=== PATIENT | male | born 1945 | race African-American/Black ===

== ENCOUNTER 2017-02-13 16:14 | Inpatient (IN) ==
[2017-02-13 17:08] LABS: Basophils % 0.3 %; Eosinophils # 0.1 K/mcL (0.0-0.6); Hematocrit 42.1 % (37.5-50.1); Hemoglobin 13.9 g/dL (12.9-16.9); Immature Granulocytes % 0.4 % (0-4); Lymphocytes # 0.8 K/mcL (0.6-4.6); Lymphocytes % 6.8 %; Mean Corpuscular Hemoglobin 29.4 pg (28.0-33.3); Mean Platelet Volume 9.8 fL (9.4-12.4); Monocytes # 0.6 K/mcL (0.0-1.3); Monocytes % 5.6 %; Neutrophils # 9.4 K/mcL (1.6-8.9); Platelet Count 264 K/mcL (140-400); Red Blood Count 4.73 M/mcL (4.19-5.50); Red Cell Distribution Width 13.7 % (11.5-14.5); Segmented Neutrophils % 85.9 %
[2017-02-13 17:14] LABS: INR 1.2; Prothrombin Time 12.6 Seconds (9.4-12.1)
[2017-02-13 17:16] LABS: Activated Partial Thrombo Time 38.6 Seconds (26.0-36.0)
[2017-02-13 17:20] LABS: BUN/Creatinine Ratio 11 (6-26); Blood Urea Nitrogen 9 mg/dL (8-26); Calcium 9.8 mg/dL (8.6-10.8); Carbon Dioxide 29 mEq/L (19-29); Chloride 104 mEq/L (98-109); Glucose 97 mg/dL (70-99); Osmolality,Calculated 287 (280-300); Potassium 4.7 mEq/L (3.5-4.5); Sodium 139 mEq/L (136-145); eGFR For African Americans > 60 (> 60); eGFR For Non-African Americans > 60 (> 60)
[2017-02-13] MEDS ORDERED: Furosemide 40 MG/4 ML VIAL IVP ONE (17:30)
--- NOTE | 2017-02-13 17:38 | Emergency Department Note ---
START Narrative - START START: I examined this patient and my medical decision-making was reviewed with the HOSTED SERVICES ANALYST/PA/Advanced Practice Nurse/Resident Physician. I agree with the documented findings, disposition and treatment plan as described except to the extent set forth below. Patient to the emergency department complaining of difficulty breathing swelling. Diffuse rails on exam. Plan. Patient transferred from [place]. There are concerns about they saw ST elevations on his EKG. Patient does appear to have occasional ST elevations when the atrial flutter waves are buried within the QRS complexes. Do not believe the patient is having a STEMI. His troponin is negative. His rate is controlled. He does have pulmonary edema on his chest x-ray. Given Lasix and will admit. Troponin 0. Pulmonary edema on chest x-ray. Admitted to medicine. 30 minutes of critical care exclusive of separately billable procedures.
--- NOTE | 2017-02-13 17:41 | Emergency Department Note ---
Disposition Clinical Impression: CHF (congestive heart failure) Qualifiers: Congestive heart failure type: unspecified congestive heart failure type Congestive heart failure chronicity: unspecified congestive heart failure chronicity Qualified Code(s): I50.9 - Heart failure, unspecified Disposition: Admitted As Inpatient Condition: Good General Adult HPI - General Chief complaint: ED Chest Pain Stated complaint: Chest pain Time Seen by Provider: 02/13/17 16:19 Source: patient, EMS Limitations: no limitations Nursing Notes Reviewed: Yes Vital Signs Reviewed: Yes - History of Present Illness HPI Narrative: Patient presents from the [place] urgent care where he had been seen for shortness of breath and a burning sensation in his chest. Patient states that he thinks the burning sensation is related to his tidal hernia and acid reflux. Shortness of breath has been progressively worse over the last week. Increasing swelling in his knee as well as increasing orthopnea. Cough has been persistent but nonproductive. No change in sputum. No fevers. No current dyspnea. States that he feels much improved with oxygen. Pain Scale: 2 - Related Data Home Medications Medication Instructions Recorded Confirmed Albuterol Inhaler 90 mcg IH QID PRN 02/13/17 02/13/17 Albuterol Sulfate [Albuterol 2 puff IH QID PRN 02/13/17 02/13/17 Inhaler] Aspirin Enteric Coated [Aspirin EC] 81 mg PO DAILY 02/13/17 02/13/17 Atorvastatin Calcium [Lipitor] 10 mg PO DAILY 02/13/17 02/13/17 Atorvastatin [Lipitor] 10 mg PO HS 02/13/17 02/13/17 Budesonide/Formoterol 160/4.5 2 puff IH BIDR 02/13/17 02/13/17 [Symbicort 160/4.5] Budesonide/Formoterol 160/4.5 2 puff IH Q12H 02/13/17 02/13/17 [Symbicort 160/4.5] Cetirizine HCl [All Day Allergy] 10 mg PO DAILY 02/13/17 02/13/17 Cetirizine HCl [Zyrtec] 10 mg PO DAILY 02/13/17 02/13/17 Cholecalciferol (D-3) [Vitamin D] 2,000 unit PO DAILY 02/13/17 02/13/17 Diltiazem 360 mg PO DAILY 02/13/17 02/13/17 Diltiazem CD (24hr) [Cardizem CD] 180 mg PO DAILY 02/13/17 02/13/17 Duloxetine HCl [Cymbalta] 60 mg PO DAILY 02/13/17 02/13/17 Duloxetine HCl [Cymbalta] 60 mg PO DAILY 02/13/17 02/13/17 Fluticasone Propionate Nasal 50 mcg NS BID 02/13/17 02/13/17 [Flonase] Fluticasone Propionate [Flovent 50 mcg IH BID 02/13/17 02/13/17 Diskus] HYDROcodone/Acet 5/325 mg 5 mg PO BID 02/13/17 02/13/17 HYDROcodone/Acet 5/325 mg [[place] 1 tab PO BID 02/13/17 02/13/17 5-325 mg] Insulin ASPART [NovoLOG] 5 unit SQ TIDWM 02/13/17 02/13/17 Insulin ASPART [Novolog] 5 unit SQ TID 02/13/17 02/13/17 Insulin Glargine [Lantus] 58 unit SQ 02/13/17 02/13/17 Insulin Glargine [Lantus] 58 units SQ HS 02/13/17 02/13/17 Lisinopril 2.5 mg PO DAILY 02/13/17 02/13/17 Lisinopril [Zestril] 2.5 mg PO DAILY 02/13/17 02/13/17 Melatonin [Melatin] 6 mg PO 02/13/17 02/13/17 Melatonin/Pyridoxine HCl (B6) 3 mg PO HS 02/13/17 02/13/17 [Melatonin 3 mg Tablet] Metformin HCl [Glucophage] 1,000 mg PO BID 02/13/17 02/13/17 Metoprolol [Lopressor] 100 mg PO BID 02/13/17 02/13/17 Montelukast Sodium [Singulair] 10 mg PO HS 02/13/17 02/13/17 Montelukast [Singulair] 10 mg PO HS 02/13/17 02/13/17 Omeprazole [PriLOSEC] 20 mg PO BID 02/13/17 02/13/17 Omeprazole [PriLOSEC] 40 mg PO DAILY 02/13/17 02/13/17 Polyvinyl Alcohol [Artificial 1 drop BOTH EYES AD PRN 02/13/17 02/13/17 Tears] Pregabalin [Lyrica] 200 mg PO BID 02/13/17 02/13/17 Pregabalin [Lyrica] 200 mg PO BID 02/13/17 02/13/17 Rivaroxaban [Xarelto] 20 mg PO DAILY 02/13/17 02/13/17 Rivaroxaban [Xarelto] 20 mg PO DAILY 02/13/17 02/13/17 Saliva Substitute Combo No.3 3 - 5 spray MM BID 02/13/17 02/13/17 [Aquoral] Sildenafil Citrate PRN 02/13/17 Sildenafil Citrate [Viagra] 50 mg PO AD PRN 02/13/17 02/13/17 Sodium Chloride 1 drop BOTH EYES QID 02/13/17 02/13/17 Sodium Chloride [Mina-128] 1 drop BOTH EYES QID 02/13/17 02/13/17 Tamsulosin HCl [Flomax] 0.4 mg PO DAILY 02/13/17 02/13/17 Tamsulosin [Flomax] 0.4 mg PO DAILY 02/13/17 02/13/17 Trazodone HCl 150 mg PO HS PRN 02/13/17 02/13/17 Trazodone HCl 150 mg PO HS PRN 02/13/17 02/13/17 metFORMIN [Glucophage] 1,000 mg PO BIDWM 02/13/17 02/13/17 Allergies Allergy/AdvReac Type Severity Reaction Status Date / Time codeine Allergy Anaphylaxis Verified 02/13/17 16:16 Review of Systems: CONSTITUTIONAL: No weight loss, fever, chills, weakness or fatigue. HEENT: Eyes: No visual changes. Ears, Nose, Throat: No hearing loss, difficulty talking or unable to swallow. SKIN: No rash or itching. CARDIOVASCULAR: No chest pain, chest pressure or chest discomfort. No palpitations or edema. RESPIRATORY: Shortness of breath; orthopnea GASTROINTESTINAL: No anorexia, nausea, vomiting or diarrhea. No abdominal pain or blood. GENITOURINARY: No burning on urination or hematuria. NEUROLOGICAL: No headache, dizziness, syncope, paralysis, ataxia, numbness or tingling in the extremities. No change in bowel or bladder control. MUSCULOSKELETAL: No muscle pain, back pain, joint pain or stiffness. Past Medical History - Past Medical History Medical history: Reports: arthritis, asthma, atrial fibrillation, cancer, diabetes, hypertension, other Surgical history: Reports: prostatectomy Psychiatric history: Reports: no psych history - Social History Smoking Status: Former smoker Smokeless Tobacco Status: No Alcohol use: Reports: none Drug use: Reports: none Physical Exam General appearance: NAD, conversant, obese Eyes: anicteric sclerae, moist conjunctivae; PERRL HENT: Atraumatic; oropharynx clear with moist mucous membranes and no mucosal ulcerations Neck: Normal inspection; Trachea midline; FROM, supple Lungs: Rales most significant at the bases CV: Irregular rhythm Abdomen: Soft, non-tender; no rebound or gaurding Extremities: +2 pitting edema to the calf Skin: Normal temperature; no rash, ulcers or lesions Psych: Appropriate mood and affect Neuro: alert and oriented to person, place and time - General Limitations: no limitations General appearance: alert, in no apparent distress Course - Reevaluation(s) Reevaluation #1: Patient with no previous history of CHF. X-ray with pulmonary vascular congestion in the setting of worsening shortness of breath orthopnea. +2 pitting edema of the lower extremities bilaterally. EKG atrial fibrillation- rate controlled-no acute ST elevations or depressions. . Troponin negative. - Consultations Consultation #1: Discussed with hospitalistSolomon. Patient accepted for admission. Vital Signs Temperature 99 F 02/13/17 16:16 Pulse Rate 107 02/13/17 16:16 Respiratory Rate 18 02/13/17 16:16 Blood Pressure 149/93 02/13/17 16:16 O2 Sat by Pulse Oximetry 95 02/13/17 16:16 Temperature 97.9 F 02/13/17 19:30 Pulse Rate 118 02/13/17 21:05 Respiratory Rate 20 02/13/17 19:30 Blood Pressure 156/97 02/13/17 19:30 O2 Sat by Pulse Oximetry 93 02/13/17 19:30 Oxygen Delivery Oxygen Delivery Nasal Cannula Medical Decision Making - Lab Data Result diagrams: 02/13/17 17:02 02/13/17 17:02 Lab Results 02/13/17 02/13/17 02/13/17 Range/Units 17:02 17:02 17:02 WBC 11.0 (4.3-11.1) K/mcL RBC 4.73 (4.19-5.50) M/mcL Hgb 13.9 (12.9-16.9) g/dL Hct 42.1 (37.5-50.1) % MCV 89.0 (83.0-100.0) fL MCH 29.4 (28.0-33.3) pg MCHC 33.0 (31.6-35.5) g/dL RDW 13.7 (11.5-14.5) % Plt Count 264 (140-400) K/mcL MPV 9.8 (9.4-12.4) fL Immature Gran % 0.4 (0-4) % Seg Neutrophils % 85.9 % Lymphocytes % 6.8 % Monocytes % 5.6 % Eosinophils % 1.0 % Basophils % 0.3 % Neutrophils # 9.4 H (1.6-8.9) K/mcL Lymphocytes # 0.8 (0.6-4.6) K/mcL Monocytes # 0.6 (0.0-1.3) K/mcL Eosinophils # 0.1 (0.0-0.6) K/mcL Basophils # 0.0 (0.0-0.2) K/mcL PT 12.6 H (9.4-12.1) Seconds INR 1.2 APTT 38.6 H (26.0-36.0) Seconds Sodium (136-145) mEq/L Potassium (3.5-4.5) mEq/L Chloride (98-109) mEq/L Carbon Dioxide (19-29) mEq/L BUN (8-26) mg/dL Creatinine (0.72-1.25) mg/dL Est GFR ( Amer) (> 60) Est GFR (Non-Af Amer) (> 60) BUN/Creatinine Ratio (6-26) Glucose (70-99) mg/dL Calculated Osmolality (280-300) Calcium (8.6-10.8) mg/dL Troponin I (0-0.03) ng/mL B-Natriuretic Peptide 104 H (0-100) pg/mL 02/13/17 02/13/17 Range/Units 17:02 17:02 WBC (4.3-11.1) K/mcL RBC (4.19-5.50) M/mcL Hgb (12.9-16.9) g/dL Hct (37.5-50.1) % MCV (83.0-100.0) fL MCH (28.0-33.3) pg MCHC (31.6-35.5) g/dL RDW (11.5-14.5) % Plt Count (140-400) K/mcL MPV (9.4-12.4) fL Immature Gran % (0-4) % Seg Neutrophils % % Lymphocytes % % Monocytes % % Eosinophils % % Basophils % % Neutrophils # (1.6-8.9) K/mcL Lymphocytes # (0.6-4.6) K/mcL Monocytes # (0.0-1.3) K/mcL Eosinophils # (0.0-0.6) K/mcL Basophils # (0.0-0.2) K/mcL PT (9.4-12.1) Seconds INR APTT (26.0-36.0) Seconds Sodium 139 (136-145) mEq/L Potassium 4.7 H (3.5-4.5) mEq/L Chloride 104 (98-109) mEq/L Carbon Dioxide 29 (19-29) mEq/L BUN 9 (8-26) mg/dL Creatinine 0.84 (0.72-1.25) mg/dL Est GFR ( Amer) > 60 (> 60) Est GFR (Non-Af Amer) > 60 (> 60) BUN/Creatinine Ratio 11 (6-26) Glucose 97 (70-99) mg/dL Calculated Osmolality 287 (280-300) Calcium 9.8 (8.6-10.8) mg/dL Troponin I 0.00 (0-0.03) ng/mL B-Natriuretic Peptide (0-100) pg/mL
[2017-02-13] MEDS ORDERED: Naloxone 0.4 MG/ML INJ IVP PRN (20:03)
--- NOTE | 2017-02-13 22:22 | Internal Med History&Physical ---
Date of Encounter: 02/13/17 Time of Encounter: 22:21 Assessment and Plan (1) CHF (congestive heart failure) Current visit: Yes Status: Acute Patient with increasing shortness of breath, and lower extremity swelling. BNP mildly elevated to 104. CXR with pulmonary congestion. Patient not on diuretic at home and denies any history of CHF. Lasix 40mg IVP BID continuous wrapper sheeter daily weights strict I/Os cardiac diet with 1.5L fluid restriction. echocardiogram. Qualifiers: Congestive heart failure type: unspecified congestive heart failure type Congestive heart failure chronicity: acute Qualified Code(s): I50.9 - Heart failure, unspecified (2) Atrial fibrillation with RVR Current visit: Yes Status: Acute Patient with history of afib, on metoprolol and cardizem for rate control and xarelto for anticoagulation. EKG shows Afib with RVR, HR 102. Patient has been running 110s-120s since arrival to the floor. 10mg of cardizem given IVP, without improvement. Digoxin 2.5mg IVP ordered. Continuous wrapper sheeter. consider cardizem drip if digoxin does not improve heart rate. (3) Type 2 diabetes mellitus Current visit: Yes Status: Acute diabetic diet. Check blood sugars ACHS Basal dose of insulin Levemir 40u HS Sliding scale correction dose ACHS hypoglycemic protocol. Qualifiers: Diabetes mellitus complication status: with unspecified complications Diabetes mellitus intermodal truck driver insulin use: with intermodal truck driver use Qualified Code(s) : E11.8 - Type 2 diabetes mellitus with unspecified complications; Z79.4 - snf (current) use of insulin (4) Sleep apnea Current visit: Yes Status: Acute Respiratory therapy consulted for CPAP. Qualifiers: Sleep apnea type: unspecified type Qualified Code(s): G47.30 - Sleep apnea , unspecified (5) DVT prophylaxis Current visit: Yes Status: Acute anti-embolic stockings Patient on xarelto, additional pharmacologic prophylaxis not warranted. Internal Medicine - H&P: HPI Chief complaint: shortness of breath Admitted From: Emergency Dept Plans for Post Hospital Care: Home History of present illness: Mr. Molina is a 71 year old male with asthma, atrial fibrillation, hypertension, diabetes, sleep apnea, who presents to the emergency department today from the [place] urgent care with complaints of increased shortness of breath or lower extremity swelling. Patient reports that this is been worsening over the last several days. He also reports a nonproductive cough. Evaluation in the emergency department included EKG which showed atrial fibrillation heart rate of 102, chest x-ray showed pulmonary vascular congestion. Troponin was negative at 0.00, BNP was mildly elevated at 104. Patient was given 40 mg of IV push Lasix. On exam, patient alert and oriented, in no acute distress, conversational, without dyspnea. Heart with irregular tachycardic rhythm. Lungs with fine crackles in the bases. Bilateral lower extremity +2 pitting edema. Past Med Surg Social Fam HX - Past Medical History Medical history: arthritis, asthma, atrial fibrillation, cancer, diabetes, hypertension, other Psychiatric history: no psych history - Past Surgical History Surgical History: orthopedic, other (multiple back surgeries), prostatectomy - Social History Smoking Status: Former smoker (38 pack year history) Smokeless Tobacco Status: No Alcohol use: none Drug use: none - Family History Mother Living Status: Age at : 88 Hx Family Cardiac Disorders: Yes (CHF) Father Living Status: Age at : 62 Hx Family Cardiac Disorders: Yes Internal Medicine - H&P: Meds Albuterol Inhaler 90 mcg IH QID PRN 02/13/17 [History] Albuterol Sulfate [Albuterol Inhaler] 2 puff IH QID PRN 02/13/17 [History] Aspirin Enteric Coated [Aspirin EC] 81 mg PO DAILY 02/13/17 [History] Atorvastatin Calcium [Lipitor] 10 mg PO DAILY 02/13/17 [History] Atorvastatin [Lipitor] 10 mg PO HS 02/13/17 [History] Budesonide/Formoterol 160/4.5 [Symbicort 160/4.5] 2 puff IH BIDR 02/13/17 [ History] Budesonide/Formoterol 160/4.5 [Symbicort 160/4.5] 2 puff IH Q12H 02/13/17 [ History] Cetirizine HCl [All Day Allergy] 10 mg PO DAILY 02/13/17 [History] Cetirizine HCl [Zyrtec] 10 mg PO DAILY 02/13/17 [History] Cholecalciferol (D-3) [Vitamin D] 2,000 unit PO DAILY 02/13/17 [History] Diltiazem 360 mg PO DAILY 02/13/17 [History] Diltiazem CD (24hr) [Cardizem CD] 180 mg PO DAILY 02/13/17 [History] Duloxetine HCl [Cymbalta] 60 mg PO DAILY 02/13/17 [History] Duloxetine HCl [Cymbalta] 60 mg PO DAILY 02/13/17 [History] Fluticasone Propionate Nasal [Flonase] 50 mcg NS BID 02/13/17 [History] Fluticasone Propionate [Flovent Diskus] 50 mcg IH BID 02/13/17 [History] HYDROcodone/Acet 5/325 mg 5 mg PO BID 02/13/17 [History] HYDROcodone/Acet 5/325 mg [[place] 5-325 mg] 1 tab PO BID 02/13/17 [History] Insulin ASPART [NovoLOG] 5 unit SQ TIDWM 02/13/17 [History] Insulin ASPART [Novolog] 5 unit SQ TID 02/13/17 [History] Insulin Glargine [Lantus] 58 unit SQ HS 02/13/17 [History] Insulin Glargine [Lantus] 58 units SQ HS 02/13/17 [History] Lisinopril 2.5 mg PO DAILY 02/13/17 [History] Lisinopril [Zestril] 2.5 mg PO DAILY 02/13/17 [History] Melatonin [Melatin] 6 mg PO HS 02/13/17 [History] Melatonin/Pyridoxine HCl (B6) [Melatonin 3 mg Tablet] 3 mg PO HS 02/13/17 [ History] Metformin HCl [Glucophage] 1,000 mg PO BID 02/13/17 [History] Metoprolol [Lopressor] 100 mg PO BID 02/13/17 [History] Montelukast Sodium [Singulair] 10 mg PO HS 02/13/17 [History] Montelukast [Singulair] 10 mg PO HS 02/13/17 [History] Omeprazole [PriLOSEC] 20 mg PO BID 02/13/17 [History] Omeprazole [PriLOSEC] 40 mg PO DAILY 02/13/17 [History] Polyvinyl Alcohol [Artificial Tears] 1 drop BOTH EYES AD PRN 02/13/17 [History] Pregabalin [Lyrica] 200 mg PO BID 02/13/17 [History] Pregabalin [Lyrica] 200 mg PO BID 02/13/17 [History] Rivaroxaban [Xarelto] 20 mg PO DAILY 02/13/17 [History] Rivaroxaban [Xarelto] 20 mg PO DAILY 02/13/17 [History] Saliva Substitute Combo No.3 [Aquoral] 3 - 5 spray MM BID 02/13/17 [History] Sildenafil Citrate PRN 02/13/17 [History] Sildenafil Citrate [Viagra] 50 mg PO AD PRN 02/13/17 [History] Sodium Chloride 1 drop BOTH EYES QID 02/13/17 [History] Sodium Chloride [Mina-128] 1 drop BOTH EYES QID 02/13/17 [History] Tamsulosin HCl [Flomax] 0.4 mg PO DAILY 02/13/17 [History] Tamsulosin [Flomax] 0.4 mg PO DAILY 02/13/17 [History] Trazodone HCl 150 mg PO HS PRN 02/13/17 [History] Trazodone HCl 150 mg PO HS PRN 02/13/17 [History] metFORMIN [Glucophage] 1,000 mg PO BIDWM 02/13/17 [History] Allergies codeine Allergy (Verified 02/13/17 16:16) Anaphylaxis All Systems PM: A 10-system review of systems was performed and is negative for pertinent findings except as documented above in the HPI. - Constitutional Constitutional: no chills, no fever(s), no night sweats - EENT Eyes: no change in vision, no discharge, no pain, no photophobia Ears: no ear discharge, no ear pain, no tinnitus Nose, mouth and throat: no dysphagia, no nasal discharge, no neck pain, no sore throat - Cardiovascular Cardiovascular ROS IM: dyspnea, dyspnea on exertion, edema, no chest pain, no diaphoresis, no lightheadedness, no palpitations, no syncope - Respiratory Respiratory: cough, dyspnea, dyspnea on exertion, no wheezing, no excessive phlegm production - Gastrointestinal Gastrointestinal: no abdominal pain, no diarrhea, no hematemesis, no hematochezia, no melena, no nausea, no vomiting - Musculoskeletal Musculoskeletal ROS IM: no numbness, no tingling - Integumentary Integumentary IM: no rash, no unusual bruising - Neurological Neurological ROS: no confusion, no convulsions, no focal weakness, no numbness, no tingling, no tremor(s) - Hematologic/Lymphatic Hematologic/Lymphatic: no easy bruising - Constitutional Vitals: Temp Pulse Resp BP Pulse Ox 97.9 F 118 20 156/97 93 02/13/17 19:30 02/13/17 21:05 02/13/17 19:30 02/13/17 19:30 02/13/17 19:30 General appearance: Present: A&O X 3, pleasant, no acute distress - Head Head exam: Present: atraumatic, normocephalic - Eye Eye exam: Present: PERRL, conjuntiva pink, sclera anicteric Pupils: Present: PERRL - Neck Neck exam general surgery: Present: supple, trachea midline. Absent: lymphadenopathy - Respiratory Respiratory exam: Present: rales (fine crackles in bases). Absent: accessory muscle use, rhonchi, wheezes - Cardiovascular Cardiovascular exam: Present: irregular rhythm, +S1, +S2, tachycardia. Absent: diastolic murmur, gallop, rubs, systolic murmur - GI/Abdominal GI/Abdominal exam: Present: normal bowel sounds, soft, no peritoneal signs. Absent: distended, tenderness - Extremities Exam Extremities exam: Present: pedal edema (BLE +2), warm, radial pulses palpable and symetrical. Absent: calf tenderness, cyanotic - Neurological Exam Neurological exam: Present: CN II-XII intact, oriented X3, no focal deficits. Absent: facial droop, speech deficit - Skin Skin exam: Present: dry, intact Internal Med - H&P Results - Labs CBC & Chem 7: 02/13/17 17:02 02/13/17 17:02 Labs: All Lab Results (24 Hours) 02/13/17 02/13/17 02/13/17 Range/Units 17:02 17:02 17:02 WBC 11.0 (4.3-11.1) K/mcL RBC 4.73 (4.19-5.50) M/mcL Hgb 13.9 (12.9-16.9) g/dL Hct 42.1 (37.5-50.1) % MCV 89.0 (83.0-100.0) fL MCH 29.4 (28.0-33.3) pg MCHC 33.0 (31.6-35.5) g/dL RDW 13.7 (11.5-14.5) % Plt Count 264 (140-400) K/mcL MPV 9.8 (9.4-12.4) fL Immature Gran % 0.4 (0-4) % Seg Neutrophils % 85.9 % Lymphocytes % 6.8 % Monocytes % 5.6 % Eosinophils % 1.0 % Basophils % 0.3 % Neutrophils # 9.4 H (1.6-8.9) K/mcL Lymphocytes # 0.8 (0.6-4.6) K/mcL Monocytes # 0.6 (0.0-1.3) K/mcL Eosinophils # 0.1 (0.0-0.6) K/mcL Basophils # 0.0 (0.0-0.2) K/mcL PT 12.6 H (9.4-12.1) Seconds INR 1.2 APTT 38.6 H (26.0-36.0) Seconds Sodium (136-145) mEq/L Potassium (3.5-4.5) mEq/L Chloride (98-109) mEq/L Carbon Dioxide (19-29) mEq/L BUN (8-26) mg/dL Creatinine (0.72-1.25) mg/dL Est GFR ( Amer) (> 60) Est GFR (Non-Af Amer) (> 60) BUN/Creatinine Ratio (6-26) Glucose (70-99) mg/dL POC Glucose (58-89) Calculated Osmolality (280-300) Calcium (8.6-10.8) mg/dL Troponin I (0-0.03) ng/mL B-Natriuretic Peptide 104 H (0-100) pg/mL 02/13/17 02/13/17 02/13/17 Range/Units 17:02 17:02 19:12 WBC (4.3-11.1) K/mcL RBC (4.19-5.50) M/mcL Hgb (12.9-16.9) g/dL Hct (37.5-50.1) % MCV (83.0-100.0) fL MCH (28.0-33.3) pg MCHC (31.6-35.5) g/dL RDW (11.5-14.5) % Plt Count (140-400) K/mcL MPV (9.4-12.4) fL Immature Gran % (0-4) % Seg Neutrophils % % Lymphocytes % % Monocytes % % Eosinophils % % Basophils % % Neutrophils # (1.6-8.9) K/mcL Lymphocytes # (0.6-4.6) K/mcL Monocytes # (0.0-1.3) K/mcL Eosinophils # (0.0-0.6) K/mcL Basophils # (0.0-0.2) K/mcL PT (9.4-12.1) Seconds INR APTT (26.0-36.0) Seconds Sodium 139 (136-145) mEq/L Potassium 4.7 H (3.5-4.5) mEq/L Chloride 104 (98-109) mEq/L Carbon Dioxide 29 (19-29) mEq/L BUN 9 (8-26) mg/dL Creatinine 0.84 (0.72-1.25) mg/dL Est GFR ( Amer) > 60 (> 60) Est GFR (Non-Af Amer) > 60 (> 60) BUN/Creatinine Ratio 11 (6-26) Glucose 97 (70-99) mg/dL POC Glucose 100 H (58-89) Calculated Osmolality 287 (280-300) Calcium 9.8 (8.6-10.8) mg/dL Troponin I 0.00 (0-0.03) ng/mL B-Natriuretic Peptide (0-100) pg/mL - Diagnostic Studies Chest x-ray Additional comments: Chest X-Ray 02/13/17 16:19 IMPRESSION: Findings suggest bilateral pulmonary edema. D/ / Alvaro Erickson MD / Alvaro Erickson MD Interpreting Provider: Alvaro Erickson MD
[2017-02-13] MEDS ORDERED: D5% in Water 1,000 ML IVC PRN (22:27)
[2017-02-13] MEDS ORDERED: Dextrose Gel 15 GM PO PRN ×2 (22:27)
[2017-02-13] MEDS ORDERED: *HR* Dextrose 50 % in Water (Syg) 50 ML SYRINGE IVP PRN (22:27)
[2017-02-13] MEDS ORDERED: *HR* Digoxin 0.5 MG/2 ML AMPUL IVP STA (22:31)
[2017-02-13] MEDS: Metoprolol 100 MG TABLET PO SCH (22:34)
[2017-02-13] MEDS: Insulin DETEMIR 100 UNIT/ML X5UNITS SQ SCH (23:37)
--- NOTE | 2017-02-14 01:30 | Event Note ---
Date of Encounter: 02/14/17 Time of Encounter: 01:27 Patient seen and examined with nurse practitioner. Acute congestive heart failure exacerbation and atrial fib/flutter with RVR. Patient is not on oxygen at home. We will start Lasix 40 mg IV twice daily. Echocardiogram will be checked. He is on Cardizem 360 mg as well as metoprolol hundred milligrams for rate control. We have given him Cardizem 10 mg IV as well as a dose of digoxin 0.25 mg IV. rate now in the 100s. He also is on xarelto for anticoagulation. Serial cardiac markers. Strict intake and output. This currently requiring 3 L of oxygen. Full code
[2017-02-14] MEDS: Budesonide/Formoterol 160/4.5 MDI IH SCH ×3 (03:01→19:39)
[2017-02-14] MEDS: Acetaminophen 325 MG TABLET PO PRN (04:16)
[2017-02-14 05:17] LABS: Basophils % 0.1 %; Hematocrit 44.3 % (37.5-50.1); Hemoglobin 14.8 g/dL (12.9-16.9); Immature Granulocytes % 0.9 % (0-4); Lymphocytes # 0.7 K/mcL (0.6-4.6); Lymphocytes % 6.2 %; Mean Corpuscular HGB Conc 33.4 g/dL (31.6-35.5); Mean Corpuscular Volume 86.9 fL (83.0-100.0); Mean Platelet Volume 10.2 fL (9.4-12.4); Monocytes # 0.2 K/mcL (0.0-1.3); Monocytes % 1.4 %; Neutrophils # 10.6 K/mcL (1.6-8.9); Platelet Count 271 K/mcL (140-400); Red Cell Distribution Width 13.6 % (11.5-14.5); Segmented Neutrophils % 91.4 %
[2017-02-14 05:41] LABS: BUN/Creatinine Ratio 14 (6-26); Blood Urea Nitrogen 12 mg/dL (8-26); Calcium 10.2 mg/dL (8.6-10.8); Carbon Dioxide 28 mEq/L (19-29); Chloride 100 mEq/L (98-109); Glucose 219 mg/dL (70-99); Osmolality,Calculated 292 (280-300); Potassium 4.2 mEq/L (3.5-4.5); Sodium 138 mEq/L (136-145); eGFR For African Americans > 60 (> 60); eGFR For Non-African Americans > 60 (> 60)
[2017-02-14 05:43] LABS: Chol/HDL Ratio 2.1 (0-4.9)
[2017-02-14] MEDS ORDERED: *HR* Enoxaparin 40 MG/0.4 ML SYRINGE SQ SCH (06:00)
[2017-02-14] MEDS: Diltiazem CD (24hr) 180 MG CAPSULE PO SCH (08:33)
[2017-02-14] MEDS: *HR* Rivaroxaban 10 MG TABLET PO SCH (08:33)
[2017-02-14] MEDS: Metoprolol 100 MG TABLET PO SCH ×2 (08:33→23:01)
[2017-02-14] MEDS: Aspirin Enteric Coated 81 MG Tablet PO SCH (08:33)
[2017-02-14] MEDS: Pregabalin 50 MG CAPSULE PO SCH ×2 (08:34→23:00)
[2017-02-14] MEDS: Insulin LISPRO 300 UNITS/3 ML VIAL SQ SCH ×4 (08:34→23:04)
[2017-02-14] MEDS: Loratadine 10 MG TABLET PO SCH (08:34)
[2017-02-14] MEDS: Furosemide 40 MG/4 ML VIAL IVP SCH ×2 (08:34→21:45)
[2017-02-14] MEDS ORDERED: *HR* Metoprolol 5 MG/5 ML VIAL IVP ONE (08:58)
--- NOTE | 2017-02-14 10:15 | Internal Med Progress Note ---
Date of Encounter: 02/14/17 Time of Encounter: 09:35 - Assessment and plan (1) Acute respiratory failure with hypoxia Current Visit: Yes Status: Acute Assessment and plan: Patient not on home oxygen, requiring at least 4 L of oxygen Oxygen supplements Hypoxia is likely due to CHF exacerbation. Patient is full code and is at risk for mechanical intubation. (2) CHF (congestive heart failure) Current Visit: Yes Status: Acute Assessment and plan: Chest x-ray with pulmonary vascular congestion, elevated BNP, patient was shortness of breath, Follow echocardiogram Continue Lasix Continue daily weights Continue strict intake and output measurements 1.5 L fluid restriction diet Qualifiers: Congestive heart failure type: unspecified congestive heart failure type Congestive heart failure chronicity: acute Qualified Code(s): I50.9 - Heart failure, unspecified (3) Atrial fibrillation with RVR Current Visit: Yes Status: Acute Assessment and plan: Increase metoprolol, give IV pushes for heart rates greater than 110. Continue anticoagulation expiratory. Follow echocardiogram Follow troponin cycles. (4) Type 2 diabetes mellitus Current Visit: Yes Status: Chronic Assessment and plan: FS acceptable Continue monitoring FS ACHS COntinue insulin regimen Qualifiers: Diabetes mellitus complication status: with unspecified complications Diabetes mellitus keno terminal operator insulin use: with keno terminal operator use Qualified Code(s) : E11.8 - Type 2 diabetes mellitus with unspecified complications; Z79.4 - [facility] (current) use of insulin (5) Sleep apnea Current Visit: Yes Status: Chronic Assessment and plan: ensure CPAP at night. Qualifiers: Sleep apnea type: unspecified type Qualified Code(s): G47.30 - Sleep apnea , unspecified (6) DVT prophylaxis Current Visit: Yes Status: Acute Assessment and plan: On Xarelto for anticoagulation SCDs (7) Morbid obesity with BMI of 40.0-44.9, adult Current Visit: Yes Status: Acute - Subjective Interval history: Seen and evaluated at bedside 71 M with PMH of CHF (unknown if reduced or preserved EF), Aflutter on anticoagulation, Obesity, DM, FARAZ Patient is admitted and being managed for Acute hypoxic respiratory failure, CHFE, Aflutter with RVR Patient denies having seen a lock tender since his diagnosis At time of review, his HR ranged from 120-130 while sitting up in bed He denies chest pain or dizziness, but has dyspnea he has received IV cardizem push by ER, and one dose of Digoxin, as well as an additional dose of lopressor IV and PO His BP is acceptable Lab and Imaging reviewed, ECHO is pending Comments for transfer to or [address] [place] [address] Cardiology has been consulted. - Constitutional Vitals: Temp Pulse Resp BP Pulse Ox 97.5 F L 72 17 145/93 95 02/14/17 07:11 02/14/17 07:11 02/14/17 07:11 02/14/17 07:11 02/14/17 09:16 General appearance: Present: A&O X 3, morbidly obese, pleasant, no acute distress - Head Head exam: Present: atraumatic, normocephalic - Eye Eye exam: Present: PERRL, conjuntiva pink, sclera anicteric Pupils: Present: PERRL - ENT ENT exam: Present: mucous membranes moist - Neck Neck exam general surgery: Present: normal inspection - Respiratory Additional comments: Few bibasilar rales, no wheezing - Cardiovascular Cardiovascular exam: Present: irregular rhythm, +S1, +S2, systolic murmur, tachycardia. Absent: diastolic murmur, gallop, rubs - GI/Abdominal GI/Abdominal exam: Present: normal bowel sounds, soft, no peritoneal signs. Absent: distended, tenderness - Extremities Exam Extremities exam: Present: pedal edema (trace ankle edema bilaterally), warm, radial pulses palpable and symetrical. Absent: calf tenderness, cyanotic - Neurological Exam Neurological exam: Present: alert, CN II-XII intact, oriented X3, no focal deficits. Absent: pronater drift, facial droop, speech deficit - Skin Skin exam: Present: dry Internal Medicine: Result - Labs CBC & Chem 7: 02/14/17 05:03 02/14/17 05:03 Labs: Short CBC 02/14/17 Range/Units 05:03 WBC 11.5 H (4.3-11.1) K/mcL Hgb 14.8 (12.9-16.9) g/dL Hct 44.3 (37.5-50.1) % Plt Count 271 (140-400) K/mcL Neutrophils # 10.6 H (1.6-8.9) K/mcL BMP 02/14/17 05:03 Sodium 138 Potassium 4.2 Chloride 100 Carbon Dioxide 28 BUN 12 Creatinine 0.86 Glucose 219 H Calcium 10.2 Cardiac Enzymes 02/14/17 Range/Units 05:03 Troponin I 0.01 (0-0.03) ng/mL - ABG Interpretation ABG results: PT/INR, D-dimer PT 12.6 Seconds (9.4-12.1) H 02/13/17 17:02 Consult Discharge Plan - Plan [facility]: [facility] [Primary Care Provider] -
[2017-02-14] MEDS ORDERED: Perflutren Lipid Microsphere 1.3 ML in 0.9 % Sodium Chloride 8.7 ML IVP ONE (13:23)
[2017-02-14] MEDS ORDERED: Perflutren Lipid Microsphere 2 ML VIAL ONE (13:25)
--- NOTE | 2017-02-14 14:46 | Electrocardiograph Report ---
[address] [address] Test Date: 2017-02-13 Pat Name: Stephan Molina Department: 105 Room: 2NE34 Gender: M Parking Enforcement Specialist: CARMENCITA : 1945 Requested By: Arnoldo Burton Order Number: [id number] Reading MD: Brijesh Rios MD Measurements Intervals [place] Rate: 102 P: [place]: 0 QRS: 7 QRSD: 84 T: 31 QT: 316 QTc: 375 Interpretive Statements ATRIAL FLUTTER/TACHYCARDIA WITH RAPID VENTRICULAR RESPONSE Electronically Signed On 02-14-2017 14:44:36 EDT by Brijesh Rios MD
--- NOTE | 2017-02-14 15:08 | Electrocardiograph Report ---
[place] [address] Test Date: 2017-02-14 Pat Name: Stephan Molina Department: 113 Room: 2NE34 Gender: M Biotechnologist: : 1945 Requested By: Gayle Rodriguez Order Number: [id number] Reading MD: Brijesh Rios MD Measurements Intervals [place] Rate: 112 P: [place]: 0 QRS: 29 QRSD: 97 T: 69 QT: 297 QTc: 363 Interpretive Statements ATRIAL FLUTTER/TACHYCARDIA WITH RAPID VENTRICULAR RESPONSE Electronically Signed On 02-14-2017 15:07:05 EDT by Brijesh Rios MD
[2017-02-14 21:54] LABS: ABG Base Excess 9.4 mEq/L (-2.0 to 3.0); ABG HCO3 35.8 mEQ/L (21-27); ABG Oxygen Saturation 94 % (95-98); ABG PCO2 54 mmHg (35-45); ABG PH 7.43 pH Units (7.32-7.45); ABG PO2 69 mmHg (85-104); ABG TCO2 37.5 mEq/L (20-26); Blood Gas FiO2 32 %
[2017-02-14] MEDS: Melatonin 3 MG TABLET PO SCH (23:07)
[2017-02-15] MEDS: Insulin DETEMIR 100 UNIT/ML X5UNITS SQ SCH ×2 (00:24→22:15)
[2017-02-15 08:14] LABS: Basophils % 0.2 %; Eosinophils % 0.1 %; Hematocrit 42.6 % (37.5-50.1); Hemoglobin 14.5 g/dL (12.9-16.9); Immature Granulocytes % 0.5 % (0-4); Lymphocytes # 1.4 K/mcL (0.6-4.6); Lymphocytes % 9.3 %; Mean Corpuscular Hemoglobin 29.9 pg (28.0-33.3); Mean Corpuscular Volume 87.8 fL (83.0-100.0); Mean Platelet Volume 10.9 fL (9.4-12.4); Monocytes # 1.4 K/mcL (0.0-1.3); Monocytes % 9.6 %; Neutrophils # 11.7 K/mcL (1.6-8.9); Platelet Count 303 K/mcL (140-400); Red Blood Count 4.85 M/mcL (4.19-5.50); Red Cell Distribution Width 14.1 % (11.5-14.5); Segmented Neutrophils % 80.3 %
[2017-02-15 08:15] LABS: BUN/Creatinine Ratio 18 (6-26); Blood Urea Nitrogen 19 mg/dL (8-26); Calcium 9.9 mg/dL (8.6-10.8); Carbon Dioxide 32 mEq/L (19-29); Chloride 99 mEq/L (98-109); Glucose 171 mg/dL (70-99); Osmolality,Calculated 294 (280-300); Sodium 139 mEq/L (136-145); eGFR For African Americans > 60 (> 60); eGFR For Non-African Americans > 60 (> 60)
[2017-02-15] MEDS: Metoprolol 100 MG TABLET PO SCH ×2 (10:43→22:15)
[2017-02-15] MEDS: *HR* Rivaroxaban 10 MG TABLET PO SCH (10:43)
[2017-02-15] MEDS: Diltiazem CD (24hr) 180 MG CAPSULE PO SCH (10:44)
[2017-02-15] MEDS: Loratadine 10 MG TABLET PO SCH (10:45)
[2017-02-15] MEDS: Pregabalin 50 MG CAPSULE PO SCH ×2 (10:54→22:14)
[2017-02-15] MEDS: Aspirin Enteric Coated 81 MG Tablet PO SCH (10:54)
[2017-02-15] MEDS: Furosemide 40 MG/4 ML VIAL IVP SCH (10:55)
[2017-02-15] MEDS: Insulin LISPRO 300 UNITS/3 ML VIAL SQ SCH ×5 (11:19→22:13)
[2017-02-15] MEDS: Budesonide/Formoterol 160/4.5 MDI IH SCH ×2 (11:26→20:09)
--- NOTE | 2017-02-15 12:30 | Internal Med Progress Note ---
Date of Encounter: 02/15/17 Time of Encounter: 12:30 - Assessment and plan (1) Acute respiratory failure with hypoxia Current Visit: Yes Status: Acute Assessment and plan: Patient not on home oxygen, requiring at least 4 L of oxygen Oxygen supplements Hypoxia is likely due to CHF exacerbation. Patient is full code and is at risk for mechanical intubation. (2) CHF (congestive heart failure) Current Visit: Yes Status: Acute Assessment and plan: Chest x-ray with pulmonary vascular congestion, elevated BNP, patient was shortness of breath, Follow echocardiogram Continue Lasix Continue daily weights Continue strict intake and output measurements I/O -5L, weight loss by 6kg 1.5 L fluid restriction diet Qualifiers: Congestive heart failure type: unspecified congestive heart failure type Congestive heart failure chronicity: acute Qualified Code(s): I50.9 - Heart failure, unspecified (3) Atrial fibrillation with RVR Current Visit: Yes Status: Acute Assessment and plan: Uncontrolled HR on maximum doses of metoprolol and cardizem Awaiting cardiology review Continue Xarelto Follow echocardiogram Troponin negative X3 (4) Type 2 diabetes mellitus Current Visit: Yes Status: Chronic Assessment and plan: FS uncontrolled Continue monitoring FS ACHS Add prandial insulin to basal and supplemental scale Qualifiers: Diabetes mellitus complication status: with unspecified complications Diabetes mellitus chcf insulin use: with laborer marine terminal use Qualified Code(s) : E11.8 - Type 2 diabetes mellitus with unspecified complications; Z79.4 - nursing home (current) use of insulin (5) Sleep apnea Current Visit: Yes Status: Chronic Assessment and plan: ensure CPAP at night. Qualifiers: Sleep apnea type: unspecified type Qualified Code(s): G47.30 - Sleep apnea , unspecified (6) DVT prophylaxis Current Visit: Yes Status: Acute Assessment and plan: On Xarelto for anticoagulation SCDs (7) Morbid obesity with BMI of 40.0-44.9, adult Current Visit: Yes Status: Chronic - Subjective Interval history: Seen and evaluated at bedside 71 M with PMH of CHF (unknown if reduced or preserved EF), Aflutter on anticoagulation, Obesity, DM, FARAZ Patient is admitted and being managed for Acute hypoxic respiratory failure, CHFE, Aflutter with RVR Patient denies having seen a bobcat operator since his diagnosis His HR continues to range from 110-120 at rest His ECHO has been done, pending report He had an episode of confusion last night, patient denies any recollection of this, head CT was negative Patient lives alone, son was at bedside at time of review and they deny history of dementia I/_ -5L Weight has decreased by 6kg Kidney function remains stable He has no new complains - Constitutional Vitals: Temp Pulse Resp BP Pulse Ox 97.5 F L 112 16 118/90 95 02/15/17 12:00 02/15/17 12:00 02/15/17 12:00 02/15/17 12:00 02/15/17 12:00 General appearance: Present: A&O X 3, morbidly obese, pleasant, no acute distress - Head Head exam: Present: atraumatic, normocephalic - Eye Eye exam: Present: PERRL, conjuntiva pink, sclera anicteric Pupils: Present: PERRL - Neck Neck exam general surgery: Present: supple, trachea midline. Absent: lymphadenopathy - Respiratory Respiratory exam: Present: CTAB. Absent: accessory muscle use, rales, rhonchi, wheezes - Cardiovascular Cardiovascular exam: Present: irregular rhythm, +S1, +S2, tachycardia. Absent: diastolic murmur, gallop, rubs, systolic murmur - GI/Abdominal GI/Abdominal exam: Present: normal bowel sounds, soft, no peritoneal signs. Absent: distended, tenderness - Extremities Exam Extremities exam: Present: pedal edema, warm, radial pulses palpable and symetrical. Absent: calf tenderness, cyanotic - Neurological Exam Neurological exam: Present: alert, CN II-XII intact, oriented X3, no focal deficits. Absent: pronater drift, facial droop, speech deficit - Skin Skin exam: Present: dry, intact Internal Medicine: Result - Labs CBC & Chem 7: 02/15/17 06:13 02/15/17 06:13 Labs: Short CBC 02/15/17 Range/Units 06:13 WBC 14.5 H (4.3-11.1) K/mcL Hgb 14.5 (12.9-16.9) g/dL Hct 42.6 (37.5-50.1) % Plt Count 303 (140-400) K/mcL Neutrophils # 11.7 H (1.6-8.9) K/mcL BMP 02/15/17 06:13 Sodium 139 Potassium 4.0 Chloride 99 Carbon Dioxide 32 H BUN 19 Creatinine 1.07 Glucose 171 H Calcium 9.9 - ABG Interpretation ABG results: ABG ABG pH 7.43 pH Units (7.32-7.45) 02/14/17 21:43 ABG pCO2 54 mmHg (35-45) H 02/14/17 21:43 ABG pO2 69 mmHg (85-104) L 02/14/17 21:43 ABG O2 Saturation 94 % (95-98) L 02/14/17 21:43 PT/INR, D-dimer PT 12.6 Seconds (9.4-12.1) H 02/13/17 17:02 - Impressions Impressions Head CT 02/14/17 21:44 IMPRESSION: No acute intracranial abnormality. If acute cerebral infarct remains a clinical concern, an MRI is a more sensitive study. D/ / Shahana Zafar Cha, MD / Shahana Zafar Cha, MD Interpreting Provider: Shahana Zafar Cha, MD - VTE Documentation of Mechanical Device: Graduated compression elastic hosiery Consult Discharge Plan - Plan [facility]errals: [facility] [Primary Care Provider] -
[2017-02-15] MEDS: Sennosides/Docusate Sodium TABLET PO SCH ×2 (12:45→22:15)
[2017-02-15] MEDS ORDERED: *HR* Metoprolol 5 MG/5 ML VIAL IVP ONE (13:06)
--- NOTE | 2017-02-15 13:51 | Cardiology Consult Note ---
Date of Encounter: 02/15/17 Time of Encounter: 13:00 Assessment and Plan (1) CHF (congestive heart failure) Current Visit: Yes Status: Acute Presented with fluid overload. CXR showed mild bilateral pulmonary edema. BNP 104. May have some diastolic dysfunction. TTE: EF 65%, indeterminate diastolic function, no significant valvular disease. Symptoms improved with IV lasix and appears to be near baseline on exam. He is now a net negative 5080 ml. May need maintenance oral lasix. Low sodium diet. Strict I&O. Qualifiers: Congestive heart failure type: unspecified congestive heart failure type Congestive heart failure chronicity: acute Qualified Code(s): I50.9 - Heart failure, unspecified (2) Atrial flutter with rapid ventricular response Current Visit: Yes Status: Acute Aflutter with RVR. Currently afib on telemetry with HR 100-120. Avg HR over 24 hours was 112 bpm. Currently on high doses of cardizem and metoprolol. Received IV cardizem bolus, iv digoxin, and IV lopressor. Metoprolol tarttrate increased to 150 mg BID today Rate control verses rhythm control discussed. Discussed with Dr. Tian , continue rate controll. Ok to allow for HR 100-110. Recommend out-patient f/u with Dr. Tian to discuss aflutter abaltion. [facility] will coordinate. TSH pending. Please call with questions. (3) Morbid obesity with BMI of 40.0-44.9, adult Current Visit: Yes Status: Chronic Discussion w patient/family: The assessment and plan as outlined above was discussed with the patient and/or family members who expressed understanding and agreement. All questions were answered. Thank you for involving us in the care of your patient. Please call with any questions. History of Present Illness Consult date: 02/15/17 Requesting physician: Lyle Joyner Consult reason: CHF, aflutter with RVR Chief complaint: SOB, weight gain, peripheral edema History of present illness: Mr. Molina is a 71 year old male who presented from the [facility] with the c/o weight gain, SOB, and peripheral edema increasing over the last week. He states he was ssen at the [facility] urgent care 5 times this year for SOB. He was initially treated for pneumonia and then bronchitis. He thought he was gaining weight due to being started on steroid therapy. He denies chest pain. He was found to be in atrial fibrillation with RVR. Past medical history significant for atrial fibrillation on xarelto, HTN, HLD, DM type II, and FARAZ on c-pap. He was diagnosed with atrial fibrillation two years ago at [facility]. He underwent a stress test and was cardioverted to NSR at that time. Denies history of CHF or CAD. Past Med Surg Social Fam HX - Past Medical History Medical history: arthritis, asthma, atrial fibrillation, cancer, diabetes, hypertension, other Psychiatric history: no psych history - Past Surgical History Surgical History: orthopedic, other, prostatectomy - Social History Smoking Status: Former smoker Smokeless Tobacco Status: No Alcohol use: none Drug use: none - Family History Mother Living Status: Age at : 88 Hx Family Cardiac Disorders: Yes (CHF) Father Living Status: Age at : 62 Hx Family Cardiac Disorders: Yes Medications and Allergies Albuterol Inhaler 90 mcg IH QID PRN 02/13/17 [History] Albuterol Sulfate [Albuterol Inhaler] 2 puff IH QID PRN 02/13/17 [History] Aspirin Enteric Coated [Aspirin EC] 81 mg PO DAILY 02/13/17 [History] Atorvastatin Calcium [Lipitor] 10 mg PO DAILY 02/13/17 [History] Atorvastatin [Lipitor] 10 mg PO HS 02/13/17 [History] Budesonide/Formoterol 160/4.5 [Symbicort 160/4.5] 2 puff IH BIDR 02/13/17 [ History] Budesonide/Formoterol 160/4.5 [Symbicort 160/4.5] 2 puff IH Q12H 02/13/17 [ History] Cetirizine HCl [All Day Allergy] 10 mg PO DAILY 02/13/17 [History] Cetirizine HCl [Zyrtec] 10 mg PO DAILY 02/13/17 [History] Cholecalciferol (D-3) [Vitamin D] 2,000 unit PO DAILY 02/13/17 [History] Diltiazem 360 mg PO DAILY 02/13/17 [History] Diltiazem CD (24hr) [Cardizem CD] 180 mg PO DAILY 02/13/17 [History] Duloxetine HCl [Cymbalta] 60 mg PO DAILY 02/13/17 [History] Duloxetine HCl [Cymbalta] 60 mg PO DAILY 02/13/17 [History] Fluticasone Propionate Nasal [Flonase] 50 mcg NS BID 02/13/17 [History] Fluticasone Propionate [Flovent Diskus] 50 mcg IH BID 02/13/17 [History] HYDROcodone/Acet 5/325 mg 5 mg PO BID 02/13/17 [History] HYDROcodone/Acet 5/325 mg [[place] 5-325 mg] 1 tab PO BID 02/13/17 [History] Insulin ASPART [NovoLOG] 5 unit SQ TIDWM 02/13/17 [History] Insulin ASPART [Novolog] 5 unit SQ TID 02/13/17 [History] Insulin Glargine [Lantus] 58 unit SQ HS 02/13/17 [History] Insulin Glargine [Lantus] 58 units SQ HS 02/13/17 [History] Lisinopril 2.5 mg PO DAILY 02/13/17 [History] Lisinopril [Zestril] 2.5 mg PO DAILY 02/13/17 [History] Melatonin [Melatin] 6 mg PO HS 02/13/17 [History] Melatonin/Pyridoxine HCl (B6) [Melatonin 3 mg Tablet] 3 mg PO HS 02/13/17 [ History] Metformin HCl [Glucophage] 1,000 mg PO BID 02/13/17 [History] Metoprolol [Lopressor] 100 mg PO BID 02/13/17 [History] Montelukast Sodium [Singulair] 10 mg PO HS 02/13/17 [History] Montelukast [Singulair] 10 mg PO HS 02/13/17 [History] Omeprazole [PriLOSEC] 20 mg PO BID 02/13/17 [History] Omeprazole [PriLOSEC] 40 mg PO DAILY 02/13/17 [History] Polyvinyl Alcohol [Artificial Tears] 1 drop BOTH EYES AD PRN 02/13/17 [History] Pregabalin [Lyrica] 200 mg PO BID 02/13/17 [History] Pregabalin [Lyrica] 200 mg PO BID 02/13/17 [History] Rivaroxaban [Xarelto] 20 mg PO DAILY 02/13/17 [History] Rivaroxaban [Xarelto] 20 mg PO DAILY 02/13/17 [History] Saliva Substitute Combo No.3 [Aquoral] 3 - 5 spray MM BID 02/13/17 [History] Sildenafil Citrate PRN 02/13/17 [History] Sildenafil Citrate [Viagra] 50 mg PO AD PRN 02/13/17 [History] Sodium Chloride 1 drop BOTH EYES QID 02/13/17 [History] Sodium Chloride [Mina-128] 1 drop BOTH EYES QID 02/13/17 [History] Tamsulosin HCl [Flomax] 0.4 mg PO DAILY 02/13/17 [History] Tamsulosin [Flomax] 0.4 mg PO DAILY 02/13/17 [History] Trazodone HCl 150 mg PO HS PRN 02/13/17 [History] Trazodone HCl 150 mg PO HS PRN 02/13/17 [History] metFORMIN [Glucophage] 1,000 mg PO BIDWM 02/13/17 [History] Allergies codeine Allergy (Verified 02/13/17 16:16) Anaphylaxis All Systems Review: A 10-system review of systems was performed and is negative for pertinent findings except as documented above in the HPI. Physical Examination Vital Signs, Last 4 Hours Temp Pulse Resp BP Pulse Ox 02/15/17 12:00 97.5 F L 112 16 118/90 95 General: Conversant, No Apparent Distress, Other (morbidly obese male) HEENT: Atraumatic, Normocephaly, Mucus Membranes Moist Neck: No JVD, Normal carotid pulses Cardiac: Other (irregularly irregular) Lungs: Normal Breath Sounds, No Wheeze, Rales, Rhonchi, Other (diminished bases) Neuro: Alert and responsive, No focal deficits noted Abdomen: Soft, Non-Tender Skin: No rashes noted on visualized skin Musculoskeletal: No Chest Wall Tenderness Extremities: No Clubbing, No Cyanosis, No Edema, Normal Pulses Results 02/15/17 06:13 02/15/17 06:13 Lab Results 02/15/17 02/15/17 06:13 06:13 WBC 14.5 H Hgb 14.5 Hct 42.6 Plt Count 303 Sodium 139 Potassium 4.0 Chloride 99 Carbon Dioxide 32 H BUN 19 Creatinine 1.07 Glucose 171 H Calcium 9.9 Chest X-Ray 02/13/17 16:19 IMPRESSION: Findings suggest bilateral pulmonary edema. D/ / Alvaro Erickson MD / Alvaro Erickson MD Interpreting Provider: Alvaro Erickson MD Head CT 02/14/17 21:44 IMPRESSION: No acute intracranial abnormality. If acute cerebral infarct remains a clinical concern, an MRI is a more sensitive study. D/ / Shhaana Zafar Cha, MD / Shahana Zafar Cha, MD Interpreting Provider: Shahana Zafar Cha, MD - Imaging and Cardiology Echo: pending - EKG Interpretation EKG results cardiology: personally reviewed (atrial flutter with RVR, HR 102) Consult Discharge Plan - Plan [facility]errals: [facility] [Primary Care Provider] -
[2017-02-15] MEDS ORDERED: Furosemide 40 MG/4 ML VIAL IVP SCH (17:00)
[2017-02-15] MEDS: Melatonin 3 MG TABLET PO SCH (22:15)
[2017-02-16 05:50] LABS: Basophils # 0.1 K/mcL (0.0-0.2); Basophils % 0.5 %; Eosinophils # 0.2 K/mcL (0.0-0.6); Eosinophils % 1.2 %; Hematocrit 45.1 % (37.5-50.1); Hemoglobin 14.9 g/dL (12.9-16.9); Immature Granulocytes % 0.5 % (0-4); Lymphocytes % 15.4 %; Mean Corpuscular Hemoglobin 29.6 pg (28.0-33.3); Mean Corpuscular Volume 89.5 fL (83.0-100.0); Mean Platelet Volume 10.1 fL (9.4-12.4); Monocytes # 1.5 K/mcL (0.0-1.3); Monocytes % 11.4 %; Neutrophils # 9.2 K/mcL (1.6-8.9); Platelet Count 310 K/mcL (140-400); Red Blood Count 5.04 M/mcL (4.19-5.50); Red Cell Distribution Width 13.8 % (11.5-14.5)
[2017-02-16 06:05] LABS: BUN/Creatinine Ratio 20 (6-26); Blood Urea Nitrogen 27 mg/dL (8-26); Calcium 9.6 mg/dL (8.6-10.8); Carbon Dioxide 29 mEq/L (19-29); Chloride 100 mEq/L (98-109); Glucose 155 mg/dL (70-99); Osmolality,Calculated 298 (280-300); Potassium 3.9 mEq/L (3.5-4.5); Sodium 140 mEq/L (136-145); eGFR For African Americans > 60 (> 60); eGFR For Non-African Americans 53 (> 60)
[2017-02-16] MEDS: Aspirin Enteric Coated 81 MG Tablet PO SCH (08:47)
[2017-02-16] MEDS: *HR* Rivaroxaban 10 MG TABLET PO SCH (08:48)
[2017-02-16] MEDS: Loratadine 10 MG TABLET PO SCH (08:48)
[2017-02-16] MEDS: Metoprolol 100 MG TABLET PO SCH ×2 (08:48→23:24)
[2017-02-16] MEDS: Pregabalin 50 MG CAPSULE PO SCH ×2 (08:48→23:23)
[2017-02-16] MEDS: Diltiazem CD (24hr) 180 MG CAPSULE PO SCH (08:48)
[2017-02-16] MEDS: Budesonide/Formoterol 160/4.5 MDI IH SCH ×2 (08:49→19:36)
[2017-02-16] MEDS: Sennosides/Docusate Sodium TABLET PO SCH ×2 (08:55→23:22)
[2017-02-16] MEDS: Insulin LISPRO 300 UNITS/3 ML VIAL SQ SCH ×7 (08:57→23:30)
[2017-02-16] MEDS ORDERED: Furosemide 40 MG TABLET PO SCH (09:00)
[2017-02-16] MEDS: Acetaminophen 325 MG TABLET PO PRN ×2 (09:03→16:36)
[2017-02-16] MEDS ORDERED: traZODone 50 MG TABLET PO PRN (10:59)
--- NOTE | 2017-02-16 10:59 | Internal Med Progress Note ---
Date of Encounter: 02/16/17 Time of Encounter: 10:58 - Assessment and plan (1) Acute respiratory failure with hypoxia Current Visit: Yes Status: Acute Assessment and plan: Patient not on home oxygen, requiring at least 4 L of oxygen Oxygen supplements Hypoxia is likely due to CHF exacerbation. Patient needs O2 qualification prior to discharge (2) CHF (congestive heart failure) Current Visit: Yes Status: Acute Assessment and plan: Chest x-ray with pulmonary vascular congestion, elevated BNP, patient was shortness of breath, ECHO showed normal LVsystolic function, indetreminate diastolic function due to atrial flutter, mild ppul HTN Continue Lasix, transition to po Continue daily weights Continue strict intake and output measurements I/O -5L, weight loss by 9kg 1.5 L fluid restriction diet cardiology eval noted Qualifiers: Congestive heart failure type: diastolic Congestive heart failure chronicity: acute on chronic Qualified Code(s): I50.33 - Acute on chronic diastolic (congestive) heart failure (3) Atrial fibrillation with RVR Current Visit: Yes Status: Acute Assessment and plan: Continue Cardizem and metoprolol Continue Xarelto Troponin negative X3 Per cardiology, may consider ablation after evaluation as out-patient Goal HR <110 (4) Type 2 diabetes mellitus Current Visit: Yes Status: Chronic Assessment and plan: FS uncontrolled Continue monitoring FS ACHS Continue prandial insulin to basal and supplemental scale Qualifiers: Diabetes mellitus complication status: with unspecified complications Diabetes mellitus manager long term care insulin use: with detention use Qualified Code(s) : E11.8 - Type 2 diabetes mellitus with unspecified complications; Z79.4 - [facility] (current) use of insulin (5) Sleep apnea Current Visit: Yes Status: Chronic Assessment and plan: ensure CPAP at night. Qualifiers: Sleep apnea type: unspecified type Qualified Code(s): G47.30 - Sleep apnea , unspecified (6) DVT prophylaxis Current Visit: Yes Status: Acute Assessment and plan: On Xarelto for anticoagulation SCDs (7) Morbid obesity with BMI of 40.0-44.9, adult Current Visit: Yes Status: Chronic - Subjective Interval history: Seen and evaluated at bedside 71 M with PMH of CHF (unknown if reduced or preserved EF), Aflutter on anticoagulation, Obesity, DM, FARAZ Patient is admitted and being managed for Acute hypoxic respiratory failure, CHFE, Aflutter with RVR Seen at bedside this morning, in good spirits, complained of back pain, will resume his home pain medications HR is improving, he is negative fluid balance Cr today slightly elevated, will transition to po lasix 40mg po only ECHO note, cardiology eval noted he has new leukocytosis, no chest or urinary or abdominal symptoms, possibly from diuresis, afebrile, will obtain UA - Constitutional Vitals: Temp Pulse Resp BP Pulse Ox 98.1 F 100 18 106/80 94 02/16/17 06:44 02/16/17 06:44 02/16/17 08:50 02/16/17 06:44 02/16/17 08:50 General appearance: Present: A&O X 3, morbidly obese, pleasant, no acute distress - Head Head exam: Present: atraumatic, normocephalic - Eye Eye exam: Present: PERRL, conjuntiva pink, sclera anicteric Pupils: Present: PERRL - Neck Neck exam general surgery: Present: supple, trachea midline. Absent: lymphadenopathy - Respiratory Respiratory exam: Present: CTAB. Absent: accessory muscle use, rales, rhonchi, wheezes - Cardiovascular Cardiovascular exam: Present: RRR, +S1, +S2. Absent: diastolic murmur, gallop, rubs, systolic murmur - GI/Abdominal GI/Abdominal exam: Present: normal bowel sounds, soft, no peritoneal signs. Absent: distended, tenderness - Extremities Exam Extremities exam: Present: warm, radial pulses palpable and symetrical. Absent : calf tenderness, cyanotic, pedal edema - Neurological Exam Neurological exam: Present: alert, CN II-XII intact, oriented X3, no focal deficits. Absent: pronater drift, facial droop, speech deficit - Skin Skin exam: Present: dry, intact Internal Medicine: Result - Labs CBC & Chem 7: 02/16/17 05:23 02/16/17 05:23 Labs: Short CBC 02/16/17 Range/Units 05:23 WBC 13.0 H (4.3-11.1) K/mcL Hgb 14.9 (12.9-16.9) g/dL Hct 45.1 (37.5-50.1) % Plt Count 310 (140-400) K/mcL Neutrophils # 9.2 H (1.6-8.9) K/mcL BMP 06/17/17 05:23 Sodium 140 Potassium 3.9 Chloride 100 Carbon Dioxide 29 BUN 27 H Creatinine 1.33 H Glucose 155 H Calcium 9.6 - ABG Interpretation ABG results: ABG ABG pH 7.43 pH Units (7.32-7.45) 02/14/17 21:43 ABG pCO2 54 mmHg (35-45) H 02/14/17 21:43 ABG pO2 69 mmHg (85-104) L 02/14/17 21:43 ABG O2 Saturation 94 % (95-98) L 02/14/17 21:43 PT/INR, D-dimer PT 12.6 Seconds (9.4-12.1) H 02/13/17 17:02 - VTE Documentation of Mechanical Device: Graduated compression elastic hosiery Consult Discharge Plan - Plan Referrals: [facility] [Primary Care Provider] -
[2017-02-16] MEDS: *HR* HYDROcodone/Acet 5/325 mg TABLET PO SCH (12:04)
[2017-02-16] MEDS: Insulin DETEMIR 100 UNIT/ML X5UNITS SQ SCH (23:30)
[2017-02-17] MEDS: Melatonin 3 MG TABLET PO SCH ×2 (00:52→20:27)
[2017-02-17 03:21] LABS: Basophils % 0.3 %; Eosinophils # 0.2 K/mcL (0.0-0.6); Eosinophils % 1.2 %; Immature Granulocytes % 0.9 % (0-4); Immature Platelets 4.1 % (1.1-6.1); Lymphocytes % 14.5 %; Mean Corpuscular HGB Conc 32.6 g/dL (31.6-35.5); Mean Corpuscular Hemoglobin 28.7 pg (28.0-33.3); Mean Corpuscular Volume 88.3 fL (83.0-100.0); Mean Platelet Volume 10.3 fL (9.4-12.4); Monocytes # 1.6 K/mcL (0.0-1.3); Monocytes % 11.5 %; Neutrophils # 9.9 K/mcL (1.6-8.9); Platelet Count 296 K/mcL (140-400); Red Blood Count 4.87 M/mcL (4.19-5.50); Red Cell Distribution Width 13.6 % (11.5-14.5); Segmented Neutrophils % 71.6 %
[2017-02-17 03:30] LABS: Calcium 9.5 mg/dL (8.6-10.8); Potassium 4.1 mEq/L (3.5-4.5)
[2017-02-17] MEDS: *HR* HYDROcodone/Acet 5/325 mg TABLET PO SCH ×3 (04:36→20:26)
[2017-02-17] MEDS: Budesonide/Formoterol 160/4.5 MDI IH SCH ×2 (07:58→20:16)
--- NOTE | 2017-02-17 09:03 | Internal Med Progress Note ---
Date of Encounter: 02/17/17 Time of Encounter: 09:01 - Assessment and plan (1) Acute respiratory failure with hypoxia Current Visit: Yes Status: Acute Assessment and plan: Patient not on home oxygen, requiring at least 4 L of oxygen Oxygen supplements Hypoxia is likely due to CHF exacerbation. Patient needs O2 qualification prior to discharge (2) CHF (congestive heart failure) Current Visit: Yes Status: Acute Assessment and plan: Chest x-ray with pulmonary vascular congestion, elevated BNP, patient was shortness of breath, ECHO showed normal LVsystolic function, indetreminate diastolic function due to atrial flutter, mild ppul HTN lasix held today for EMILIA Lisinopril held today for EMILIA Continue daily weights Continue strict intake and output measurements I/O -5L, weight loss by 9kg 1.5 L fluid restriction diet cardiology eval noted CXR today with resolution of pulmonary edema Qualifiers: Congestive heart failure type: diastolic Congestive heart failure chronicity: acute on chronic Qualified Code(s): I50.33 - Acute on chronic diastolic (congestive) heart failure (3) Atrial fibrillation with RVR Current Visit: Yes Status: Acute Assessment and plan: Hr now controlled Continue Cardizem and metoprolol Continue Xarelto Troponin negative X3 Per cardiology, may consider ablation after evaluation as out-patient Goal HR <110 (4) Type 2 diabetes mellitus Current Visit: Yes Status: Chronic Assessment and plan: FS uncontrolled Continue monitoring FS ACHS Continue prandial insulin to basal and supplemental scale Qualifiers: Diabetes mellitus complication status: with unspecified complications Diabetes mellitus manager social responsibility insulin use: with manager social responsibility use Qualified Code(s) : E11.8 - Type 2 diabetes mellitus with unspecified complications; Z79.4 - photoengraving proofer (current) use of insulin (5) Sleep apnea Current Visit: Yes Status: Chronic Assessment and plan: ensure CPAP at night. Patient may need evaluation of his cpap machine at home he has an appointmet for repeat sleep study at some later day this month Qualifiers: Sleep apnea type: unspecified type Qualified Code(s): G47.30 - Sleep apnea , unspecified (6) DVT prophylaxis Current Visit: Yes Status: Acute Assessment and plan: On Xarelto for anticoagulation SCDs (7) Morbid obesity with BMI of 40.0-44.9, adult Current Visit: Yes Status: Chronic (8) EMILIA (acute kidney injury) Current Visit: Yes Status: Acute Assessment and plan: pre-renal, non-oliguric Possibly from use of lasix, hold lasix for today, hold lisinopril Monitor chem - Subjective Interval history: Seen and evaluated at bedside 71 M with PMH of CHF (unknown if reduced or preserved EF), Aflutter on anticoagulation, Obesity, DM, FARAZ Patient is admitted and being managed for Acute hypoxic respiratory failure, CHFE, Aflutter with RVR Seen at bedside this morning, in good spirits, complained of back pain, will resume his home pain medications HR is improving, he is negative fluid balance Cr today slightly elevated, will hold lasix and Lisinoprl ECHO noted, cardiology eval noted he has new leukocytosis, no chest or urinary or abdominal symptoms, possibly from diuresis, afebrile, will obtain UA and CXR - Constitutional Vitals: Temp Pulse Resp BP Pulse Ox 97.8 F 94 18 115/86 98 02/17/17 06:38 02/17/17 06:38 02/17/17 07:58 02/17/17 06:38 02/17/17 07:58 General appearance: Present: A&O X 3, morbidly obese, pleasant, no acute distress - Head Head exam: Present: atraumatic, normocephalic - Eye Eye exam: Present: PERRL, conjuntiva pink, sclera anicteric Pupils: Present: PERRL - Neck Neck exam general surgery: Present: supple, trachea midline. Absent: lymphadenopathy - Respiratory Respiratory exam: Present: CTAB. Absent: accessory muscle use, rales, rhonchi, wheezes - Cardiovascular Cardiovascular exam: Present: irregular rhythm, +S1, +S2. Absent: diastolic murmur, gallop, rubs, systolic murmur - GI/Abdominal GI/Abdominal exam: Present: normal bowel sounds, soft, no peritoneal signs. Absent: distended, tenderness - Extremities Exam Extremities exam: Present: warm, radial pulses palpable and symetrical. Absent : calf tenderness, cyanotic, pedal edema - Neurological Exam Neurological exam: Present: alert, CN II-XII intact, oriented X3, no focal deficits. Absent: pronater drift, facial droop, speech deficit - Skin Skin exam: Present: dry, intact Internal Medicine: Result - Labs CBC & Chem 7: 02/17/17 02:38 02/17/17 02:38 Labs: Short CBC 02/17/17 Range/Units 02:38 WBC 13.9 H (4.3-11.1) K/mcL Hgb 14.0 (12.9-16.9) g/dL Hct 43.0 (37.5-50.1) % Plt Count 296 (140-400) K/mcL Neutrophils # 9.9 H (1.6-8.9) K/mcL BMP 02/17/17 02:38 Sodium 137 Potassium 4.1 Chloride 99 Carbon Dioxide 27 BUN 36 H Creatinine 1.46 H Glucose 180 H Calcium 9.5 - ABG Interpretation ABG results: ABG ABG pH 7.43 pH Units (7.32-7.45) 02/14/17 21:43 ABG pCO2 54 mmHg (35-45) H 02/14/17 21:43 ABG pO2 69 mmHg (85-104) L 02/14/17 21:43 ABG O2 Saturation 94 % (95-98) L 02/14/17 21:43 PT/INR, D-dimer PT 12.6 Seconds (9.4-12.1) H 02/13/17 17:02 - VTE Documentation of Mechanical Device: Graduated compression elastic hosiery Consult Discharge Plan - Plan [facility]: [facility] Care Provider[facility] -
[2017-02-17] MEDS: Loratadine 10 MG TABLET PO SCH (09:19)
[2017-02-17] MEDS: Aspirin Enteric Coated 81 MG Tablet PO SCH (09:19)
[2017-02-17] MEDS: Sennosides/Docusate Sodium TABLET PO SCH ×2 (09:19→20:25)
[2017-02-17] MEDS: Pregabalin 50 MG CAPSULE PO SCH ×2 (09:19→20:27)
[2017-02-17] MEDS: Diltiazem CD (24hr) 180 MG CAPSULE PO SCH (09:20)
[2017-02-17] MEDS: Metoprolol 100 MG TABLET PO SCH ×2 (09:20→20:25)
[2017-02-17] MEDS: *HR* Rivaroxaban 10 MG TABLET PO SCH (09:20)
[2017-02-17] MEDS: Insulin LISPRO 300 UNITS/3 ML VIAL SQ SCH ×7 (09:21→21:10)
[2017-02-17 10:08] LABS: Bilirubin,Urine Negative (Negative); Blood,Urine Negative (Negative); Clarity,Urine Clear (Clear); Color,Urine Yellow (Yellow); Glucose,Urine (UA) Normal (Normal); Ketones,Urine Negative (Negative); Leukocyte Esterase,Urine Negative (Negative); Nitrite,Urine Negative (Negative); Protein,Urine Negative (Neg-Trace); Specific Gravity,Urine 1.023 (1.010-1.025); Urobilinogen,Urine Normal (Normal)
[2017-02-17 16:14] LABS: CK-BB (CK isoenzymes) 0 % (0-0); CK-MB (CK isoenzymes) 0 % (0-4); CK-MM (CK-isoenzymes) 100 % (96-100)
[2017-02-17 16:14] LABS: CK-BB (CK isoenzymes) 0 % (0-0); CK-MB (CK isoenzymes) 0 % (0-4); CK-MM (CK-isoenzymes) 100 % (96-100)
[2017-02-17] MEDS: Insulin DETEMIR 100 UNIT/ML X5UNITS SQ SCH (20:37)
[2017-02-18 05:39] LABS: Basophils % 0.4 %; Eosinophils # 0.1 K/mcL (0.0-0.6); Eosinophils % 1.2 %; Hemoglobin 13.9 g/dL (12.9-16.9); Immature Granulocytes % 0.4 % (0-4); Lymphocytes # 1.9 K/mcL (0.6-4.6); Lymphocytes % 17.1 %; Mean Corpuscular HGB Conc 33.1 g/dL (31.6-35.5); Mean Corpuscular Hemoglobin 29.5 pg (28.0-33.3); Mean Corpuscular Volume 89.2 fL (83.0-100.0); Mean Platelet Volume 10.4 fL (9.4-12.4); Monocytes # 1.4 K/mcL (0.0-1.3); Monocytes % 12.6 %; Neutrophils # 7.4 K/mcL (1.6-8.9); Platelet Count 293 K/mcL (140-400); Red Blood Count 4.71 M/mcL (4.19-5.50); Red Cell Distribution Width 13.4 % (11.5-14.5); Segmented Neutrophils % 68.3 %
[2017-02-18 05:54] LABS: BUN/Creatinine Ratio 21 (6-26); Calcium 9.6 mg/dL (8.6-10.8); Carbon Dioxide 28 mEq/L (19-29); Chloride 103 mEq/L (98-109); Glucose 181 mg/dL (70-99); Osmolality,Calculated 296 (280-300); Potassium 4.1 mEq/L (3.5-4.5); Sodium 139 mEq/L (136-145); eGFR For African Americans > 60 (> 60); eGFR For Non-African Americans > 60 (> 60)
[2017-02-18 05:59] LABS: Blood Urea Nitrogen 22 mg/dL (8-26)
[2017-02-18] MEDS: Budesonide/Formoterol 160/4.5 MDI IH SCH (07:50)
[2017-02-18] MEDS: *HR* Rivaroxaban 10 MG TABLET PO SCH (09:08)
[2017-02-18] MEDS: Loratadine 10 MG TABLET PO SCH (09:08)
[2017-02-18] MEDS: *HR* HYDROcodone/Acet 5/325 mg TABLET PO SCH (09:09)
[2017-02-18] MEDS: Diltiazem CD (24hr) 180 MG CAPSULE PO SCH (09:09)
[2017-02-18] MEDS: Pregabalin 50 MG CAPSULE PO SCH (09:09)
[2017-02-18] MEDS: Sennosides/Docusate Sodium TABLET PO SCH (09:09)
[2017-02-18] MEDS: Aspirin Enteric Coated 81 MG Tablet PO SCH (09:09)
[2017-02-18] MEDS: Metoprolol 100 MG TABLET PO SCH (09:10)
[2017-02-18] MEDS: Insulin LISPRO 300 UNITS/3 ML VIAL SQ SCH ×4 (09:11→12:17)
[2017-02-18 09:15] LABS: CK Total (Ck Isoenzymes) 178 U/L (20-200)
[2017-02-18 09:18] LABS: CK Total (Ck Isoenzymes) 171 U/L (20-200)
--- NOTE | 2017-02-18 10:44 | Discharge Summary ---
Date of Encounter: 02/18/17 Time of Encounter: 10:43 - Discharge Diagnosis (1) Acute respiratory failure with hypoxia Priority: Primary Status: Resolved (2) CHF (congestive heart failure) Priority: Primary Status: Acute Qualifiers: Congestive heart failure type: diastolic Congestive heart failure chronicity: acute on chronic Qualified Code(s): I50.33 - Acute on chronic diastolic (congestive) heart failure (3) Atrial fibrillation with RVR Priority: Primary Status: Resolved (4) Type 2 diabetes mellitus Priority: Secondary Status: Chronic Qualifiers: Diabetes mellitus complication status: with unspecified complications Diabetes mellitus usp insulin use: with terminal operator use Qualified Code(s) : E11.8 - Type 2 diabetes mellitus with unspecified complications; Z79.4 - terminal manager (current) use of insulin (5) Sleep apnea Priority: Secondary Status: Chronic Qualifiers: Sleep apnea type: unspecified type Qualified Code(s): G47.30 - Sleep apnea , unspecified (6) DVT prophylaxis Priority: Primary Status: Acute (7) Morbid obesity with BMI of 40.0-44.9, adult Priority: Secondary Status: Chronic (8) EMILIA (acute kidney injury) Priority: Primary Status: Resolved - Discharge Medications Prescriptions: Docusate [Colace] 100 mg PO BID PRN #60 capsule PRN Reason: Constipation Furosemide [Lasix] 40 mg PO DAILY #30 tablet Sennosides/Docusate Sodium [Senna Plus] 2 each PO BID PRN #60 tablet PRN Reason: Constipation Home Medications: Albuterol Inhaler 90 mcg IH QID PRN 02/13/17 [History] Albuterol Sulfate [Albuterol Inhaler] 2 puff IH QID PRN 02/13/17 [History] Aspirin Enteric Coated [Aspirin EC] 81 mg PO DAILY 02/13/17 [History] Atorvastatin [Lipitor] 10 mg PO HS 02/13/17 [History] Budesonide/Formoterol 160/4.5 [Symbicort 160/4.5] 2 puff IH BIDR 02/13/17 [ History] Cetirizine HCl [All Day Allergy] 10 mg PO DAILY 02/13/17 [History] Cholecalciferol (D-3) [Vitamin D] 2,000 unit PO DAILY 02/13/17 [History] Diltiazem 360 mg PO DAILY 02/13/17 [History] Diltiazem CD (24hr) [Cardizem CD] 180 mg PO DAILY 02/13/17 [History] Duloxetine HCl [Cymbalta] 60 mg PO DAILY 02/13/17 [History] Fluticasone Propionate Nasal [Flonase] 50 mcg NS BID 02/13/17 [History] Fluticasone Propionate [Flovent Diskus] 50 mcg IH BID 02/13/17 [History] HYDROcodone/Acet 5/325 mg [[place] 5-325 mg] 1 tab PO BID 02/13/17 [History] Insulin ASPART [NovoLOG] 5 unit SQ TIDWM 02/13/17 [History] Insulin Glargine [Lantus] 58 unit SQ HS 02/13/17 [History] Lisinopril 2.5 mg PO DAILY 02/13/17 [History] Melatonin/Pyridoxine HCl (B6) [Melatonin 3 mg Tablet] 3 mg PO HS 02/13/17 [ History] Metformin HCl [Glucophage] 1,000 mg PO BID 02/13/17 [History] Metoprolol [Lopressor] 100 mg PO BID 02/13/17 [History] Montelukast [Singulair] 10 mg PO HS 02/13/17 [History] Omeprazole [PriLOSEC] 20 mg PO BID 02/13/17 [History] Omeprazole [PriLOSEC] 40 mg PO DAILY 02/13/17 [History] Polyvinyl Alcohol [Artificial Tears] 1 drop BOTH EYES AD PRN 02/13/17 [History] Pregabalin [Lyrica] 200 mg PO BID 02/13/17 [History] Rivaroxaban [Xarelto] 20 mg PO DAILY 02/13/17 [History] Saliva Substitute Combo No.3 [Aquoral] 3 - 5 spray MM BID 02/13/17 [History] Sildenafil Citrate [Viagra] 50 mg PO AD PRN 02/13/17 [History] Sodium Chloride 1 drop BOTH EYES QID 02/13/17 [History] Sodium Chloride [Mina-128] 1 drop BOTH EYES QID 02/13/17 [History] Tamsulosin HCl [Flomax] 0.4 mg PO DAILY 02/13/17 [History] Trazodone HCl 150 mg PO HS PRN 02/13/17 [History] Docusate [Colace] 100 mg PO BID PRN #60 capsule 02/18/17 [Rx] Furosemide [Lasix] 40 mg PO DAILY #30 tablet 02/18/17 [Rx] Sennosides/Docusate Sodium [Senna Plus] 2 each PO BID PRN #60 tablet 02/18/17 [ Rx] Allergies/Adverse Reactions: Allergies codeine Allergy (Verified 02/13/17 16:16) Anaphylaxis Date of admission: 02/13/17 18:41 [facility] Consults: 02/14/17 10:15 Consult to Cardiology [CONS] Routine Comment: Consulting Provider: Cardiology Ana Reason for Consult: Atrial flutter with RVR, CHF exacerbation Call Completed: No 02/16/17 08:19 Consult to Occupational Therapy [CONS] Routine Comment: Evaluate, develop and implement POC Reason for Consult: Evaluate for gait aid Consult to Physical Therapy [CONS] Routine Comment: Evaluate, develop and implement POC Reason for Consult: Evaluate for gait aid 02/16/17 16:14 Consult to Bridge Engineer [CONS] Routine Reason for SW Consult: family concerned that patient not taking medications correctly. wants home health nurse to organize pills/set up Discharging clinician: Lyle Joyner Anticipated date of discharge: 02/18/17 - Patient Status Disposition: Home Health Service Condition: Good Functional capacity at discharge: independent ambulation Overall status at discharge: patient is progressing back to baseline - Discharge Instructions Instructions: Furosemide (By mouth), Laxative, Stool Softeners (By mouth), Laxative, Stimulant Combination (By mouth), Heart Failure (DC), Atrial Fibrillation (DC) Follow Up With: [facility],PCP [Primary Care Provider] - 02/22/17 12:15 pm Additional Instructions: Please wear your CPAP every night when you go to bed, you will not get a restless night's sleep if you don't. Please read the CHF education included in your discharge packet and follow the guidelines in order to keep from getting admitted back into the hospital, and retaining so much fluid and preventing short of breath. We are setting you up with [facility]. They will come to your house around Saturday. Call Audrey Jansen tomorrow (our clinical social worker gave you her extension at [facility]) and ask her when they are coming to your house. - Diet and Activity Activity: as per physical therapy, resume usual activities as tolerated Diet: diabetic diet, low fat, low cholesterol, low salt diet Interval History: see below Hospital course: 71 Y/O M with PMH of COPD, FARAZ on CPAP at home, Aflutter on CCB/BB an anticoagulation, DM, Morbid Obesity, Chronic low back pain s/p multiple spine procedures in the past He was admitted for acute hypoxemic respiratory failure and Aflutter with RVR following complains of several days of chest pain and shortness of breath and leg swelling Evaluation in the emergency department included EKG which showed atrial flutter with heart rate of 102, chest x-ray showed pulmonary vascular congestion. Troponin was negative at 0.00, BNP was mildly elevated at 104. Patient eventually went into RVR and required IV pushes of BB, CCB to control his rate His ECHO revealed ECHO showed normal LV systolic function, indeterminate diastolic function due to atrial flutter, mild pulm HTN Patient was admitted and started on Oxygen supplements, BiPAP, IV diuresis, Daily weights, strict fluid restriction He developed mild renal insufficiency that improved with holding and decreasing the dose of Lasix Cardiology was consulted and agreed with management with plans to follow up with Dr. Tian [facility] for possible abalation PT/Ot was consulted and recommend home PT/OT and aide for patient His repeat CXR showed resolution of his pulmonary edema and no acute processes He is seen at bedside this morning, in no obvious distress He did not qualify for home O2 he has lost ~10kg since admission with adequate negative output He is stable for discharge home with home health and follow up with Cardiology. He has several other appointments for sleep study/P[facility]mon[facility] Encourage to keep Educated on dietary restriction, fluid restriction upon discharge - Time Spent with Patient Total time spent providing and/or coordinating discharge services: Greater than 30 minutes (50 minutes spent on chart review, patient encounter, discussion with SW, medication reconciliation and prescription and documentation ) - Constitutional Vitals: Temp Pulse Resp BP Pulse Ox 97.7 F 106 16 125/90 95 02/18/17 06:57 02/18/17 06:57 02/18/17 07:50 02/18/17 06:57 02/18/17 07:50 General appearance: Present: A&O X 3, morbidly obese, pleasant, no acute distress - Head Head exam: Present: atraumatic, normocephalic - Eye Eye exam: Present: PERRL, conjuntiva pink, sclera anicteric Pupils: Present: PERRL - Neck Neck exam general surgery: Present: supple, trachea midline. Absent: lymphadenopathy - Respiratory Respiratory exam: Present: CTAB. Absent: accessory muscle use, rales, rhonchi, wheezes - Cardiovascular Cardiovascular exam: Present: RRR, +S1, +S2. Absent: diastolic murmur, gallop, rubs, systolic murmur - GI/Abdominal GI/Abdominal exam: Present: normal bowel sounds, soft, no peritoneal signs. Absent: distended, tenderness - Extremities Exam Extremities exam: Present: warm, radial pulses palpable and symetrical. Absent : calf tenderness, cyanotic, pedal edema - Neurological Exam Neurological exam: Present: alert, CN II-XII intact, oriented X3, no focal deficits. Absent: pronater drift, facial droop, speech deficit - Skin Skin exam: Present: dry, intact - VTE Documentation of Mechanical Device: Graduated compression elastic hosiery
[2017-02-18 12:06] VITALS: BP 124/77
--- NOTE | 2017-02-18 13:14 | Physician Discharge Referral ---
Home Health/Hosp Referral Info Transfer to: Home Health Attending Provider: Dr. Joyner Provider in Charge Post Discharge: PCP - Diagnosis (1) Acute respiratory failure with hypoxia Priority: Primary Status: Resolved (2) CHF (congestive heart failure) Priority: Primary Status: Acute (3) Atrial fibrillation with RVR Priority: Primary Status: Resolved (4) Type 2 diabetes mellitus Priority: Secondary Status: Chronic (5) Sleep apnea Priority: Secondary Status: Chronic (6) DVT prophylaxis Priority: Secondary Status: Acute (7) Morbid obesity with BMI of 40.0-44.9, adult Priority: Secondary Status: Chronic (8) EMILIA (acute kidney injury) Priority: Primary Status: Resolved - Respiratory Orders Smoking Cessation: Smoking cessation has been advised. For more information, call the [employer] Tobacco Quit Line at 3-295-RQIP-NOW. - Diet/Nutrition Diet/Nutrition Orders: Cardiac, No Concentrated Sweets - Activity Activity Orders: Up ad shelly - Services Needed Following services are medically necessary services: Nursing, Home Health Aide, Physical Therapy - Transfer Medications Prescriptions: Docusate [Colace] 100 mg PO BID PRN #60 capsule PRN Reason: Constipation Furosemide [Lasix] 40 mg PO DAILY #30 tablet Sennosides/Docusate Sodium [Senna Plus] 2 each PO BID PRN #60 tablet PRN Reason: Constipation Home Medications: Albuterol Inhaler 90 mcg IH QID PRN 02/13/17 [History] Albuterol Sulfate [Albuterol Inhaler] 2 puff IH QID PRN 02/13/17 [History] Aspirin Enteric Coated [Aspirin EC] 81 mg PO DAILY 02/13/17 [History] Atorvastatin [Lipitor] 10 mg PO HS 02/13/17 [History] Budesonide/Formoterol 160/4.5 [Symbicort 160/4.5] 2 puff IH BIDR 02/13/17 [ History] Cetirizine HCl [All Day Allergy] 10 mg PO DAILY 02/13/17 [History] Cholecalciferol (D-3) [Vitamin D] 2,000 unit PO DAILY 02/13/17 [History] Diltiazem 360 mg PO DAILY 02/13/17 [History] Diltiazem CD (24hr) [Cardizem CD] 180 mg PO DAILY 02/13/17 [History] Duloxetine HCl [Cymbalta] 60 mg PO DAILY 02/13/17 [History] Fluticasone Propionate Nasal [Flonase] 50 mcg NS BID 02/13/17 [History] Fluticasone Propionate [Flovent Diskus] 50 mcg IH BID 02/13/17 [History] HYDROcodone/Acet 5/325 mg [[place] 5-325 mg] 1 tab PO BID 02/13/17 [History] Insulin ASPART [NovoLOG] 5 unit SQ TIDWM 02/13/17 [History] Insulin Glargine [Lantus] 58 unit SQ HS 02/13/17 [History] Lisinopril 2.5 mg PO DAILY 02/13/17 [History] Melatonin/Pyridoxine HCl (B6) [Melatonin 3 mg Tablet] 3 mg PO HS 02/13/17 [ History] Metformin HCl [Glucophage] 1,000 mg PO BID 02/13/17 [History] Metoprolol [Lopressor] 100 mg PO BID 02/13/17 [History] Montelukast [Singulair] 10 mg PO HS 02/13/17 [History] Omeprazole [PriLOSEC] 20 mg PO BID 02/13/17 [History] Omeprazole [PriLOSEC] 40 mg PO DAILY 02/13/17 [History] Polyvinyl Alcohol [Artificial Tears] 1 drop BOTH EYES AD PRN 02/13/17 [History] Pregabalin [Lyrica] 200 mg PO BID 02/13/17 [History] Rivaroxaban [Xarelto] 20 mg PO DAILY 02/13/17 [History] Saliva Substitute Combo No.3 [Aquoral] 3 - 5 spray MM BID 02/13/17 [History] Sildenafil Citrate [Viagra] 50 mg PO AD PRN 02/13/17 [History] Sodium Chloride 1 drop BOTH EYES QID 02/13/17 [History] Sodium Chloride [Mina-128] 1 drop BOTH EYES QID 02/13/17 [History] Tamsulosin HCl [Flomax] 0.4 mg PO DAILY 02/13/17 [History] Trazodone HCl 150 mg PO HS PRN 02/13/17 [History] Docusate [Colace] 100 mg PO BID PRN #60 capsule 02/18/17 [Rx] Furosemide [Lasix] 40 mg PO DAILY #30 tablet 02/18/17 [Rx] Sennosides/Docusate Sodium [Senna Plus] 2 each PO BID PRN #60 tablet 02/18/17 [ Rx] Allergies/Adverse Reactions: Allergies codeine Allergy (Verified 02/13/17 16:16) Anaphylaxis Certification: Further, I certify that my clinical findings support that this patient is homebound (i.e. absences from home require considerable and taxing effort and are for medical reasons or anglican services or infrequently or short duration when for other reasons) because: Homebound Reason: Patient requires assistance of a person or device to safely leave home Attestation: My signature below is to certify that this patient is under my care and that I, or nurse practitioner, or a physician's golf course assistant working with me, has a face-to -face encounter with this patient.
== END 2017-02-18 16:27 | disposition home health service (06) | DRG 291 ==
LOC: EMEROO 16:14 → 3BNU 16:14 → 2NENU 02-14 14:31
PROVIDERS: ADMIT Nurse Practitioner Acute Care; ATTEND Nurse Practitioner Family

== ENCOUNTER 2017-02-19 15:45 | Inpatient (IN) ==
[2017-02-19] MEDS ORDERED: Aspirin 325 MG TABLET PO ONE (15:59)
[2017-02-19] MEDS ORDERED: 0.9 % Sodium Chloride 500 ML IVC ONE (16:01)
[2017-02-19 16:23] LABS: Basophils % 0.3 %; Eosinophils # 0.1 K/mcL (0.0-0.6); Eosinophils % 0.5 %; Hematocrit 43.1 % (37.5-50.1); Hemoglobin 14.3 g/dL (12.9-16.9); Immature Granulocytes % 0.5 % (0-4); Lymphocytes # 1.5 K/mcL (0.6-4.6); Lymphocytes % 12.4 %; Mean Corpuscular HGB Conc 33.2 g/dL (31.6-35.5); Mean Corpuscular Hemoglobin 29.2 pg (28.0-33.3); Mean Platelet Volume 9.6 fL (9.4-12.4); Monocytes # 1.2 K/mcL (0.0-1.3); Monocytes % 9.9 %; Neutrophils # 9.3 K/mcL (1.6-8.9); Platelet Count 289 K/mcL (140-400); Red Cell Distribution Width 13.5 % (11.5-14.5); Segmented Neutrophils % 76.4 %
[2017-02-19 16:28] LABS: INR 1.4; Prothrombin Time 15.2 Seconds (9.4-12.1)
[2017-02-19 16:30] LABS: Activated Partial Thrombo Time 34.9 Seconds (26.0-36.0)
[2017-02-19 16:36] LABS: BUN/Creatinine Ratio 11 (6-26); Blood Urea Nitrogen 14 mg/dL (8-26); Calcium 9.4 mg/dL (8.6-10.8); Carbon Dioxide 30 mEq/L (19-29); Chloride 103 mEq/L (98-109); Glucose 181 mg/dL (70-99); Osmolality,Calculated 297 (280-300); Sodium 141 mEq/L (136-145); eGFR For African Americans > 60 (> 60); eGFR For Non-African Americans 56 (> 60)
--- NOTE | 2017-02-19 16:38 | Emergency Department Note ---
Disposition Clinical Impression: Hypomagnesemia, Morbid obesity with BMI of 40.0-44.9, adult, Atrial flutter with rapid ventricular response CHF (congestive heart failure) Qualifiers: Congestive heart failure type: unspecified congestive heart failure type Congestive heart failure chronicity: chronic Qualified Code(s): I50.9 - Heart failure, unspecified Type 2 diabetes mellitus Qualifiers: Diabetes mellitus complication status: without complication Disposition: Admitted As Inpatient Condition: Good Time of Disposition: 17:48 General Adult HPI - General Chief complaint: ED Arrhythmia/Palpitations Stated complaint: Irregular HR Time Seen by Provider: 02/19/17 15:52 Source: patient Mode of arrival: ambulatory Limitations: no limitations Nursing Notes Reviewed: Yes Vital Signs Reviewed: Yes - History of Present Illness HPI Narrative: Patient presenting to the emergency department with an elevated heart rate. He was sent here from the [facility]. Then 50 mg of IV metoprolol prior to leaving the [facility] and being sent here. He has no complaints of chest pain or shortness of breath. He does report some generalized weakness. Pain Scale: 4 - Related Data Home Medications Medication Instructions Recorded Confirmed Albuterol Sulfate [Albuterol 2 puff IH QID PRN 02/13/17 02/19/17 Inhaler] Aspirin Enteric Coated [Aspirin EC] 81 mg PO DAILY 02/13/17 02/19/17 Atorvastatin [Lipitor] 10 mg PO HS 02/13/17 02/19/17 Budesonide/Formoterol 160/4.5 2 puff IH BIDR 02/13/17 02/19/17 [Symbicort 160/4.5] Cetirizine HCl [All Day Allergy] 10 mg PO DAILY 02/13/17 02/19/17 Cholecalciferol (D-3) [Vitamin D] 2,000 unit PO DAILY 02/13/17 02/19/17 Diltiazem CD (24hr) [Cardizem CD] 360 mg PO DAILY 02/13/17 02/19/17 Duloxetine HCl [Cymbalta] 60 mg PO DAILY 02/13/17 02/19/17 Fluticasone Propionate Nasal 50 mcg NS BID 02/13/17 02/19/17 [Flonase] HYDROcodone/Acet 5/325 mg [[place] 1 tab PO BID 02/13/17 02/19/17 5-325 mg] Insulin ASPART [NovoLOG] 5 unit SQ TIDWM 02/13/17 02/19/17 Insulin Glargine [Lantus] 58 unit SQ HS 02/13/17 02/19/17 Lisinopril 2.5 mg PO DAILY 02/13/17 02/19/17 Melatonin/Pyridoxine HCl (B6) 6 mg PO HS 02/13/17 02/19/17 [Melatonin 3 mg Tablet] Metformin HCl [Glucophage] 1,000 mg PO BID 02/13/17 02/19/17 Metoprolol [Lopressor] 100 mg PO BID 02/13/17 02/19/17 Montelukast [Singulair] 10 mg PO HS 02/13/17 02/19/17 Omeprazole [PriLOSEC] 40 mg PO DAILY 02/13/17 02/19/17 Polyvinyl Alcohol [Artificial 1 drop BOTH EYES AD PRN 02/13/17 02/19/17 Tears] Pregabalin [Lyrica] 200 mg PO BID 02/13/17 02/19/17 Rivaroxaban [Xarelto] 20 mg PO DAILY 02/13/17 02/19/17 Saliva Substitute Combo No.3 3 - 5 spray MM BID 02/13/17 02/19/17 [Aquoral] Sildenafil Citrate [Viagra] 50 mg PO AD PRN 02/13/17 02/19/17 Sodium Chloride [Mina-128] 1 drop BOTH EYES QID 02/13/17 02/19/17 Tamsulosin HCl [Flomax] 0.4 mg PO DAILY 02/13/17 02/19/17 Trazodone HCl 150 mg PO HS PRN 02/13/17 02/19/17 Albuterol Neb [Proventil Neb] 2.5 mg IH Q4H PRN 02/19/17 02/19/17 GuaiFENesin/Dextromethorphan 10 ml PO Q4H PRN 02/19/17 02/19/17 [Tussin Dm Syrup] Ipratropium/Albuterol Neb [Duoneb] 3 ml IH ONCE PRN 02/19/17 02/19/17 Previous Rx's Medication Instructions Recorded Docusate [Colace] 100 mg PO BID PRN #60 capsule 02/18/17 Furosemide [Lasix] 40 mg PO DAILY #30 tablet 02/18/17 Sennosides/Docusate Sodium [Senna 2 each PO BID PRN #60 tablet 02/18/17 Plus] Allergies Allergy/AdvReac Type Severity Reaction Status Date / Time codeine Allergy Anaphylaxis Verified 02/13/17 16:16 All systems ED: reviewed and negative except as stated. Constitutional: Denies: fever, chills ENT ED: Denies: congestion Cardiovascular: Reports: other (Generalized weakness). Denies: chest pain, palpitations, syncope Respiratory: Denies: cough, dyspnea, wheezes Gastrointestinal: Denies: abdominal pain, nausea, vomiting, diarrhea, hematemesis, melena, hematochezia Genitourinary: Denies: urgency, dysuria, frequency, hematuria Musculoskeletal: Denies: back pain, neck pain Neurological: Reports: weakness. Denies: headache, numbness, vertigo Past Medical History - Past Medical History Medical history: Reports: arthritis, asthma, atrial fibrillation, cancer, diabetes, hypertension, other Surgical history: Reports: orthopedic, other, prostatectomy Psychiatric history: Reports: no psych history - Social History Smoking Status: Former smoker Smokeless Tobacco Status: No Alcohol use: Reports: none Drug use: Reports: none Physical Exam - General Limitations: no limitations General appearance: alert, in no apparent distress - Head Head exam: atraumatic, normocephalic, normal inspection - Eye Eye exam: Present: normal appearance, PERRL, EOMI. Absent: scleral icterus - ENT ENT exam: normal exam, normal oropharynx, mucous membranes moist - Neck Neck exam: Present: normal inspection, full ROM, trachea midline. Absent: tenderness, meningismus, lymphadenopathy - Chest Chest inspection: Present: normal inspection, symmetric chest wall rise. Absent : tenderness, rash - Respiratory Respiratory exam: Present: normal lung sounds bilaterally. Absent: respiratory distress, wheezes - Cardiovascular Cardiovascular exam: Present: tachycardia, irregular rhythm, normal heart sounds - Abdominal Exam Abdominal exam: Present: soft, Non-Tender, normal bowel sounds. Absent: tenderness, distention, guarding, rebound, rigidity, organomegaly - Extremities Exam Extremities exam: Present: normal inspection, full ROM, normal capillary refill. Absent: tenderness, pedal edema - Back Exam Back exam: Present: normal inspection, full ROM. Absent: tenderness - Neurological Exam Neurological exam: Present: alert, oriented X3 - Psychiatric Psychiatric exam: Present: normal affect, normal mood - Skin Skin exam: Present: warm, dry, intact, normal color. Absent: rash, cyanosis, diaphoresis, erythema Course Course Narrative: Patient presents the emergency department after presenting to the [facility] today for [facility]. He was discharged from this facility recently for a flutter. He is denying any chest pain or shortness of breath. He was hard to control his rate according to the reports while he is here. They were aware the patient was staying in the 1 teens and were agreeable to discharge with the rate at that. He states that he was having some issues with his medications and was confused that when he is resuscitated when asked why he was seeking assistance at the [facility]. He states while he was at the [facility] they noticed that his heart rate was elevated so he came here. He is reporting some weakness today but denies feeling like his heart is racing. He is mentating appropriately. He appears to be in a flutter at this time. He has no complaints other than the weakness. We have placed the patient on Cardizem. He was given 50 mg of IV Toprol [facility] Patient's lung sounds are clear heart tones are tachycardic and irregular. We will do a cardiac workup on the patient and attempt to control his rhythm while he is here with Cardizem. He has been having issues of hypotension while he is here so he was given a small fluid bolus. His magnesium is low so we will replace this. We will admit the patient for a flutter. - Consultations Consultation #1: Kelli nurse practitioner accepted patient in stable condition. Time: 17:42 Vital Signs Temperature 97.9 F 02/19/17 15:48 Pulse Rate 143 02/19/17 15:48 Respiratory Rate 20 02/19/17 15:48 Blood Pressure 85/67 02/19/17 15:48 O2 Sat by Pulse Oximetry 97 02/19/17 15:48 Temperature 97.6 F 02/19/17 20:52 Pulse Rate 134 02/19/17 20:52 Respiratory Rate 18 02/19/17 21:36 Blood Pressure 124/99 02/19/17 20:52 O2 Sat by Pulse Oximetry 96 02/19/17 21:36 Oxygen Delivery Oxygen Delivery Nasal Cannula Medical Decision Making - Medical Records Medical records reviewed: Yes I reviewed the patient's medical records. - Lab Data Lab results reviewed: Yes I reviewed the patient's lab results. Result diagrams: 02/19/17 16:15 02/19/17 16:15 Lab Results 02/19/17 02/19/17 02/19/17 Range/Units 16:15 16:15 16:15 WBC 12.2 H (4.3-11.1) K/mcL RBC 4.90 (4.19-5.50) M/mcL Hgb 14.3 (12.9-16.9) g/dL Hct 43.1 (37.5-50.1) % MCV 88.0 (83.0-100.0) fL MCH 29.2 (28.0-33.3) pg MCHC 33.2 (31.6-35.5) g/dL RDW 13.5 (11.5-14.5) % Plt Count 289 (140-400) K/mcL MPV 9.6 (9.4-12.4) fL Immature Gran % 0.5 (0-4) % Seg Neutrophils % 76.4 % Lymphocytes % 12.4 % Monocytes % 9.9 % Eosinophils % 0.5 % Basophils % 0.3 % Neutrophils # 9.3 H (1.6-8.9) K/mcL Lymphocytes # 1.5 (0.6-4.6) K/mcL Monocytes # 1.2 (0.0-1.3) K/mcL Eosinophils # 0.1 (0.0-0.6) K/mcL Basophils # 0.0 (0.0-0.2) K/mcL PT 15.2 H (9.4-12.1) Seconds INR 1.4 APTT 34.9 (26.0-36.0) Seconds Sodium 141 (136-145) mEq/L Potassium 4.0 (3.5-4.5) mEq/L Chloride 103 (98-109) mEq/L Carbon Dioxide 30 H (19-29) mEq/L BUN 14 (8-26) mg/dL Creatinine 1.26 H (0.72-1.25) mg/dL Est GFR ( Amer) > 60 (> 60) Est GFR (Non-Af Amer) 56 L (> 60) BUN/Creatinine Ratio 11 (6-26) Glucose 181 H (70-99) mg/dL Est Mean Plasma Glucose mg/dl Hemoglobin A1c ( - 5.6) % Calculated Osmolality 297 (280-300) Calcium 9.4 (8.6-10.8) mg/dL Magnesium (1.6-2.6) mg/dL Troponin I (0-0.03) ng/mL B-Natriuretic Peptide (0-100) pg/mL TSH 0.646 (0.350-4.840) mcIU/mL 02/19/17 02/19/17 02/19/17 Range/Units 16:15 16:15 16:15 WBC (4.3-11.1) K/mcL RBC (4.19-5.50) M/mcL Hgb (12.9-16.9) g/dL Hct (37.5-50.1) % MCV (83.0-100.0) fL MCH (28.0-33.3) pg MCHC (31.6-35.5) g/dL RDW (11.5-14.5) % Plt Count (140-400) K/mcL MPV (9.4-12.4) fL Immature Gran % (0-4) % Seg Neutrophils % % Lymphocytes % % Monocytes % % Eosinophils % % Basophils % % Neutrophils # (1.6-8.9) K/mcL Lymphocytes # (0.6-4.6) K/mcL Monocytes # (0.0-1.3) K/mcL Eosinophils # (0.0-0.6) K/mcL Basophils # (0.0-0.2) K/mcL PT (9.4-12.1) Seconds INR APTT (26.0-36.0) Seconds Sodium (136-145) mEq/L Potassium (3.5-4.5) mEq/L Chloride (98-109) mEq/L Carbon Dioxide (19-29) mEq/L BUN (8-26) mg/dL Creatinine (0.72-1.25) mg/dL Est GFR ( Amer) (> 60) Est GFR (Non-Af Amer) (> 60) BUN/Creatinine Ratio (6-26) Glucose (70-99) mg/dL Est Mean Plasma Glucose mg/dl Hemoglobin A1c ( - 5.6) % Calculated Osmolality (280-300) Calcium (8.6-10.8) mg/dL Magnesium 1.4 L (1.6-2.6) mg/dL Troponin I 0.00 (0-0.03) ng/mL B-Natriuretic Peptide 29 (0-100) pg/mL TSH (0.350-4.840) mcIU/mL 02/19/17 Range/Units 16:15 WBC (4.3-11.1) K/mcL RBC (4.19-5.50) M/mcL Hgb (12.9-16.9) g/dL Hct (37.5-50.1) % MCV (83.0-100.0) fL MCH (28.0-33.3) pg MCHC (31.6-35.5) g/dL RDW (11.5-14.5) % Plt Count (140-400) K/mcL MPV (9.4-12.4) fL Immature Gran % (0-4) % Seg Neutrophils % % Lymphocytes % % Monocytes % % Eosinophils % % Basophils % % Neutrophils # (1.6-8.9) K/mcL Lymphocytes # (0.6-4.6) K/mcL Monocytes # (0.0-1.3) K/mcL Eosinophils # (0.0-0.6) K/mcL Basophils # (0.0-0.2) K/mcL PT (9.4-12.1) Seconds INR APTT (26.0-36.0) Seconds Sodium (136-145) mEq/L Potassium (3.5-4.5) mEq/L Chloride (98-109) mEq/L Carbon Dioxide (19-29) mEq/L BUN (8-26) mg/dL Creatinine (0.72-1.25) mg/dL Est GFR ( Amer) (> 60) Est GFR (Non-Af Amer) (> 60) BUN/Creatinine Ratio (6-26) Glucose (70-99) mg/dL Est Mean Plasma Glucose 203 mg/dl Hemoglobin A1c 8.7 H ( - 5.6) % Calculated Osmolality (280-300) Calcium (8.6-10.8) mg/dL Magnesium (1.6-2.6) mg/dL Troponin I (0-0.03) ng/mL B-Natriuretic Peptide (0-100) pg/mL TSH (0.350-4.840) mcIU/mL - Radiology Data Radiology results reviewed: Yes I reviewed the patient's radiology results. Chest X-Ray 02/19/17 15:59 IMPRESSION: No acute cardiopulmonary disease. D/ / Mauricio Alaniz MD / Mauricio Alaniz MD Interpreting Provider: Mauricio Alaniz MD - EKG Data EKG #1 EKG attestation: Yes I reviewed and interpreted this EKG. EKG results narrative: A flutter at a rate of 139. QRS duration is 99. QT is 273. QTC is 354. No signs of acute ischemia. No previous EKG to compare to on the chart however he was in a flutter on his previous admission here. Critical Care Time Critical Care Time: Yes Total Critical Care Time: 35 Attestation: The high probability of a clinically significant, sudden or life threatening deterioration of the [cardiovascular] system(s) required my full and direct attention, intervention and personal management. The aggregate critical care time was [35] minutes. This time is in addition to time spent performing reported procedures but includes the following: [X] Data Review and interpretation [X] Patient assessment and monitoring of vital signs [X] Documentation [X] Medication orders and management Attestation Statement - Attestation Attestation: I personally interviewed and examined this patient and my medical decision- making was reviewed with the ED Resident Physician, Dr. Nolasco I agree with the documented findings, disposition and treatment plan as described except to the extent set forth below. Patient is a 71-year-old white male with multiple medical problems including history of atrial fibrillation currently on Eliquis, metoprolol, and Cardizem who presents to the emergency department sent by the [facility] for rapid heart rate. Patient arrives asymptomatic with no complaints of chest pain pressure or heaviness no complaints of palpitations no shortness of breath no syncopal or near syncope patient states he was feeling fine [facility] the [facility] just this morning, he was here at [facility] for an episode of atrial fibrillation/flutter and CHF exac. Patient states he was going to the [facility] to get his prescription spelled and also have them help assist him with his medications as he is complaining that he is feeling very confused and overwhelmed with the amount and number of medications he is currently taking. While he was there they took his vital signs and found him to be very tachycardic and sent him here for rapid heart rate. Patient's vital signs on arrival showed him to be tachycardic and hypotensive, blood pressure was rechecked at bedside on arrival in patient's blood pressure here in the ED on arrival to the bed was 140 systolic. Patient had IV saline well- established placed on a monitor and pulse ox and labs and workup were ordered including Cardizem drip and bolus. Initial EKG shows atrial flutter at a rate of 139 bpm with no acute ST or T-wave changes noted. Patient is in no distress on arrival. Patient's lab evaluation as well as portable chest x-ray is unremarkable with the exception of the low magnesium. Patient was started on IV Cardizem with an initial bolus and then drip which we are currently titrating in this at 10 currently. Patient has remained tachycardic and due to an initial drop in blood pressure following the bolus we did administer 500 mL bolus. Patient's chest x-ray is clear today. Gently administering fluids considering patient's recent exacerbation of CHF. Upon review of documentation by cardiology during his stay apparently they had a very difficult time with rate control. Looks like patient was on IV Cardizem IV Lopressor IV digoxin as well as metoprolol by mouth. The best that they achieved with rate control with a heart rate between 101 -110. Patient's heart rate currently between 115 and 130 bpm with a stable blood pressure. It apparently was discussed with the patient was in need of ablation and there is some discussion about doing this in the near future. We will replace magnesium IV, patient's continued on a Cardizem drip, and will be admitted to a telemetry bed for further cardiac evaluation and management for recurrent A. fib flutter.
[2017-02-19 16:58] LABS: Thyroid Stimulating Hormone 0.646 mcIU/mL (0.350-4.840)
[2017-02-19] MEDS ORDERED: Magnesium Sulfate 1 GM in D5% in Water 100 ML IVPB ONE (17:37)
[2017-02-19] MEDS ORDERED: Naloxone 0.4 MG/ML INJ IVP PRN (19:36)
[2017-02-19] MEDS ORDERED: Acetaminophen 325 MG TABLET PO PRN (19:36)
[2017-02-19] MEDS ORDERED: Ipratropium/Albuterol Neb 3 ML IH PRN (19:39)
[2017-02-19] MEDS ORDERED: Diltiazem CD (24hr) 180 MG CAPSULE PO SCH (19:39)
[2017-02-19] MEDS ORDERED: traZODone 50 MG TABLET PO PRN (19:39)
[2017-02-19] MEDS ORDERED: *HR* Dextrose 50 % in Water (Syg) 50 ML SYRINGE IVP PRN (19:46)
[2017-02-19] MEDS ORDERED: D5% in Water 1,000 ML IVC PRN (19:46)
[2017-02-19] MEDS ORDERED: Dextrose Gel 15 GM PO PRN ×2 (19:46)
--- NOTE | 2017-02-19 19:55 | Internal Med History&Physical ---
<LioLewisEbony J - Last Filed: 02/19/17 19:52> Date of Encounter: 02/19/17 Time of Encounter: 19:53 Assessment and Plan (1) Atrial flutter with rapid ventricular response Current visit: Yes Status: Acute Per history, was just discharged 02/18/2017 with similar presentation. Was evaluated by cardiology at that time who recommended rate control (okay for heart rate to be 100-110), plan was to follow up outpatient cardiology for possible ablation. Presented to [facility] for medication reconciliation and heart rate was noted to be in 130s. EKG with a flutter, RVR. Symptomatic with intermittent lightheadedness. Cardizem bolus and drip given in the ED. Heart rate still and 130s, we will resume home beta doni. Wean Cardizem drip as able. Will hold on cardiology consult as a was just evaluated yesterday. If rate control successful, can follow up outpatient for ablation evaluation as previously planned. Continue Xarelto (2) EMILIA (acute kidney injury) Current visit: No Status: Resolved Cr 1.2; baseline normal. Gentle IV hydration, hold YO. Monitor repeat CMP (3) Hypomagnesemia Current visit: Yes Status: Acute Mag 1.4, replaced in the ED. Monitor repeat mag in a.m. (4) Diastolic CHF Current visit: Yes Status: Acute Per history. TTE 02/19 17 with EF 65% indeterminate diastolic dysfunction due to a flutter RVR. Appears compensated on exam. Monitor fluid status with gentle IV hydration. Holding Yo with AK I. Qualifiers: Congestive heart failure chronicity: chronic Qualified Code(s): I50.32 - Chronic diastolic (congestive) heart failure (5) Diabetes Current visit: Yes Status: Acute Per history, control unknown. Holding home oral hypoglycemics. Continue home long-acting, add sliding scale insulin. Monitor blood sugar and titrate PRN Qualifiers: Diabetes mellitus type: type 2 Diabetes mellitus complication status: with kidney complications Diabetes mellitus complication detail: with chronic kidney disease Diabetes mellitus oil heaterman insulin use: without oil heaterman use Chronic kidney disease stage: stage 3 (moderate) Qualified Code(s): E11.22 - Type 2 diabetes mellitus with diabetic chronic kidney disease; N18.3 - Chronic kidney disease, stage 3 (moderate) (6) Hypertension Current visit: Yes Status: Acute Per history. BP controlled, continue home BP medications. Monitor BP and titrate PRN Qualifiers: Hypertension type: essential hypertension Qualified Code(s): I10 - Essential (primary) hypertension (7) DVT prophylaxis Current visit: No Status: Acute Xarelto Internal Medicine - H&P: HPI Chief complaint: my hearts is out of rhythm Admitted From: Home History of present illness: Mr. Molina is a 71 year old male with past medical history A. fib flutter on several toe, CHF, diabetes, hypertension, FARAZ who was just discharged 02/18/2017 who 3 presented to [facility] on 02/19/2017 after being found in a flutter with RVR at the [facility]. He was started on a Cardizem drip in the ED and admitted for rate control. Information obtained from chart review and patient report. Patient was just discharged yesterday from the hospital and had an appointment today to [facility] for medication reconciliation. Patient says he takes 70 medicines he does not to keep them straight may not have taken the correct dose of beta doni or calcium channel doni. He actually has no complaints and says that they took his vital signs at the [facility] and his heart rate was high so they sent him back over to the hospital. All my exam he does complain of intermittent lightheadedness and dizziness this waxes and wanes, no associated factors nothing makes better or worse. Says sensation resolves on its own. Denies chest pain no shortness of breath Past Med Surg Social Fam HX - Past Medical History Medical history: arthritis, asthma, atrial fibrillation, cancer, diabetes, hypertension, other Psychiatric history: no psych history - Past Surgical History Surgical History: orthopedic, other, prostatectomy - Social History Smoking Status: Former smoker Smokeless Tobacco Status: No Alcohol use: none Drug use: none - Family History Mother Living Status: Hx Family Cardiac Disorders: Yes (CHF) Father Living Status: Hx Family Cardiac Disorders: Yes Internal Medicine - H&P: Meds Cetirizine HCl [All Day Allergy] 10 mg PO DAILY 02/13/17 [History] RX: Albuterol Sulfate [Albuterol Inhaler] 2 puff IH QID PRN 02/13/17 [History] RX: Aspirin Enteric Coated [Aspirin EC] 81 mg PO DAILY 02/13/17 [History] RX: Atorvastatin [Lipitor] 10 mg PO HS 02/13/17 [History] RX: Budesonide/Formoterol 160/4.5 [Symbicort 160/4.5] 2 puff IH BIDR 02/13/17 [ History] RX: Cholecalciferol (D-3) [Vitamin D] 2,000 unit PO DAILY 02/13/17 [History] RX: Diltiazem CD (24hr) [Cardizem CD] 360 mg PO DAILY 02/13/17 [History] RX: Duloxetine HCl [Cymbalta] 60 mg PO DAILY 02/13/17 [History] RX: Fluticasone Propionate Nasal [Flonase] 50 mcg NS BID 02/13/17 [History] RX: HYDROcodone/Acet 5/325 mg [Rosalia 5-325 mg] 1 tab PO BID 02/13/17 [History] RX: Insulin ASPART [NovoLOG] 5 unit SQ TIDWM 02/13/17 [History] RX: Insulin Glargine [Lantus] 58 unit SQ HS 02/13/17 [History] RX: Lisinopril 2.5 mg PO DAILY 02/13/17 [History] RX: Melatonin/Pyridoxine HCl (B6) [Melatonin 3 mg Tablet] 6 mg PO HS 02/13/17 [ History] RX: Metformin HCl [Glucophage] 1,000 mg PO BID 02/13/17 [History] RX: Metoprolol [Lopressor] 100 mg PO BID 02/13/17 [History] RX: Montelukast [Singulair] 10 mg PO HS 02/13/17 [History] RX: Omeprazole [PriLOSEC] 40 mg PO DAILY 02/13/17 [History] RX: Polyvinyl Alcohol [Artificial Tears] 1 drop BOTH EYES AD PRN 02/13/17 [ History] RX: Pregabalin [Lyrica] 200 mg PO BID 02/13/17 [History] RX: Rivaroxaban [Xarelto] 20 mg PO DAILY 02/13/17 [History] RX: Saliva Substitute Combo No.3 [Aquoral] 3 - 5 spray MM BID 02/13/17 [History] RX: Sildenafil Citrate [Viagra] 50 mg PO AD PRN 02/13/17 [History] RX: Sodium Chloride [Mina-128] 1 drop BOTH EYES QID 02/13/17 [History] RX: Tamsulosin HCl [Flomax] 0.4 mg PO DAILY 02/13/17 [History] RX: Trazodone HCl 150 mg PO HS PRN 02/13/17 [History] RX: Docusate [Colace] 100 mg PO BID PRN #60 capsule 02/18/17 [Rx] RX: Furosemide [Lasix] 40 mg PO DAILY #30 tablet 02/18/17 [Rx] RX: Sennosides/Docusate Sodium [Senna Plus] 2 each PO BID PRN #60 tablet [Rx] Albuterol Neb [Proventil Neb] 2.5 mg IH Q4H PRN 02/19/17 [History] GuaiFENesin/Dextromethorphan [Tussin Dm Syrup] 10 ml PO Q4H PRN 02/19/17 [ History] Ipratropium/Albuterol Neb [Duoneb] 3 ml IH ONCE PRN 02/19/17 [History] Allergies codeine Allergy (Verified 02/13/17 16:16) Anaphylaxis All Systems PM: A 10-system review of systems was performed and is negative for pertinent findings except as documented above in the HPI. - Constitutional Constitutional: no chills, no fever(s), no night sweats - EENT Eyes: no change in vision, no discharge, no pain, no photophobia Ears: no ear discharge, no ear pain, no tinnitus Nose, mouth and throat: no dysphagia, no nasal discharge, no neck pain, no sore throat - Cardiovascular Cardiovascular ROS IM: no chest pain, no diaphoresis, no dyspnea, no lightheadedness, no palpitations, no syncope - Respiratory Respiratory: no cough, no dyspnea, no wheezing, no excessive phlegm production - Gastrointestinal Gastrointestinal: no abdominal pain, no diarrhea, no hematemesis, no hematochezia, no melena, no nausea, no vomiting - Musculoskeletal Musculoskeletal ROS IM: no numbness, no tingling - Integumentary Integumentary IM: no rash, no unusual bruising - Neurological Neurological ROS: dizziness, no confusion, no convulsions, no focal weakness, no numbness, no tingling, no tremor(s) - Hematologic/Lymphatic Hematologic/Lymphatic: no easy bruising - Constitutional Vitals: Temp Pulse Resp BP Pulse Ox 97.9 F 139 20 98/69 134 02/19/17 15:55 02/19/17 19:11 02/19/17 19:11 02/19/17 19:11 02/19/17 19:11 General appearance: Present: A&O X 3, morbidly obese, no acute distress - Head Head exam: Present: atraumatic, normocephalic - Eye Eye exam: Present: PERRL, conjuntiva pink, sclera anicteric Pupils: Present: PERRL - Neck Neck exam general surgery: Present: supple, trachea midline. Absent: lymphadenopathy - Respiratory Respiratory exam: Present: CTAB. Absent: accessory muscle use, rales, rhonchi, wheezes - Cardiovascular Cardiovascular exam: Present: irregular rhythm, +S1, +S2. Absent: diastolic murmur, gallop, RRR, rubs, systolic murmur - GI/Abdominal GI/Abdominal exam: Present: normal bowel sounds, soft, no peritoneal signs. Absent: distended, tenderness - Extremities Exam Extremities exam: Present: warm, radial pulses palpable and symetrical. Absent : calf tenderness, cyanotic, pedal edema - Neurological Exam Neurological exam: Present: CN II-XII intact, oriented X3, no focal deficits. Absent: pronater drift, facial droop, speech deficit - Skin Skin exam: Present: dry, intact Internal Med - H&P Results - Labs CBC & Chem 7: 02/19/17 16:15 02/19/17 16:15 <Quentin Wallace - Last Filed: 02/19/17 23:39> Date of Encounter: 02/19/17 Internal Medicine - H&P: HPI History of present illness: Mr. Molina is a 71 year old male All Systems PM: A 10-system review of systems was performed and is negative for pertinent findings except as documented above in the HPI. - Constitutional Vitals: Temp Pulse Resp BP Pulse Ox 97.6 F 134 18 124/99 96 02/19/17 20:52 02/19/17 20:52 02/19/17 21:36 02/19/17 20:52 02/19/17 22:27 Internal Med - H&P Results - Labs CBC & Chem 7: 02/19/17 16:15 02/19/17 16:15 - Attending Attestation I have seen and examined the patient. I had discussed with the nurse practitioner. I have reviewed the orders and the note. Patient is a 71-year- old male with past medical history of arthritis, asthma, atrial fibrillation, cancer, diabetes, hypertension. He presents to the ED with complaints of palpitations. He was found to have atrial flutter with RVR at the [facility]. He does have intermittent lightheadedness. She has been started on a Cardizem drip in the ED and admitted for rate control. We will try to wean off Cardizem. On examination patient is awake and alert. He is able to provide all history. He is not in any distress. He denies chest pain and denies shortness of breath. Patient was recently discharged yesterday after being treated for similar problems. Cardiology had evaluated the patient and advised to continue Xarelto and also metoprolol. His baseline heart rate is around 110-120. Blood pressure is 124/99 and O2 sat is 96% on 2 L. Patient has no other acute complaints at present. Continue his home medications.
[2017-02-19] MEDS ORDERED: 0.9 % Sodium Chloride 1,000 ML IVC SCH (20:15)
[2017-02-19 20:31] LABS: Hemoglobin A1C 8.7 %
[2017-02-19] MEDS ORDERED: (Melatonin/Pyridoxine Hcl (B6) [Melatonin 3 Mg Tablet PO SCH (21:00)
[2017-02-19] MEDS: Budesonide/Formoterol 160/4.5 MDI IH SCH (21:35)
[2017-02-19] MEDS: *HR* HYDROcodone/Acet 5/325 mg TABLET PO PRN (21:46)
[2017-02-19] MEDS: Metoprolol 100 MG TABLET PO SCH (21:46)
[2017-02-19] MEDS: Pregabalin 50 MG CAPSULE PO SCH (21:46)
[2017-02-19] MEDS: Insulin LISPRO 300 UNITS/3 ML VIAL SQ SCH (21:47)
[2017-02-19] MEDS: Insulin DETEMIR 100 UNIT/ML X5UNITS SQ SCH (21:47)
[2017-02-20] MEDS ORDERED: Albuterol 2.5 MG/3 ML NEBULIZER IH PRN
[2017-02-20 07:36] LABS: Hematocrit 41.5 % (37.5-50.1); Hemoglobin 13.7 g/dL (12.9-16.9); Immature Granulocytes % 0.6 % (0-4); Lymphocytes % 18.8 %; Mean Corpuscular Hemoglobin 29.6 pg (28.0-33.3); Mean Corpuscular Volume 89.6 fL (83.0-100.0); Mean Platelet Volume 9.9 fL (9.4-12.4); Monocytes % 12.5 %; Platelet Count 271 K/mcL (140-400); Red Blood Count 4.63 M/mcL (4.19-5.50); Red Cell Distribution Width 13.8 % (11.5-14.5); Segmented Neutrophils % 65.6 %
[2017-02-20 07:37] LABS: Basophils # 0.1 K/mcL (0.0-0.2); Basophils % 0.5 %; Eosinophils # 0.2 K/mcL (0.0-0.6); Lymphocytes # 1.8 K/mcL (0.6-4.6); Monocytes # 1.2 K/mcL (0.0-1.3); Neutrophils # 6.2 K/mcL (1.6-8.9)
[2017-02-20 07:50] LABS: Alanine Aminotransferase 17 Units/L (0-55); Albumin 3.3 g/dL (3.5-5.0); Albumin/Globulin Ratio 1.1 (1.1-2.2); Alkaline Phosphatase 85 Units/L (38-126); Aspartate Amino Transferase 17 Units/L (5-34); BUN/Creatinine Ratio 14 (6-26); Bilirubin,Total 0.7 mg/dL (0.2-1.2); Blood Urea Nitrogen 14 mg/dL (8-26); Calcium 9.1 mg/dL (8.6-10.8); Carbon Dioxide 25 mEq/L (19-29); Chloride 107 mEq/L (98-109); Globulin 3.1 g/dL (2.4-3.5); Glucose 105 mg/dL (70-99); Osmolality,Calculated 291 (280-300); Potassium 3.7 mEq/L (3.5-4.5); Sodium 140 mEq/L (136-145); Total Protein 6.4 g/dL (6.0-8.3); eGFR For African Americans > 60 (> 60); eGFR For Non-African Americans > 60 (> 60)
[2017-02-20] MEDS: Loratadine 10 MG TABLET PO SCH (08:25)
[2017-02-20] MEDS: Pregabalin 50 MG CAPSULE PO SCH ×2 (08:25→23:34)
[2017-02-20] MEDS: Aspirin Enteric Coated 81 MG Tablet PO SCH (08:25)
[2017-02-20] MEDS: Metoprolol 100 MG TABLET PO SCH ×2 (08:25→20:57)
[2017-02-20] MEDS: Furosemide 40 MG TABLET PO SCH (08:26)
[2017-02-20] MEDS: Insulin LISPRO 300 UNITS/3 ML VIAL SQ SCH ×4 (08:26→20:55)
[2017-02-20] MEDS ORDERED: NON-FORMULARY MEDICATION 1 EACH EACH (Lisinopril [Lisinopril] 2.5 MG) PO SCH (09:00)
[2017-02-20] MEDS: Budesonide/Formoterol 160/4.5 MDI IH SCH ×2 (09:17→21:43)
--- NOTE | 2017-02-20 09:40 | Internal Med Progress Note ---
<Stephan Batista - Last Filed: 02/20/17 14:14> Date of Encounter: 02/20/17 Time of Encounter: 09:40 - Assessment and plan (1) Atrial fibrillation with RVR Current Visit: No Status: Resolved Assessment and plan: Mr. Molina 71-year-old male multiple comorbidities recently discharged on 2016 after receiving treatments and rate control for atrial fibrillation with rapid ventricular rate. Mr. Molina was readmitted with atrial fibrillation rapid ventricular rate and symptomatic. Plan: - Cardiology involved in care - Continue Cardizem 360 mg by mouth daily - Continue metoprolol 100 mg by mouth twice a day - Continue anticoagulation with Xarelto 20 mg by mouth - Continue cardiac monitoring (2) Type 2 diabetes mellitus Current Visit: Yes Status: Chronic Assessment and plan: Type II diabetic with current glucose control. - Continue before meals at bedtime glucose checks - Continue Levemir 58 units subcutaneous at bedtime - Continue low-dose insulin sliding scale. -Diabetic diet Qualifiers: Diabetes mellitus complication status: without complication Diabetes mellitus customer contact sales associate insulin use: with nursing home use Qualified Code(s): E11.9 - Type 2 diabetes mellitus without complications; Z79.4 - hypoid gear tester (current) use of insulin (3) Sleep apnea Current Visit: No Status: Chronic Qualifiers: Sleep apnea type: unspecified type Qualified Code(s): G47.30 - Sleep apnea , unspecified (4) Diastolic CHF Current Visit: Yes Status: Acute Assessment and plan: Known diastolic heart failure, 02/14/2017:TTE: EF 65%, indeterminate diastolic function, no significant valvular disease. - Continue 2 L fluid restrictions, limit sodium intake to 2 g daily. - Continue furosemide 40 mg by mouth daily - Continue maximizing cardiac medications as tolerated including beta doni, statin, aspirin - Daily weights and strict intake and output recording. Qualifiers: Congestive heart failure chronicity: chronic Qualified Code(s): I50.32 - Chronic diastolic (congestive) heart failure (5) Morbid obesity with BMI of 40.0-44.9, adult Current Visit: Yes Status: Chronic Assessment and plan: Mr. Molina has multiple comorbid factors including hypertension, morbid obesity, diabetes hyperlipidemia, sleep apnea atrial flutter and diastolic heart failure that all have correlation to his current metabolic state. He would benefit from diet change moderate exercise as tolerated to improve his overall longevity. (6) Hypertension Current Visit: Yes Status: Acute Assessment and plan: Blood pressure stable - Continue current hypertensive regimen. Qualifiers: Hypertension type: essential hypertension Qualified Code(s): I10 - Essential (primary) hypertension (7) DVT prophylaxis Current Visit: No Status: Acute Assessment and plan: Patient currently on Xarelto. - Subjective Interval history: Mr. Molina 71-year-old male has been seen and evaluated at patient's bedside this morning. He is alert awake interactive in acute distress. He denies any chest pain chest discomfort but does have palpitations. Denies any lightheadedness blurriness or feeling faint. Denies any nausea vomiting diarrhea constipation. He explains that he was just discharged yesterday and that his palpitations and feeling sick from the palpitations returned after he got home. He denies taking any Cardizem as he said he was unable to bulk picker the medication and take it yesterday. He has had no acute changes overnight. - Constitutional Vitals: Temp Pulse Resp BP Pulse Ox 97.7 F 100 17 154/88 94 02/20/17 07:00 02/20/17 07:00 02/20/17 07:00 02/20/17 07:00 02/20/17 07:00 General appearance: Present: A&O X 3, morbidly obese, no acute distress Exam: General: Patient alert, awake, oriented 3, interactive, in no acute distress HEENT: Normocephalic, atraumatic, pupils equal reactive to light, nasal cavity patent and open septum median position, oral mucosa moist, uvula midline, neck supple, trachea midline no palpable lymphadenopathy, no thyromegaly. Chest: Symmetric bilateral correlating with respiratory effort, effort non- labored. Cardiac: Irregularly irregular, no bruits appreciated bilateral carotids, Radial pulses 2+ bilateral, posterior tibial and dorsal pedal pulses 2+ bilateral. Respiratory: Clear to auscultation all lung luciano Abdomen: Soft, non-tender, obese, positive bowel sounds, no palpable masses appreciated on examination Extremities: Symmetric bilateral, trace edema in bilateral legs. patient moving all 4 extremities spontaneously. Neurologic: No focal deficits appreciated on examination. Face symmetric, muscle strength symmetric bilateral upper and lower extremities. Internal Medicine: Result - Labs CBC & Chem 7: 02/20/17 07:08 02/20/17 07:08 Labs: Short CBC 02/20/17 Range/Units 07:08 WBC 9.4 (4.3-11.1) K/mcL Hgb 13.7 (12.9-16.9) g/dL Hct 41.5 (37.5-50.1) % Plt Count 271 (140-400) K/mcL Neutrophils # 6.2 (1.6-8.9) K/mcL BMP 02/20/17 07:08 Sodium 140 Potassium 3.7 Chloride 107 Carbon Dioxide 25 BUN 14 Creatinine 0.98 Glucose 105 H Calcium 9.1 Liver Function 02/20/17 Range/Units 07:08 Total Bilirubin 0.7 (0.2-1.2) mg/dL AST 17 (5-34) Units/L ALT 17 (0-55) Units/L Alkaline Phosphatase 85 (38-126) Units/L Albumin 3.3 L (3.5-5.0) g/dL - ABG Interpretation ABG results: PT/INR, D-dimer PT 15.2 Seconds (9.4-12.1) H 02/19/17 16:15 - VTE Documentation of Mechanical Device: Graduated compression elastic hosiery Consult Discharge Plan - Plan Referrals: [facility]Primary Care Provider[facility] - <Bebo Back P - Last Filed: 02/20/17 18:05> Date of Encounter: 02/20/17 - Constitutional Vitals: Temp Pulse Resp BP Pulse Ox 97.7 F 109 18 95/81 94 02/20/17 07:00 02/20/17 15:00 02/20/17 15:00 02/20/17 15:00 02/20/17 15:00 Internal Medicine: Result - Labs CBC & Chem 7: 02/20/17 07:08 02/20/17 07:08 Labs: Short CBC 02/20/17 Range/Units 07:08 WBC 9.4 (4.3-11.1) K/mcL Hgb 13.7 (12.9-16.9) g/dL Hct 41.5 (37.5-50.1) % Plt Count 271 (140-400) K/mcL Neutrophils # 6.2 (1.6-8.9) K/mcL BMP 02/20/17 07:08 Sodium 140 Potassium 3.7 Chloride 107 Carbon Dioxide 25 BUN 14 Creatinine 0.98 Glucose 105 H Calcium 9.1 Liver Function 02/20/17 Range/Units 07:08 Total Bilirubin 0.7 (0.2-1.2) mg/dL AST 17 (5-34) Units/L ALT 17 (0-55) Units/L Alkaline Phosphatase 85 (38-126) Units/L Albumin 3.3 L (3.5-5.0) g/dL - ABG Interpretation ABG results: PT/INR, D-dimer PT 15.2 Seconds (9.4-12.1) H 02/19/17 16:15 - Attending Attestation I examined this patient and my medical decision-making was reviewed with the FOOTWEAR SALES LEADER/PA/Advanced Practice Nurse/Resident Physician. I agree with the documented findings, disposition and treatment plan as described except to the extent set forth below. appreciated card input
--- NOTE | 2017-02-20 11:56 | Cardiology Consult Note ---
<Robert Welsh - Last Filed: 02/20/17 14:53> Date of Encounter: 02/20/17 Time of Encounter: 11:50 Assessment and Plan (1) Atrial flutter with rapid ventricular response Current Visit: Yes Status: Acute Recurrent aflutter with RVR likely d/t patient missing medications. Restart oral medications and titrate as needed. Avg 12 hour HR was 101 bpm. He was recommended to f/u to discuss ablation. If unable to rate control will consider setting up ablation at an earlier time if the [facility]. TTE 02/15/17: EF 65%, indeterminate diastolic function, no significant valvular disease. TSH normal. icebox worker consult as patient is having difficulty taking medications. Continue xarelto for anticoagulation. reports missing medications yesterday and may have missed xarelto. Discussion w patient/family: The assessment and plan as outlined above was discussed with the patient and/or family members who expressed understanding and agreement. All questions were answered. Thank you for involving us in the care of your patient. Please call with any questions. History of Present Illness Consult date: 02/20/17 Requesting physician: Bebo Back Consult reason: afib with RVR Chief complaint: Elevated HR History of present illness: Mr. Molina is a 71 year old male with a past medical history significant for atrial fibrillation on xarelto, HTN, HLD, DM type II, and FARAZ on c-pap. He was diagnosed with atrial fibrillation two years ago at [facility]. He underwent a stress test and was cardioverted to NSR at that time. Denies history of CHF or CAD. He was discharged from [facility] 02/19/17 after being treated for CHF and atrial flutter with RVR. He was rate controlled and in the process of being [facility]u with [facility] to discuss ablation. After discharge patient was unable to take his medications including cardizem. He states he need help taking his 40 different medications. [facility] afl[facility] with RVR HR in the 130's. He denies chest pain or SOB. Denies orthopnea, PND, Or edema. Reports 20 lb weight loss during recent hospital stay. Past Med Surg Social Fam HX - Past Medical History Medical history: arthritis, asthma, atrial fibrillation, cancer, diabetes, hypertension, other Psychiatric history: no psych history - Past Surgical History Surgical History: orthopedic, other, prostatectomy - Social History Smoking Status: Former smoker Smokeless Tobacco Status: No Alcohol use: none Drug use: none - Family History Mother Living Status: Hx Family Cardiac Disorders: Yes (CHF) Father Living Status: Hx Family Cardiac Disorders: Yes Medications and Allergies Albuterol Sulfate [Albuterol Inhaler] 2 puff IH QID PRN 02/13/17 [History] Aspirin Enteric Coated [Aspirin EC] 81 mg PO DAILY 02/13/17 [History] Atorvastatin [Lipitor] 10 mg PO HS 02/13/17 [History] Budesonide/Formoterol 160/4.5 [Symbicort 160/4.5] 2 puff IH BIDR 02/13/17 [ History] Cetirizine HCl [All Day Allergy] 10 mg PO DAILY 02/13/17 [History] Cholecalciferol (D-3) [Vitamin D] 2,000 unit PO DAILY 02/13/17 [History] Diltiazem CD (24hr) [Cardizem CD] 360 mg PO DAILY 02/13/17 [History] Duloxetine HCl [Cymbalta] 60 mg PO DAILY 02/13/17 [History] Fluticasone Propionate Nasal [Flonase] 50 mcg NS BID 02/13/17 [History] HYDROcodone/Acet 5/325 mg [[place] 5-325 mg] 1 tab PO BID 02/13/17 [History] Insulin ASPART [NovoLOG] 5 unit SQ TIDWM 02/13/17 [History] Insulin Glargine [Lantus] 58 unit SQ HS 02/13/17 [History] Lisinopril 2.5 mg PO DAILY 02/13/17 [History] Melatonin/Pyridoxine HCl (B6) [Melatonin 3 mg Tablet] 6 mg PO HS 02/13/17 [ History] Metformin HCl [Glucophage] 1,000 mg PO BID 02/13/17 [History] Metoprolol [Lopressor] 100 mg PO BID 02/13/17 [History] Montelukast [Singulair] 10 mg PO HS 02/13/17 [History] Omeprazole [PriLOSEC] 40 mg PO DAILY 02/13/17 [History] Polyvinyl Alcohol [Artificial Tears] 1 drop BOTH EYES AD PRN 02/13/17 [History] Pregabalin [Lyrica] 200 mg PO BID 02/13/17 [History] Rivaroxaban [Xarelto] 20 mg PO DAILY 02/13/17 [History] Saliva Substitute Combo No.3 [Aquoral] 3 - 5 spray MM BID 02/13/17 [History] Sildenafil Citrate [Viagra] 50 mg PO AD PRN 02/13/17 [History] Sodium Chloride [Mnia-128] 1 drop BOTH EYES QID 02/13/17 [History] Tamsulosin HCl [Flomax] 0.4 mg PO DAILY 02/13/17 [History] Trazodone HCl 150 mg PO HS PRN 02/13/17 [History] Docusate [Colace] 100 mg PO BID PRN #60 capsule 02/18/17 [Rx] Furosemide [Lasix] 40 mg PO DAILY #30 tablet 02/18/17 [Rx] Sennosides/Docusate Sodium [Senna Plus] 2 each PO BID PRN #60 tablet 02/18/17 [ Rx] Albuterol Neb [Proventil Neb] 2.5 mg IH Q4H PRN 02/19/17 [History] GuaiFENesin/Dextromethorphan [Tussin Dm Syrup] 10 ml PO Q4H PRN 02/19/17 [ History] Ipratropium/Albuterol Neb [Duoneb] 3 ml IH ONCE PRN 02/19/17 [History] Allergies codeine Allergy (Verified 02/13/17 16:16) Anaphylaxis All Systems Review: A 10-system review of systems was performed and is negative for pertinent findings except as documented above in the HPI. Physical Examination General: Conversant, No Apparent Distress HEENT: Atraumatic, Normocephaly, Mucus Membranes Moist Neck: No JVD, Normal carotid pulses Cardiac: Other (Irregularly irregular.) Lungs: Normal Breath Sounds, No Wheeze, Rales, Rhonchi Neuro: Alert and responsive, No focal deficits noted Abdomen: Soft, Non-Tender Skin: No rashes noted on visualized skin Musculoskeletal: No Chest Wall Tenderness Extremities: No Clubbing, No Cyanosis, Normal Pulses, Other (trace edema, compression stockings intact.) Results 02/20/17 07:08 02/20/17 07:08 Lab Results 02/20/17 02/20/17 07:08 07:08 WBC 9.4 Hgb 13.7 Hct 41.5 Plt Count 271 Sodium 140 Potassium 3.7 Chloride 107 Carbon Dioxide 25 BUN 14 Creatinine 0.98 Glucose 105 H Calcium 9.1 Total Bilirubin 0.7 AST 17 ALT 17 Alkaline Phosphatase 85 - Imaging and Cardiology Echo: report reviewed (EF 65%, no significant valvular disease.) Consult Discharge Plan - Plan [facility]errals: [facility] [Primary Care Provider] - <Fide Avendano - Last Filed: 02/20/17 16:16> Date of Encounter: 02/20/17 Assessment and Plan Discussion w patient/family: The assessment and plan as outlined above was discussed with the patient and/or family members who expressed understanding and agreement. All questions were answered. Thank you for involving us in the care of your patient. Please call with any questions. History of Present Illness History of present illness: Mr. Molina is a 71 year old male All Systems Review: A 10-system review of systems was performed and is negative for pertinent findings except as documented above in the HPI. Results 02/20/17 07:08 02/20/17 07:08 Lab Results 02/20/17 02/20/17 07:08 07:08 WBC 9.4 Hgb 13.7 Hct 41.5 Plt Count 271 Sodium 140 Potassium 3.7 Chloride 107 Carbon Dioxide 25 BUN 14 Creatinine 0.98 Glucose 105 H Calcium 9.1 Total Bilirubin 0.7 AST 17 ALT 17 Alkaline Phosphatase 85 - Attending Attestation I examined this patient and my medical decision-making was reviewed with the RN OR LPN/PA/Advanced Practice Nurse/Resident Physician. I agree with the documented findings, disposition and treatment plan. Mr. Molina [facility]. He was recently hospitalized for similar concerns as well as diastolic heart failure. It appears he didn't take his meds when he left the hospital. We will restart his cardiac medications and observe. Further recommendations to follow re- evaluation tomorrow.
--- NOTE | 2017-02-20 14:23 | Electrocardiograph Report ---
[address] [address] Test Date: 2017-02-19 Pat Name: Stephan Molina Department: 102 Room: 2NE22 Gender: M Hospital Admissions Clerk: Ekp : 1945 Requested By: Ghazala Oscar Order Number: [id number] Reading MD: Brijesh Rios MD Measurements Intervals [place] Rate: 139 P: OK: 0 QRS: -3 QRSD: 99 T: 64 QT: 273 QTc: 354 Interpretive Statements ATRIAL FLUTTER/TACHYCARDIA WITH RAPID VENTRICULAR RESPONSE WITH ABERRANT CONDUCTION OR VENTRICULAR PREMATURE COMPLEXES Electronically Signed On 02-20-2017 14:22:15 EDT by Brijesh Rios MD
[2017-02-20] MEDS: Diltiazem CD (24hr) 180 MG CAPSULE PO SCH (14:28)
[2017-02-20] MEDS: *HR* Rivaroxaban 10 MG TABLET PO SCH (16:47)
[2017-02-20] MEDS: Insulin DETEMIR 100 UNIT/ML X5UNITS SQ SCH (20:57)
[2017-02-20] MEDS ORDERED: Melatonin 3 MG TABLET PO PRN (21:00)
[2017-02-21 05:29] LABS: Basophils # 0.1 K/mcL (0.0-0.2); Basophils % 0.5 %; Eosinophils # 0.3 K/mcL (0.0-0.6); Eosinophils % 2.3 %; Hematocrit 42.5 % (37.5-50.1); Immature Granulocytes % 0.7 % (0-4); Lymphocytes # 2.7 K/mcL (0.6-4.6); Lymphocytes % 23.8 %; Mean Corpuscular HGB Conc 32.9 g/dL (31.6-35.5); Mean Corpuscular Hemoglobin 29.4 pg (28.0-33.3); Mean Corpuscular Volume 89.3 fL (83.0-100.0); Mean Platelet Volume 10.4 fL (9.4-12.4); Monocytes # 1.3 K/mcL (0.0-1.3); Monocytes % 11.5 %; Platelet Count 292 K/mcL (140-400); Red Blood Count 4.76 M/mcL (4.19-5.50); Red Cell Distribution Width 13.5 % (11.5-14.5); Segmented Neutrophils % 61.2 %
[2017-02-21] MEDS: Insulin LISPRO 300 UNITS/3 ML VIAL SQ SCH ×4 (08:00→20:30)
[2017-02-21 08:45] LABS: BUN/Creatinine Ratio 13 (6-26); Blood Urea Nitrogen 13 mg/dL (8-26); Calcium 9.5 mg/dL (8.6-10.8); Carbon Dioxide 30 mEq/L (19-29); Chloride 104 mEq/L (98-109); Glucose 60 mg/dL (70-99); Osmolality,Calculated 290 (280-300); Potassium 3.7 mEq/L (3.5-4.5); Sodium 141 mEq/L (136-145); eGFR For African Americans > 60 (> 60); eGFR For Non-African Americans > 60 (> 60)
[2017-02-21 09:56] LABS: Magnesium 1.9 mg/dL (1.6-2.6)
[2017-02-21] MEDS: Metoprolol 100 MG TABLET PO SCH ×2 (09:58→20:30)
[2017-02-21] MEDS: Furosemide 40 MG TABLET PO SCH (09:58)
[2017-02-21] MEDS: Loratadine 10 MG TABLET PO SCH (09:58)
[2017-02-21] MEDS: Diltiazem CD (24hr) 180 MG CAPSULE PO SCH (09:58)
[2017-02-21] MEDS: Aspirin Enteric Coated 81 MG Tablet PO SCH (09:58)
[2017-02-21] MEDS: Pregabalin 50 MG CAPSULE PO SCH ×2 (09:58→22:34)
[2017-02-21] MEDS: Budesonide/Formoterol 160/4.5 MDI IH SCH ×2 (11:25→20:39)
--- NOTE | 2017-02-21 15:07 | Cardiology Progress Note ---
Date of Encounter: 02/21/17 Time of Encounter: 13:00 Assessment and Plan (1) Atrial flutter with rapid ventricular response Current Visit: Yes Status: Acute Per cardiology: -Recurrent aflutter with RVR likely d/t patient missing medications. Restart oral medications and titrate as needed. -Per telemetry Avg 12 hour HR was 102 bpm. -If unable to rate control will consider setting up ablation at an earlier time if the [facility] will allow. -TTE 02/15/17: EF 65%, indeterminate diastolic function, no significant valvular disease. -TSH normal. -Social work has been consulted due to patient having difficulty obtaining medications. -Continue xarelto for anticoagulation. reports missing medications yesterday and may have missed xarelto. -[id number] score 4 (age, HTN, CHF, DM). On xarelto. Denies bleeding or blood loss. -BPs 80-120s systolic. Of note, recent admission for CHF and patient is down 20 pounds. -Patient was being set up for ablation with Dr.John Tian. -Will check BP manually, miscellaneous order placed. If BP remains low will give 500ml of IV fluid. Suspect patient may be volume depleted. May be contributing to tachycardia. -Will continue to monitor. (2) Hypomagnesemia Current Visit: Yes Status: Acute Per cardiology: -Hypomagnesemia on admission with Mg 1.4. -Mg today 1.9. Discussion w patient/family: The assessment and plan as outlined above was discussed with the patient who expressed understanding and agreement. All questions were answered. Thank you for involving us in the care of your patient. Please call with any questions. Discussed and reviewed with . Subjective Principal diagnosis: atrial flutter with RVR Interval history: Patient was diagnosed with atrial fibrillation two years ago at [facility]. He underwent a stress test and was cardioverted to NSR at that time. Denies history of CHF or CAD. He was discharged from [facility] 02/19/17 after being treated for CHF and atrial flutter with RVR. He was rate controlled and in the process of being approved by the [place] to f/u with [facility] to discuss ablation. After discharge patient was unable to take his medications including cardizem. He states he need help taking his 40 different medications. He was transferred to [facility] aflutter with RVR HR in the 130's. He denies chest pain or SOB. Denies orthopnea, PND, Or edema. Reports 20 lb weight loss during recent hospital stay. Patient states he feels well today. Patient concerned regarding being discharged too soon and having to be re-admitted. Objective Vital Signs, Last 4 Hours Temp Pulse Resp BP Pulse Ox 02/21/17 11:35 97.9 F 105 18 88/73 96 02/21/17 11:26 18 126/62 93 General: Conversant, No Apparent Distress HEENT: Atraumatic, Normocephaly, Mucus Membranes Moist Neck: No JVD, Normal carotid pulses Cardiac: Normal S1 and S2, No Murmur, Other (Irregularly, irregular) Lungs: Normal Breath Sounds, No Wheeze, Rales, Rhonchi Neuro: Alert and responsive, No focal deficits noted Abdomen: Soft, Non-Tender Skin: No rashes noted on visualized skin Musculoskeletal: No Chest Wall Tenderness Extremities: No Clubbing, No Cyanosis, No Edema, Normal Pulses Results 02/21/17 04:38 02/21/17 04:38 Lab Results Impressions Chest X-Ray 02/19/17 15:59 IMPRESSION: No acute cardiopulmonary disease. D/ / 02/19/2017 16:48:41 Mauricio Alaniz MD / Jenifer Segal Interpreting Provider: Mauricio Alaniz MD Active Medications Acetaminophen (Tylenol) 650 mg PO Q6HR PRN PRN Reason: Mild Pain (1-3) Stop: 08/21/17 19:37 Acetaminophen/Hydrocodone Bitart ([place] 5-325 Mg) 1 tab PO BID PRN PRN Reason: MODERATE PAIN Stop: 08/21/17 21:01 Last Admin: 02/19/17 21:46 Dose: 1 tab Albuterol Sulfate (Proventil Neb) 2.5 mg IH [id number] PRN; Protocol PRN Reason: Dyspnea Stop: 08/22/17 00:01 Albuterol Sulfate (Albuterol Inhaler) 2 puff IH QIDR PRN PRN Reason: Shortness Of Breath Stop: 08/21/17 23:01 Albuterol/Ipratropium (Duoneb) 3 ml IH ONCE PRN; Protocol PRN Reason: Shortness Of Breath/Wheezing Stop: 08/21/17 19:40 Aspirin (Aspirin Ec) 81 mg PO DAILY [facility] Stop: 08/22/17 09:01 Last Admin: 02/21/17 09:58 Dose: 81 mg Atorvastatin Calcium (Lipitor) 10 mg PO HS LORI Stop: 08/21/17 21:01 Last Admin: 02/20/17 20:57 Dose: 10 mg Budesonide/Formoterol Fumarate (Symbicort) 2 puff IH BIDR LORI PRN Reason: Protocol Stop: 08/21/17 22:01 Last Admin: 02/21/17 11:25 Dose: 2 puff Dextrose/Water (Dextrose 50% (Syg)) 25 ml IVP AD PRN PRN Reason: Hypoglycemia Stop: 08/21/17 19:47 Diltiazem HCl (Cardizem Cd) 360 mg PO DAILY [facility] Stop: 08/22/17 13:01 Last Admin: 02/21/17 09:58 Dose: 360 mg Docusate Sodium (Colace) 100 mg PO BID PRN; Protocol PRN Reason: Constipation Stop: 08/21/17 23:18 Last Admin: 02/19/17 23:50 Dose: 100 mg Furosemide (Lasix) 40 mg PO DAILY [facility] Stop: 08/22/17 09:01 Last Admin: 02/21/17 09:58 Dose: 40 mg Glucagon (Glucagen) 1 mg IM ONCE PRN PRN Reason: Hypoglycemia Stop: 08/21/17 19:47 Glucose (Gluctose) 15 gm PO ONCE PRN PRN Reason: Hypoglycemia Stop: 08/21/17 19:47 Glucose (Gluctose) 30 gm PO ONCE PRN PRN Reason: Hypoglycemia Stop: 08/21/17 19:47 Dextrose (Dextrose 5%) 1,000 mls @ 100 mls/hr IVC .Q10H PRN PRN Reason: HYPOGLYCEMIA Stop: 08/21/17 19:47 Insulin Detemir (Levemir) 58 unit SQ HS [facility] Stop: 08/21/17 21:01 Last Admin: 02/20/17 20:57 Dose: 58 unit Insulin Human Lispro (Humalog) 0 units SQ HS LORI PRN Reason: Protocol Stop: 08/21/17 21:01 Last Admin: 06/21/17 20:55 Dose: 3 units Insulin Human Lispro (Humalog) 0 units SQ TIDAC LORI PRN Reason: Protocol Stop: 08/22/17 07:31 Last Admin: 02/21/17 12:20 Dose: Not Given Loratadine (Claritin) 10 mg PO DAILY [facility] Stop: 08/22/17 09:01 Last Admin: 02/21/17 09:58 Dose: 10 mg Melatonin (Melatonin) 6 mg PO HS PRN PRN Reason: Insomnia Stop: 08/22/17 21:01 Metoprolol Tartrate (Lopressor) 100 mg PO BID [facility] Stop: 08/21/17 21:01 Last Admin: 02/21/17 09:58 Dose: 100 mg Naloxone HCl (Narcan) 0.4 mg IVP Q2MIN PRN PRN Reason: Opioid Reversal Stop: 08/21/17 19:37 Pregabalin (Lyrica) 200 mg PO BID [facility] Stop: 08/21/17 21:01 Last Admin: 02/21/17 09:58 Dose: 200 mg Rivaroxaban (Xarelto) 20 mg PO 1700 [facility] Stop: 08/22/17 17:01 Last Admin: 02/20/17 16:47 Dose: 20 mg Senna/Docusate Sodium (Senna Plus) 1 each PO DAILY PRN; Protocol PRN Reason: Constipation Stop: 08/23/17 10:49 Tamsulosin HCl (Flomax) 0.4 mg PO DAILY [facility] PRN Reason: Protocol Stop: 08/22/17 09:01 Last Admin: 02/21/17 09:59 Dose: 0.4 mg Laboratory Tests 02/19/17 02/19/17 02/19/17 16:15 16:15 16:15 WBC Hgb Potassium Creatinine Magnesium Troponin I 0.00 B-Natriuretic Peptide 29 TSH 0.646 02/21/17 02/21/17 04:38 04:38 WBC 11.5 H Hgb 14.0 Potassium 3.7 Creatinine 0.97 Magnesium 1.9 Troponin I B-Natriuretic Peptide TSH - Imaging and Cardiology Chest Xray: report reviewed Echo: report reviewed - EKG Interpretation EKG results cardiology: personally reviewed (ECG with atrial flutter, HR 139.), other (Telemetry reviewed with average HR 102, atrial flutter. LOngest pause 1.5 seconds. PVCs noted.) - VTE Documentation of Mechanical Device: Graduated compression elastic hosiery Consult Discharge Plan - Plan Referrals: HSAHNAZ,PCP [Primary Care Provider] - 03/06/17 8:45 am
--- NOTE | 2017-02-21 15:38 | Internal Med Progress Note ---
<BjornNicolas milian - Last Filed: 02/21/17 15:36> Date of Encounter: 02/21/17 Time of Encounter: 15:36 - Assessment and plan (1) Atrial fibrillation with RVR Current Visit: No Status: Resolved Assessment and plan: Rate is under better control this time. Cardiology is following and will continue to uptitrate his rate controlling medications as blood pressure allows. Continue anticoagulation with Xarelto (2) Type 2 diabetes mellitus Current Visit: Yes Status: Chronic Assessment and plan: Blood sugars have been acceptable during this hospitalization. Continue to monitor. 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 Continue home Lasix. Qualifiers: Congestive heart failure chronicity: chronic Qualified Code(s): I50.32 - Chronic diastolic (congestive) heart failure (4) Hypertension Current Visit: Yes Status: Acute Assessment and plan: Blood pressure is under good control and has actually had a few episodes of blood pressure on the lower side given his large doses of beta blockers and calcium channel blockers. Continuing to uptitrate his rate controlling medications as blood pressure allows as discussed above. Qualifiers: Hypertension type: essential hypertension Qualified Code(s): I10 - Essential (primary) hypertension (5) DVT prophylaxis Current Visit: No Status: Acute Assessment and plan: Patient is currently anticoagulated with Xarelto - Subjective Interval history: Patient seen and examined at bedside. Patient states he feels pretty good today. He has no complaints. Denies fever, chills, chest pain, palpitations, shortness of breath. He denies any symptoms related to his atrial fibrillation. - Constitutional Vitals: Temp Pulse Resp BP Pulse Ox 98.0 F 107 18 105/79 94 02/21/17 15:22 02/21/17 15:22 02/21/17 15:22 02/21/17 15:22 02/21/17 15:22 General appearance: Present: A&O X 3, morbidly obese, no acute distress - Respiratory Respiratory exam: Present: CTAB. Absent: rales, rhonchi, wheezes - Cardiovascular Cardiovascular exam: Present: irregular rhythm, tachycardia. Absent: gallop, rubs, systolic murmur - GI/Abdominal GI/Abdominal exam: Present: normal bowel sounds, soft. Absent: diminished bowel sounds, tenderness - Extremities Exam Extremities exam: Present: pedal edema (Trace), warm. Absent: tenderness - Neurological Exam Neurological exam: Present: alert, CN II-XII intact, oriented X3, no focal deficits Internal Medicine: Result - Labs CBC & Chem 7: 02/21/17 04:38 02/21/17 04:38 Labs: Short CBC 02/21/17 Range/Units 04:38 WBC 11.5 H (4.3-11.1) K/mcL Hgb 14.0 (12.9-16.9) g/dL Hct 42.5 (37.5-50.1) % Plt Count 292 (140-400) K/mcL Neutrophils # 7.0 (1.6-8.9) K/mcL BMP 02/21/17 04:38 Sodium 141 Potassium 3.7 Chloride 104 Carbon Dioxide 30 H BUN 13 Creatinine 0.97 Glucose 60 L Calcium 9.5 - ABG Interpretation ABG results: PT/INR, D-dimer PT 15.2 Seconds (9.4-12.1) H 02/19/17 16:15 - VTE Documentation of Mechanical Device: Graduated compression elastic hosiery Consult Discharge Plan - Plan [facility]errals: [facility] [Primary Care Provider] - 03/06/17 8:45 am <Bebo Back - Last Filed: 02/21/17 17:00> Date of Encounter: 02/21/17 - Constitutional Vitals: Temp Pulse Resp BP Pulse Ox 98.0 F 107 18 105/79 94 02/21/17 15:22 02/21/17 15:22 02/21/17 15:22 02/21/17 15:22 02/21/17 15:22 Internal Medicine: Result - Labs CBC & Chem 7: 02/21/17 04:38 02/21/17 04:38 Labs: Short CBC 02/21/17 Range/Units 04:38 WBC 11.5 H (4.3-11.1) K/mcL Hgb 14.0 (12.9-16.9) g/dL Hct 42.5 (37.5-50.1) % Plt Count 292 (140-400) K/mcL Neutrophils # 7.0 (1.6-8.9) K/mcL BMP 02/21/17 04:38 Sodium 141 Potassium 3.7 Chloride 104 Carbon Dioxide 30 H BUN 13 Creatinine 0.97 Glucose 60 L Calcium 9.5 - ABG Interpretation ABG results: PT/INR, D-dimer PT 15.2 Seconds (9.4-12.1) H 02/19/17 16:15 - Attending Attestation I examined this patient and my medical decision-making was reviewed with the CENTRAL OFFICE INSPECTOR/PA/Advanced Practice Nurse/Resident Physician. I agree with the documented findings, disposition and treatment plan as described except to the extent set forth below. will follow cardiology opinion regarding medication management.
[2017-02-21] MEDS: *HR* Rivaroxaban 10 MG TABLET PO SCH (17:00)
[2017-02-21] MEDS: Insulin DETEMIR 100 UNIT/ML X5UNITS SQ SCH (20:30)
[2017-02-22 06:42] LABS: Basophils # 0.1 K/mcL (0.0-0.2); Basophils % 0.4 %; Eosinophils # 0.2 K/mcL (0.0-0.6); Eosinophils % 1.3 %; Hematocrit 42.4 % (37.5-50.1); Hemoglobin 13.9 g/dL (12.9-16.9); Immature Granulocytes % 0.7 % (0-4); Lymphocytes # 2.1 K/mcL (0.6-4.6); Lymphocytes % 18.8 %; Mean Corpuscular HGB Conc 32.8 g/dL (31.6-35.5); Mean Corpuscular Hemoglobin 28.8 pg (28.0-33.3); Mean Corpuscular Volume 87.8 fL (83.0-100.0); Mean Platelet Volume 10.3 fL (9.4-12.4); Monocytes # 1.4 K/mcL (0.0-1.3); Monocytes % 12.1 %; Neutrophils # 7.5 K/mcL (1.6-8.9); Platelet Count 309 K/mcL (140-400); Red Blood Count 4.83 M/mcL (4.19-5.50); Red Cell Distribution Width 13.5 % (11.5-14.5); Segmented Neutrophils % 66.7 %
[2017-02-22 06:56] LABS: BUN/Creatinine Ratio 13 (6-26); Blood Urea Nitrogen 14 mg/dL (8-26); Calcium 9.3 mg/dL (8.6-10.8); Carbon Dioxide 28 mEq/L (19-29); Chloride 104 mEq/L (98-109); Glucose 161 mg/dL (70-99); Magnesium 1.6 mg/dL (1.6-2.6); Osmolality,Calculated 294 (280-300); Potassium 3.8 mEq/L (3.5-4.5); Sodium 140 mEq/L (136-145); eGFR For African Americans > 60 (> 60); eGFR For Non-African Americans > 60 (> 60)
[2017-02-22] MEDS: Insulin LISPRO 300 UNITS/3 ML VIAL SQ SCH ×4 (07:59→21:09)
[2017-02-22] MEDS: Loratadine 10 MG TABLET PO SCH (08:02)
[2017-02-22] MEDS: Aspirin Enteric Coated 81 MG Tablet PO SCH (08:02)
[2017-02-22] MEDS: Metoprolol 100 MG TABLET PO SCH ×2 (08:02→21:09)
[2017-02-22] MEDS: Furosemide 40 MG TABLET PO SCH (08:02)
[2017-02-22] MEDS: Pregabalin 50 MG CAPSULE PO SCH ×2 (08:02→21:08)
[2017-02-22] MEDS ORDERED: *HR* Digoxin 0.5 MG/2 ML AMPUL IVP ONE (09:06)
--- NOTE | 2017-02-22 10:53 | Cardiology Progress Note ---
Date of Encounter: 02/22/17 Time of Encounter: 09:00 Assessment and Plan (1) Atrial flutter with rapid ventricular response Current Visit: Yes Status: Acute Per cardiology: -Recurrent aflutter with RVR likely d/t patient missing medications. Restart oral medications and titrate as needed. -Per telemetry Avg 12 hour HR was 102 bpm, atrial flutter. -If unable to rate control will consider setting up ablation at an earlier time if [facility]. -TTE 02/15/17: EF 65%, indeterminate diastolic function, no significant valvular disease. -TSH normal. -Social work has been consulted due to patient having difficulty obtaining medications. -Continue xarelto for anticoagulation. reports missing medications yesterday and may have missed xarelto. -[id number] score 4 (age, HTN, CHF, DM). On xarelto. Denies bleeding or blood loss. -BPs 100-130s systolic. Of note, recent admission for CHF and patient is down 40 pounds. -Patient was being set up for ablation with Dr.John Tian. -Discussed and reviewed with and hospitalist team. Will give IV digoxin load. -Will continue to monitor. (2) Hypomagnesemia Current Visit: Yes Status: Acute Per cardiology: -Hypomagnesemia on admission with Mg 1.4. -Mg today 1.6 today. Discussion w patient/family: The assessment and plan as outlined above was discussed with the patient who expressed understanding and agreement. All questions were answered. Thank you for involving us in the care of your patient. Please call with any questions. Discussed and reviewed with . Subjective Principal diagnosis: atrial flutter with RVR Interval history: Patient was diagnosed with atrial fibrillation two years ago at [facility]. He underwent a stress test and was cardioverted to NSR at that time. Denies history of CHF or CAD. He was discharged from [facility] 02/19/17 after being treated for CHF and atrial flutter with RVR. He was rate controlled and in the process of being [facility] f[facility]u with [facility] to discuss ablation. After discharge patient was unable to take his medications including cardizem. He states he need help taking his 40 different medications. He was transferred to [facility] for recurrent aflutter with RVR HR in the 130's. He denies chest pain or SOB. Denies orthopnea, PND, Or edema. Reports 20 lb weight loss during recent hospital stay. Patient states he feels well today. Patient's only complaint was that he did not sleep well last night. Patient concerned regarding being discharged too soon and having to be re-admitted. Objective Vital Signs, Last 4 Hours Pulse Resp BP Pulse Ox 02/22/17 07:45 100 15 136/83 94 General: Conversant, No Apparent Distress HEENT: Atraumatic, Normocephaly, Mucus Membranes Moist Neck: No JVD, Normal carotid pulses Cardiac: Normal S1 and S2, No Murmur, Other (Irregularly, irregular. ) Lungs: Normal Breath Sounds, No Wheeze, Rales, Rhonchi Neuro: Alert and responsive, No focal deficits noted Abdomen: Soft, Non-Tender Skin: No rashes noted on visualized skin Musculoskeletal: No Chest Wall Tenderness Extremities: No Clubbing, No Cyanosis, No Edema, Normal Pulses Results 02/22/17 04:22 02/22/17 04:22 Lab Results Active Medications Acetaminophen (Tylenol) 650 mg PO Q6HR PRN PRN Reason: Mild Pain (1-3) Stop: 08/21/17 19:37 Acetaminophen/Hydrocodone Bitart ([place] 5-325 Mg) 1 tab PO BID PRN PRN Reason: MODERATE PAIN Stop: 08/21/17 21:01 Last Admin: 02/19/17 21:46 Dose: 1 tab Albuterol Sulfate (Proventil Neb) 2.5 mg IH [id number] PRN; Protocol PRN Reason: Dyspnea Stop: 08/22/17 00:01 Albuterol Sulfate (Albuterol Inhaler) 2 puff IH QIDR PRN PRN Reason: Shortness Of Breath Stop: 08/21/17 23:01 Albuterol/Ipratropium (Duoneb) 3 ml IH ONCE PRN; Protocol PRN Reason: Shortness Of Breath/Wheezing Stop: 08/21/17 19:40 Aspirin (Aspirin Ec) 81 mg PO DAILY [facility] Stop: 08/22/17 09:01 Last Admin: 02/22/17 08:02 Dose: 81 mg Atorvastatin Calcium (Lipitor) 10 mg PO HS [facility] Stop: 08/21/17 21:01 Last Admin: 02/21/17 20:30 Dose: 10 mg Budesonide/Formoterol Fumarate (Symbicort) 2 puff IH BIDR [facility] PRN Reason: Protocol Stop: 08/21/17 22:01 Last Admin: 02/21/17 20:39 Dose: 2 puff Dextrose/Water (Dextrose 50% (Syg)) 25 ml IVP AD PRN PRN Reason: Hypoglycemia Stop: 08/21/17 19:47 Digoxin (Lanoxin) 0.25 mg IVP Q6HR [facility] Stop: 02/22/17 18:01 Diltiazem HCl (Cardizem Cd) 360 mg PO DAILY [facility] Stop: 08/22/17 13:01 Last Admin: 02/21/17 09:58 Dose: 360 mg Docusate Sodium (Colace) 100 mg PO BID PRN; Protocol PRN Reason: Constipation Stop: 08/21/17 23:18 Last Admin: 02/19/17 23:50 Dose: 100 mg Furosemide (Lasix) 40 mg PO DAILY [facility] Stop: 08/22/17 09:01 Last Admin: 02/22/17 08:02 Dose: 40 mg Glucagon (Glucagen) 1 mg IM ONCE PRN PRN Reason: Hypoglycemia Stop: 08/21/17 19:47 Glucose (Gluctose) 15 gm PO ONCE PRN PRN Reason: Hypoglycemia Stop: 08/21/17 19:47 Glucose (Gluctose) 30 gm PO ONCE PRN PRN Reason: Hypoglycemia Stop: 08/21/17 19:47 Dextrose (Dextrose 5%) 1,000 mls @ 100 mls/hr IVC .Q10H PRN PRN Reason: HYPOGLYCEMIA Stop: 08/21/17 19:47 Diltiazem HCl 125 mg/ Dextrose 125 mls @ 5 mls/hr IVC .Q24H [facility]; 5 MG/HR PRN Reason: Protocol Stop: 08/23/17 18:01 Last Admin: 02/22/17 08:01 Dose: 5 mg/hr, 5 mls/hr Insulin Detemir (Levemir) 58 unit SQ HS [facility] Stop: 08/21/17 21:01 Last Admin: 02/21/17 20:30 Dose: 58 unit Insulin Human Lispro (Humalog) 0 units SQ HS [facility] PRN Reason: Protocol Stop: 08/21/17 21:01 Last Admin: 02/21/17 20:30 Dose: 3 units Insulin Human Lispro (Humalog) 0 units SQ TIDAC [facility] PRN Reason: Protocol Stop: 08/22/17 07:31 Last Admin: 02/22/17 07:59 Dose: Not Given Loratadine (Claritin) 10 mg PO DAILY [facility] Stop: 08/22/17 09:01 Last Admin: 02/22/17 08:02 Dose: 10 mg Melatonin (Melatonin) 9 mg PO HS PRN PRN Reason: Insomnia Stop: 08/22/17 21:01 Metoprolol Tartrate (Lopressor) 100 mg PO BID [facility] Stop: 08/21/17 21:01 Last Admin: 02/22/17 08:02 Dose: 100 mg Naloxone HCl (Narcan) 0.4 mg IVP Q2MIN PRN PRN Reason: Opioid Reversal Stop: 08/21/17 19:37 Pregabalin (Lyrica) 200 mg PO BID [facility] Stop: 08/21/17 21:01 Last Admin: 02/22/17 08:02 Dose: 200 mg Rivaroxaban (Xarelto) 20 mg PO 1700 [facility] Stop: 08/22/17 17:01 Last Admin: 02/21/17 17:00 Dose: 20 mg Senna/Docusate Sodium (Senna Plus) 1 each PO DAILY PRN; Protocol PRN Reason: Constipation Stop: 08/23/17 10:49 Tamsulosin HCl (Flomax) 0.4 mg PO DAILY [facility] PRN Reason: Protocol Stop: 08/22/17 09:01 Last Admin: 02/22/17 08:02 Dose: 0.4 mg Laboratory Tests 02/19/17 02/19/17 02/22/17 16:15 16:15 04:22 WBC 11.2 H Hgb 13.9 Potassium Creatinine Magnesium Troponin I 0.00 TSH 0.646 02/22/17 04:22 WBC Hgb Potassium 3.8 Creatinine 1.07 Magnesium 1.6 Troponin I TSH - Imaging and Cardiology Chest Xray: report reviewed Echo: report reviewed - EKG Interpretation EKG results cardiology: other (Telemetry reviewed with average HR 102, atrial flutter. Longest pause 1.4 seconds. PVCs noted.) - VTE Documentation of Mechanical Device: Intermittent pneumatic compression device Consult Discharge Plan - Plan [facility]errals: [facility] [Primary Care Provider] - 03/06/17 8:45 am
--- NOTE | 2017-02-22 10:57 | Internal Med Progress Note ---
<Nicolas Church - Last Filed: 02/22/17 11:22> Date of Encounter: 02/22/17 Time of Encounter: 10:56 - Assessment and plan (1) Atrial fibrillation with RVR Current Visit: No Status: Resolved Assessment and plan: Rate is under better control this time. Patient did have a recurrence of his rapid ventricular rate last night and has been back on Cardizem drip, will attempt to transition back to by mouth medications today. Cardiology is following and will continue to uptitrate his rate controlling medications as blood pressure allows. Cardiology also recommends dig loading so this is been ordered. Continue anticoagulation with Xarelto (2) Type 2 diabetes mellitus Current Visit: Yes Status: Chronic Assessment and plan: Blood sugars have been acceptable during this hospitalization. Continue to monitor. Qualifiers: Diabetes mellitus complication status: without complication Diabetes mellitus custodial insulin use: with custodial use Qualified Code(s): E11.9 - Type 2 diabetes mellitus without complications; Z79.4 - snf (current) use of insulin (3) Diastolic CHF Current Visit: Yes Status: Acute Assessment and plan: No evidence of acute exacerbation. Continue home Lasix. Qualifiers: Congestive heart failure chronicity: chronic Qualified Code(s): I50.32 - Chronic diastolic (congestive) heart failure (4) Hypertension Current Visit: Yes Status: Acute Assessment and plan: Blood pressure is under good control and has actually had a few episodes of blood pressure on the lower side given his large doses of beta blockers and calcium channel blockers. Continuing to uptitrate his rate controlling medications as blood pressure allows as discussed above. Qualifiers: Hypertension type: essential hypertension Qualified Code(s): I10 - Essential (primary) hypertension (5) DVT prophylaxis Current Visit: No Status: Acute Assessment and plan: Patient is currently anticoagulated with Xarelto - Subjective Interval history: Patient seen and examined at bedside. Patient states he feels pretty good today. He has no complaints. Denies fever, chills, chest pain, palpitations, shortness of breath. He denies any symptoms related to his atrial fibrillation. Patient reports poor sleep at night. - Constitutional Vitals: Temp Pulse Resp BP Pulse Ox 98.2 F 100 15 136/83 94 02/22/17 04:49 02/22/17 07:45 02/22/17 07:45 02/22/17 07:45 02/22/17 07:45 General appearance: Present: A&O X 3, morbidly obese, no acute distress - Respiratory Respiratory exam: Present: CTAB. Absent: rales, rhonchi, wheezes - Cardiovascular Cardiovascular exam: Present: irregular rhythm, tachycardia. Absent: gallop, rubs, systolic murmur - GI/Abdominal GI/Abdominal exam: Present: normal bowel sounds, soft. Absent: distended, tenderness - Extremities Exam Extremities exam: Present: pedal edema (trace), warm. Absent: tenderness - Neurological Exam Neurological exam: Present: alert, CN II-XII intact, oriented X3, no focal deficits Internal Medicine: Result - Labs CBC & Chem 7: 02/22/17 04:22 02/22/17 04:22 Labs: Short CBC 02/22/17 Range/Units 04:22 WBC 11.2 H (4.3-11.1) K/mcL Hgb 13.9 (12.9-16.9) g/dL Hct 42.4 (37.5-50.1) % Plt Count 309 (140-400) K/mcL Neutrophils # 7.5 (1.6-8.9) K/mcL BMP 02/22/17 04:22 Sodium 140 Potassium 3.8 Chloride 104 Carbon Dioxide 28 BUN 14 Creatinine 1.07 Glucose 161 H Calcium 9.3 - ABG Interpretation ABG results: PT/INR, D-dimer PT 15.2 Seconds (9.4-12.1) H 02/19/17 16:15 - VTE Documentation of Mechanical Device: Intermittent pneumatic compression device Consult Discharge Plan - Plan [facility]errals: [facility] [Primary Care Provider] - 03/06/17 8:45 am <Bebo Back P - Last Filed: 02/22/17 16:04> Date of Encounter: 02/22/17 - Constitutional Vitals: Temp Pulse Resp BP Pulse Ox 98.2 F 100 15 136/83 94 02/22/17 04:49 02/22/17 07:45 02/22/17 11:11 02/22/17 07:45 02/22/17 11:11 Internal Medicine: Result - Labs CBC & Chem 7: 02/22/17 04:22 02/22/17 04:22 Labs: Short CBC 02/22/17 Range/Units 04:22 WBC 11.2 H (4.3-11.1) K/mcL Hgb 13.9 (12.9-16.9) g/dL Hct 42.4 (37.5-50.1) % Plt Count 309 (140-400) K/mcL Neutrophils # 7.5 (1.6-8.9) K/mcL BMP 02/22/17 04:22 Sodium 140 Potassium 3.8 Chloride 104 Carbon Dioxide 28 BUN 14 Creatinine 1.07 Glucose 161 H Calcium 9.3 - ABG Interpretation ABG results: PT/INR, D-dimer PT 15.2 Seconds (9.4-12.1) H 02/19/17 16:15 - Attending Attestation I examined this patient and my medical decision-making was reviewed with the TOWER SUPERVISOR/PA/Advanced Practice Nurse/Resident Physician. I agree with the documented findings, disposition and treatment plan as described except to the extent set forth below. Patient's heart rate still in 90-110. Cardiology on the board. Noted that cardiology recommended digoxin. We will monitor him closely. Target heart rate to go back home should be between 70 and 80
[2017-02-22] MEDS: Budesonide/Formoterol 160/4.5 MDI IH SCH ×2 (11:08→20:44)
[2017-02-22] MEDS: Diltiazem CD (24hr) 180 MG CAPSULE PO SCH (13:28)
[2017-02-22] MEDS: *HR* Digoxin 0.5 MG/2 ML AMPUL IVP SCH ×2 (14:47→21:09)
[2017-02-22] MEDS: *HR* Rivaroxaban 10 MG TABLET PO SCH (17:06)
[2017-02-22] MEDS: Insulin DETEMIR 100 UNIT/ML X5UNITS SQ SCH (21:12)
[2017-02-22] MEDS ORDERED: *HR* Digoxin 0.5 MG/2 ML AMPUL IVP SCH (21:15)
[2017-02-22] MEDS: Melatonin 3 MG TABLET PO PRN (23:26)
[2017-02-22] MEDS: Sennosides/Docusate Sodium TABLET PO PRN (23:29)
[2017-02-23] MEDS ORDERED: *HR* Digoxin 0.5 MG/2 ML AMPUL IVP SCH
[2017-02-23 05:53] LABS: Basophils # 0.1 K/mcL (0.0-0.2); Basophils % 0.5 %; Eosinophils # 0.2 K/mcL (0.0-0.6); Eosinophils % 1.4 %; Hematocrit 43.2 % (37.5-50.1); Hemoglobin 14.1 g/dL (12.9-16.9); Immature Granulocytes % 1.3 % (0-4); Lymphocytes # 1.9 K/mcL (0.6-4.6); Lymphocytes % 16.7 %; Mean Corpuscular HGB Conc 32.6 g/dL (31.6-35.5); Mean Corpuscular Hemoglobin 28.7 pg (28.0-33.3); Mean Corpuscular Volume 87.8 fL (83.0-100.0); Mean Platelet Volume 9.8 fL (9.4-12.4); Monocytes # 1.3 K/mcL (0.0-1.3); Monocytes % 11.7 %; Neutrophils # 7.6 K/mcL (1.6-8.9); Platelet Count 301 K/mcL (140-400); Red Blood Count 4.92 M/mcL (4.19-5.50); Red Cell Distribution Width 13.3 % (11.5-14.5); Segmented Neutrophils % 68.4 %
[2017-02-23 06:08] LABS: BUN/Creatinine Ratio 15 (6-26); Blood Urea Nitrogen 15 mg/dL (8-26); Calcium 9.6 mg/dL (8.6-10.8); Carbon Dioxide 30 mEq/L (19-29); Chloride 104 mEq/L (98-109); Glucose 160 mg/dL (70-99); Magnesium 1.7 mg/dL (1.6-2.6); Osmolality,Calculated 294 (280-300); Potassium 4.1 mEq/L (3.5-4.5); Sodium 140 mEq/L (136-145); eGFR For African Americans > 60 (> 60); eGFR For Non-African Americans > 60 (> 60)
[2017-02-23] MEDS: Insulin LISPRO 300 UNITS/3 ML VIAL SQ SCH ×4 (07:53→23:11)
[2017-02-23] MEDS: Furosemide 40 MG TABLET PO SCH (07:54)
[2017-02-23] MEDS: Aspirin Enteric Coated 81 MG Tablet PO SCH (07:54)
[2017-02-23] MEDS: Loratadine 10 MG TABLET PO SCH (07:54)
[2017-02-23] MEDS: Metoprolol 100 MG TABLET PO SCH ×2 (07:54→21:35)
[2017-02-23] MEDS: Diltiazem CD (24hr) 180 MG CAPSULE PO SCH (07:54)
[2017-02-23] MEDS: Pregabalin 50 MG CAPSULE PO SCH ×2 (07:55→21:35)
--- NOTE | 2017-02-23 08:09 | Internal Med Progress Note ---
<Nicolas Church - Last Filed: 02/23/17 08:06> Date of Encounter: 02/23/17 Time of Encounter: 08:07 - Assessment and plan (1) Atrial fibrillation with RVR Current Visit: No Status: Resolved Assessment and plan: Rate is under better control this time. Patient has been transitioned back to by mouth medications. Patient was dig loaded yesterday by cardiology did not recommend continuing digoxin. We will continue to monitor heart rate. We will continue to titrate the patient's rate controlling medications per cardiology recommendations. Continue anticoagulation with Xarelto (2) Type 2 diabetes mellitus Current Visit: Yes Status: Chronic Assessment and plan: Blood sugars have been acceptable during this hospitalization. Continue to monitor. Qualifiers: Diabetes mellitus complication status: without complication Diabetes mellitus fci insulin use: with radiologic tech use Qualified Code(s): E11.9 - Type 2 diabetes mellitus without complications; Z79.4 - assisted (current) use of insulin (3) Diastolic CHF Current Visit: Yes Status: Acute Assessment and plan: No evidence of acute exacerbation. Continue home Lasix. Qualifiers: Congestive heart failure chronicity: chronic Qualified Code(s): I50.32 - Chronic diastolic (congestive) heart failure (4) Hypertension Current Visit: Yes Status: Acute Assessment and plan: Blood pressure is under good control and has actually had a few episodes of blood pressure on the lower side given his large doses of beta blockers and calcium channel blockers. Continuing to uptitrate his rate controlling medications as blood pressure allows as discussed above. Qualifiers: Hypertension type: essential hypertension Qualified Code(s): I10 - Essential (primary) hypertension (5) DVT prophylaxis Current Visit: No Status: Acute Assessment and plan: Patient is currently anticoagulated with Xarelto - Subjective Interval history: Patient seen and examined at bedside. Patient states he feels pretty good today. He has no complaints. Denies fever, chills, chest pain, palpitations. He does report mild shortness of breath with exertion which he states is fairly normal for him. He denies any symptoms related to his atrial fibrillation. Patient reports poor sleep at night. - Constitutional Vitals: Temp Pulse Resp BP Pulse Ox 97.4 F L 88 16 119/95 92 02/23/17 04:25 02/23/17 04:25 02/23/17 04:25 02/23/17 04:25 02/23/17 04:25 General appearance: Present: A&O X 3, morbidly obese, no acute distress - Respiratory Respiratory exam: Present: CTAB. Absent: rales, rhonchi, wheezes - Cardiovascular Cardiovascular exam: Present: irregular rhythm. Absent: gallop, rubs, systolic murmur, tachycardia - GI/Abdominal GI/Abdominal exam: Present: normal bowel sounds, soft. Absent: distended, tenderness - Extremities Exam Extremities exam: Present: pedal edema (trace), warm. Absent: tenderness - Neurological Exam Neurological exam: Present: alert, CN II-XII intact, oriented X3, no focal deficits Internal Medicine: Result - Labs CBC & Chem 7: 02/23/17 05:37 02/23/17 05:37 Labs: Short CBC 02/23/17 Range/Units 05:37 WBC 11.1 (4.3-11.1) K/mcL Hgb 14.1 (12.9-16.9) g/dL Hct 43.2 (37.5-50.1) % Plt Count 301 (140-400) K/mcL Neutrophils # 7.6 (1.6-8.9) K/mcL BMP 02/23/17 05:37 Sodium 140 Potassium 4.1 Chloride 104 Carbon Dioxide 30 H BUN 15 Creatinine 1.03 Glucose 160 H Calcium 9.6 - ABG Interpretation ABG results: PT/INR, D-dimer PT 15.2 Seconds (9.4-12.1) H 02/19/17 16:15 - VTE Documentation of Mechanical Device: Graduated compression elastic hosiery Consult Discharge Plan - Plan Referrals: [facility] [Primary Care Provider] - 03/06/17 8:45 am <Bebo Back P - Last Filed: 02/23/17 11:19> Date of Encounter: 02/23/17 - Constitutional Vitals: Temp Pulse Resp BP Pulse Ox 97.4 F L 88 16 119/95 94 02/23/17 04:25 02/23/17 04:25 02/23/17 04:25 02/23/17 04:25 02/23/17 08:30 Internal Medicine: Result - Labs CBC & Chem 7: 02/23/17 05:37 02/23/17 05:37 Labs: Short CBC 02/23/17 Range/Units 05:37 WBC 11.1 (4.3-11.1) K/mcL Hgb 14.1 (12.9-16.9) g/dL Hct 43.2 (37.5-50.1) % Plt Count 301 (140-400) K/mcL Neutrophils # 7.6 (1.6-8.9) K/mcL BMP 02/23/17 05:37 Sodium 140 Potassium 4.1 Chloride 104 Carbon Dioxide 30 H BUN 15 Creatinine 1.03 Glucose 160 H Calcium 9.6 - ABG Interpretation ABG results: PT/INR, D-dimer PT 15.2 Seconds (9.4-12.1) H 02/19/17 16:15 - Attending Attestation I examined this patient and my medical decision-making was reviewed with the BUMPER AND PAINTER/PA/Advanced Practice Nurse/Resident Physician. I agree with the documented findings, disposition and treatment plan as described except to the extent set forth below. Likely home tomorrow We will observe him tonight in terms of his heart rate since he was loaded with digoxin yesterday
--- NOTE | 2017-02-23 09:46 | Cardiology Progress Note ---
Date of Encounter: 02/23/17 Time of Encounter: 08:30 Assessment and Plan (1) Atrial flutter with rapid ventricular response Current Visit: Yes Status: Acute Per cardiology: -Recurrent aflutter with RVR likely d/t patient missing medications. Restart oral medications and titrate as needed. -Per telemetry Avg 12 hour HR was 90 bpm, atrial flutter. -If unable to rate control will consider setting up ablation at an earlier time if the [facility] will [facility]. -TTE 02/15/17: EF 65%, indeterminate diastolic function, no significant valvular disease. -TSH normal. -Social work has been consulted due to patient having difficulty obtaining medications. -Continue xarelto for anticoagulation. reports missing medications yesterday and may have missed xarelto. -[id number] score 4 (age, HTN, CHF, DM). On xarelto. Denies bleeding or blood loss. -BPs 110-130s systolic. Of note, recent admission for CHF and patient is down 40 pounds. CHF education re-inforced with patient. -Patient was being set up for ablation with Dr.John Tian. -Digoxin IV load was given yesterday. -Cardiology will sign off and will follow in outpatient setting. Follow up set. (2) Hypomagnesemia Current Visit: Yes Status: Acute Per cardiology: -Hypomagnesemia on admission with Mg 1.4. -Mg today 1.7 today. Discussion w patient/family: The assessment and plan as outlined above was discussed with the patient who expressed understanding and agreement. All questions were answered. Thank you for involving us in the care of your patient. Please call with any questions. Discussed and reviewed with . Subjective Principal diagnosis: atrial flutter with RVR Interval history: Patient was diagnosed with atrial fibrillation two years ago at [facility]. He underwent a stress test and was cardioverted to NSR at that time. Denies history of CHF or CAD. He was discharged from [facility] 02/19/17 after being treated for CHF and atrial flutter with RVR. He was rate controlled and in the process of being [facility] the [facility] to f[facility]u with [facility] to discuss ablation. After discharge patient was unable to take his medications including cardizem. He states he need help taking his 40 different medications. He was [facility] to [facility] for recurrent aflutter with RVR HR in the 130's. He denies chest pain or SOB. Denies orthopnea, PND, Or edema. Reports 20 lb weight loss during recent hospital stay. Patient states he feels well today. HRs are better controlled today. CHF education re-inforced. Objective Vital Signs, Last 4 Hours Vital Signs Temperature 97.9 F 02/19/17 15:48 Pulse Rate 143 02/19/17 15:48 Respiratory Rate 20 02/19/17 15:48 Blood Pressure 85/67 02/19/17 15:48 O2 Sat by Pulse Oximetry 97 02/19/17 15:48 Temperature 97.4 F L 02/23/17 04:25 Pulse Rate 88 02/23/17 04:25 Respiratory Rate 16 02/23/17 04:25 Blood Pressure 119/95 02/23/17 04:25 O2 Sat by Pulse Oximetry 94 02/23/17 08:30 Oxygen Delivery Oxygen Delivery Nasal Cannula General: Conversant, No Apparent Distress HEENT: Atraumatic, Normocephaly, Mucus Membranes Moist Neck: No JVD, Normal carotid pulses Cardiac: Other (Irregularly, irregular) Lungs: Normal Breath Sounds, No Wheeze, Rales, Rhonchi Neuro: Alert and responsive, No focal deficits noted Abdomen: Soft, Non-Tender Skin: No rashes noted on visualized skin Musculoskeletal: No Chest Wall Tenderness Extremities: No Clubbing, No Cyanosis, No Edema, Normal Pulses Results 02/23/17 05:37 02/23/17 05:37 Lab Results Active Medications Acetaminophen (Tylenol) 650 mg PO Q6HR PRN PRN Reason: Mild Pain (1-3) Stop: 08/21/17 19:37 Acetaminophen/Hydrocodone Bitart ([place] 5-325 Mg) 1 tab PO BID PRN PRN Reason: MODERATE PAIN Stop: 08/21/17 21:01 Last Admin: 02/19/17 21:46 Dose: 1 tab Albuterol Sulfate (Proventil Neb) 2.5 mg IH [id number] PRN; Protocol PRN Reason: Dyspnea Stop: 08/22/17 00:01 Albuterol/Ipratropium (Duoneb) 3 ml IH ONCE PRN; Protocol PRN Reason: Shortness Of Breath/Wheezing Stop: 08/21/17 19:40 Aspirin (Aspirin Ec) 81 mg PO DAILY [facility] Stop: 08/22/17 09:01 Last Admin: 02/23/17 07:54 Dose: 81 mg Atorvastatin Calcium (Lipitor) 10 mg PO HS [facility] Stop: 08/21/17 21:01 Last Admin: 02/22/17 21:09 Dose: 10 mg Budesonide/Formoterol Fumarate (Symbicort) 2 puff IH BIDR [facility] PRN Reason: Protocol Stop: 08/21/17 22:01 Last Admin: 02/22/17 20:44 Dose: 2 puff Dextrose/Water (Dextrose 50% (Syg)) 25 ml IVP AD PRN PRN Reason: Hypoglycemia Stop: 08/21/17 19:47 Diltiazem HCl (Cardizem Cd) 360 mg PO DAILY [facility] Stop: 08/24/17 13:31 Last Admin: 02/23/17 07:54 Dose: 360 mg Duloxetine HCl (Cymbalta) 60 mg PO DAILY [facility] Stop: 08/24/17 13:16 Last Admin: 02/23/17 07:54 Dose: 60 mg Furosemide (Lasix) 40 mg PO DAILY [facility] Stop: 08/22/17 09:01 Last Admin: 02/23/17 07:54 Dose: 40 mg Glucagon (Glucagen) 1 mg IM ONCE PRN PRN Reason: Hypoglycemia Stop: 08/21/17 19:47 Glucose (Gluctose) 15 gm PO ONCE PRN PRN Reason: Hypoglycemia Stop: 08/21/17 19:47 Glucose (Gluctose) 30 gm PO ONCE PRN PRN Reason: Hypoglycemia Stop: 08/21/17 19:47 Dextrose (Dextrose 5%) 1,000 mls @ 100 mls/hr IVC .Q10H PRN PRN Reason: HYPOGLYCEMIA Stop: 08/21/17 19:47 Insulin Detemir (Levemir) 58 unit SQ HS [facility] Stop: 08/21/17 21:01 Last Admin: 02/22/17 21:12 Dose: 58 unit Insulin Human Lispro (Humalog) 0 units SQ HS [facility] PRN Reason: Protocol Stop: 08/21/17 21:01 Last Admin: 02/22/17 21:09 Dose: 3 units Insulin Human Lispro (Humalog) 0 units SQ TIDAC [facility] PRN Reason: Protocol Stop: 08/22/17 07:31 Last Admin: 02/23/17 07:53 Dose: Not Given Loratadine (Claritin) 10 mg PO DAILY [facility] Stop: 08/22/17 09:01 Last Admin: 02/23/17 07:54 Dose: 10 mg Melatonin (Melatonin) 9 mg PO HS PRN PRN Reason: Insomnia Stop: 08/22/17 21:01 Last Admin: 02/22/17 23:26 Dose: 9 mg Metoprolol Tartrate (Lopressor) 100 mg PO BID [facility] Stop: 08/21/17 21:01 Last Admin: 02/23/17 07:54 Dose: 100 mg Naloxone HCl (Narcan) 0.4 mg IVP Q2MIN PRN PRN Reason: Opioid Reversal Stop: 08/21/17 19:37 Pregabalin (Lyrica) 200 mg PO BID [facility] Stop: 08/21/17 21:01 Last Admin: 02/23/17 07:55 Dose: 200 mg Rivaroxaban (Xarelto) 20 mg PO 1700 [facility] Stop: 08/22/17 17:01 Last Admin: 02/22/17 17:06 Dose: 20 mg Senna/Docusate Sodium (Senna Plus) 1 each PO DAILY PRN; Protocol PRN Reason: Constipation Stop: 08/23/17 10:49 Last Admin: 02/22/17 23:29 Dose: 1 each Tamsulosin HCl (Flomax) 0.4 mg PO DAILY [facility] PRN Reason: Protocol Stop: 08/22/17 09:01 Last Admin: 02/23/17 07:54 Dose: 0.4 mg Laboratory Tests 02/23/17 02/23/17 05:37 05:37 Hgb 14.1 Potassium 4.1 Creatinine 1.03 Magnesium 1.7 - Imaging and Cardiology Chest Xray: report reviewed Echo: report reviewed - EKG Interpretation EKG results cardiology: other (Telemetry reviewed with average HR previous 12 hours, 90 atrial flutter. PVCs noted.) - VTE Documentation of Mechanical Device: Graduated compression elastic hosiery Consult Discharge Plan - Plan [facility]errals: [facility] [Primary Care Provider] - 03/06/17 8:45 am
[2017-02-23] MEDS: Budesonide/Formoterol 160/4.5 MDI IH SCH ×2 (11:08→20:02)
[2017-02-23] MEDS: *HR* Rivaroxaban 10 MG TABLET PO SCH (16:42)
[2017-02-23] MEDS: Insulin DETEMIR 100 UNIT/ML X5UNITS SQ SCH (23:11)
[2017-02-24] MEDS: *HR* HYDROcodone/Acet 5/325 mg TABLET PO PRN ×3 (05:33→19:21)
[2017-02-24 06:57] LABS: Basophils # 0.1 K/mcL (0.0-0.2); Basophils % 0.5 %; Eosinophils # 0.2 K/mcL (0.0-0.6); Eosinophils % 1.5 %; Immature Granulocytes % 0.6 % (0-4); Lymphocytes # 1.7 K/mcL (0.6-4.6); Lymphocytes % 14.8 %; Mean Corpuscular HGB Conc 34.1 g/dL (31.6-35.5); Mean Corpuscular Hemoglobin 29.8 pg (28.0-33.3); Mean Corpuscular Volume 87.2 fL (83.0-100.0); Mean Platelet Volume 9.9 fL (9.4-12.4); Monocytes # 1.2 K/mcL (0.0-1.3); Monocytes % 10.1 %; Neutrophils # 8.5 K/mcL (1.6-8.9); Platelet Count 291 K/mcL (140-400); Red Cell Distribution Width 13.3 % (11.5-14.5); Segmented Neutrophils % 72.5 %
[2017-02-24 07:11] LABS: BUN/Creatinine Ratio 16 (6-26); Blood Urea Nitrogen 15 mg/dL (8-26); Calcium 9.3 mg/dL (8.6-10.8); Carbon Dioxide 28 mEq/L (19-29); Chloride 105 mEq/L (98-109); Glucose 111 mg/dL (70-99); Magnesium 1.5 mg/dL (1.6-2.6); Osmolality,Calculated 294 (280-300); Potassium 3.8 mEq/L (3.5-4.5); Sodium 141 mEq/L (136-145); eGFR For African Americans > 60 (> 60); eGFR For Non-African Americans > 60 (> 60)
[2017-02-24] MEDS ORDERED: Magnesium Sulfate 2 GM in D5% in Water 100 ML IVPB ONE (07:26)
--- NOTE | 2017-02-24 08:31 | Internal Med Progress Note ---
<Nicolas Church - Last Filed: 02/24/17 08:28> Date of Encounter: 02/24/17 Time of Encounter: 08:28 - Assessment and plan (1) Atrial fibrillation with RVR Current Visit: No Status: Resolved Assessment and plan: Rate is under better control this time. Patient has been transitioned back to by mouth medications. Patient was dig loaded yesterday but cardiology did not recommend continuing digoxin. We will continue to monitor heart rate. Continue anticoagulation with Xarelto. Cardiology has signed off, plan to discharge tomorrow after discussion with social work to make sure the patient has adequate outpatient follow-up. Patient is agreeable to this plan. (2) Type 2 diabetes mellitus Current Visit: Yes Status: Chronic Assessment and plan: Blood sugars have been acceptable during this hospitalization. Continue to monitor. Qualifiers: Diabetes mellitus complication status: without complication Diabetes mellitus intermediate project manager insulin use: with intermediate project manager use Qualified Code(s): E11.9 - Type 2 diabetes mellitus without complications; Z79.4 - local intermodal truck driver (current) use of insulin (3) Diastolic CHF Current Visit: Yes Status: Acute Assessment and plan: No evidence of acute exacerbation. Continue home Lasix. Qualifiers: Congestive heart failure chronicity: chronic Qualified Code(s): I50.32 - Chronic diastolic (congestive) heart failure (4) Hypertension Current Visit: Yes Status: Acute Assessment and plan: Blood pressure is under good control and has actually had a few episodes of blood pressure on the lower side given his large doses of beta blockers and calcium channel blockers. Continuing to uptitrate his rate controlling medications as blood pressure allows as discussed above. Qualifiers: Hypertension type: essential hypertension Qualified Code(s): I10 - Essential (primary) hypertension (5) DVT prophylaxis Current Visit: No Status: Acute Assessment and plan: Patient is currently anticoagulated with Xarelto - Subjective Interval history: Patient seen and examined at bedside. Patient states he feels pretty good today. He has no complaints. Denies fever, chills, chest pain, palpitations. He denies any symptoms related to his atrial fibrillation. Patient reports poor sleep at night. - Constitutional Vitals: Temp Pulse Resp BP Pulse Ox 97.5 F L 96 17 134/93 94 02/24/17 07:46 02/24/17 07:46 02/24/17 07:46 02/24/17 07:46 02/24/17 07:46 General appearance: Present: A&O X 3, morbidly obese, no acute distress - Respiratory Respiratory exam: Present: CTAB. Absent: rales, rhonchi, wheezes - Cardiovascular Cardiovascular exam: Present: irregular rhythm. Absent: gallop, rubs, systolic murmur, tachycardia - GI/Abdominal GI/Abdominal exam: Present: normal bowel sounds, soft. Absent: distended, tenderness - Extremities Exam Extremities exam: Present: pedal edema (trace), warm. Absent: tenderness - Neurological Exam Neurological exam: Present: alert, CN II-XII intact, oriented X3, no focal deficits Internal Medicine: Result - Labs CBC & Chem 7: 02/24/17 06:43 02/24/17 06:43 Labs: Short CBC 02/24/17 Range/Units 06:43 WBC 11.7 H (4.3-11.1) K/mcL Hgb 14.0 (12.9-16.9) g/dL Hct 41.0 (37.5-50.1) % Plt Count 291 (140-400) K/mcL Neutrophils # 8.5 (1.6-8.9) K/mcL BMP 02/24/17 06:43 Sodium 141 Potassium 3.8 Chloride 105 Carbon Dioxide 28 BUN 15 Creatinine 0.96 Glucose 111 H Calcium 9.3 - ABG Interpretation ABG results: PT/INR, D-dimer PT 15.2 Seconds (9.4-12.1) H 02/19/17 16:15 - VTE Documentation of Mechanical Device: Graduated compression elastic hosiery Consult Discharge Plan - Plan [facility] Provider[facility] - 03/06/17 8:45 am <Bebo Back P - Last Filed: 02/24/17 13:32> Date of Encounter: 02/24/17 - Constitutional Vitals: Temp Pulse Resp BP Pulse Ox 97.4 F L 76 18 142/90 94 02/24/17 11:27 02/24/17 11:27 02/24/17 11:27 02/24/17 11:27 02/24/17 11:27 Internal Medicine: Result - Labs CBC & Chem 7: 02/24/17 06:43 02/24/17 06:43 Labs: Short CBC 02/24/17 Range/Units 06:43 WBC 11.7 H (4.3-11.1) K/mcL Hgb 14.0 (12.9-16.9) g/dL Hct 41.0 (37.5-50.1) % Plt Count 291 (140-400) K/mcL Neutrophils # 8.5 (1.6-8.9) K/mcL BMP 02/24/17 06:43 Sodium 141 Potassium 3.8 Chloride 105 Carbon Dioxide 28 BUN 15 Creatinine 0.96 Glucose 111 H Calcium 9.3 - ABG Interpretation ABG results: PT/INR, D-dimer PT 15.2 Seconds (9.4-12.1) H 02/19/17 16:15 - Attending Attestation I examined this patient and my medical decision-making was reviewed with the ADULT MINISTRIES DIRECTOR/PA/Advanced Practice Nurse/Resident Physician. I agree with the documented findings, disposition and treatment plan as described except to the extent set forth below.
[2017-02-24] MEDS: Pregabalin 50 MG CAPSULE PO SCH ×2 (09:13→20:23)
[2017-02-24] MEDS: Diltiazem CD (24hr) 180 MG CAPSULE PO SCH (09:14)
[2017-02-24] MEDS: Aspirin Enteric Coated 81 MG Tablet PO SCH (09:15)
[2017-02-24] MEDS: Metoprolol 100 MG TABLET PO SCH ×2 (09:15→20:23)
[2017-02-24] MEDS: Sennosides/Docusate Sodium TABLET PO PRN (09:15)
[2017-02-24] MEDS: Furosemide 40 MG TABLET PO SCH (09:15)
[2017-02-24] MEDS: Insulin LISPRO 300 UNITS/3 ML VIAL SQ SCH ×4 (09:16→20:40)
[2017-02-24] MEDS: Loratadine 10 MG TABLET PO SCH (09:16)
[2017-02-24] MEDS: Budesonide/Formoterol 160/4.5 MDI IH SCH ×2 (10:56→21:13)
[2017-02-24] MEDS: *HR* Rivaroxaban 10 MG TABLET PO SCH (16:17)
[2017-02-24] MEDS: Insulin DETEMIR 100 UNIT/ML X5UNITS SQ SCH (20:23)
[2017-02-25] MEDS: *HR* HYDROcodone/Acet 5/325 mg TABLET PO PRN ×2 (02:54→06:52)
[2017-02-25] MEDS ORDERED: Ketorolac 15 MG/ML VIAL IVP ONE (06:48)
[2017-02-25 07:45] LABS: BUN/Creatinine Ratio 14 (6-26); Blood Urea Nitrogen 12 mg/dL (8-26); Calcium 9.2 mg/dL (8.6-10.8); Carbon Dioxide 30 mEq/L (19-29); Chloride 104 mEq/L (98-109); Glucose 91 mg/dL (70-99); Magnesium 1.7 mg/dL (1.6-2.6); Osmolality,Calculated 289 (280-300); Sodium 140 mEq/L (136-145); eGFR For African Americans > 60 (> 60); eGFR For Non-African Americans > 60 (> 60)
[2017-02-25 07:48] LABS: Basophils # 0.1 K/mcL (0.0-0.2); Basophils % 0.3 %; Eosinophils # 0.2 K/mcL (0.0-0.6); Eosinophils % 1.2 %; Hematocrit 43.4 % (37.5-50.1); Hemoglobin 14.3 g/dL (12.9-16.9); Immature Granulocytes % 0.7 % (0-4); Lymphocytes # 2.1 K/mcL (0.6-4.6); Lymphocytes % 13.6 %; Mean Corpuscular HGB Conc 32.9 g/dL (31.6-35.5); Monocytes # 1.6 K/mcL (0.0-1.3); Monocytes % 10.7 %; Neutrophils # 11.1 K/mcL (1.6-8.9); Platelet Count 316 K/mcL (140-400); Red Blood Count 4.93 M/mcL (4.19-5.50); Red Cell Distribution Width 13.4 % (11.5-14.5); Segmented Neutrophils % 73.5 %
[2017-02-25] MEDS ORDERED: methylPREDNISolone 125 MG/2 ML VIAL IVP ONE (07:58)
[2017-02-25] MEDS: Insulin LISPRO 300 UNITS/3 ML VIAL SQ SCH ×4 (08:31→20:59)
[2017-02-25] MEDS: Aspirin Enteric Coated 81 MG Tablet PO SCH (08:35)
[2017-02-25] MEDS: Sennosides/Docusate Sodium TABLET PO SCH ×2 (08:35→20:58)
[2017-02-25] MEDS: Diltiazem CD (24hr) 180 MG CAPSULE PO SCH (08:35)
[2017-02-25] MEDS: Furosemide 40 MG TABLET PO SCH (08:35)
[2017-02-25] MEDS: Pregabalin 50 MG CAPSULE PO SCH ×2 (08:36→20:58)
[2017-02-25] MEDS: Metoprolol 100 MG TABLET PO SCH ×2 (08:36→20:58)
[2017-02-25] MEDS: Loratadine 10 MG TABLET PO SCH (08:36)
[2017-02-25 09:33] LABS: C-Reactive Protein 29 mg/L (Less than 5)
[2017-02-25] MEDS: Budesonide/Formoterol 160/4.5 MDI IH SCH ×2 (11:16→20:50)
[2017-02-25] MEDS ORDERED: Ketorolac 30 MG/ML VIAL IVP ONE (12:54)
--- NOTE | 2017-02-25 13:11 | Internal Med Progress Note ---
<LynnetteNicolas Devlin - Last Filed: 02/25/17 13:09> Date of Encounter: 02/25/17 Time of Encounter: 13:09 - Assessment and plan (1) Shoulder pain Current Visit: Yes Status: Acute Assessment and plan: Patient had sudden onset of right shoulder pain. X-ray was normal. Exam is relatively unremarkable, there is no erythema, joint effusion, swelling. Concern for septic arthritis is low. ESR is elevated at 44, CRP is 29. Patient also states that the pain travels across his back and therefore there is a concern for polymyalgia rheumatica. Patient was given a one-time dose of Solu-Medrol and then we will monitor his response to this. Rheumatology has been consulted. Qualifiers: Laterality: right Chronicity: acute Qualified Code(s): M25.511 - Pain in right shoulder (2) Atrial fibrillation with RVR Current Visit: No Status: Resolved Assessment and plan: Rate is under better control this time. Patient has been transitioned back to by mouth medications. Patient was dig loaded yesterday but cardiology did not recommend continuing digoxin. We will continue to monitor heart rate. Continue anticoagulation with Xarelto. We are working with social work to make sure the patient has all those medications available discharge. (3) Type 2 diabetes mellitus Current Visit: Yes Status: Chronic Assessment and plan: Blood sugars have been acceptable during this hospitalization. Continue to monitor. Qualifiers: Diabetes mellitus complication status: without complication Diabetes mellitus intermediate insulin use: with petroleum terminal plant operator use Qualified Code(s): E11.9 - Type 2 diabetes mellitus without complications; Z79.4 - intermodal dispatcher (current) use of insulin (4) Diastolic CHF Current Visit: Yes Status: Acute Assessment and plan: No evidence of acute exacerbation. Continue home Lasix. Qualifiers: Congestive heart failure chronicity: chronic Qualified Code(s): I50.32 - Chronic diastolic (congestive) heart failure (5) Hypertension Current Visit: Yes Status: Acute Assessment and plan: Blood pressure is under good control and has actually had a few episodes of blood pressure on the lower side given his large doses of beta blockers and calcium channel blockers. Continuing to uptitrate his rate controlling medications as blood pressure allows as discussed above. Qualifiers: Hypertension type: essential hypertension Qualified Code(s): I10 - Essential (primary) hypertension (6) DVT prophylaxis Current Visit: No Status: Acute Assessment and plan: Patient is currently anticoagulated with Xarelto - Subjective Interval history: Patient seen and examined at bedside. Patient reports 10 out of 10 right shoulder pain that began yesterday evening. Patient states it is never had anything like this before. He states the pain is across his upper back and goes up to his right shoulder. States the pain is worse when he moves his head around. Denies any fever, chills, trauma, swelling. - Constitutional Vitals: Temp Pulse Resp BP Pulse Ox 98.2 F 101 16 130/92 92 02/25/17 11:16 02/25/17 11:16 02/25/17 11:16 02/25/17 11:16 02/25/17 11:16 General appearance: Present: A&O X 3, morbidly obese, no acute distress - Respiratory Respiratory exam: Present: CTAB. Absent: rales, rhonchi, wheezes - Cardiovascular Cardiovascular exam: Present: irregular rhythm. Absent: gallop, rubs, systolic murmur, tachycardia - GI/Abdominal GI/Abdominal exam: Present: normal bowel sounds, soft. Absent: distended, tenderness - Extremities Exam Extremities exam: Present: warm. Absent: pedal edema, tenderness Additional comments: Right shoulder is normal to inspection. There is mild tenderness to palpation over the right scapular spine. There is no swelling, joint effusion, erythema noted the area over the right shoulder was warm to touch however the patient had a warm blanket draped over this area. Internal Medicine: Result - Labs CBC & Chem 7: 02/25/17 07:22 02/25/17 07:22 Labs: Short CBC 02/25/17 Range/Units 07:22 WBC 15.1 H (4.3-11.1) K/mcL Hgb 14.3 (12.9-16.9) g/dL Hct 43.4 (37.5-50.1) % Plt Count 316 (140-400) K/mcL Neutrophils # 11.1 H (1.6-8.9) K/mcL BMP 02/25/17 07:22 Sodium 140 Potassium 4.0 Chloride 104 Carbon Dioxide 30 H BUN 12 Creatinine 0.88 Glucose 91 Calcium 9.2 - ABG Interpretation ABG results: PT/INR, D-dimer PT 15.2 Seconds (9.4-12.1) H 02/19/17 16:15 - Impressions Impressions Shoulder X-Ray 02/24/17 09:10 IMPRESSION: No acute osseous abnormality of the right shoulder. D/ / Mauricio Alaniz MD / Mauricio Alaniz MD Interpreting Provider: Mauricio Alaniz MD - VTE Documentation of Mechanical Device: Graduated compression elastic hosiery Consult Discharge Plan - Plan Instructions: Heart Failure (DC), Atrial Flutter (DC), Acute Kidney Injury (DC) , Acute Kidney Injury (GEN), Diabetes Mellitus Type 2 in Adults (DC), Chronic Hypertension (DC) Additional Instructions: [facility] Please obtain your medications and take them as directed. Please follow up with cardiology as scheduled. Please return for any new or worsening symptoms. Referrals: [facility] [Primary Care Provider] - 02/28/17 12:15 pm <Bebo Back - Last Filed: 02/25/17 17:18> Date of Encounter: 02/25/17 - Constitutional Vitals: Temp Pulse Resp BP Pulse Ox 98.1 F 94 16 118/78 95 02/25/17 15:33 02/25/17 15:33 02/25/17 15:33 02/25/17 15:33 02/25/17 15:33 Internal Medicine: Result - Labs CBC & Chem 7: 02/25/17 07:22 02/25/17 07:22 Labs: Short CBC 02/25/17 Range/Units 07:22 WBC 15.1 H (4.3-11.1) K/mcL Hgb 14.3 (12.9-16.9) g/dL Hct 43.4 (37.5-50.1) % Plt Count 316 (140-400) K/mcL Neutrophils # 11.1 H (1.6-8.9) K/mcL BMP 02/25/17 07:22 Sodium 140 Potassium 4.0 Chloride 104 Carbon Dioxide 30 H BUN 12 Creatinine 0.88 Glucose 91 Calcium 9.2 - ABG Interpretation ABG results: PT/INR, D-dimer PT 15.2 Seconds (9.4-12.1) H 02/19/17 16:15 - Attending Attestation I examined this patient and my medical decision-making was reviewed with the CHIEF SERVICE DISPATCHER/PA/Advanced Practice Nurse/Resident Physician. I agree with the documented findings, disposition and treatment plan as described except to the extent set forth below.
--- NOTE | 2017-02-25 13:47 | Rheumatology Consult Note ---
<Amisha Mcgregor - Last Filed: 02/25/17 16:01> Date of Encounter: 02/25/17 Time of Encounter: 13:00 Rheumatology Assess and Plan (1) Bursitis of right shoulder Current Visit: Yes Status: Acute - Patient's acute-onset right shoulder pain is mostly like from right shoulder bursitis given the physical exam findings and significant pain relieve immediately after subacromial steroid injection. - Doubt polymyalgia rheumatica given that usually affect bilateral shoulder and/ or hips. The elevated ESR and CRP are likely secondary to other underlying process. - Doubt septic arthritis given full passive ROM without any pain. - Patient is instructed to follow up with his PCP at [facility] if he continues to have right shoulder pain but may consider outpatient rheumatology referral if still having concern of polymyalgia rheumatica. Patient verbalized his understanding. Rheumatology HPI Consult date: 02/25/17 Requesting physician: Nicolas Church Consult reason: Shoulder pain Chief complaint: Right shoulder pain History of present illness: Mr. Molina is a 71 year old male with PMH of A-flutter/fib and diabetic neuropathy. Patient was found to have A-flutter with RVR at [facility] and admitted for further management. Patient is currently rate-controlled with PO Cardizem and anticoagulated with Xarelto. Patient reports having acute onset of right shoulder pain starting yesterday and is found to have elevated ESR and CRP raising the concern of polymyalgia rheumatica. Patient received one dose of IV Solu-Medrol this morning and rheumatology is consulted for further evaluation and management. Patient was seen and examined this afternoon. Patient describes the pain as constant sharp pain affecting posterior and lateral parts of right shoulder and right lower neck. It's aggravated by moving right shoulder and turn or sidebend his head to the left. Warm compression and rest helped. Steroid also helps as his pain severity decreased from 10/10 last night to 6/10 now after receiving one dose of IV Solu-Medrol this morning. Patient has baseline numbness/tingling of bilateral hands and reports no significant change from the right shoulder pain. Patient denies vision change, focal weakness or pain on chewing. Patient does have some frontal headache but not feel it's related to the right shoulder pain. Patient reports subjective fever this afternoon but measured temperature is around 99.8. Patient has chronic low back and denies other joint pain/ swelling or myalgia. Patient denies chest pain/discomfort, worsening shortness of breath, nausea, vomiting, abdominal pain, hematochezia, melena, hematuria, dysuria, skin rash/itchiness, easily bleeding/bruise.Patient denies recent trauma or injury. Patient admits tendency to lay on his right side at sleep before the onset of current shoulder pain. Patient also reports having history of multiple right shoulder injection as he is right-hand dominant and used to play baseball in the past. Past Med Surg Social Fam HX - Past Medical History Medical history: arthritis, asthma, atrial fibrillation, cancer, diabetes, hypertension, other Psychiatric history: no psych history - Past Surgical History Surgical History: orthopedic, other, prostatectomy - Social History Smoking Status: Former smoker Smokeless Tobacco Status: No Alcohol use: none Drug use: none - Family History Mother Living Status: Hx Family Cardiac Disorders: Yes (CHF) Father Living Status: Hx Family Cardiac Disorders: Yes Medications and Allergies Albuterol Sulfate [Albuterol Inhaler] 2 puff IH QID PRN 02/13/17 [History] Aspirin Enteric Coated [Aspirin EC] 81 mg PO DAILY 02/13/17 [History] Atorvastatin [Lipitor] 10 mg PO HS 02/13/17 [History] Budesonide/Formoterol 160/4.5 [Symbicort 160/4.5] 2 puff IH BIDR 02/13/17 [ History] Cetirizine HCl [All Day Allergy] 10 mg PO DAILY 02/13/17 [History] Cholecalciferol (D-3) [Vitamin D] 2,000 unit PO DAILY 02/13/17 [History] Diltiazem CD (24hr) [Cardizem CD] 360 mg PO DAILY 02/13/17 [History] Duloxetine HCl [Cymbalta] 60 mg PO DAILY 02/13/17 [History] Fluticasone Propionate Nasal [Flonase] 50 mcg NS BID 02/13/17 [History] HYDROcodone/Acet 5/325 mg [Berwick 5-325 mg] 1 tab PO BID 02/13/17 [History] Insulin ASPART [NovoLOG] 5 unit SQ TIDWM 02/13/17 [History] Insulin Glargine [Lantus] 58 unit SQ HS 02/13/17 [History] Lisinopril 2.5 mg PO DAILY 02/13/17 [History] Melatonin/Pyridoxine HCl (B6) [Melatonin 3 mg Tablet] 6 mg PO HS 02/13/17 [ History] Metformin HCl [Glucophage] 1,000 mg PO BID 02/13/17 [History] Metoprolol [Lopressor] 100 mg PO BID 02/13/17 [History] Montelukast [Singulair] 10 mg PO HS 02/13/17 [History] Omeprazole [PriLOSEC] 40 mg PO DAILY 02/13/17 [History] Polyvinyl Alcohol [Artificial Tears] 1 drop BOTH EYES AD PRN 02/13/17 [History] Pregabalin [Lyrica] 200 mg PO BID 02/13/17 [History] Rivaroxaban [Xarelto] 20 mg PO DAILY 02/13/17 [History] Saliva Substitute Combo No.3 [Aquoral] 3 - 5 spray MM BID 02/13/17 [History] Sildenafil Citrate [Viagra] 50 mg PO AD PRN 02/13/17 [History] Sodium Chloride [Mina-128] 1 drop BOTH EYES QID 02/13/17 [History] Tamsulosin HCl [Flomax] 0.4 mg PO DAILY 02/13/17 [History] Trazodone HCl 150 mg PO HS PRN 02/13/17 [History] Docusate [Colace] 100 mg PO BID PRN #60 capsule 02/18/17 [Rx] Furosemide [Lasix] 40 mg PO DAILY #30 tablet 02/18/17 [Rx] Sennosides/Docusate Sodium [Senna Plus] 2 each PO BID PRN #60 tablet 02/18/17 [ Rx] Albuterol Neb [Proventil Neb] 2.5 mg IH Q4H PRN 02/19/17 [History] GuaiFENesin/Dextromethorphan [Tussin Dm Syrup] 10 ml PO Q4H PRN 02/19/17 [ History] Ipratropium/Albuterol Neb [Duoneb] 3 ml IH ONCE PRN 02/19/17 [History] Allergies codeine Allergy (Verified 02/13/17 16:16) Anaphylaxis All Systems Review: A 10-system review of systems was performed and is negative for pertinent findings except as documented above in the HPI. Review of Systems: Patient denies chest pain/discomfort, worsening shortness of breath, nausea, vomiting, abdominal pain, hematochezia, melena, hematuria, dysuria, skin rash/ itchiness, easily bleeding/bruise. Rheumatology Exam Vital Signs, Last 4 Hours Temp Pulse Resp BP Pulse Ox 02/25/17 11:16 98.2 F 101 16 130/92 92 Exam: Gen: A&Ox3, NAD, obese. HEENT: AT/NC, EOMI, PERRL, neck supple, tracheal midline, mucosa moist and no oral ulcer/sore noted. CV: regular rate with irregular rhythm, no significant murmurs appreciated. Lungs: CTAB, no wheezes, rhonchi or rales noted. Abd: obese, soft, non-tender, positive bowel sounds. Neuro: CN II-XII grossly intact, strengths 5/5 and symmetrical, no focal deficit noted. Extremities: Not cyanotic, mild bilateral lower extremity edema. Right shoulder: no significant erythema or swelling compared to the left. Reduced active ROM due to pain but full passive ROM without any pain. Rheumatology Results 02/25/17 07:22 02/25/17 07:22 All other labs normal. Consult Discharge Plan - Plan Instructions: Heart Failure (DC), Atrial Flutter (DC), Acute Kidney Injury (DC) , Acute Kidney Injury (GEN), Diabetes Mellitus Type 2 in Adults (DC), Chronic Hypertension (DC) Additional Instructions: [facility] Please obtain your medications and take them as directed. Please follow up with cardiology as scheduled. Please return for any new or worsening symptoms. Referrals: [facility] [Primary Care Provider] - 02/28/17 12:15 pm <Larry Aiken - Last Filed: 02/25/17 16:44> Date of Encounter: 02/25/17 Rheumatology HPI History of present illness: Mr. Molina is a 71 year old male All Systems Review: A 10-system review of systems was performed and is negative for pertinent findings except as documented above in the HPI. Rheumatology Exam Vital Signs, Last 4 Hours Temp Pulse Resp BP Pulse Ox 02/25/17 15:33 98.1 F 94 16 118/78 95 Rheumatology Results 02/25/17 07:22 02/25/17 07:22 All other labs normal. - Attending Attestation I examined this patient and my medical decision making was reviewed with the resident physician. I agree with the documented findings, disposition and treatment as described with these exceptions. In summary 71 yo M with PMH of afib/flutter, CHG, DM, HTN, FARAZ presents with atrial flutter. This AM, had sudden onset of right shoulder pain. Pain worse with abducting to 90 degrees, pushing up out of bed, raising above head. No new pain in left shoulder, hips. No headaches, no visual changes, no jaw pain, no tongue/throat pain. ESR/CRP checked elevated. Exam - Active ROM of right shoulder with sharp pain at about 90 degrees of abduction. Passive ROM full and without pain. Suspicion for joint infection is low given no pain and full ROM on passive ROM. It would be too early in his course to fully suspect polymyalgia rheumatica and symptoms not overall consistent with this. Xray of shoulder reviewed. This may be mechanical tendinitis or subacromial bursitis; will inject shoulder today. He is to follow-up with PCP in 1 week; if symptoms do not resolve, consider rereferring to rheum for evaluation. Discussed with medicine resident, Dr. Church
[2017-02-25] MEDS ORDERED: Lidocaine 1% 20 ML MDV ID ONE (15:31)
--- NOTE | 2017-02-25 15:43 | Discharge Summary ---
<Nicolas Church - Last Filed: 02/25/17 15:41> Date of Encounter: 02/25/17 Time of Encounter: 15:41 - Discharge Diagnosis (1) Shoulder pain Priority: Primary Status: Acute Qualifiers: Laterality: right Chronicity: acute Qualified Code(s): M25.511 - Pain in right shoulder (2) Atrial fibrillation with RVR Priority: Primary Status: Resolved (3) Type 2 diabetes mellitus Priority: Secondary Status: Chronic Qualifiers: Diabetes mellitus complication status: without complication Diabetes mellitus termination clerk insulin use: with nursing home use Qualified Code(s): E11.9 - Type 2 diabetes mellitus without complications; Z79.4 - superintendent [employer] (current) use of insulin (4) Diastolic CHF Priority: Secondary Status: Acute Qualifiers: Congestive heart failure chronicity: chronic Qualified Code(s): I50.32 - Chronic diastolic (congestive) heart failure (5) Hypertension Priority: Secondary Status: Acute Qualifiers: Hypertension type: essential hypertension Qualified Code(s): I10 - Essential (primary) hypertension (6) DVT prophylaxis Priority: Secondary Status: Acute - Discharge Medications Home Medications: Albuterol Sulfate [Albuterol Inhaler] 2 puff IH QID PRN 02/13/17 [History] Aspirin Enteric Coated [Aspirin EC] 81 mg PO DAILY 02/13/17 [History] Atorvastatin [Lipitor] 10 mg PO HS 02/13/17 [History] Budesonide/Formoterol 160/4.5 [Symbicort 160/4.5] 2 puff IH BIDR 02/13/17 [ History] Cetirizine HCl [All Day Allergy] 10 mg PO DAILY 02/13/17 [History] Cholecalciferol (D-3) [Vitamin D] 2,000 unit PO DAILY 02/13/17 [History] Diltiazem CD (24hr) [Cardizem CD] 360 mg PO DAILY 02/13/17 [History] Duloxetine HCl [Cymbalta] 60 mg PO DAILY 02/13/17 [History] Fluticasone Propionate Nasal [Flonase] 50 mcg NS BID 02/13/17 [History] HYDROcodone/Acet 5/325 mg [[place] 5-325 mg] 1 tab PO BID 02/13/17 [History] Insulin ASPART [NovoLOG] 5 unit SQ TIDWM 02/13/17 [History] Insulin Glargine [Lantus] 58 unit SQ HS 02/13/17 [History] Lisinopril 2.5 mg PO DAILY 02/13/17 [History] Melatonin/Pyridoxine HCl (B6) [Melatonin 3 mg Tablet] 6 mg PO HS 02/13/17 [ History] Metformin HCl [Glucophage] 1,000 mg PO BID 02/13/17 [History] Metoprolol [Lopressor] 100 mg PO BID 02/13/17 [History] Montelukast [Singulair] 10 mg PO HS 02/13/17 [History] Omeprazole [PriLOSEC] 40 mg PO DAILY 02/13/17 [History] Polyvinyl Alcohol [Artificial Tears] 1 drop BOTH EYES AD PRN 02/13/17 [History] Pregabalin [Lyrica] 200 mg PO BID 02/13/17 [History] Rivaroxaban [Xarelto] 20 mg PO DAILY 02/13/17 [History] Saliva Substitute Combo No.3 [Aquoral] 3 - 5 spray MM BID 02/13/17 [History] Sildenafil Citrate [Viagra] 50 mg PO AD PRN 02/13/17 [History] Sodium Chloride [Mina-128] 1 drop BOTH EYES QID 02/13/17 [History] Tamsulosin HCl [Flomax] 0.4 mg PO DAILY 02/13/17 [History] Trazodone HCl 150 mg PO HS PRN 02/13/17 [History] Docusate [Colace] 100 mg PO BID PRN #60 capsule 02/18/17 [Rx] Furosemide [Lasix] 40 mg PO DAILY #30 tablet 02/18/17 [Rx] Sennosides/Docusate Sodium [Senna Plus] 2 each PO BID PRN #60 tablet 02/18/17 [ Rx] Albuterol Neb [Proventil Neb] 2.5 mg IH Q4H PRN 02/19/17 [History] GuaiFENesin/Dextromethorphan [Tussin Dm Syrup] 10 ml PO Q4H PRN 02/19/17 [ History] Ipratropium/Albuterol Neb [Duoneb] 3 ml IH ONCE PRN 02/19/17 [History] Allergies/Adverse Reactions: Allergies codeine Allergy (Verified 02/13/17 16:16) Anaphylaxis Procedures/tests Complete & Pending: Procedures Performed prior 72 hours Category Date Time Status ECG 12 lead ECG [ECG] Routine Y 02/25/17 13:00 Completed - Notes to Outpatient Provider Patient was seen by rheumatology as an inpatient, we would recommend outpatient rheumatology referral for further workup of this patient's right shoulder pain. Date of admission: 02/19/17 19:14 [facility] Consults: 02/20/17 05:24 Consult to Cardiology [CONS] Routine Comment: Consulting Provider: Cardiology Ana Reason for Consult: afib with RVR Call Completed: No 02/20/17 11:31 Consult to Management Supervisor [CONS] Routine Reason for SW Consult: discharge planning 02/25/17 12:50 Consult to Physician [CONS] Routine Consulting Provider: Larry Aiken Reason for Consult: Shoulder pain Call Completed: Yes Discharging clinician: Nicolas Church Anticipated date of discharge: 02/25/17 - Patient Status Disposition: Home, Self-Care Condition: Good Functional capacity at discharge: independent ambulation Overall status at discharge: patient is progressing back to baseline - Discharge Instructions Instructions: Heart Failure (DC), Atrial Flutter (DC), Acute Kidney Injury (DC) , Acute Kidney Injury (GEN), Diabetes Mellitus Type 2 in Adults (DC), Chronic Hypertension (DC) [facility]: [facility] [Primary Care Provider] - 02/28/17 12:15 pm Additional Instructions: [facility]. Please obtain your medications and take them as directed. Please follow up with cardiology as scheduled. Please return for any new or worsening symptoms. - Diet and Activity Activity: increase activity as tolerated Diet: diabetic diet, low salt diet Interval History: Patient seen and examined at bedside. Patient's only complaint is of shoulder pain at this time. Patient denies any chest pain, palpitations or shortness of breath. Hospital course: Mr. Molina is a 71 year old male with history of atrial fibrillation presented with rapid heart rate. Patient was recently discharged and had difficulty obtaining his medications so the patient was unable to take his rate controlling medications for atrial fibrillation so the patient return to emergency department with a rapid heart rate. Patient was placed on Cardizem drip and then transitioned to by mouth medications. Cardiology saw the patient and recommended continuing the patient's home medications and he is being evaluated as an outpatient for possible ablation. On the day of discharge patient developed right shoulder pain with an elevated ESR and CRP. Patient was evaluated by rheumatology who felt that this could be a possible bursitis and a therapeutic injection was performed. The visual be discharged home in stable condition. - Time Spent with Patient Total time spent providing and/or coordinating discharge services: - Constitutional Vitals: Temp Pulse Resp BP Pulse Ox 98.1 F 94 16 118/78 95 02/25/17 15:33 02/25/17 15:33 02/25/17 15:33 02/25/17 15:33 02/25/17 15:33 General appearance: Present: A&O X 3, morbidly obese, no acute distress - Respiratory Respiratory exam: Present: CTAB. Absent: rales, rhonchi, wheezes - Cardiovascular Cardiovascular exam: Present: irregular rhythm. Absent: gallop, rubs, systolic murmur, tachycardia - GI/Abdominal GI/Abdominal exam: Present: normal bowel sounds. Absent: distended, soft, tenderness - Extremities Exam Extremities exam: Present: pedal edema, warm. Absent: tenderness - Neurological Exam Neurological exam: Present: alert, CN II-XII intact, oriented X3, no focal deficits - VTE Documentation of Mechanical Device: Graduated compression elastic hosiery <Bebo Back P - Last Filed: 02/25/17 17:18> Date of Encounter: 02/25/17 Procedures/tests Complete & Pending: Procedures Performed prior 72 hours Category Date Time Status ECG 12 lead ECG [ECG] Routine Y 02/25/17 13:00 Completed Date of admission: 02/19/17 19:14 [facility] care physician: [facility] Consults: 02/20/17 05:24 Consult to Cardiology [CONS] Routine Comment: Consulting Provider: Cardiology Ana Reason for Consult: afib with RVR Call Completed: No 02/20/17 11:31 Consult to Management Supervisor [CONS] Routine Reason for SW Consult: discharge planning 02/25/17 12:50 Consult to Physician [CONS] Routine Consulting Provider: Larry Aiken Reason for Consult: Shoulder pain Call Completed: Yes Hospital course: Mr. Molina is a 71 year old male - Time Spent with Patient Total time spent providing and/or coordinating discharge services: - Constitutional Vitals: Temp Pulse Resp BP Pulse Ox 98.1 F 94 16 118/78 95 02/25/17 15:33 02/25/17 15:33 02/25/17 15:33 02/25/17 15:33 02/25/17 15:33 - Attending Attestation I examined this patient and my medical decision-making was reviewed with the HORTICULTURAL NURSERY ASSISTANT/PA/Advanced Practice Nurse/Resident Physician. I agree with the documented findings, disposition and treatment plan as described except to the extent set forth below. follow up with cardio/rheumatology
--- NOTE | 2017-02-25 15:46 | Electrocardiograph Report ---
[address] [address] Test Date: 2017-02-25 Pat Name: Stephan Molina Department: 111 Room: 2NE19 Gender: M System Specialist: MARGARITO : 1945 Requested By: Bebo Back Order Number: [id number] Reading MD: Brijesh Rios MD Measurements Intervals [place] Rate: 86 P: MT: 0 QRS: -1 QRSD: 104 T: 60 QT: 357 QTc: 400 Interpretive Statements ATRIAL FLUTTER/TACHYCARDIA Poor R wave progression Electronically Signed On 02-25-2017 15:44:34 EDT by Brijesh Rios MD
--- NOTE | 2017-02-25 15:48 | Procedure Note ---
<Amisha Mcgregor - Last Filed: 02/25/17 15:49> Date of procedure: 02/25/17 Pre-op diagnosis: Bursitis of right shoulder Post-op diagnosis: same Procedure: Informed consent was obtained and patient signed the consent form. Right shoulder was prepped with alcohol swaps. Subacromial injection of mixture consisting of 1 mL of 1% lidocaine without epinephrine and 1 mL of Kenalog (40 mg/mL) was performed via posterior approach with "no touch" technique. There were no complications during this procedure. Patient tolerates procedure well and reports immediate pain relieve after injection. The procedure was performed by resident physician Amisha Mcgregor under direct supervision of rheumatology attending Dr. Larry Aiken. Estimated blood loss (cc): 0 Condition: stable <Larry Aiken W - Last Filed: 02/25/17 16:39> Procedure: I examined this patient and my medical decision making was reviewed with the resident physician. I agree with the documented findings, disposition and treatment as described with these exceptions. I was present for this entire procedure. No complications.
[2017-02-25] MEDS: *HR* Rivaroxaban 10 MG TABLET PO SCH (16:41)
[2017-02-25] MEDS: Insulin DETEMIR 100 UNIT/ML X5UNITS SQ SCH (20:58)
[2017-02-25] MEDS: Melatonin 3 MG TABLET PO PRN (22:22)
[2017-02-26 04:59] LABS: Hematocrit 43.5 % (37.5-50.1); Hemoglobin 14.1 g/dL (12.9-16.9); Mean Corpuscular HGB Conc 32.4 g/dL (31.6-35.5); Mean Corpuscular Hemoglobin 28.5 pg (28.0-33.3); Mean Corpuscular Volume 88.1 fL (83.0-100.0); Mean Platelet Volume 10.4 fL (9.4-12.4); Platelet Count 311 K/mcL (140-400); Red Blood Count 4.94 M/mcL (4.19-5.50); Red Cell Distribution Width 13.6 % (11.5-14.5)
[2017-02-26 05:13] LABS: BUN/Creatinine Ratio 19 (6-26); Blood Urea Nitrogen 21 mg/dL (8-26); Calcium 9.7 mg/dL (8.6-10.8); Carbon Dioxide 25 mEq/L (19-29); Chloride 103 mEq/L (98-109); Glucose 273 mg/dL (70-99); Magnesium 1.9 mg/dL (1.6-2.6); Osmolality,Calculated 297 (280-300); Potassium 4.2 mEq/L (3.5-4.5); Sodium 137 mEq/L (136-145); eGFR For African Americans > 60 (> 60); eGFR For Non-African Americans > 60 (> 60)
[2017-02-26 05:42] LABS: Lymphocytes # 1.2 K/mcL (0.6-4.6); Monocytes # 1.6 K/mcL (0.0-1.3); Neutrophils # 16.8 K/mcL (1.6-8.9); Platelet Estimate Normal (Normal)
[2017-02-26 07:35] VITALS: BP 121/64
[2017-02-26] MEDS: Budesonide/Formoterol 160/4.5 MDI IH SCH (07:58)
[2017-02-26] MEDS: Pregabalin 50 MG CAPSULE PO SCH (09:37)
[2017-02-26] MEDS: Sennosides/Docusate Sodium TABLET PO SCH (09:37)
[2017-02-26] MEDS: Furosemide 40 MG TABLET PO SCH (09:37)
[2017-02-26] MEDS: Metoprolol 100 MG TABLET PO SCH (09:38)
[2017-02-26] MEDS: Loratadine 10 MG TABLET PO SCH (09:38)
[2017-02-26] MEDS: Diltiazem CD (24hr) 180 MG CAPSULE PO SCH (09:38)
[2017-02-26] MEDS: Aspirin Enteric Coated 81 MG Tablet PO SCH (09:38)
[2017-02-26] MEDS: Insulin LISPRO 300 UNITS/3 ML VIAL SQ SCH (09:43)
--- NOTE | 2017-02-26 10:36 | Physician Discharge Referral ---
<Nicolas Church - Last Filed: 02/26/17 10:34> Home Health/Hosp Referral Info Transfer to: Home Health Attending Provider: Bebo Back Provider in Charge Post Discharge: PCP - Diagnosis (1) Shoulder pain Priority: Primary Status: Acute (2) Atrial fibrillation with RVR Priority: Primary Status: Resolved (3) Type 2 diabetes mellitus Priority: Secondary Status: Chronic (4) Diastolic CHF Priority: Secondary Status: Acute (5) Hypertension Priority: Secondary Status: Acute (6) DVT prophylaxis Priority: Secondary Status: Acute - Respiratory Orders None Smoking Cessation: Smoking cessation has been advised. For more information, call the [place] Tobacco Quit Line at 3-604-XWID-NOW. - Diet/Nutrition Diet/Nutrition Orders: Cardiac - Activity Activity Orders: Up ad shelly (with assist) - Services Needed Following services are medically necessary services: Nursing, Home Health Aide, Physical Therapy, Occupational Therapy - Transfer Medications Home Medications: Albuterol Sulfate [Albuterol Inhaler] 2 puff IH QID PRN 02/13/17 [History] Aspirin Enteric Coated [Aspirin EC] 81 mg PO DAILY 02/13/17 [History] Atorvastatin [Lipitor] 10 mg PO HS 02/13/17 [History] Budesonide/Formoterol 160/4.5 [Symbicort 160/4.5] 2 puff IH BIDR 02/13/17 [ History] Cetirizine HCl [All Day Allergy] 10 mg PO DAILY 02/13/17 [History] Cholecalciferol (D-3) [Vitamin D] 2,000 unit PO DAILY 02/13/17 [History] Diltiazem CD (24hr) [Cardizem CD] 360 mg PO DAILY 02/13/17 [History] Duloxetine HCl [Cymbalta] 60 mg PO DAILY 02/13/17 [History] Fluticasone Propionate Nasal [Flonase] 50 mcg NS BID 02/13/17 [History] HYDROcodone/Acet 5/325 mg [[place] 5-325 mg] 1 tab PO BID 02/13/17 [History] Insulin ASPART [NovoLOG] 5 unit SQ TIDWM 02/13/17 [History] Insulin Glargine [Lantus] 58 unit SQ HS 02/13/17 [History] Lisinopril 2.5 mg PO DAILY 02/13/17 [History] Melatonin/Pyridoxine HCl (B6) [Melatonin 3 mg Tablet] 6 mg PO HS 02/13/17 [ History] Metformin HCl [Glucophage] 1,000 mg PO BID 02/13/17 [History] Metoprolol [Lopressor] 100 mg PO BID 02/13/17 [History] Montelukast [Singulair] 10 mg PO HS 02/13/17 [History] Omeprazole [PriLOSEC] 40 mg PO DAILY 02/13/17 [History] Polyvinyl Alcohol [Artificial Tears] 1 drop BOTH EYES AD PRN 02/13/17 [History] Pregabalin [Lyrica] 200 mg PO BID 02/13/17 [History] Rivaroxaban [Xarelto] 20 mg PO DAILY 02/13/17 [History] Saliva Substitute Combo No.3 [Aquoral] 3 - 5 spray MM BID 02/13/17 [History] Sildenafil Citrate [Viagra] 50 mg PO AD PRN 02/13/17 [History] Sodium Chloride [Mina-128] 1 drop BOTH EYES QID 02/13/17 [History] Tamsulosin HCl [Flomax] 0.4 mg PO DAILY 02/13/17 [History] Trazodone HCl 150 mg PO HS PRN 02/13/17 [History] Docusate [Colace] 100 mg PO BID PRN #60 capsule 02/18/17 [Rx] Furosemide [Lasix] 40 mg PO DAILY #30 tablet 02/18/17 [Rx] Sennosides/Docusate Sodium [Senna Plus] 2 each PO BID PRN #60 tablet 02/18/17 [ Rx] Albuterol Neb [Proventil Neb] 2.5 mg IH Q4H PRN 02/19/17 [History] GuaiFENesin/Dextromethorphan [Tussin Dm Syrup] 10 ml PO Q4H PRN 02/19/17 [ History] Ipratropium/Albuterol Neb [Duoneb] 3 ml IH ONCE PRN 02/19/17 [History] Allergies/Adverse Reactions: Allergies codeine Allergy (Verified 02/13/17 16:16) Anaphylaxis Certification: Further, I certify that my clinical findings support that this patient is homebound (i.e. absences from home require considerable and taxing effort and are for medical reasons or temple services or infrequently or short duration when for other reasons) because: Homebound Reason: Patient requires assistance of a person or device to safely leave home, Severity of cardiac or pulmonary status limits activity tolerance Attestation: My signature below is to certify that this patient is under my care and that I, or nurse practitioner, or a physician's portfolio assistant working with me, has a face-to -face encounter with this patient. <Bebo Back P - Last Filed: 02/26/17 12:22> - Respiratory Orders Smoking Cessation: Smoking cessation has been advised. For more information, call the [place] Tobacco Quit Line at 1-856-BTXWNOW. Certification: Further, I certify that my clinical findings support that this patient is homebound (i.e. absences from home require considerable and taxing effort and are for medical reasons or temple services or infrequently or short duration when for other reasons) because: Attestation: My signature below is to certify that this patient is under my care and that I, or nurse practitioner, or a physician's portfolio assistant working with me, has a face-to -face encounter with this patient.
== END 2017-02-26 11:45 | disposition home or self-care (01) | DRG 309 ==
LOC: EMEROO 15:45 → 2NENU 19:14
PROVIDERS: ADMIT Registered Nurse; ATTEND Internal Medicine

== ENCOUNTER 2017-03-07 00:50 | Inpatient (IN) ==
[2017-03-07] MEDS ORDERED: 0.9 % Sodium Chloride 1,000 ML ONE (00:56)
--- NOTE | 2017-03-07 00:57 | Emergency Department Note ---
Disposition Clinical Impression: Hyperkalemia, EMILIA (acute kidney injury) Respiratory failure Qualifiers: Chronicity: unspecified Respiratory failure complication: unspecified whether with hypoxia or hypercapnia Qualified Code(s): J96.90 - Respiratory failure, unspecified, unspecified whether with hypoxia or hypercapnia Leukocytosis Qualifiers: Leukocytosis type: unspecified Qualified Code(s): D72.829 - Elevated white blood cell count, unspecified Disposition: Admitted As Inpatient Condition: Critical Time of Disposition: 04:00 (ICU) General Adult HPI - General Chief complaint: ED Shortness of Breath/Dyspnea Stated complaint: [facility] Time Seen by Provider: 03/07/17 00:54 Source: patient, EMS Mode of arrival: ambulatory Limitations: no limitations Nursing Notes Reviewed: Yes Vital Signs Reviewed: Yes - History of Present Illness HPI Narrative: Patient is a 71-year-old male with past medical history of CHF, diabetes, COPD, A. fib. He presented today due to complaints of shortness of breath just prior to arrival. Patient arrived via EMS. EMS states that the patient was found to be bradycardic when they arrived at his house. He had a rate in the 30s. He was significantly short of breath, was placed on a nonrebreather mask. On arrival, the patient was alert, able to answer questions but was severely labored in his breathing. O2 sat 90%. He says that the only symptom that he was having his shortness of breath and generalized weakness. He felt that maybe his blood sugar was low. Denies any chest pain, nausea, vomiting, fevers, abdominal pain, diarrhea. Pain Scale: 0 - Related Data Home Medications Medication Instructions Recorded Confirmed Albuterol Sulfate [Albuterol 2 puff IH QID PRN 02/13/17 02/19/17 Inhaler] Aspirin Enteric Coated [Aspirin EC] 81 mg PO DAILY 02/13/17 02/19/17 Atorvastatin [Lipitor] 10 mg PO HS 02/13/17 02/19/17 Budesonide/Formoterol 160/4.5 2 puff IH BIDR 02/13/17 02/19/17 [Symbicort 160/4.5] Cetirizine HCl [All Day Allergy] 10 mg PO DAILY 02/13/17 02/19/17 Cholecalciferol (D-3) [Vitamin D] 2,000 unit PO DAILY 02/13/17 02/19/17 Diltiazem CD (24hr) [Cardizem CD] 360 mg PO DAILY 02/13/17 02/19/17 Duloxetine HCl [Cymbalta] 60 mg PO DAILY 02/13/17 02/19/17 Fluticasone Propionate Nasal 50 mcg NS BID 02/13/17 02/19/17 [Flonase] HYDROcodone/Acet 5/325 mg [Brandon 1 tab PO BID 02/13/17 02/19/17 5-325 mg] Insulin ASPART [NovoLOG] 5 unit SQ TIDWM 02/13/17 02/19/17 Insulin Glargine [Lantus] 58 unit SQ HS 02/13/17 02/19/17 Lisinopril 2.5 mg PO DAILY 02/13/17 02/19/17 Melatonin/Pyridoxine HCl (B6) 6 mg PO HS 02/13/17 02/19/17 [Melatonin 3 mg Tablet] Metformin HCl [Glucophage] 1,000 mg PO BID 02/13/17 02/19/17 Metoprolol [Lopressor] 100 mg PO BID 02/13/17 02/19/17 Montelukast [Singulair] 10 mg PO HS 02/13/17 02/19/17 Omeprazole [PriLOSEC] 40 mg PO DAILY 02/13/17 02/19/17 Polyvinyl Alcohol [Artificial 1 drop BOTH EYES AD PRN 02/13/17 02/19/17 Tears] Pregabalin [Lyrica] 200 mg PO BID 02/13/17 02/19/17 Rivaroxaban [Xarelto] 20 mg PO DAILY 02/13/17 02/19/17 Saliva Substitute Combo No.3 3 - 5 spray MM BID 02/13/17 02/19/17 [Aquoral] Sildenafil Citrate [Viagra] 50 mg PO AD PRN 02/13/17 02/19/17 Sodium Chloride [Mina-128] 1 drop BOTH EYES QID 02/13/17 02/19/17 Tamsulosin HCl [Flomax] 0.4 mg PO DAILY 02/13/17 02/19/17 Trazodone HCl 150 mg PO HS PRN 02/13/17 02/19/17 Albuterol Neb [Proventil Neb] 2.5 mg IH Q4H PRN 02/19/17 02/19/17 GuaiFENesin/Dextromethorphan 10 ml PO Q4H PRN 02/19/17 02/19/17 [Tussin Dm Syrup] Ipratropium/Albuterol Neb [Duoneb] 3 ml IH ONCE PRN 02/19/17 02/19/17 Previous Rx's Medication Instructions Recorded Docusate [Colace] 100 mg PO BID PRN #60 capsule 02/18/17 Furosemide [Lasix] 40 mg PO DAILY #30 tablet 02/18/17 Sennosides/Docusate Sodium [Senna 2 each PO BID PRN #60 tablet 02/18/17 Plus] Allergies Allergy/AdvReac Type Severity Reaction Status Date / Time codeine Allergy Anaphylaxis Verified 02/13/17 16:16 All systems ED: reviewed and negative except as stated. Constitutional: Denies: fever Cardiovascular: Denies: chest pain Respiratory: Reports: dyspnea Gastrointestinal: Denies: abdominal pain, nausea, vomiting, diarrhea Past Medical History - Past Medical History Attestation: Yes The following information was validated with the patient. Source: patient Medical history: Reports: arthritis, asthma, atrial fibrillation, cancer, diabetes, hypertension, other Surgical history: Reports: orthopedic, other, prostatectomy Psychiatric history: Reports: no psych history - Social History Smoking Status: Former smoker Smokeless Tobacco Status: No Alcohol use: Reports: none Drug use: Reports: none Physical Exam - General Limitations: no limitations General appearance: alert, anxious, in distress - Head Head exam: atraumatic, normocephalic, normal inspection - Eye Eye exam: Present: normal appearance, PERRL, EOMI - ENT ENT exam: normal exam, normal oropharynx, mucous membranes moist - Neck Neck exam: Present: normal inspection, full ROM, trachea midline - Chest Chest inspection: Present: normal inspection, symmetric chest wall rise - Respiratory Respiratory exam: Present: respiratory distress (Significant respiratory distress, currently on nonrebreather mask and satting 90%. Significant increased work of breathing with accessory muscle use. Lungs clear to auscultation bilaterally.) - Cardiovascular Cardiovascular exam: Present: normal rhythm, bradycardia, normal heart sounds - Abdominal Exam Abdominal exam: Present: soft, Non-Tender. Absent: tenderness, distention, guarding, rebound, rigidity - Extremities Exam Extremities exam: Present: normal inspection, full ROM, pedal edema - Neurological Exam Neurological exam: Present: alert, oriented X3 - Psychiatric Psychiatric exam: Present: anxious - Skin Skin exam: Present: warm, dry, intact, normal color Course Course Narrative: On arrival, patient's blood pressure was 70s over 40s, he was bradycardic in the 30s. The rest of the vitals were within normal limits. Physical exam showed Significant respiratory distress, currently on nonrebreather mask and satting 90%. Significant increased work of breathing with accessory muscle use. Lungs clear to auscultation bilaterally. Patient was given 3 L normal saline boluses, started on dopamine drip to improve blood pressure. I called Dr. Rios to discuss possible need of temporary pacemaker placement due to bradycardia. He suggested transcutaneously pacing the patient at a rate of 50, he did not want a plan for temporary pacemaker placement until all of patient's labs returned. Patient shortly became more short of breath and started to have desaturation. I had a discussion with the patient and asked if he was willing to be intubated for securing Airway and improvement of oxygenation. He was agreeable with this. He was also agreeable with transcutaneous pacing. Patient was intubated using rocuronium and etomidate. Oxygen saturation climbed to low 90s. Patient was also transcutaneously pace for a short amount of time. Eventually, patient's rate faby to the 50s and he was taken off transcutaneous pacing and had a stable blood pressure. In the meantime, cardiac workup was obtained. Chest x-ray was read as negative for any acute cardiopulmonary process. Blood work shows leukocytosis, a KI, negative troponin. He also had a potassium of 7.0. Patient was given 10 units of regular insulin, an amp of D50, 10 mg of albuterol, calcium gluconate. Dr. Rios was contacted again with update, and he stated that patient did not need pacer at this time. Patient remained stable prior to admission to the ICU for further care and monitoring. The reason for patient's potassium elevation is still unclear at this time, could have been secondary to EMILIA. Chest X-Ray 03/07/17 05:57 IMPRESSION: Left IJ approach central venous catheter tip projects over the SVC. No pneumothorax is visible. Orogastric drain passes below the diaphragm. Unchanged left perihilar airspace disease. D/ / Alvaro Erickson MD / Alvaro Erickson MD Interpreting Provider: Alvaro Erickson MD X-Ray 03/07/17 08:05 IMPRESSION: Tip of the NG tube lying at the gastroesophageal junction. Atelectasis or pneumonia in the left retrocardiac area. RECOMMENDATION: The tube should be advanced about 10 cm for improved positioning. D/ / Luis Yang MD / Luis Yang MD Interpreting Provider: Luis Yang MD Vital Signs Temperature 0 F L 03/07/17 00:53 Pulse Rate 43 03/07/17 00:53 Respiratory Rate 22 03/07/17 00:53 Blood Pressure 72/35 03/07/17 00:53 O2 Sat by Pulse Oximetry 97 03/07/17 00:53 Temperature 97.5 F L 03/07/17 07:00 Pulse Rate 61 03/07/17 07:51 Respiratory Rate 18 03/07/17 07:36 Blood Pressure 75/55 03/07/17 07:36 O2 Sat by Pulse Oximetry 95 03/07/17 07:36 Oxygen Delivery Oxygen Delivery Ventilator Medical Decision Making - [facility] Narrative Medical decision making narrative: On arrival, patient's blood pressure was 70s over 40s, he was bradycardic in the 30s. The rest of the vitals were within normal limits. Physical exam showed Significant respiratory distress, currently on nonrebreather mask and satting 90%. Significant increased work of breathing with accessory muscle use. Lungs clear to auscultation bilaterally. Patient was given 3 L normal saline boluses, started on dopamine drip to improve blood pressure. I called Dr. Rios to discuss possible need of temporary pacemaker placement due to bradycardia. He suggested transcutaneously pacing the patient at a rate of 50, he did not want a plan for temporary pacemaker placement until all of patient's labs returned. Patient shortly became more short of breath and started to have desaturation. I had a discussion with the patient and asked if he was willing to be intubated for securing Airway and improvement of oxygenation. He was agreeable with this. He was also agreeable with transcutaneous pacing. Patient was intubated using rocuronium and etomidate. Oxygen saturation climbed to low 90s. Patient was also transcutaneously pace for a short amount of time. Eventually, patient's rate faby to the 50s and he was taken off transcutaneous pacing and had a stable blood pressure. In the meantime, cardiac workup was obtained. Chest x-ray was read as negative for any acute cardiopulmonary process. Blood work shows leukocytosis, a KI, negative troponin. He also had a potassium of 7.0. Patient was given 10 units of regular insulin, an amp of D50, 10 mg of albuterol, calcium gluconate. Dr. Rios was contacted again with update, and he stated that patient did not need pacer at this time. Patient remained stable prior to admission to the ICU for further care and monitoring. The reason for patient's potassium elevation is still unclear at this time, could have been secondary to EMILIA. - Medical Records Medical records reviewed: Yes I reviewed the patient's medical records. - Lab Data Lab results reviewed: Yes I reviewed the patient's lab results. Result diagrams: 03/07/17 05:45 03/07/17 05:45 Lab Results 03/07/17 03/07/17 03/07/17 Range/Units 01:05 01:05 01:05 WBC 15.5 H (4.3-11.1) K/mcL RBC 4.18 L (4.19-5.50) M/mcL Hgb 12.3 L (12.9-16.9) g/dL Hct 37.9 (37.5-50.1) % MCV 90.7 (83.0-100.0) fL MCH 29.4 (28.0-33.3) pg MCHC 32.5 (31.6-35.5) g/dL RDW 14.0 (11.5-14.5) % Plt Count 318 (140-400) K/mcL MPV 9.7 (9.4-12.4) fL Immature Gran % 1.4 (0-4) % Seg Neutrophils % 79.5 % Lymphocytes % 10.3 % Monocytes % 7.9 % Eosinophils % 0.6 % Basophils % 0.3 % Neutrophils # 12.3 H (1.6-8.9) K/mcL Lymphocytes # 1.6 (0.6-4.6) K/mcL Monocytes # 1.2 (0.0-1.3) K/mcL Eosinophils # 0.1 (0.0-0.6) K/mcL Basophils # 0.1 (0.0-0.2) K/mcL Sodium 134 L (136-145) mEq/L Potassium 7.0 H* (3.5-4.5) mEq/L Chloride 104 (98-109) mEq/L Carbon Dioxide 23 (19-29) mEq/L BUN 36 H (8-26) mg/dL Creatinine 2.70 H (0.72-1.25) mg/dL Est GFR ( Amer) 28 L (> 60) Est GFR (Non-Af Amer) 23 L (> 60) BUN/Creatinine Ratio 13 (6-26) Glucose 306 H (70-99) mg/dL Calculated Osmolality 298 (280-300) Lactic Acid 3.4 H (0.5-2.2) mmol/L Calcium 8.3 L (8.6-10.8) mg/dL Troponin I (0-0.03) ng/mL B-Natriuretic Peptide (0-100) pg/mL 03/07/17 03/07/17 03/07/17 Range/Units 01:05 01:05 04:08 WBC (4.3-11.1) K/mcL RBC (4.19-5.50) M/mcL Hgb (12.9-16.9) g/dL Hct (37.5-50.1) % MCV (83.0-100.0) fL MCH (28.0-33.3) pg MCHC (31.6-35.5) g/dL RDW (11.5-14.5) % Plt Count (140-400) K/mcL MPV (9.4-12.4) fL Immature Gran % (0-4) % Seg Neutrophils % % Lymphocytes % % Monocytes % % Eosinophils % % Basophils % % Neutrophils # (1.6-8.9) K/mcL Lymphocytes # (0.6-4.6) K/mcL Monocytes # (0.0-1.3) K/mcL Eosinophils # (0.0-0.6) K/mcL Basophils # (0.0-0.2) K/mcL Sodium (136-145) mEq/L Potassium (3.5-4.5) mEq/L Chloride (98-109) mEq/L Carbon Dioxide (19-29) mEq/L BUN (8-26) mg/dL Creatinine (0.72-1.25) mg/dL Est GFR ( Amer) (> 60) Est GFR (Non-Af Amer) (> 60) BUN/Creatinine Ratio (6-26) Glucose (70-99) mg/dL Calculated Osmolality (280-300) Lactic Acid 1.9 (0.5-2.2) mmol/L Calcium (8.6-10.8) mg/dL Troponin I 0.01 (0-0.03) ng/mL B-Natriuretic Peptide 61 (0-100) pg/mL - Radiology Data Radiology results reviewed: Yes I reviewed the patient's radiology results. Chest X-Ray 03/07/17 05:57 IMPRESSION: Left IJ approach central venous catheter tip projects over the SVC. No pneumothorax is visible. Orogastric drain passes below the diaphragm. Unchanged left perihilar airspace disease. D/ / Alvaro Erickson MD / Alvaro Erickson MD Interpreting Provider: Alvaro Erickson MD X-Ray 03/07/17 08:05 IMPRESSION: Tip of the NG tube lying at the gastroesophageal junction. Atelectasis or pneumonia in the left retrocardiac area. RECOMMENDATION: The tube should be advanced about 10 cm for improved positioning. D/ / Luis Yang MD / Luis Yang MD Interpreting Provider: Luis Yang MD Critical Care Time Critical Care Time: Yes Total Critical Care Time: 90 Attestation: Critical care performed: Time is exclusive of separately billable procedures. Time includes: direct patient care, patient reassessment, coordination of patient care, interpretation of data (laboratory data, radiology data, and respiratory data), review of patient's medical records, medical consultation and documentation of patient care. Procedures included in critical care time: Procedures excluded from critical care time: Endotracheal intubation Attestation Statement - Attestation Attestation: I, Terrence Slaughter MD, personally evaluated this patient and discussed their management with the resident physician. I reviewed the resident's note and agree with the documented findings, medical decision making, and plan of care. 71-year-old male presents to the emergency department by EMS with a complaint of generalized weakness and shortness of breath for 1 day prior to arrival. He denies any chest pain. He has been sweaty and states that he thought his sugar was low all day. He has a history of atrial fibrillation and is on Xarelto. He has recently been in the hospital for A. fib with RVR. On arrival patient is in mild respiratory distress on a nonrebreather mask with oxygen saturation in the low 90s. He is bradycardic with a heart rate in the low to mid 40s. Also hypotensive. On examination patient is a well-developed obese elderly male in mild respiratory distress. He is alert and answers questions appropriate. He is diaphoretic. Bradycardic. Breath sounds are decreased bilaterally. Heart is markedly bradycardic. Abdomen is soft and nontender with normal bowel sounds. Trace pedal edema. Shortly after arrival patient became more hypotensive and had a change in mental status with mumbling and confusion. More short of breath. Patient was intubated and placed on a dopamine infusion. Dr. Maguire discussed with the home health specialist, Dr. Rios. The hospitalist, Dr. Cain, was consulted and accepted admission of the patient. EKG shows atrial fibrillation with slow ventricular response. I reviewed. Hyperkalemia noted and treated. Chest x-ray negative.
[2017-03-07] MEDS: 0.9 % Sodium Chloride 1,000 ML IVC SCH ×5 (01:04→06:49)
[2017-03-07 01:18] LABS: Basophils # 0.1 K/mcL (0.0-0.2); Basophils % 0.3 %; Eosinophils # 0.1 K/mcL (0.0-0.6); Eosinophils % 0.6 %; Hematocrit 37.9 % (37.5-50.1); Hemoglobin 12.3 g/dL (12.9-16.9); Immature Granulocytes % 1.4 % (0-4); Lymphocytes # 1.6 K/mcL (0.6-4.6); Lymphocytes % 10.3 %; Mean Corpuscular HGB Conc 32.5 g/dL (31.6-35.5); Mean Corpuscular Hemoglobin 29.4 pg (28.0-33.3); Mean Corpuscular Volume 90.7 fL (83.0-100.0); Mean Platelet Volume 9.7 fL (9.4-12.4); Monocytes # 1.2 K/mcL (0.0-1.3); Monocytes % 7.9 %; Neutrophils # 12.3 K/mcL (1.6-8.9); Platelet Count 318 K/mcL (140-400); Red Blood Count 4.18 M/mcL (4.19-5.50); Segmented Neutrophils % 79.5 %
[2017-03-07 01:29] LABS: Calcium 8.3 mg/dL (8.6-10.8)
[2017-03-07] MEDS ORDERED: Calcium Gluconate 1,000 MG in D5% in Water 100 ML IVPB ONE (02:01)
[2017-03-07] MEDS ORDERED: Albuterol 2.5 MG/3 ML NEBULIZER IH ONE ×2 (02:01→08:53)
[2017-03-07] MEDS ORDERED: *HR* Dextrose 50 % in Water (Syg) 50 ML SYRINGE IVP ONE (02:02)
[2017-03-07] MEDS ORDERED: Insulin Human Regular 10 UNIT in 0.9 % Sodium Chloride 10 ML IV ONE (02:02)
[2017-03-07] MEDS ORDERED: *HR* Etomidate 20 MG/10 ML AMPUL IVP ONE (02:05)
[2017-03-07] MEDS ORDERED: *HR* Rocuronium Bromide 50 MG/5 ML VIAL IVP ONE ×2 (02:05→03:05)
[2017-03-07] MEDS: *HR* Midazolam HCl 2 MG/2 ML VIAL IVP SCH ×5 (02:50→06:49)
[2017-03-07] MEDS ORDERED: *HR* Midazolam HCl 2 MG/2 ML VIAL IVP ONE (03:05)
[2017-03-07] MEDS ORDERED: Naloxone 0.4 MG/ML INJ IVP PRN (03:40)
--- NOTE | 2017-03-07 03:50 | Internal Med History&Physical ---
<Nicolas Church - Last Filed: 03/07/17 06:06> Date of Encounter: 03/07/17 Time of Encounter: 03:46 Assessment and Plan (1) Bradycardia Current visit: Yes Status: Acute Patient presented with symptomatic bradycardia with dizziness and altered mental status. Patient was also profoundly hypotensive. Patient responded well to dopamine and has not required pacing at this time. Likely related to combination of medication toxicity in the setting of acute kidney injury and hyperkalemia. We will hold rate controlling medications. Continue to monitor. Cardiology consult. (2) Atrial flutter Current visit: Yes Status: Acute With slow ventricular response as discussed above. Hold rate controlling medications. Patient takes Xarelto at home for anticoagulation. Qualifiers: Atrial flutter type: unspecified Qualified Code(s): I48.92 - Unspecified atrial flutter (3) Acute respiratory failure with hypoxia Current visit: No Status: Resolved Likely related to bradycardia and altered mental status. Patient is intubated. Check ABG and adjust ventilator settings accordingly. (4) Hypotension Current visit: Yes Status: Acute Likely related to bradycardia. Likely cause of the patient's lactic acidosis that has since resolved. Continue pressure support with dopamine. Qualifiers: Hypotension type: other hypotension type Qualified Code(s): I95.89 - Other hypotension (5) SIRS (systemic inflammatory response syndrome) Current visit: Yes Status: Acute Patient has leukocytosis and tachypnea. No obvious source of infection at this time. Chest x-ray is unremarkable for signs of pneumonia, urinalysis is pending. Initial lactate was elevated at 3.4, has since normalized to 1.9. Blood cultures have been drawn Given the patient's hypotension and critical illness we will cover with empiric antibiotics using vancomycin and Zosyn. (6) EMILIA (acute kidney injury) Current visit: No Status: Resolved Cause unknown at this time. Likely cause of the patient's hyperkalemia which could be contributing to bradycardia. Patient received 3 L of fluid in the emergency department. We will recheck BMP. We will hold off on any further fluids at this time given the patient's history of diastolic heart failure. We will consult nephrology. (7) Hyperkalemia Current visit: Yes Status: Acute Potassium 7.0 on presentation. Patient has EKG changes concerning for hyperkalemia with bradycardia and widened QRS. Patient was given calcium gluconate, insulin and dextrose, albuterol and the emergency department. Recheck potassium pending. (8) Diastolic CHF Current visit: No Status: Acute Most recent echo showed a normal EF with indeterminant diastolic dysfunction. Patient does have mild pulmonary edema on chest x-ray, likely related to the large amounts of fluids the patient received in the emergency department. Given the patient's acute kidney injury we will hold off on diuresis at this time until recheck of the patient's BMP can be completed and case can be discussed with nephrology. No indication to repeat echocardiogram. Qualifiers: Congestive heart failure chronicity: chronic Qualified Code(s): I50.32 - Chronic diastolic (congestive) heart failure (9) DVT prophylaxis Current visit: No Status: Acute Heparin 5000 units subcutaneous twice a day Internal Medicine - H&P: HPI Chief complaint: Generalized weakness Admitted From: Emergency Dept Plans for Post Hospital Care: Home History of present illness: Mr. Molina is a 71 year old male with history of atrial fibrillation presented with generalized weakness and shortness of breath. At the time I examined the patient was intubated and sedated so the history somewhat limited. Apparently the patient presented with complaints of generalized weakness and malaise and shortness of breath for one day. In the emergency department patient was found to be profoundly bradycardic and hypotensive. Patient also had a mental status change and had difficulty protecting his airway in the emergency department and was intubated. Patient was placed on dopamine emergency department and his heart rate and blood pressure improved adequately to where he did not require pacing. Past Med Surg Social Fam HX - Past Medical History Medical history: arthritis, asthma, atrial fibrillation, cancer, diabetes, hypertension, other Psychiatric history: no psych history - Past Surgical History Surgical History: orthopedic, other, prostatectomy - Social History Smoking Status: Former smoker Smokeless Tobacco Status: No Alcohol use: none Drug use: none - Family History Mother Living Status: Hx Family Cardiac Disorders: Yes (CHF) Father Living Status: Hx Family Cardiac Disorders: Yes Internal Medicine - H&P: Meds Albuterol Sulfate [Albuterol Inhaler] 2 puff IH QID PRN 02/13/17 [History] Aspirin Enteric Coated [Aspirin EC] 81 mg PO DAILY 02/13/17 [History] Atorvastatin [Lipitor] 10 mg PO HS 02/13/17 [History] Budesonide/Formoterol 160/4.5 [Symbicort 160/4.5] 2 puff IH BIDR 02/13/17 [ History] Cetirizine HCl [All Day Allergy] 10 mg PO DAILY 02/13/17 [History] Cholecalciferol (D-3) [Vitamin D] 2,000 unit PO DAILY 02/13/17 [History] Diltiazem CD (24hr) [Cardizem CD] 360 mg PO DAILY 02/13/17 [History] Duloxetine HCl [Cymbalta] 60 mg PO DAILY 02/13/17 [History] Fluticasone Propionate Nasal [Flonase] 50 mcg NS BID 02/13/17 [History] HYDROcodone/Acet 5/325 mg [[place] 5-325 mg] 1 tab PO BID 02/13/17 [History] Insulin ASPART [NovoLOG] 5 unit SQ TIDWM 02/13/17 [History] Insulin Glargine [Lantus] 58 unit SQ HS 02/13/17 [History] Lisinopril 2.5 mg PO DAILY 02/13/17 [History] Melatonin/Pyridoxine HCl (B6) [Melatonin 3 mg Tablet] 6 mg PO HS 02/13/17 [ History] Metformin HCl [Glucophage] 1,000 mg PO BID 02/13/17 [History] Metoprolol [Lopressor] 100 mg PO BID 02/13/17 [History] Montelukast [Singulair] 10 mg PO HS 02/13/17 [History] Omeprazole [PriLOSEC] 40 mg PO DAILY 02/13/17 [History] Polyvinyl Alcohol [Artificial Tears] 1 drop BOTH EYES AD PRN 02/13/17 [History] Pregabalin [Lyrica] 200 mg PO BID 02/13/17 [History] Rivaroxaban [Xarelto] 20 mg PO DAILY 02/13/17 [History] Saliva Substitute Combo No.3 [Aquoral] 3 - 5 spray MM BID 02/13/17 [History] Sildenafil Citrate [Viagra] 50 mg PO AD PRN 02/13/17 [History] Sodium Chloride [Mina-128] 1 drop BOTH EYES QID 02/13/17 [History] Tamsulosin HCl [Flomax] 0.4 mg PO DAILY 02/13/17 [History] Trazodone HCl 150 mg PO HS PRN 02/13/17 [History] Docusate [Colace] 100 mg PO BID PRN #60 capsule 02/18/17 [Rx] Furosemide [Lasix] 40 mg PO DAILY #30 tablet 02/18/17 [Rx] Sennosides/Docusate Sodium [Senna Plus] 2 each PO BID PRN #60 tablet 02/18/17 [ Rx] Albuterol Neb [Proventil Neb] 2.5 mg IH Q4H PRN 02/19/17 [History] GuaiFENesin/Dextromethorphan [Tussin Dm Syrup] 10 ml PO Q4H PRN 02/19/17 [ History] Ipratropium/Albuterol Neb [Duoneb] 3 ml IH ONCE PRN 02/19/17 [History] Allergies codeine Allergy (Verified 02/13/17 16:16) Anaphylaxis ROS unobtainable: due to endotracheal tube All Systems PM: A 10-system review of systems was performed and is negative for pertinent findings except as documented above in the HPI. - Constitutional Vitals: Temp Pulse Resp BP Pulse Ox 0 F L 56 14 108/34 89 03/07/17 00:53 03/07/17 03:34 03/07/17 03:34 03/07/17 03:34 03/07/17 03:34 Exam: Patient is intubated and sedated. - Head Head exam: Present: atraumatic, normal inspection, normocephalic - Eye Eye exam: Present: PERRL - ENT ENT exam: Present: mucous membranes dry - Neck Neck exam general surgery: Absent: nuchal rigidity - Respiratory Respiratory exam: Present: decreased breath sounds. Absent: rales, rhonchi, wheezes - Cardiovascular Cardiovascular exam: Present: bradycardia, irregular rhythm. Absent: gallop, rubs, systolic murmur - GI/Abdominal GI/Abdominal exam: Present: normal bowel sounds, soft. Absent: distended, tenderness - Extremities Exam Extremities exam: Present: warm. Absent: pedal edema, tenderness - Neurological Exam Neurological exam: Present: no focal deficits Internal Med - H&P Results - Labs CBC & Chem 7: 03/07/17 01:05 03/07/17 01:05 Labs: Short CBC 03/07/17 Range/Units 01:05 WBC 15.5 H (4.3-11.1) K/mcL Hgb 12.3 L (12.9-16.9) g/dL Hct 37.9 (37.5-50.1) % Plt Count 318 (140-400) K/mcL Neutrophils # 12.3 H (1.6-8.9) K/mcL BMP 03/07/17 01:05 Sodium 134 L Potassium 7.0 H* Chloride 104 Carbon Dioxide 23 BUN 36 H Creatinine 2.70 H Glucose 306 H Calcium 8.3 L Cardiac Enzymes 03/07/17 Range/Units 01:05 Troponin I 0.01 (0-0.03) ng/mL - Impressions ITS Impressions Chest X-Ray 03/07/17 00:55 IMPRESSION: Stable chest with no acute cardiopulmonary process. D/ / Tonny Chandler MD / Tonny Chandler MD Interpreting Provider: Tonny Chandler MD Chest X-Ray 03/07/17 03:19 IMPRESSION: ET tube appears to be in adequate position Cardiomegaly and mild pulmonary vascular congestion accentuated by low lung volumes. Increased hazy opacity over the left percy thorax which may be artifactual or related to asymmetric pulmonary edema. D/ / Son Ford MD / Son Ford MD Interpreting Provider: Son Ford MD <Yany Cain - Last Filed: 03/07/17 07:20> Date of Encounter: 03/07/17 Internal Medicine - H&P: HPI History of present illness: Mr. Molina is a 71 year old male All Systems PM: A 10-system review of systems was performed and is negative for pertinent findings except as documented above in the HPI. - Constitutional Vitals: Temp Pulse Resp BP Pulse Ox 95.6 F L 55 19 81/50 94 03/07/17 05:00 03/07/17 06:00 03/07/17 06:00 03/07/17 06:00 03/07/17 06:00 Internal Med - H&P Results - Labs CBC & Chem 7: 03/07/17 05:45 03/07/17 05:45 Labs: Short CBC 03/07/17 Range/Units 05:45 WBC 17.1 H (4.3-11.1) K/mcL Hgb 12.4 L (12.9-16.9) g/dL Hct 37.5 (37.5-50.1) % Plt Count 308 (140-400) K/mcL Neutrophils # 14.3 H (1.6-8.9) K/mcL BMP 03/07/17 05:45 Sodium 134 L Potassium 7.0 H* Chloride 105 Carbon Dioxide 21 BUN 36 H Creatinine 3.02 H Glucose 338 H Calcium 8.1 L Liver Function 03/07/17 Range/Units 05:45 Total Bilirubin 0.5 (0.2-1.2) mg/dL Direct Bilirubin 0.3 (0.0-0.5) mg/dL AST 367 H (5-34) Units/L ALT 334 H (0-55) Units/L Alkaline Phosphatase 162 H (38-126) Units/L Albumin 3.0 L (3.5-5.0) g/dL - ABG Interpretation ABG results: 03/07/17 03/07/17 04:53 06:53 ABG pH 7.26 L 7.30 L ABG pCO2 60 H 49 H ABG pO2 60 L 66 L ABG HCO3 26.9 24.1 ABG Total CO2 28.7 H 25.6 ABG O2 Saturation 86 L 90 L ABG Base Excess -1.3 -2.7 L - Impressions ITS Impressions Chest X-Ray 03/07/17 05:57 IMPRESSION: Left IJ approach central venous catheter tip projects over the SVC. No pneumothorax is visible. Orogastric drain passes below the diaphragm. Unchanged left perihilar airspace disease. D/ / Alvaro Erickson MD / Alvaro Erickson MD Interpreting Provider: Alvaro Erickson MD X-Ray 03/07/17 05:57 IMPRESSION: OG tube tip at the level the GE junction. Repositioning is recommended. D/ / Preet Humphrey MD / Preet Humphrey MD Interpreting Provider: Preet Humphrey MD - Attending Attestation I examined this patient and my medical decision-making was reviewed with the Resident Physician. I agree with the documented findings, disposition and treatment plan as described
[2017-03-07] MEDS ORDERED: Ipratropium/Albuterol Neb 3 ML IH PRN (04:17)
[2017-03-07 05:05] LABS: ABG Base Excess -1.3 mEq/L (-2.0 to 3.0); ABG HCO3 26.9 mEQ/L (21-27); ABG Oxygen Saturation 86 % (95-98); ABG PCO2 60 mmHg (35-45); ABG PH 7.26 pH Units (7.32-7.45); ABG PO2 60 mmHg (85-104); ABG TCO2 28.7 mEq/L (20-26); Blood Gas FiO2 100 %
[2017-03-07] MEDS: FentaNYL (PF) 1,000 MCG in 0.9 % Sodium Chloride 80 ML IVC SCH ×3 (05:18→23:12)
[2017-03-07 06:02] LABS: Basophils % 0.2 %; Eosinophils % 0.1 %; Hematocrit 37.5 % (37.5-50.1); Hemoglobin 12.4 g/dL (12.9-16.9); Immature Granulocytes % 0.9 % (0-4); Lymphocytes % 6.1 %; Mean Corpuscular HGB Conc 33.1 g/dL (31.6-35.5); Mean Corpuscular Hemoglobin 29.7 pg (28.0-33.3); Mean Corpuscular Volume 89.9 fL (83.0-100.0); Mean Platelet Volume 10.1 fL (9.4-12.4); Monocytes # 1.6 K/mcL (0.0-1.3); Monocytes % 9.5 %; Neutrophils # 14.3 K/mcL (1.6-8.9); Platelet Count 308 K/mcL (140-400); Red Blood Count 4.17 M/mcL (4.19-5.50); Red Cell Distribution Width 13.7 % (11.5-14.5); Segmented Neutrophils % 83.2 %
--- NOTE | 2017-03-07 06:03 | Procedure Note ---
Date of procedure: 03/07/17 Pre-op diagnosis: Hypotension Post-op diagnosis: same Procedure: Central venous catheter placement: Consent was unable to be obtained, the procedure was considered emergent. The left internal jugular vein was surveyed using ultrasound and deemed to be a suitable target. The patient was cleaned and draped in the usual sterile fashion. Under ultrasound guidance the introducer needle was passed into the left internal jugular vein. Dark red, nonpulsatile blood flow was returned. The guidewire was passed through the needle and into the internal jugular vein without resistance, and the needle was removed. Using ultrasound, the guidewire was visualized within the left internal jugular vein. A nic in the skin was made in the skin and soft tissues were dilated. The dilator was then removed and a 30 cm triple-lumen catheter was passed over the guidewire inserted easily. The guidewire was removed intact. All 3 ports were tested and shown to draw blood and flushed easily. The catheter was sutured in place at 4 points. Biopatch and sterile dressing were applied. Chest x-ray to confirm placement is pending. The patient tolerated procedure well, there were no immediate complications. Anesthesia: GETA Surgeon: Nicolas Church Estimated blood loss (cc): 5 IV fluids (cc): 10 Pathology: none sent Condition: critical Disposition: ICU
[2017-03-07 06:11] LABS: INR 1.5; Ionized Calcium 1.09 mmol/L (1.15-1.35); Prothrombin Time 16.8 Seconds (9.4-12.1)
[2017-03-07] MEDS ORDERED: Lacri-Lube 3.5 GM TUBE BOTH EYES PRN (06:13)
[2017-03-07 06:14] LABS: Bilirubin,Direct 0.3 mg/dL (0.0-0.5); Bilirubin,Indirect 0.2 mg/dL (0.0-1.2); Bilirubin,Total 0.5 mg/dL (0.2-1.2); Calcium 8.1 mg/dL (8.6-10.8); Globulin 2.9 g/dL (2.4-3.5); Magnesium 1.7 mg/dL (1.6-2.6); Phosphorous 3.7 mg/dL (2.3-4.7); Total Protein 5.9 g/dL (6.0-8.3)
[2017-03-07] MEDS ORDERED: Vancomycin 2,000 MG in D5% in Water 500 ML IVPB ONE (07:00)
[2017-03-07] MEDS ORDERED: Vancomycin 2,000 MG in D5% in Water 250 ML IVPB ONE (07:00)
[2017-03-07 07:05] LABS: ABG Base Excess -2.7 mEq/L (-2.0 to 3.0); ABG HCO3 24.1 mEQ/L (21-27); ABG Oxygen Saturation 90 % (95-98); ABG PCO2 49 mmHg (35-45); ABG PO2 66 mmHg (85-104); ABG TCO2 25.6 mEq/L (20-26)
[2017-03-07 07:07] LABS: Blood Gas FiO2 100 %
[2017-03-07] MEDS ORDERED: *HR* Rocuronium Bromide 50 MG/5 ML VIAL IVC ONE (07:15)
[2017-03-07] MEDS ORDERED: *HR* Midazolam HCl 2 MG/2 ML VIAL IV ONE (07:15)
[2017-03-07] MEDS ORDERED: *HR* Etomidate 40 MG/20 ML VIAL IVP ONE (07:15)
--- NOTE | 2017-03-07 07:20 | Event Note ---
Date of Encounter: 03/07/17 Time of Encounter: 02:00 - Cardiology Event Note Called by Dr. Maguire - ED - for bradycardia and hypotension 0114. Asked him to proceed with standard ACLS protocol and resuscitative measures while awaiting bloodwork. Dr. Maguire called me back at 0251 to inform me potassium 7. Asked him to appropriately treat underlying causes and contact nephrology if dialysis needed. No indication for transvenous pacer.
--- NOTE | 2017-03-07 07:25 | Pulmonology History & Physical ---
Date of Encounter: 03/07/17 Time of Encounter: 07:25 History of Present Illness HPI: Mr. Molina is a 71 year old male Past Med Surg Social Fam HX - Past Medical History Medical history: arthritis, asthma, atrial fibrillation, cancer, diabetes, hypertension, other Psychiatric history: no psych history - Past Surgical History Surgical History: orthopedic, other, prostatectomy - Social History Smoking Status: Former smoker Smokeless Tobacco Status: No Alcohol use: none Drug use: none - Family History Mother Living Status: Hx Family Cardiac Disorders: Yes (CHF) Father Living Status: Hx Family Cardiac Disorders: Yes Medications and Allergies Albuterol Sulfate [Albuterol Inhaler] 2 puff IH QID PRN 02/13/17 [History] Aspirin Enteric Coated [Aspirin EC] 81 mg PO DAILY 02/13/17 [History] Atorvastatin [Lipitor] 10 mg PO HS 02/13/17 [History] Budesonide/Formoterol 160/4.5 [Symbicort 160/4.5] 2 puff IH BIDR 02/13/17 [ History] Cetirizine HCl [All Day Allergy] 10 mg PO DAILY 02/13/17 [History] Cholecalciferol (D-3) [Vitamin D] 2,000 unit PO DAILY 02/13/17 [History] Diltiazem CD (24hr) [Cardizem CD] 360 mg PO DAILY 02/13/17 [History] Duloxetine HCl [Cymbalta] 60 mg PO DAILY 02/13/17 [History] Fluticasone Propionate Nasal [Flonase] 50 mcg NS BID 02/13/17 [History] HYDROcodone/Acet 5/325 mg [[place] 5-325 mg] 1 tab PO BID 02/13/17 [History] Insulin ASPART [NovoLOG] 5 unit SQ TIDWM 02/13/17 [History] Insulin Glargine [Lantus] 58 unit SQ HS 02/13/17 [History] Lisinopril 2.5 mg PO DAILY 02/13/17 [History] Melatonin/Pyridoxine HCl (B6) [Melatonin 3 mg Tablet] 6 mg PO HS 02/13/17 [ History] Metformin HCl [Glucophage] 1,000 mg PO BID 02/13/17 [History] Metoprolol [Lopressor] 100 mg PO BID 02/13/17 [History] Montelukast [Singulair] 10 mg PO HS 02/13/17 [History] Omeprazole [PriLOSEC] 40 mg PO DAILY 02/13/17 [History] Polyvinyl Alcohol [Artificial Tears] 1 drop BOTH EYES AD PRN 02/13/17 [History] Pregabalin [Lyrica] 200 mg PO BID 02/13/17 [History] Rivaroxaban [Xarelto] 20 mg PO DAILY 02/13/17 [History] Saliva Substitute Combo No.3 [Aquoral] 3 - 5 spray MM BID 02/13/17 [History] Sildenafil Citrate [Viagra] 50 mg PO AD PRN 02/13/17 [History] Sodium Chloride [Mina-128] 1 drop BOTH EYES QID 02/13/17 [History] Tamsulosin HCl [Flomax] 0.4 mg PO DAILY 02/13/17 [History] Trazodone HCl 150 mg PO HS PRN 02/13/17 [History] Docusate [Colace] 100 mg PO BID PRN #60 capsule 02/18/17 [Rx] Furosemide [Lasix] 40 mg PO DAILY #30 tablet 02/18/17 [Rx] Sennosides/Docusate Sodium [Senna Plus] 2 each PO BID PRN #60 tablet 02/18/17 [ Rx] Albuterol Neb [Proventil Neb] 2.5 mg IH Q4H PRN 02/19/17 [History] GuaiFENesin/Dextromethorphan [Tussin Dm Syrup] 10 ml PO Q4H PRN 02/19/17 [ History] Ipratropium/Albuterol Neb [Duoneb] 3 ml IH ONCE PRN 02/19/17 [History] Allergies codeine Allergy (Verified 02/13/17 16:16) Anaphylaxis All Systems: A 10-system review of systems was performed and is negative for pertinent findings except as documented above in the HPI. Physical Examination Vital Signs: Vital Signs, Last 4 Hours Temp Pulse Resp BP Pulse Ox 03/07/17 06:00 55 19 81/50 94 03/07/17 05:55 18 82/49 93 03/07/17 05:13 50 03/07/17 05:00 95.6 F L 50 19 81/50 92 03/07/17 04:40 16 143/58 92 03/07/17 04:22 14 113/75 Results - Laboratory Findings CBC and BMP: 03/07/17 05:45 03/07/17 05:45 ABG ABG pH 7.30 pH Units (7.32-7.45) L 03/07/17 06:53 ABG pCO2 49 mmHg (35-45) H 03/07/17 06:53 ABG pO2 66 mmHg (85-104) L 03/07/17 06:53 ABG O2 Saturation 90 % (95-98) L 03/07/17 06:53 PT/INR, D-dimer PT 16.8 Seconds (9.4-12.1) H 03/07/17 05:45 Abnormal lab findings: Abnormal lab results WBC 17.1 K/mcL (4.3-11.1) H 03/07/17 05:45 RBC 4.17 M/mcL (4.19-5.50) L 03/07/17 05:45 Hgb 12.4 g/dL (12.9-16.9) L 03/07/17 05:45 Neutrophils # 14.3 K/mcL (1.6-8.9) H 03/07/17 05:45 Monocytes # 1.6 K/mcL (0.0-1.3) H 03/07/17 05:45 PT 16.8 Seconds (9.4-12.1) H 03/07/17 05:45 ABG pH 7.30 pH Units (7.32-7.45) L 03/07/17 06:53 ABG pCO2 49 mmHg (35-45) H 03/07/17 06:53 ABG pO2 66 mmHg (85-104) L 03/07/17 06:53 ABG O2 Saturation 90 % (95-98) L 03/07/17 06:53 ABG Base Excess -2.7 mEq/L (-2.0 to 3.0) L 03/07/17 06:53 Sodium 134 mEq/L (136-145) L 03/07/17 05:45 Potassium 7.0 mEq/L (3.5-4.5) H* 03/07/17 05:45 BUN 36 mg/dL (8-26) H 03/07/17 05:45 Creatinine 3.02 mg/dL (0.72-1.25) H 03/07/17 05:45 Est GFR ( Amer) 25 (> 60) L 03/07/17 05:45 Est GFR (Non-Af Amer) 21 (> 60) L 03/07/17 05:45 Glucose 338 mg/dL (70-99) H 03/07/17 05:45 POC Glucose 292 (58-89) H 03/07/17 04:43 Calcium 8.1 mg/dL (8.6-10.8) L 03/07/17 05:45 Ionized Calcium 1.09 mmol/L (1.15-1.35) L 03/07/17 05:45 AST 367 Units/L (5-34) H 03/07/17 05:45 ALT 334 Units/L (0-55) H 03/07/17 05:45 Alkaline Phosphatase 162 Units/L (38-126) H 03/07/17 05:45 Serum Total Protein 5.9 g/dL (6.0-8.3) L 03/07/17 05:45 Albumin 3.0 g/dL (3.5-5.0) L 03/07/17 05:45 Albumin/Globulin Ratio 1.0 (1.1-2.2) L 03/07/17 05:45
[2017-03-07] MEDS: Budesonide/Formoterol 160/4.5 MDI IH SCH ×2 (07:43→19:25)
[2017-03-07] MEDS ORDERED: Piperacillin/Tazobactam 2.25 GM in D5% in Water (Mini-Bag+) 100 ML IVPB SCH (08:00)
[2017-03-07] MEDS ORDERED: 0.9 % Sodium Chloride 250 ML IVC PRN (08:06)
[2017-03-07] MEDS: Pantoprazole 40 MG VIAL IVPB SCH (08:22)
[2017-03-07] MEDS: Piperacillin/Tazobactam 3.375 GM in D5% in Water (Mini-Bag+) 100 ML IVPB SCH ×3 (08:22→23:19)
[2017-03-07] MEDS: Chlorhexidine Rinse 15 ML MOUTHWASH MM SCH ×2 (08:22→19:49)
--- NOTE | 2017-03-07 08:43 | Nephrology Consult Note ---
Date of Encounter: 03/07/17 Time of Encounter: 15:09 Assessment and Plan (1) EMILIA (acute kidney injury) Current Visit: Yes Status: Resolved Baseline Scr 0.9-1.1 Multifactorial: bradycardia, hypotension in setting of hx of diabetes, diastolic CHF Hyperkalemia refractory to bicarb and insulin with dextrose, albuterol nebulizer anuric Unclear if patient became hyperkalemic which can cause bradycardia (EKG showed QRS widening) or if bradycarida/hypotension caused acute renal failure. Furthermore, concern for infection remains as patient has leukocytosis and meets sirs critera. However no clear source has been identified. He was started on vancomycin and zosyn. Vancomycin and zosyn may make patient's kidney function worse. Plan: CVVHDF: patient remains hyperkalemic and is anuric. This will slowly correct hyperkalemia however patient hemodynamically stable for hemodialysis. Retroperitoneal ultrasound Monitor BMP (2) Hyperkalemia Current Visit: Yes Status: Acute History of Present Illness - Reason for Consult Consult date: 03/06/17 Acute Kidney Injury, hyperkalemia - Chief Complaint Shortness of breath - History of Present Illness 71-year-old male presents with chief complaint of shortness of breath. Patient was found to be hypotensive, bradycardic, hyperkalemic. Patient also had altered mental status and was intubated as he cannot protect his airways. Patient is on dopamine for bradycardia. He did not require transcutaneous pacing. Patient's potassium was 7 and serum creatinine was 2.02. Baseline serum creatinine is 0.9-1.1. Patient's hyperkalemia was refractory to insulin, bicarbonate, albuterol nebulizer. Please was unable to be administered due to being intubated and difficulty placing NG tube/OG tube. Past Med Surg Social Fam HX - Past Medical History Medical history: arthritis, asthma, atrial fibrillation, cancer, diabetes, hypertension, other Psychiatric history: no psych history - Past Surgical History Surgical History: orthopedic, other, prostatectomy - Social History Smoking Status: Former smoker Smokeless Tobacco Status: No Alcohol use: none Drug use: none - Family History Mother Living Status: Hx Family Cardiac Disorders: Yes (CHF) Father Living Status: Hx Family Cardiac Disorders: Yes Medications and Allergies Albuterol Sulfate [Albuterol Inhaler] 2 puff IH QID PRN 02/13/17 [History] Aspirin Enteric Coated [Aspirin EC] 81 mg PO DAILY 02/13/17 [History] Atorvastatin [Lipitor] 10 mg PO HS 02/13/17 [History] Budesonide/Formoterol 160/4.5 [Symbicort 160/4.5] 2 puff IH BIDR 02/13/17 [ History] Cetirizine HCl [All Day Allergy] 10 mg PO DAILY 02/13/17 [History] Cholecalciferol (D-3) [Vitamin D] 2,000 unit PO DAILY 02/13/17 [History] Diltiazem CD (24hr) [Cardizem CD] 360 mg PO DAILY 02/13/17 [History] Duloxetine HCl [Cymbalta] 60 mg PO DAILY 02/13/17 [History] Fluticasone Propionate Nasal [Flonase] 1 spray NS BID 02/13/17 [History] HYDROcodone/Acet 5/325 mg [[place] 5-325 mg] 1 tab PO BID 02/13/17 [History] Insulin ASPART [NovoLOG] 5 unit SQ TIDWM 02/13/17 [History] Insulin Glargine [Lantus] 58 unit SQ HS 02/13/17 [History] Lisinopril 2.5 mg PO DAILY 02/13/17 [History] Melatonin/Pyridoxine HCl (B6) [Melatonin 3 mg Tablet] 6 mg PO HS 02/13/17 [ History] Metformin HCl [Glucophage] 1,000 mg PO BID 02/13/17 [History] Metoprolol [Lopressor] 100 mg PO BID 02/13/17 [History] Montelukast [Singulair] 10 mg PO HS 02/13/17 [History] Omeprazole [PriLOSEC] 40 mg PO DAILY 02/13/17 [History] Polyvinyl Alcohol [Artificial Tears] 1 drop BOTH EYES AD PRN 02/13/17 [History] Pregabalin [Lyrica] 200 mg PO BID 02/13/17 [History] Rivaroxaban [Xarelto] 20 mg PO DAILY 02/13/17 [History] Saliva Substitute Combo No.3 [Aquoral] 3 - 5 spray MM BID 02/13/17 [History] Sildenafil Citrate [Viagra] 50 mg PO AD PRN 02/13/17 [History] Sodium Chloride [Mina-128] 1 drop BOTH EYES QID 02/13/17 [History] Tamsulosin HCl [Flomax] 0.4 mg PO DAILY 02/13/17 [History] Trazodone HCl 150 mg PO HS PRN 02/13/17 [History] Docusate [Colace] 100 mg PO BID PRN #60 capsule 02/18/17 [Rx] Furosemide [Lasix] 40 mg PO DAILY #30 tablet 02/18/17 [Rx] Sennosides/Docusate Sodium [Senna Plus] 2 each PO BID PRN #60 tablet 02/18/17 [ Rx] Albuterol Neb [Proventil Neb] 2.5 mg IH Q4H PRN 02/19/17 [History] GuaiFENesin/Dextromethorphan [Tussin Dm Syrup] 10 ml PO Q4H PRN 02/19/17 [ History] Ipratropium/Albuterol Neb [Duoneb] 3 ml IH ONCE PRN 02/19/17 [History] Allergies codeine Allergy (Verified 02/13/17 16:16) Anaphylaxis Review of Systems ROS unobtainable: due to endotracheal tube, due to mental status Exam - Vital Signs Vital signs: Initial Vital Signs Temp Pulse Resp BP Pulse Ox 0 F L 43 22 72/35 97 03/07/17 00:53 03/07/17 00:53 03/07/17 00:53 03/07/17 00:53 03/07/17 00:53 Vital Signs - Last 8 Hours Temp Pulse Resp BP Pulse Ox 03/07/17 07:51 61 03/07/17 07:36 18 75/55 95 03/07/17 07:00 97.5 F L 61 19 91/55 96 03/07/17 06:00 55 19 81/50 94 03/07/17 05:55 18 82/49 93 03/07/17 05:13 50 03/07/17 05:00 95.6 F L 50 19 81/50 92 03/07/17 04:40 16 143/58 92 03/07/17 04:22 14 113/75 Intake and Output 03/06/17 03/07/17 03/07/17 23:59 07:59 15:59 Intake Total 236.8 / 2370.1 Output Total 0 / 0 Balance 236.8 / 2370.1 Intake: IV Fluids 236.8 / 250.0 DOPamine Premix 400mg/ 236.8 / 250.0 250mL 400 mg In 250 ml @ 2.5 MCG/KG/MIN 14.879 mls /hr IVC .[id number] LORI Rx#: [id number] Output: Urine 0 / 0 Urethral (Jane) 0 / 0 Catheter 0 / 0 Other: Blood Glucose* 292 - General Appearance General appearance: obese, chronically ill Additional Comments: JVD difficult to identify due to large neck. Left central venous access. Respiratory: clear Cardiology: no edema, regular rate, regular rhythm, normal S1, normal S2 Additional Comments: Difficult to hear bowel sounds due to enlarged body habitus Integumentary: no rash, warm and dry Additional Comments: Intubated and sedated Results - Lab Results 03/07/17 05:45 03/07/17 13:49 Most recent lab results ABG pH 7.30 pH Units (7.32-7.45) L 03/07/17 06:53 ABG pCO2 49 mmHg (35-45) H 03/07/17 06:53 ABG pO2 66 mmHg (85-104) L 03/07/17 06:53 ABG HCO3 24.1 mEQ/L (21-27) 03/07/17 06:53 ABG O2 Saturation 90 % (95-98) L 03/07/17 06:53 Calcium 8.1 mg/dL (8.6-10.8) L 03/07/17 05:45 Phosphorus 3.7 mg/dL (2.3-4.7) 03/07/17 05:45 Magnesium 1.7 mg/dL (1.6-2.6) 03/07/17 05:45 - Image Kidney/bladder ultrasound: pending Consult Discharge Plan - Plan [facility]Primary Care Provider[facility] -
[2017-03-07] MEDS ORDERED: 0.9 % Sodium Chloride 1,000 ML PRIME SCH (08:58)
[2017-03-07] MEDS ORDERED: *HR* Heparin 5,000 UNIT/ML VIAL IV PRN (08:58)
[2017-03-07 09:00] LABS: Uric Acid 8.5 mg/dL (3.5-7.2)
[2017-03-07] MEDS ORDERED: *HR* Heparin 5,000 UNIT/ML VIAL ONE (09:28)
[2017-03-07] MEDS ORDERED: Albuterol 2.5 MG/3 ML NEBULIZER ONE (09:44)
--- NOTE | 2017-03-07 09:47 | IR Procedure Note ---
Date of procedure: 03/07/17 Consent Obtained: Written consent Timeout: Correct patient and procedure verified, Time out performed, Skin prep completed Local anesthetic: Lidocaine 1% Indications: ARF Procedure Performed: Temp dialysis catheter placement Results/Findings: RIJ 15F 20 cm temp dialysis catheter placement Complications: None; Tolerated procedure well (Monitor on floor)
[2017-03-07] MEDS: Lacri-Lube 3.5 GM TUBE BOTH EYES SCH ×5 (10:09→23:18)
[2017-03-07] MEDS ORDERED: *HR* Dextrose 50 % in Water (Syg) 50 ML SYRINGE IVP PRN (11:05)
[2017-03-07] MEDS ORDERED: Dextrose Gel 15 GM PO PRN ×2 (11:05)
[2017-03-07] MEDS ORDERED: D5% in Water 1,000 ML IVC PRN (11:05)
--- NOTE | 2017-03-07 11:50 | Pulmonology Consult Note ---
<Clive Burgos W - Last Filed: 03/07/17 11:57> Date of Encounter: 03/07/17 Medications and Allergies Albuterol Sulfate [Albuterol Inhaler] 2 puff IH QID PRN 02/13/17 [History] Aspirin Enteric Coated [Aspirin EC] 81 mg PO DAILY 02/13/17 [History] Atorvastatin [Lipitor] 10 mg PO HS 02/13/17 [History] Budesonide/Formoterol 160/4.5 [Symbicort 160/4.5] 2 puff IH BIDR 02/13/17 [ History] Cetirizine HCl [All Day Allergy] 10 mg PO DAILY 02/13/17 [History] Cholecalciferol (D-3) [Vitamin D] 2,000 unit PO DAILY 02/13/17 [History] Diltiazem CD (24hr) [Cardizem CD] 360 mg PO DAILY 02/13/17 [History] Duloxetine HCl [Cymbalta] 60 mg PO DAILY 02/13/17 [History] Fluticasone Propionate Nasal [Flonase] 1 spray NS BID 02/13/17 [History] HYDROcodone/Acet 5/325 mg [Bondurant 5-325 mg] 1 tab PO BID 02/13/17 [History] Insulin ASPART [NovoLOG] 5 unit SQ TIDWM 02/13/17 [History] Insulin Glargine [Lantus] 58 unit SQ HS 02/13/17 [History] Lisinopril 2.5 mg PO DAILY 02/13/17 [History] Melatonin/Pyridoxine HCl (B6) [Melatonin 3 mg Tablet] 6 mg PO HS 02/13/17 [ History] Metformin HCl [Glucophage] 1,000 mg PO BID 02/13/17 [History] Metoprolol [Lopressor] 100 mg PO BID 02/13/17 [History] Montelukast [Singulair] 10 mg PO HS 02/13/17 [History] Omeprazole [PriLOSEC] 40 mg PO DAILY 02/13/17 [History] Polyvinyl Alcohol [Artificial Tears] 1 drop BOTH EYES AD PRN 02/13/17 [History] Pregabalin [Lyrica] 200 mg PO BID 02/13/17 [History] Rivaroxaban [Xarelto] 20 mg PO DAILY 02/13/17 [History] Saliva Substitute Combo No.3 [Aquoral] 3 - 5 spray MM BID 02/13/17 [History] Sildenafil Citrate [Viagra] 50 mg PO AD PRN 02/13/17 [History] Sodium Chloride [Mina-128] 1 drop BOTH EYES QID 02/13/17 [History] Tamsulosin HCl [Flomax] 0.4 mg PO DAILY 02/13/17 [History] Trazodone HCl 150 mg PO HS PRN 02/13/17 [History] Docusate [Colace] 100 mg PO BID PRN #60 capsule 02/18/17 [Rx] Furosemide [Lasix] 40 mg PO DAILY #30 tablet 02/18/17 [Rx] Sennosides/Docusate Sodium [Senna Plus] 2 each PO BID PRN #60 tablet 02/18/17 [ Rx] Albuterol Neb [Proventil Neb] 2.5 mg IH Q4H PRN 02/19/17 [History] GuaiFENesin/Dextromethorphan [Tussin Dm Syrup] 10 ml PO Q4H PRN 02/19/17 [ History] Ipratropium/Albuterol Neb [Duoneb] 3 ml IH ONCE PRN 02/19/17 [History] Allergies codeine Allergy (Verified 02/13/17 16:16) Anaphylaxis All Systems: A 10-system review of systems was performed and is negative for pertinent findings except as documented above in the HPI. Physical Examination Vital Signs: Vital Signs, Last 4 Hours Pulse Resp BP Pulse Ox 03/07/17 11:16 18 107/52 100 03/07/17 11:00 68 18 107/52 100 03/07/17 10:00 70 18 107/57 100 03/07/17 09:45 18 107/57 100 03/07/17 09:00 68 18 107/63 99 03/07/17 08:00 72 18 99/67 95 Ventilator Settings Ventilator Settings: Ventilator Settings, Last 8 Hours Ventilator Mode A/C Ventilator Mode A/C Ventilator Mode A/C Ventilator Mode A/C Ventilator Mode A/C Ventilator Mode A/C Ventilator Mode A/C Ventilator Mode A/C Ventilator Mode A/C Ventilator Mode A/C Ventilator Mode A/C Ventilator Mode A/C Ventilator Mode A/C Ventilator Tidal Volume 500 Setting Ventilator Tidal Volume 500 Setting Ventilator Tidal Volume 500 Setting Ventilator Tidal Volume 500 Setting Ventilator Tidal Volume 500 Setting Ventilator Tidal Volume 500 Setting Ventilator Tidal Volume 500 Setting Ventilator Tidal Volume 500 Setting Ventilator Tidal Volume 500 Setting Ventilator Tidal Volume 500 Setting Ventilator Tidal Volume 500 Setting Ventilator Tidal Volume 500 Setting Ventilator Tidal Volume 500 Setting Ventilator Respiratory Rate 18 Setting Ventilator Respiratory Rate 18 Setting Ventilator Respiratory Rate 18 Setting Ventilator Respiratory Rate 18 Setting Ventilator Respiratory Rate 18 Setting Ventilator Respiratory Rate 18 Setting Ventilator Respiratory Rate 18 Setting Ventilator Respiratory Rate 18 Setting Ventilator Respiratory Rate 16 Setting Ventilator Respiratory Rate 16 Setting Ventilator Respiratory Rate 16 Setting Ventilator Respiratory Rate 14 Setting Ventilator Respiratory Rate 14 Setting Actual Respiratory Rate 18 Actual Respiratory Rate 18 Actual Respiratory Rate 18 Actual Respiratory Rate 18 Actual Respiratory Rate 18 Actual Respiratory Rate 18 Actual Respiratory Rate 18 Actual Respiratory Rate 19 Actual Respiratory Rate 19 Actual Respiratory Rate 18 Actual Respiratory Rate 16 Positive End Expiratory 8 Pressure Positive End Expiratory 8 Pressure Positive End Expiratory 8 Pressure Positive End Expiratory 8 Pressure Positive End Expiratory 8 Pressure Positive End Expiratory 8 Pressure Positive End Expiratory 8 Pressure Positive End Expiratory 8 Pressure Positive End Expiratory 8 Pressure Positive End Expiratory 5 Pressure Positive End Expiratory 8 Pressure Positive End Expiratory 5 Pressure Positive End Expiratory 5 Pressure Peak Inspiratory Airway 31 Pressure Peak Inspiratory Airway 31 Pressure Peak Inspiratory Airway 31 Pressure Peak Inspiratory Airway 31 Pressure Peak Inspiratory Airway 31 Pressure Peak Inspiratory Airway 31 Pressure Peak Inspiratory Airway 29 Pressure Peak Inspiratory Airway 28 Pressure Peak Inspiratory Airway 26 Pressure Peak Inspiratory Airway 29 Pressure Peak Inspiratory Airway 27 Pressure Results - Laboratory Findings CBC and BMP: 03/07/17 05:45 03/07/17 05:45 ABG ABG pH 7.30 pH Units (7.32-7.45) L 03/07/17 06:53 ABG pCO2 49 mmHg (35-45) H 03/07/17 06:53 ABG pO2 66 mmHg (85-104) L 03/07/17 06:53 ABG O2 Saturation 90 % (95-98) L 03/07/17 06:53 PT/INR, D-dimer PT 16.8 Seconds (9.4-12.1) H 03/07/17 05:45 Abnormal lab findings: Abnormal lab results WBC 17.1 K/mcL (4.3-11.1) H 03/07/17 05:45 RBC 4.17 M/mcL (4.19-5.50) L 03/07/17 05:45 Hgb 12.4 g/dL (12.9-16.9) L 03/07/17 05:45 Neutrophils # 14.3 K/mcL (1.6-8.9) H 03/07/17 05:45 Monocytes # 1.6 K/mcL (0.0-1.3) H 03/07/17 05:45 PT 16.8 Seconds (9.4-12.1) H 03/07/17 05:45 ABG pH 7.30 pH Units (7.32-7.45) L 03/07/17 06:53 ABG pCO2 49 mmHg (35-45) H 03/07/17 06:53 ABG pO2 66 mmHg (85-104) L 03/07/17 06:53 ABG O2 Saturation 90 % (95-98) L 03/07/17 06:53 ABG Base Excess -2.7 mEq/L (-2.0 to 3.0) L 03/07/17 06:53 Sodium 134 mEq/L (136-145) L 03/07/17 05:45 Potassium 7.0 mEq/L (3.5-4.5) H* 03/07/17 05:45 BUN 36 mg/dL (8-26) H 03/07/17 05:45 Creatinine 3.02 mg/dL (0.72-1.25) H 03/07/17 05:45 Est GFR ( Amer) 25 (> 60) L 03/07/17 05:45 Est GFR (Non-Af Amer) 21 (> 60) L 03/07/17 05:45 Glucose 338 mg/dL (70-99) H 03/07/17 05:45 POC Glucose 292 (58-89) H 03/07/17 04:43 Uric Acid 8.5 mg/dL (3.5-7.2) H 03/07/17 05:45 Calcium 8.1 mg/dL (8.6-10.8) L 03/07/17 05:45 Ionized Calcium 1.09 mmol/L (1.15-1.35) L 03/07/17 05:45 AST 367 Units/L (5-34) H 03/07/17 05:45 ALT 334 Units/L (0-55) H 03/07/17 05:45 Alkaline Phosphatase 162 Units/L (38-126) H 03/07/17 05:45 Serum Total Protein 5.9 g/dL (6.0-8.3) L 03/07/17 05:45 Albumin 3.0 g/dL (3.5-5.0) L 03/07/17 05:45 Albumin/Globulin Ratio 1.0 (1.1-2.2) L 03/07/17 05:45 - Clinical Findings Intake & Output: Intake & Output 03/06/17 03/07/17 03/07/17 23:59 07:59 15:59 Intake Total 236.8 / 2370.1 250 / 250 Output Total 0 / 0 0 / 0 Balance 236.8 / 2370.1 250 / 250 Consult Discharge Plan - Plan [facility]: [facility]Primary Care Provider[facility] - - Attending Attestation I examined this patient and my medical decision-making was reviewed with the OPERATIONS RESEARCH SCIENTIST/PA/Advanced Practice Nurse/Resident Physician. I agree with the documented findings, disposition and treatment plan as described except to the extent set forth below. I spent 35min of Critical Care time with this patient. It involved decision making of high complexity to assess, manipulate, and support vital organ system failure and/or to prevent further life threatening deterioration of the patient' s condition. The time involved in the performance of separately reportable procedures was not counted toward critical care time. Patient seen and examined at bedside Labs, radiology, chart personally reviewed. All lines examined without evidence of infection. Neuropsych: Sedated on vent prior to intubation was noted to move all extremities pupils equal round reactive to light we will institute daily sedation holiday as clinically safe to do so wean sedation for goal [place] 3 Pulm: Acute hypoxic hypercarbic respiratory failure requiring intubation mechanical ventilation minimal vent settings at present that has been adjusted for mixed acidosis and respiratory acidosis is corrected goal pH greater than 7.3; ventilator bundle to prevent ventilator associated pneumonia instituted Cards: History of underlying atrial fibrillation and heart failure currently with heart block secondary to hyperkalemia; cardiology has been consulted acute indication for temporary venous pacing as patient has responded to vasopressor FEN-GI: Nothing by mouth for now. PPI prophylaxis Renal: Acute kidney injury unclear etiology possibly secondary to vascular congestion from heart failure severe hyperkalemia leading to arrhythmia nephrology consulted plan for continuous renal replacement monitor electrolytes and replace per protocol and interim hyperkalemia cocktail has been given including Kayexalate ID: Leukocytosis and clinical presentation concerning for sepsis broad cultures have been obtained; starting antimicrobial coverage de-escalate 24 to avoid hours based upon clinical course and culture results Heme/Onc: DVT prophylaxis given no overt evidence of hemorrhage platelet stable Endo: Glucose monitored Integ/MSK: Skin care per routine ICU protocol CODE: Full code patient's sister was updated at bedside today son is coming in from out of town <Verónica Nolasco - Last Filed: 03/07/17 15:53> Date of Encounter: 03/07/17 Time of Encounter: 11:50 Assessment and Plan (1) Bradycardia Current Visit: Yes Status: Acute Symptomatic bradycardia that caused altered mental status and dizziness. Patient was also hypotensive with this. He was placed on dopamine which corrected his bradycardia. However he was still hypotensive. He is on Levophed at this time. He has AK as well as hyperkalemia. Hyperkalemia did not respond to Kayexalate, insulin, glucose, albuterol. Patient has no urine output overnight. He did have minimal this morning. Plan: Hollie Monitor potassium. Continue levothyroid and dopamine for a map greater than 60 and a heart rate greater than 60 Continue sedation as needed. Monitor electrolytes. Continue antibiotics, Zosyn and vancomycin unsure etiology of leukocytosis. Heparin for DVT prophylaxis Protonix for GI prophylaxis Blood cultures pending Nephrology on board Cardiology on board (2) Acute respiratory failure with hypoxia Current Visit: No Status: Resolved Patient sedated and intubated. Likely related to bradycardia with his altered mental status. Plan: ABGs. (3) Diastolic CHF Current Visit: No Status: Acute Pulmonary edema noted on the chest x-ray. Did receive fluid in the emergency department for [place] as well as increased lactic acid. Plan: Repeat echo today Qualifiers: Congestive heart failure chronicity: chronic Qualified Code(s): I50.32 - Chronic diastolic (congestive) heart failure (4) Hyperkalemia Current Visit: Yes Status: Acute Plan as above (5) Atrial flutter Current Visit: Yes Status: Acute Plan as above Qualifiers: Atrial flutter type: unspecified Qualified Code(s): I48.92 - Unspecified atrial flutter (6) Hypotension Current Visit: Yes Status: Acute Plan as above Qualifiers: Hypotension type: other hypotension type Qualified Code(s): I95.89 - Other hypotension (7) SIRS (systemic inflammatory response syndrome) Current Visit: Yes Status: Acute Plan as above (8) Hyperkalemia Current Visit: Yes Status: Acute (9) EMILIA (acute kidney injury) Current Visit: Yes Status: Acute Plan as above (10) DVT prophylaxis Current Visit: No Status: Acute Plan as above History of Present Illness Consult date: 03/07/17 Chief complaint: Symptomatic bradycardia, hyperkalemia History of present illness: Patient presented with symptomatic bradycardia as well as hyperkalemia and AK I. He is placed on dopamine which increase his heart rate. He was given insulin and Kayexalate glucose and albuterol. This did not affect his potassium. It was 7. He is requiring dopamine and Levophed to keep his blood pressure up. Nephrology is on board and have a Hollie to help lower his potassium. He also has a leukocytosis. Unsure of the etiology. He states on vancomycin as well as Zosyn. Past Med Surg Social Fam HX - Past Medical History Medical history: arthritis, asthma, atrial fibrillation, cancer, diabetes, hypertension, other Psychiatric history: no psych history - Past Surgical History Surgical History: orthopedic, other, prostatectomy - Social History Smoking Status: Former smoker Smokeless Tobacco Status: No Alcohol use: none Drug use: none - Family History Mother Living Status: Hx Family Cardiac Disorders: Yes (CHF) Father Living Status: Hx Family Cardiac Disorders: Yes ROS unobtainable: due to endotracheal tube All Systems: A 10-system review of systems was performed and is negative for pertinent findings except as documented above in the HPI. Physical Examination Vital Signs: Vital Signs, Last 4 Hours Pulse Resp BP Pulse Ox 03/07/17 11:16 18 107/52 100 03/07/17 11:00 68 18 107/52 100 03/07/17 10:00 70 18 107/57 100 03/07/17 09:45 18 107/57 100 03/07/17 09:00 68 18 107/63 99 03/07/17 08:00 72 18 99/67 95 03/07/17 07:51 61 General appearance: other (Patient is intubated and sedated.) Eyes: nonicteric ENT: oropharynx moist Effort: normal Inspection: normal Auscultation: bilateral: clear Cardiovascular: regular rate and rhythm Gastrointestinal: normoactive bowel sounds, soft, non-distended Integumentary: normal Extremities: no cyanosis, no edema, no clubbing, pink and warm Musculoskeletal: no deformities Ventilator Settings Ventilator Settings: Ventilator Settings, Last 8 Hours Ventilator Mode A/C Ventilator Mode A/C Ventilator Mode A/C Ventilator Mode A/C Ventilator Mode A/C Ventilator Mode A/C Ventilator Mode A/C Ventilator Mode A/C Ventilator Mode A/C Ventilator Mode A/C Ventilator Mode A/C Ventilator Mode A/C Ventilator Mode A/C Ventilator Tidal Volume 500 Setting Ventilator Tidal Volume 500 Setting Ventilator Tidal Volume 500 Setting Ventilator Tidal Volume 500 Setting Ventilator Tidal Volume 500 Setting Ventilator Tidal Volume 500 Setting Ventilator Tidal Volume 500 Setting Ventilator Tidal Volume 500 Setting Ventilator Tidal Volume 500 Setting Ventilator Tidal Volume 500 Setting Ventilator Tidal Volume 500 Setting Ventilator Tidal Volume 500 Setting Ventilator Tidal Volume 500 Setting Ventilator Respiratory Rate 18 Setting Ventilator Respiratory Rate 18 Setting Ventilator Respiratory Rate 18 Setting Ventilator Respiratory Rate 18 Setting Ventilator Respiratory Rate 18 Setting Ventilator Respiratory Rate 18 Setting Ventilator Respiratory Rate 18 Setting Ventilator Respiratory Rate 18 Setting Ventilator Respiratory Rate 16 Setting Ventilator Respiratory Rate 16 Setting Ventilator Respiratory Rate 16 Setting Ventilator Respiratory Rate 14 Setting Ventilator Respiratory Rate 14 Setting Actual Respiratory Rate 18 Actual Respiratory Rate 18 Actual Respiratory Rate 18 Actual Respiratory Rate 18 Actual Respiratory Rate 18 Actual Respiratory Rate 18 Actual Respiratory Rate 18 Actual Respiratory Rate 19 Actual Respiratory Rate 19 Actual Respiratory Rate 18 Actual Respiratory Rate 16 Positive End Expiratory 8 Pressure Positive End Expiratory 8 Pressure Positive End Expiratory 8 Pressure Positive End Expiratory 8 Pressure Positive End Expiratory 8 Pressure Positive End Expiratory 8 Pressure Positive End Expiratory 8 Pressure Positive End Expiratory 8 Pressure Positive End Expiratory 8 Pressure Positive End Expiratory 5 Pressure Positive End Expiratory 8 Pressure Positive End Expiratory 5 Pressure Positive End Expiratory 5 Pressure Peak Inspiratory Airway 31 Pressure Peak Inspiratory Airway 31 Pressure Peak Inspiratory Airway 31 Pressure Peak Inspiratory Airway 31 Pressure Peak Inspiratory Airway 31 Pressure Peak Inspiratory Airway 31 Pressure Peak Inspiratory Airway 29 Pressure Peak Inspiratory Airway 28 Pressure Peak Inspiratory Airway 26 Pressure Peak Inspiratory Airway 29 Pressure Peak Inspiratory Airway 27 Pressure Results - Laboratory Findings CBC and BMP: 03/07/17 05:45 03/07/17 13:49 ABG ABG pH 7.30 pH Units (7.32-7.45) L 03/07/17 06:53 ABG pCO2 49 mmHg (35-45) H 03/07/17 06:53 ABG pO2 66 mmHg (85-104) L 03/07/17 06:53 ABG O2 Saturation 90 % (95-98) L 03/07/17 06:53 PT/INR, D-dimer PT 16.8 Seconds (9.4-12.1) H 03/07/17 05:45 Abnormal lab findings: Abnormal lab results WBC 17.1 K/mcL (4.3-11.1) H 03/07/17 05:45 RBC 4.17 M/mcL (4.19-5.50) L 03/07/17 05:45 Hgb 12.4 g/dL (12.9-16.9) L 03/07/17 05:45 Neutrophils # 14.3 K/mcL (1.6-8.9) H 03/07/17 05:45 Monocytes # 1.6 K/mcL (0.0-1.3) H 03/07/17 05:45 PT 16.8 Seconds (9.4-12.1) H 03/07/17 05:45 ABG pH 7.30 pH Units (7.32-7.45) L 03/07/17 06:53 ABG pCO2 49 mmHg (35-45) H 03/07/17 06:53 ABG pO2 66 mmHg (85-104) L 03/07/17 06:53 ABG O2 Saturation 90 % (95-98) L 03/07/17 06:53 ABG Base Excess -2.7 mEq/L (-2.0 to 3.0) L 03/07/17 06:53 Sodium 134 mEq/L (136-145) L 03/07/17 05:45 Potassium 7.0 mEq/L (3.5-4.5) H* 03/07/17 05:45 BUN 36 mg/dL (8-26) H 03/07/17 05:45 Creatinine 3.02 mg/dL (0.72-1.25) H 03/07/17 05:45 Est GFR ( Amer) 25 (> 60) L 03/07/17 05:45 Est GFR (Non-Af Amer) 21 (> 60) L 03/07/17 05:45 Glucose 338 mg/dL (70-99) H 03/07/17 05:45 POC Glucose 292 (58-89) H 03/07/17 04:43 Uric Acid 8.5 mg/dL (3.5-7.2) H 03/07/17 05:45 Calcium 8.1 mg/dL (8.6-10.8) L 03/07/17 05:45 Ionized Calcium 1.09 mmol/L (1.15-1.35) L 03/07/17 05:45 AST 367 Units/L (5-34) H 03/07/17 05:45 ALT 334 Units/L (0-55) H 03/07/17 05:45 Alkaline Phosphatase 162 Units/L (38-126) H 03/07/17 05:45 Serum Total Protein 5.9 g/dL (6.0-8.3) L 03/07/17 05:45 Albumin 3.0 g/dL (3.5-5.0) L 03/07/17 05:45 Albumin/Globulin Ratio 1.0 (1.1-2.2) L 03/07/17 05:45 - Diagnostic Findings Additional studies: Guidance Ultrasound 03/07/17 00:00 IMPRESSION: 1. Right internal jugular vein temporary dialysis catheter placement as discussed above. D/ / Gigi Linn MD / Gigi Linn MD Interpreting Provider: Gigi Linn MD Insertion Non-Tunneled Catheter 03/07/17 00:00 IMPRESSION: 1. Right internal jugular vein temporary dialysis catheter placement as discussed above. D/ / Gigi Linn MD / Gigi Linn MD Interpreting Provider: Gigi Linn MD X-Ray 03/07/17 09:04 IMPRESSION: 1. Right temporary dialysis catheter is in the distal superior vena cava with no acute complication. 2. Stable asymmetric patchy pulmonary opacities more prominent on the left. 3. Nasogastric tube in the stomach with the tip at the mid to distal gastric body. D/ / 03/07/2017 11:20:42 Fercho Sultana MD / cayden Interpreting Provider: Fercho Sultana MD Chest X-Ray 03/07/17 09:44 IMPRESSION: 1. Right temporary dialysis catheter is in the distal superior vena cava with no acute complication. 2. Stable asymmetric patchy pulmonary opacities more prominent on the left. 3. Nasogastric tube in the stomach with the tip at the mid to distal gastric body. D/ / 03/07/2017 11:20:42 Fercho Sultana MD / cayden Interpreting Provider: Fercho Sultana MD Retroperitoneum Ultrasound 03/07/17 11:00 IMPRESSION: Increased echogenicity of the bilateral renal cortex, likely related to medical renal disease. Nonvisualized urinary bladder. D/ / Martinez Resendiz MD / Martinez Resendiz MD Interpreting Provider: Martinez Resendiz MD Abdomen Ultrasound 03/07/17 11:17 IMPRESSION: 1. Limited examination due to patient body habitus. 2. Coarsened echotexture of the liver without evidence of a focal hepatic abnormality. 3. Otherwise, no acute abnormality within the visualized right upper quadrant. 4. Small right pleural effusion. D/ / Dilip Soriano MD / Dilip Soriano MD Interpreting Provider: Dilip Soriano MD - Clinical Findings Intake & Output: Intake & Output 03/06/17 03/07/17 03/07/17 23:59 07:59 15:59 Intake Total 236.8 / 2370.1 250 / 250 Output Total 0 / 0 0 / 0 Balance 236.8 / 2370.1 250 / 250
[2017-03-07] MEDS: PrismaSATE BGK 2/0 5,000 ML CRRT SCH ×10 (12:01→22:20)
[2017-03-07] MEDS: Calcium Chloride 4,000 MG in 0.9 % Sodium Chloride 1,000 ML CRRT SCH (12:02)
--- NOTE | 2017-03-07 12:14 | Cardiology Consult Note ---
<Robert Welsh - Last Filed: 03/07/17 14:00> Date of Encounter: 03/07/17 Time of Encounter: 12:10 Assessment and Plan (1) Atrial flutter Current Visit: Yes Status: Acute Presented with atrial flutter with slow ventricular response. Rate controlling medications recently increased for atrial flutter with RVR. Unclear if secondary to acute renal failure or bradycardia and hypotension caused ARF. Potassium 7.0. Currently on ultra filtration. On dopamine gtt at 10 mcg/kg/min. Instructed nursing staff t wean off as tolerated. HR now in the 70's. He is on xarelto. Hold in the setting of ARF. Restart once kidney function improves. Last TTE: 02/14/17: EF 65%, indeterminate diastolic function, no significant valvular disease. TSH-normal 02/19/17 We will continue to follow with you. Qualifiers: Atrial flutter type: unspecified Qualified Code(s): I48.92 - Unspecified atrial flutter Discussion w patient/family: The assessment and plan as outlined above was discussed with the patient and/or family members who expressed understanding and agreement. All questions were answered. Thank you for involving us in the care of your patient. Please call with any questions. History of Present Illness Consult date: 03/07/17 Requesting physician: Nicolas Church Consult reason: atrial flutter with slow ventricular response Chief complaint: AMS, SOB, weakness History of present illness: Mr. Molina is a 71 year old male with a past medical history significant for atrial fibrillation/flutter on xarelto, HTN, HLD, DM type II, and FARAZ on c-pap. He presented with weakness, AMS, and SOB. He was found to have atrial flutter with slow ventricular response, HR 30's, hypotension, and EMILIA with hyperkalemia. Cardiology consulted for atrial fibrillation with slow ventricular response. He was recently admitted for atrial flutter with RVR and cardizem was increased. He was set up in the out patient setting with electrophysiology to discuss atrial flutter ablation. Mr. Molina is currently sedated and intubated. His sister is at his bedside. She states she had visited him yesterday afternoon and he was acting normal. Past Med Surg Social Fam HX - Past Medical History Medical history: arthritis, asthma, atrial fibrillation, cancer, diabetes, hypertension, other Psychiatric history: no psych history - Past Surgical History Surgical History: orthopedic, other, prostatectomy - Social History Smoking Status: Former smoker Smokeless Tobacco Status: No Alcohol use: none Drug use: none - Family History Mother Living Status: Hx Family Cardiac Disorders: Yes (CHF) Father Living Status: Hx Family Cardiac Disorders: Yes Medications and Allergies Albuterol Sulfate [Albuterol Inhaler] 2 puff IH QID PRN 02/13/17 [History] Aspirin Enteric Coated [Aspirin EC] 81 mg PO DAILY 02/13/17 [History] Atorvastatin [Lipitor] 10 mg PO HS 02/13/17 [History] Budesonide/Formoterol 160/4.5 [Symbicort 160/4.5] 2 puff IH BIDR 02/13/17 [ History] Cetirizine HCl [All Day Allergy] 10 mg PO DAILY 02/13/17 [History] Cholecalciferol (D-3) [Vitamin D] 2,000 unit PO DAILY 02/13/17 [History] Diltiazem CD (24hr) [Cardizem CD] 360 mg PO DAILY 02/13/17 [History] Duloxetine HCl [Cymbalta] 60 mg PO DAILY 02/13/17 [History] Fluticasone Propionate Nasal [Flonase] 1 spray NS BID 02/13/17 [History] HYDROcodone/Acet 5/325 mg [Prewitt 5-325 mg] 1 tab PO BID 02/13/17 [History] Insulin ASPART [NovoLOG] 5 unit SQ TIDWM 02/13/17 [History] Insulin Glargine [Lantus] 58 unit SQ HS 02/13/17 [History] Lisinopril 2.5 mg PO DAILY 02/13/17 [History] Melatonin/Pyridoxine HCl (B6) [Melatonin 3 mg Tablet] 6 mg PO HS 02/13/17 [ History] Metformin HCl [Glucophage] 1,000 mg PO BID 02/13/17 [History] Metoprolol [Lopressor] 100 mg PO BID 02/13/17 [History] Montelukast [Singulair] 10 mg PO HS 02/13/17 [History] Omeprazole [PriLOSEC] 40 mg PO DAILY 02/13/17 [History] Polyvinyl Alcohol [Artificial Tears] 1 drop BOTH EYES AD PRN 02/13/17 [History] Pregabalin [Lyrica] 200 mg PO BID 02/13/17 [History] Rivaroxaban [Xarelto] 20 mg PO DAILY 02/13/17 [History] Saliva Substitute Combo No.3 [Aquoral] 3 - 5 spray MM BID 02/13/17 [History] Sildenafil Citrate [Viagra] 50 mg PO AD PRN 02/13/17 [History] Sodium Chloride [Mina-128] 1 drop BOTH EYES QID 02/13/17 [History] Tamsulosin HCl [Flomax] 0.4 mg PO DAILY 02/13/17 [History] Trazodone HCl 150 mg PO HS PRN 02/13/17 [History] Docusate [Colace] 100 mg PO BID PRN #60 capsule 02/18/17 [Rx] Furosemide [Lasix] 40 mg PO DAILY #30 tablet 02/18/17 [Rx] Sennosides/Docusate Sodium [Senna Plus] 2 each PO BID PRN #60 tablet 02/18/17 [ Rx] Albuterol Neb [Proventil Neb] 2.5 mg IH Q4H PRN 02/19/17 [History] GuaiFENesin/Dextromethorphan [Tussin Dm Syrup] 10 ml PO Q4H PRN 02/19/17 [ History] Ipratropium/Albuterol Neb [Duoneb] 3 ml IH ONCE PRN 02/19/17 [History] Allergies codeine Allergy (Verified 02/13/17 16:16) Anaphylaxis All Systems Review: A 10-system review of systems was performed and is negative for pertinent findings except as documented above in the HPI. Physical Examination Vital Signs, Last 4 Hours Pulse Resp BP Pulse Ox 03/07/17 11:16 18 107/52 100 03/07/17 11:00 68 18 107/52 100 03/07/17 10:00 70 18 107/57 100 03/07/17 09:45 18 107/57 100 03/07/17 09:00 68 18 107/63 99 General: Other (Sedated) HEENT: Atraumatic, Normocephaly, Mucus Membranes Moist Neck: No JVD, Normal carotid pulses Cardiac: Other (2:1 aflutter, HR 70 bpm.) Lungs: Normal Breath Sounds, No Wheeze, Rales, Rhonchi Neuro: Other (Sedated, unable to follow commands.) Abdomen: Soft, Non-Tender Skin: No rashes noted on visualized skin Musculoskeletal: No Chest Wall Tenderness Extremities: No Clubbing, No Cyanosis, Normal Pulses, Other (1+ BLE edema) Results 03/07/17 05:45 03/07/17 05:45 Lab Results 03/07/17 03/07/17 03/07/17 05:45 05:45 05:45 WBC 17.1 H Hgb 12.4 L Hct 37.5 Plt Count 308 INR 1.5 Sodium 134 L Potassium 7.0 H* Chloride 105 Carbon Dioxide 21 BUN 36 H Creatinine 3.02 H Glucose 338 H Calcium 8.1 L Magnesium 1.7 Total Bilirubin 0.5 AST 367 H ALT 334 H Alkaline Phosphatase 162 H - Imaging and Cardiology Echo: report reviewed - EKG Interpretation EKG results cardiology: personally reviewed (atrial flutter with slow ventricular response.) Consult Discharge Plan - Plan [facility]errals: [facility] [Primary Care Provider[facility] - <Fide Avendano - Last Filed: 03/07/17 16:37> Date of Encounter: 03/07/17 Assessment and Plan Discussion w patient/family: The assessment and plan as outlined above was discussed with the patient and/or family members who expressed understanding and agreement. All questions were answered. Thank you for involving us in the care of your patient. Please call with any questions. History of Present Illness History of present illness: Mr. Molina is a 71 year old male All Systems Review: A 10-system review of systems was performed and is negative for pertinent findings except as documented above in the HPI. Physical Examination Vital Signs, Last 4 Hours Temp Pulse Resp BP Pulse Ox 03/07/17 16:00 97.5 F L 70 18 90/46 100 03/07/17 15:00 90 18 100/61 100 03/07/17 14:00 81 18 88/64 100 03/07/17 13:12 18 100 03/07/17 13:00 68 18 91/48 100 Results 03/07/17 05:45 03/07/17 13:49 Lab Results 03/07/17 03/07/17 03/07/17 05:45 05:45 05:45 WBC 17.1 H Hgb 12.4 L Hct 37.5 Plt Count 308 INR 1.5 Sodium 134 L Potassium 7.0 H* Chloride 105 Carbon Dioxide 21 BUN 36 H Creatinine 3.02 H Glucose 338 H Calcium 8.1 L Magnesium 1.7 Total Bilirubin 0.5 AST 367 H ALT 334 H Alkaline Phosphatase 162 H 03/07/17 13:49 WBC Hgb Hct Plt Count INR Sodium 131 L Potassium 6.7 H* Chloride 99 Carbon Dioxide 26 BUN 36 H Creatinine 2.82 H Glucose 332 H Calcium 7.8 L Magnesium Total Bilirubin AST ALT Alkaline Phosphatase - Attending Attestation I examined this patient and my medical decision-making was reviewed with the FRONT DESK MONITOR/PA/Advanced Practice Nurse/Resident Physician. I agree with the documented findings, disposition and treatment plan. Mr. Molina presented with weakness, AMS and was found to be bradycardic with AFL and slow ventricular response. This is in the setting of a metabolic disturbance with ARF and hyperkalemia and anuria. Suspect metabolic disturbance is the precipitant for AFL and slow response. Hypotension continues despite normalization of heart rates. Exact presentation is unclear but there is concern for an infectious cause given leukocytosis. His most recent echo demonstrated normal LV systolic function. Repeat echo is pending. Nephrology following.
[2017-03-07] MEDS: Insulin LISPRO 300 UNITS/3 ML VIAL SQ SCH ×3 (12:16→23:17)
--- NOTE | 2017-03-07 12:29 | Electrocardiograph Report ---
[address] [place] [address] Test Date: 2017-03-07 Pat Name: Stephan Molina Department: 104 Room: 06 Gender: M Fisher Purse Seine: MARGARITO : 1945 Requested By: Regulo Maguire Order Number: [id number] Reading MD: Brijesh Rios MD Measurements Intervals [place] Rate: 39 P: [place]: 0 QRS: -59 QRSD: 154 T: 63 QT: 429 QTc: 354 Interpretive Statements ATRIAL FLUTTER WITH SLOW VENTRICULAR RESPONSE MARKED LEFT AXIS DEVIATION RIGHT BUNDLE BRANCH BLOCK POSSIBLE ANTERIOR MYOCARDIAL INFARCTION, OF INDETERMINATE AGE Electronically Signed On 03-07-2017 12:28:20 EDT by Brijesh Rios MD
[2017-03-07] MEDS: *HR* Heparin 5,000 UNIT/ML VIAL SQ SCH ×2 (13:58→21:17)
[2017-03-07 14:16] LABS: Calcium 7.8 mg/dL (8.6-10.8)
[2017-03-07 14:18] LABS: Potassium 6.7 mEq/L (3.5-4.5)
[2017-03-07] MEDS: Calcium Gluconate 1,000 MG in D5% in Water 100 ML IVPB PRN ×3 (14:30→19:44)
[2017-03-07] MEDS: Norepinephrine 4 MG in D5% in Water 250 ML IVC SCH (15:38)
[2017-03-07] MEDS ORDERED: Vancomycin 1,000 MG in D5% in Water 250 ML IVPB ONE (16:00)
[2017-03-07] MEDS ORDERED: Perflutren Lipid Microsphere 1.3 ML in 0.9 % Sodium Chloride 8.7 ML IVP ONE (16:44)
[2017-03-07 19:10] LABS: Calcium 7.5 mg/dL (8.6-10.8); Magnesium 1.6 mg/dL (1.6-2.6); Potassium 6.2 mEq/L (3.5-4.5)
[2017-03-07] MEDS: Calcium Gluconate 2,000 MG in D5% in Water 100 ML IVPB PRN (23:09)
[2017-03-08] MEDS: PrismaSATE BGK 2/0 5,000 ML CRRT SCH ×12 (01:08→14:50)
[2017-03-08] MEDS: Calcium Gluconate 1,000 MG in D5% in Water 100 ML IVPB PRN ×4 (01:28→11:11)
[2017-03-08] MEDS: Lacri-Lube 3.5 GM TUBE BOTH EYES SCH ×6 (03:25→23:06)
[2017-03-08] MEDS: Calcium Chloride 4,000 MG in 0.9 % Sodium Chloride 1,000 ML CRRT SCH ×2 (03:32→13:07)
[2017-03-08 04:49] LABS: ABG Base Excess -0.6 mEq/L (-2.0 to 3.0); ABG HCO3 28.3 mEQ/L (21-27); ABG Oxygen Saturation 86 % (95-98); ABG PCO2 66 mmHg (35-45); ABG PH 7.24 pH Units (7.32-7.45); ABG PO2 61 mmHg (85-104); ABG TCO2 30.3 mEq/L (20-26); Blood Gas FiO2 50 %; Blood Gas PEEP 5 cm H2O; Blood Gas Respiration Rate 18; Blood Gas VT 500 cc
[2017-03-08 04:58] LABS: Basophils % 0.1 %; Eosinophils # 0.1 K/mcL (0.0-0.6); Eosinophils % 0.3 %; Hematocrit 39.8 % (37.5-50.1); Hemoglobin 12.6 g/dL (12.9-16.9); Immature Granulocytes % 0.7 % (0-4); Lymphocytes % 4.8 %; Mean Corpuscular HGB Conc 31.7 g/dL (31.6-35.5); Mean Corpuscular Hemoglobin 28.3 pg (28.0-33.3); Mean Corpuscular Volume 89.4 fL (83.0-100.0); Mean Platelet Volume 9.3 fL (9.4-12.4); Monocytes # 2.1 K/mcL (0.0-1.3); Monocytes % 10.7 %; Neutrophils # 16.7 K/mcL (1.6-8.9); Platelet Count 204 K/mcL (140-400); Red Blood Count 4.45 M/mcL (4.19-5.50); Red Cell Distribution Width 13.6 % (11.5-14.5); Segmented Neutrophils % 83.4 %
[2017-03-08 05:16] LABS: Calcium 7.7 mg/dL (8.6-10.8); Potassium 5.4 mEq/L (3.5-4.5)
[2017-03-08] MEDS: Insulin LISPRO 300 UNITS/3 ML VIAL SQ SCH ×4 (05:33→23:16)
[2017-03-08] MEDS: *HR* Heparin 5,000 UNIT/ML VIAL SQ SCH ×2 (05:35→12:34)
[2017-03-08] MEDS: FentaNYL (PF) 1,000 MCG in 0.9 % Sodium Chloride 80 ML IVC SCH ×2 (05:35→15:00)
[2017-03-08 05:38] LABS: Magnesium 1.7 mg/dL (1.6-2.6)
[2017-03-08 05:52] LABS: ABG HCO3 26.3 mEQ/L (21-27); ABG Oxygen Saturation 90 % (95-98); ABG PCO2 60 mmHg (35-45); ABG PH 7.25 pH Units (7.32-7.45); ABG PO2 68 mmHg (85-104); ABG TCO2 28.1 mEq/L (20-26)
[2017-03-08 06:03] LABS: Blood Gas FiO2 50 %; Blood Gas PEEP 8 cm H2O; Blood Gas Respiration Rate 18; Blood Gas VT 550 cc
[2017-03-08] MEDS: Budesonide/Formoterol 160/4.5 MDI IH SCH ×2 (07:38→22:13)
[2017-03-08 07:43] LABS: Acinetobacter baumannii by PCR Not Detected (Not Detect); Candida albicans by PCR Not Detected (Not Detect); Candida glabrata by PCR Not Detected (Not Detect); Candida krusei by PCR Not Detected (Not Detect); Candida parapsilosis by PCR Not Detected (Not Detect); Candida tropicalis by PCR Not Detected (Not Detect); Enterococcus by PCR Not Detected (Not Detect); Escherichia coli by PCR Not Detected (Not Detect); Klebsiella oxytoca by PCR Not Detected (Not Detect); Klebsiella pneumoniae by PCR Not Detected (Not Detect); Pseudomonas aeruginosa by PCR Not Detected (Not Detect); Serratia marcescens by PCR Not Detected (Not Detect); Staphylococcus aureus by PCR Not Detected (Not Detect); Streptococcus agalactiae(B)PCR Not Detected (Not Detect); Streptococcus by PCR Not Detected (Not Detect); Streptococcus pneumoniae PCR Not Detected (Not Detect); Streptococcus pyogenes (A) PCR Not Detected (Not Detect); mecA Methicillin-Resist Gene ***DETECTED*** (Not Detect)
--- NOTE | 2017-03-08 08:18 | Nephrology Progress Note ---
Date of Encounter: 03/08/17 Time of Encounter: 08:16 - Assessment and Plan (1) EMILIA (acute kidney injury) Current Visit: Yes Status: Resolved Hyperkalemia acute injury improving on bakari. Fluid output 1800 in 24 hours which is almost all bakari. Still oligouric Renal ultrasound shows echogenicity on bilateral renal cortex: likely has underlying CKD. CK 6364: can also add rhabdolmyolysis to list of causes for EMILIA. Plan: continue CVVHDF: goal euvolemic today and then Net positive fluid output 25-50cc /hr if hemodynamics stable. BMP in morning. Blood culture drawn from CVC positive for gram positive cocci: only one blood culture drawn. Will need repeat blood culture drawn for confirmation. Patient on vancomycin, zosyn day 2. (2) Hyperkalemia Current Visit: Yes Status: Acute (3) Rhabdomyolysis Current Visit: Yes Status: Acute Qualifiers: Rhabdomyolysis type: non-traumatic Qualified Code(s): M62.82 - Rhabdomyolysis Subjective Principal diagnosis: bradycardia Interval history: NO overnight issues. Remains intubated and sedated. Objective - Vital Signs Vital signs: Vital Signs Temp Pulse Resp BP Pulse Ox 03/08/17 07:40 116 03/08/17 07:38 21 91/67 97 03/08/17 07:00 114 21 92/66 95 03/08/17 06:00 113 21 112/69 97 03/08/17 05:24 23 95 03/08/17 05:00 108 23 91/83 95 03/08/17 04:00 97.5 F L 109 20 96/65 95 03/08/17 03:50 20 98 03/08/17 03:00 112 18 73/67 98 03/08/17 02:00 84 18 98/68 97 03/08/17 01:00 84 20 90/73 98 03/08/17 00:00 98.1 F 93 21 103/70 98 03/07/17 23:20 21 99 03/07/17 23:00 87 18 96/70 99 03/07/17 22:30 23 100 03/07/17 22:00 92 22 87/59 100 03/07/17 21:00 93 22 94/75 100 03/07/17 20:00 97.5 F L 86 18 103/63 94 03/07/17 19:36 22 99 03/07/17 19:26 21 100 03/07/17 19:00 76 21 95/61 100 03/07/17 18:00 76 21 96/58 100 03/07/17 17:00 70 24 89/55 100 03/07/17 16:00 97.5 F L 70 18 90/46 100 03/07/17 15:00 90 18 100/61 100 03/07/17 14:00 81 18 88/64 100 03/07/17 13:12 18 100 03/07/17 13:00 68 18 91/48 100 03/07/17 12:00 98.0 F 68 18 90/44 100 03/07/17 11:16 18 107/52 100 03/07/17 11:00 68 18 107/52 100 03/07/17 10:00 70 18 107/57 100 03/07/17 09:45 18 107/57 100 03/07/17 09:00 68 18 107/63 99 Intake and Output 03/07/17 03/08/17 03/08/17 23:59 07:59 15:59 Intake Total 1575 / 1575 1680 / 1680 Output Total 1651 / 1651 1418 / 1418 Balance -76 / -76 262 / 262 Intake: IV Fluids 1575 / 1575 1680 / 1680 Calcium Chloride 4,000 MG 420 / 420 883 / 883 In 0.9 % Sodium Chloride 1,000 ML @ 40 mls/hr CRRT CONT LORI Rx#: [id number] PrismaSATE BGK 2/0 5,000 0 / 0 ML @ 2000 mls/hr CRRT CONT LORI Rx#:[id number] DOPamine Premix 400mg/ 179 / 179 200 / 200 250mL 400 mg In 250 ml @ 2.5 MCG/KG/MIN 14.879 mls /hr IVC .[id number] LORI Rx#: [id number] FentaNYL (PF) 1,000 MCG 100 / 100 116 / 116 In 0.9 % Sodium Chloride 80 ML @ 50 MCG/HR 5 mls/ hr IVC CONT LORI Rx#: [id number] Versed 50 MG In 0.9 % 100 / 100 161 / 161 Sodium Chloride 90 ML @ 2 MG/HR 4 mls/hr IVC CONT LORI Rx#:[id number] Levophed 4 MG In Dextrose 84 / 84 5% 250 ML @ 8 MCG/MIN 30 mls/hr IVC CONT [facility]ORI Rx#: [id number] Definity 1.3 ML In Normal 2 / 2 Saline Flush 8.7 ML @ 1200 mls/hr IVP ONCE ONE Rx#:[id number] Calcium Gluconate 1,000 340 / 340 220 / 220 MG In Dextrose 5% 100 ML @ 220 mls/hr IVPB ONCE PRN Rx#:[id number] Zosyn 3.375 GM In 100 / 100 100 / 100 Dextrose 5% (Minibag+) 100 ML 100 ML @ 25 mls/hr IVPB Q8HR LORI Rx#: [id number] Vancocin 1,000 MG In 250 / 250 Dextrose 5% 250 ML @ 166. 667 mls/hr IVPB ONCE ONE Rx#:[id number] Oral 0 / 0 0 / 0 Output: Bakari 1571 / 1571 1348 / 1348 Catheter 80 / 80 70 / 70 Other: Weight 162.159 kg Blood Glucose* 132 Patient Weight 03/08/17 23:59 Weight 162.159 kg - General Appearance General appearance: Present: obese Exam: intubated and sedated Neck: Present: no JVD Additional Comments: thick neck Respiratory: Present: clear Cardiology: Present: edema (2+), regular rhythm, normal S1, normal S2 Additional Comments: tachycardia Additional Comments: difficult to assess due to large body habitus Integumentary: Present: no rash, warm and dry Additional Comments: intubated and sedated Musculoskeletal: Present: no erythema, no cyanosis, no clubbing - Lab 03/08/17 04:46 03/08/17 04:46 Most recent lab results ABG pH 7.25 pH Units (7.32-7.45) L 03/08/17 05:42 ABG pCO2 60 mmHg (35-45) H 03/08/17 05:42 ABG pO2 68 mmHg (85-104) L 03/08/17 05:42 ABG HCO3 26.3 mEQ/L (21-27) 03/08/17 05:42 ABG O2 Saturation 90 % (95-98) L 03/08/17 05:42 Calcium 7.7 mg/dL (8.6-10.8) L 03/08/17 04:46 Phosphorus 4.0 mg/dL (2.3-4.7) 03/08/17 04:46 Magnesium 1.7 mg/dL (1.6-2.6) 03/08/17 04:46 Consult Discharge Plan - Plan [facility]errals: [facility] [Primary Care Provider] -
[2017-03-08] MEDS: Piperacillin/Tazobactam 3.375 GM in D5% in Water (Mini-Bag+) 100 ML IVPB SCH ×3 (08:22→23:00)
[2017-03-08] MEDS: Pantoprazole 40 MG VIAL IVPB SCH (08:22)
[2017-03-08] MEDS: Chlorhexidine Rinse 15 ML MOUTHWASH MM SCH ×2 (08:23→20:13)
--- NOTE | 2017-03-08 08:39 | Pulmonology Progress Note ---
Date of Encounter: 03/08/17 Time of Encounter: 08:38 Assessment and Plan (1) Cardiogenic shock Current Visit: Yes Status: Acute Neuropsych: Sedated for comfort while on vent attempting to lighten sedation for a goal Sabiha 2-3 there is no evidence for focal neurological deficit at this time we will continue to monitor this Pulm: Acute hypoxic hypercapnic respiratory failure which in large part appears mediated by cardiogenic pulmonary edema. He has acceptable oxygenation but very mild respiratory acidosis which has corrected with increase tidal volume as he is awoken and started take spontaneous breaths on his own. Continue to wean for occult saturation around 92% daily spontaneous breathing trial when sedation has been decreased Cards: Bradycardia and cardiogenic shock has resolved with treatment of hyperkalemia is been weaned off vasopressors. Now with atrial flutter with rapid ventricular response cardiology managing this. History of heart failure with preserved ejection fraction can likely start loop diuretic for pulmonary edema once cleared by nephrology FEN-GI: Enteral nutrition will be started PPI prophylaxis given Renal: Acute kidney injury of unclear etiology with evidence of rhabdomyolysis which has resulted in severe hyperkalemia requiring continuous renal replacement therapy nephrology following. Electrolytes are being monitored and replaced per protocol ID: Persistent leukocytosis possibly secondary to staph bacteremia covering broadly for hospital acquired pathogens de-escalate the next 24-48 hours based upon cultures Heme/Onc: DVT prophylaxis given plan to transition to therapeutic heparin for primary stroke prevention with underlying atrial flutter Endo: Glucose monitored sliding scale insulin given for hyperglycemia as needed Integ/MSK: Skin care per routine ICU protocol to prevent skin ulcers all lines examined without evidence of infection CODE: Full code (2) CHF (congestive heart failure) Current Visit: No Status: Acute Qualifiers: Congestive heart failure type: unspecified congestive heart failure type Congestive heart failure chronicity: chronic Qualified Code(s): I50.9 - Heart failure, unspecified (3) Atrial fibrillation with RVR Current Visit: No Status: Resolved (4) Type 2 diabetes mellitus Current Visit: No Status: Chronic Qualifiers: Diabetes mellitus complication status: without complication Diabetes mellitus petroleum terminal plant operator insulin use: with correction use Qualified Code(s): E11.9 - Type 2 diabetes mellitus without complications; Z79.4 - long term care social worker (current) use of insulin (5) Sleep apnea Current Visit: No Status: Chronic Qualifiers: Sleep apnea type: unspecified type Qualified Code(s): G47.30 - Sleep apnea , unspecified (6) DVT prophylaxis Current Visit: No Status: Acute (7) Morbid obesity with BMI of 40.0-44.9, adult Current Visit: No Status: Chronic (8) Acute respiratory failure with hypoxia Current Visit: No Status: Resolved (9) EMILIA (acute kidney injury) Current Visit: Yes Status: Resolved (10) Diastolic CHF Current Visit: No Status: Acute Qualifiers: Congestive heart failure chronicity: chronic Qualified Code(s): I50.32 - Chronic diastolic (congestive) heart failure (11) Rhabdomyolysis Current Visit: Yes Status: Acute Qualifiers: Rhabdomyolysis type: non-traumatic Qualified Code(s): M62.82 - Rhabdomyolysis Subjective Principal diagnosis: bradycardia Interval history: Mr. Molina continues to improve he has been weaned off vasopressor bradycardia has also resolved and actually has been persistently tachycardic over the course of the day. Sedation continues to be decreased and he is waking up in starting to interact but not yet follow commands. He continues to have hyperkalemia requiring continuous renal replacement therapy. Objective PUL Vital signs: Last Vital Signs Temp 97.5 F L 03/08/17 04:00 Pulse 116 03/08/17 07:40 Resp 21 03/08/17 07:38 BP 91/67 03/08/17 07:38 Pulse Ox 97 03/08/17 07:38 General appearance: other (Sedated on vent he is displaying spontaneous movements of all extremities) Eyes: nonicteric Auscultation: bilateral: diminished breath sounds, rales Cardiovascular: regular rate and rhythm Gastrointestinal: normoactive bowel sounds, soft, non-tender Integumentary: normal Extremities: edema pupils equal and round Ventilator Settings Ventilator Settings: Ventilator Settings, Last 8 Hours Ventilator Mode A/C Ventilator Mode A/C Ventilator Mode A/C Ventilator Mode A/C Ventilator Mode A/C Ventilator Mode A/C Ventilator Mode A/C Ventilator Mode A/C Ventilator Mode A/C Ventilator Mode A/C Ventilator Mode A/C Ventilator Mode A/C Ventilator Tidal Volume 550 Setting Ventilator Tidal Volume 550 Setting Ventilator Tidal Volume 550 Setting Ventilator Tidal Volume 550 Setting Ventilator Tidal Volume 550 Setting Ventilator Tidal Volume 550 Setting Ventilator Tidal Volume 500 Setting Ventilator Tidal Volume 500 Setting Ventilator Tidal Volume 500 Setting Ventilator Tidal Volume 500 Setting Ventilator Tidal Volume 500 Setting Ventilator Tidal Volume 500 Setting Ventilator Respiratory Rate 18 Setting Ventilator Respiratory Rate 18 Setting Ventilator Respiratory Rate 18 Setting Ventilator Respiratory Rate 18 Setting Ventilator Respiratory Rate 18 Setting Ventilator Respiratory Rate 18 Setting Ventilator Respiratory Rate 18 Setting Ventilator Respiratory Rate 18 Setting Ventilator Respiratory Rate 18 Setting Ventilator Respiratory Rate 18 Setting Ventilator Respiratory Rate 18 Setting Ventilator Respiratory Rate 18 Setting Actual Respiratory Rate 21 Actual Respiratory Rate 22 Actual Respiratory Rate 22 Positive End Expiratory 8 Pressure Positive End Expiratory 8 Pressure Positive End Expiratory 8 Pressure Positive End Expiratory 8 Pressure Positive End Expiratory 8 Pressure Positive End Expiratory 8 Pressure Positive End Expiratory 8 Pressure Positive End Expiratory 8 Pressure Positive End Expiratory 8 Pressure Positive End Expiratory 8 Pressure Positive End Expiratory 8 Pressure Positive End Expiratory 8 Pressure Peak Inspiratory Airway 27 Pressure Peak Inspiratory Airway 44 Pressure Peak Inspiratory Airway 41 Pressure Results - Laboratory Findings CBC and BMP: 03/08/17 04:46 03/08/17 04:46 ABG ABG pH 7.25 pH Units (7.32-7.45) L 03/08/17 05:42 ABG pCO2 60 mmHg (35-45) H 03/08/17 05:42 ABG pO2 68 mmHg (85-104) L 03/08/17 05:42 ABG O2 Saturation 90 % (95-98) L 03/08/17 05:42 PT/INR, D-dimer PT 16.8 Seconds (9.4-12.1) H 03/07/17 05:45 Abnormal lab findings: Abnormal lab results WBC 20.1 K/mcL (4.3-11.1) H 03/08/17 04:46 Hgb 12.6 g/dL (12.9-16.9) L 03/08/17 04:46 MPV 9.3 fL (9.4-12.4) L 03/08/17 04:46 Neutrophils # 16.7 K/mcL (1.6-8.9) H 03/08/17 04:46 Monocytes # 2.1 K/mcL (0.0-1.3) H 03/08/17 04:46 PT 16.8 Seconds (9.4-12.1) H 03/07/17 05:45 ABG pH 7.25 pH Units (7.32-7.45) L 03/08/17 05:42 ABG pCO2 60 mmHg (35-45) H 03/08/17 05:42 ABG pO2 68 mmHg (85-104) L 03/08/17 05:42 ABG Total CO2 28.1 mEq/L (20-26) H 03/08/17 05:42 ABG O2 Saturation 90 % (95-98) L 03/08/17 05:42 Sodium 134 mEq/L (136-145) L 03/08/17 04:46 Potassium 5.4 mEq/L (3.5-4.5) H 03/08/17 04:46 Creatinine 2.20 mg/dL (0.72-1.25) H 03/08/17 04:46 Est GFR ( Amer) 36 (> 60) L 03/08/17 04:46 Est GFR (Non-Af Amer) 30 (> 60) L 03/08/17 04:46 Glucose 114 mg/dL (70-99) H 03/08/17 04:46 POC Glucose 132 (58-89) H 03/07/17 23:15 Uric Acid 8.5 mg/dL (3.5-7.2) H 03/07/17 05:45 Calcium 7.7 mg/dL (8.6-10.8) L 03/08/17 04:46 Ionized Calcium 0.97 mmol/L (1.15-1.35) L 03/08/17 06:47 AST 367 Units/L (5-34) H 03/07/17 05:45 ALT 334 Units/L (0-55) H 03/07/17 05:45 Alkaline Phosphatase 162 Units/L (38-126) H 03/07/17 05:45 Creatine Kinase 6364 Units/L (30-200) H 03/08/17 04:46 Serum Total Protein 5.9 g/dL (6.0-8.3) L 03/07/17 05:45 Albumin 3.0 g/dL (3.5-5.0) L 03/07/17 05:45 Albumin/Globulin Ratio 1.0 (1.1-2.2) L 03/07/17 05:45 Staphylococcus sp PCR DETECTED (Not Detect) A 03/07/17 05:45 mecA-Methicil Res Gene DETECTED (Not Detect) A 03/07/17 05:45 - Microbiology Findings Microbiology Findings: Microbiology, Last 48 Hours 03/07/17 05:45 Blood Culture - Preliminary Central Venous Catheter Gram Positive Cocci - Clinical Findings Intake & Output: Intake & Output 03/07/17 03/08/17 03/08/17 23:59 07:59 15:59 Intake Total 1575 / 1575 1680 / 1680 Output Total 1651 / 1651 1418 / 1418 Balance -76 / -76 262 / 262 Weight 162.159 kg Consult Discharge Plan - Plan [facility]errals: [facility] [Primary Care Provider] -
[2017-03-08] MEDS ORDERED: Vancomycin 1 EACH in EMPTY BAG 1 EACH IVPB SCH (09:00)
[2017-03-08] MEDS ORDERED: Vancomycin 1,500 MG in D5% in Water 250 ML IVPB ONE (09:00)
--- NOTE | 2017-03-08 10:45 | Cardiology Progress Note ---
Date of Encounter: 03/08/17 Time of Encounter: 10:15 Assessment and Plan (1) Atrial flutter Current Visit: Yes Status: Acute Suspect initial presentation of slow ventricular response is secondary to metabolic disturbance. Renal function has improved. Heart rates are now elevated, 110's in atrial flutter. Preliminary blood culture is positive for GPCs. Replete magnesium and treat potassium disturbance. Pressor support has been stopped. However, BP's remain in the 90 systolic range. Will consider starting amio/heparin gtt vs using prn scheduled IV AVN doni for AFL RVR. Will discuss with EP service. Qualifiers: Atrial flutter type: unspecified Qualified Code(s): I48.92 - Unspecified atrial flutter Discussion w patient/family: Thank you for involving us in the care of your patient. Please call with any questions. Subjective Principal diagnosis: bradycardia Interval history: No acute overnight events. Patient remains intubated and sedated. Heart rates 110's on telemetry. Pressors have been stopped. Preliminary blood culture demonstrates GPC. Objective Vital Signs, Last 4 Hours Temp Pulse Resp BP Pulse Ox 03/08/17 10:00 118 21 95/73 97 03/08/17 09:25 23 107/74 97 03/08/17 09:00 115 19 98/74 96 03/08/17 08:00 97.5 F L 117 21 94/75 97 03/08/17 07:40 116 03/08/17 07:38 21 91/67 97 03/08/17 07:00 114 21 92/66 95 General: Other (intubated, sedated) HEENT: Atraumatic, Other (ETT in place) Neck: Other (JVP difficult to appreciate) Cardiac: Other (tachycardic, no appreciable murmur) Lungs: Other (shallow breath sounds) Neuro: Other (sedated) Extremities: Other (no significant LE edema) Results 03/08/17 04:46 03/08/17 04:46 Lab Results 03/07/17 03/07/17 03/08/17 13:49 18:38 04:46 WBC 20.1 H Hgb 12.6 L Hct 39.8 Plt Count 204 Sodium 131 L 133 L Potassium 6.7 H* 6.2 H Chloride 99 100 Carbon Dioxide 26 26 BUN 36 H 31 H Creatinine 2.82 H 2.54 H Glucose 332 H 285 H Calcium 7.8 L 7.5 L Magnesium 1.6 03/08/17 03/08/17 04:46 04:46 WBC Hgb Hct Plt Count Sodium 134 L Potassium 5.4 H Chloride 102 Carbon Dioxide 24 BUN 23 Creatinine 2.20 H Glucose 114 H Calcium 7.7 L Magnesium 1.7 - Imaging and Cardiology Stress Test: report reviewed (03/07/2017) Echo: report reviewed (03/07/2017) - EKG Interpretation EKG results cardiology: other (24h telemetry reviewed; demonstrates average HR 90 bpm, now 110's in atrial flutter) Consult Discharge Plan - Plan [facility]errals: [facility] [Primary Care Provider] -
[2017-03-08] MEDS: Calcium Gluconate 2,000 MG in D5% in Water 100 ML IVPB PRN ×4 (10:55→18:45)
[2017-03-08] MEDS: Norepinephrine 4 MG in D5% in Water 250 ML IVC SCH (14:25)
[2017-03-08 15:28] LABS: Bilirubin,Urine Negative (Negative); Blood,Urine Large (Negative); Clarity,Urine Turbid (Clear); Color,Urine Dark Yellow (Yellow); Glucose,Urine (UA) Normal (Normal); Ketones,Urine Negative (Negative); Leukocyte Esterase,Urine Negative (Negative); Nitrite,Urine Negative (Negative); PH,Urine 5.5 pH Units (5.0-8.0); Protein,Urine 100 mg/dL (Neg-Trace); Urobilinogen,Urine Normal (Normal)
[2017-03-08 15:32] LABS: Bacteria,Urine None Seen per hpf (None-Few); RBC,Urine TNTC per hpf (0-3); Squamous Epithelial Cell,Urine Many per lpf (None-Few)
[2017-03-08] MEDS: *HR* Metoprolol 5 MG/5 ML VIAL IVP SCH ×2 (16:22→21:54)
[2017-03-08] MEDS ORDERED: Amiodarone Premix 360 MG/200 ML BAG IVC ONE (16:58)
[2017-03-08] MEDS ORDERED: *HR* Heparin 5,000 UNIT/ML VIAL IVP PRN (16:59)
[2017-03-08] MEDS ORDERED: *HR* Heparin 5,000 UNIT/ML VIAL ONE (17:17)
[2017-03-08] MEDS: Heparin 25,000 UNIT/500 ML D5W 25,000 UNIT/500 ML MLS IVC SCH (17:56)
[2017-03-08] MEDS: PrismaSATE BGK 4/2.5 5,000 ML CRRT SCH ×6 (17:58→23:14)
[2017-03-08 20:15] LABS: Hematocrit 35.5 % (37.5-50.1); Hemoglobin 11.6 g/dL (12.9-16.9); Mean Corpuscular HGB Conc 32.7 g/dL (31.6-35.5); Mean Corpuscular Hemoglobin 29.4 pg (28.0-33.3); Mean Corpuscular Volume 90.1 fL (83.0-100.0); Mean Platelet Volume 9.6 fL (9.4-12.4); Platelet Count 176 K/mcL (140-400); Red Blood Count 3.94 M/mcL (4.19-5.50); Red Cell Distribution Width 13.7 % (11.5-14.5)
[2017-03-08 20:22] LABS: INR 1.8; Prothrombin Time 19.3 Seconds (9.4-12.1)
[2017-03-08 20:40] LABS: Activated Partial Thrombo Time > 360.0 Seconds (26.0-36.0)
[2017-03-08 21:47] LABS: Heparin anti-factor XA UFH 2.79 IU/mL (0.30-0.70)
[2017-03-08] MEDS: Amiodarone Premix 360 MG/200 ML BAG IVC SCH (22:27)
[2017-03-08 23:02] LABS: Activated Partial Thrombo Time > 360.0 Seconds (26.0-36.0)
[2017-03-08 23:11] LABS: Heparin anti-factor XA UFH 1.96 IU/mL (0.30-0.70)
[2017-03-09] MEDS: FentaNYL (PF) 1,000 MCG in 0.9 % Sodium Chloride 80 ML IVC SCH ×3 (00:34→22:11)
[2017-03-09] MEDS: PrismaSATE BGK 4/2.5 5,000 ML CRRT SCH ×12 (01:39→15:13)
[2017-03-09] MEDS ORDERED: *HR* Metoprolol 5 MG/5 ML VIAL IVP ONE ×2 (02:07→02:13)
[2017-03-09 04:00] LABS: ABG Base Excess 2.2 mEq/L (-2.0 to 3.0); ABG Oxygen Saturation 86 % (95-98); ABG PCO2 69 mmHg (35-45); ABG PH 7.26 pH Units (7.32-7.45); ABG PO2 59 mmHg (85-104); ABG TCO2 33.1 mEq/L (20-26); Blood Gas FiO2 50 %
[2017-03-09] MEDS: Lacri-Lube 3.5 GM TUBE BOTH EYES SCH ×6 (04:02→23:22)
[2017-03-09 04:14] LABS: Basophils % 0.2 %; Hematocrit 36.5 % (37.5-50.1); Hemoglobin 11.8 g/dL (12.9-16.9); Immature Granulocytes % 0.8 % (0-4); Lymphocytes # 0.9 K/mcL (0.6-4.6); Lymphocytes % 4.2 %; Mean Corpuscular HGB Conc 32.3 g/dL (31.6-35.5); Mean Corpuscular Hemoglobin 29.4 pg (28.0-33.3); Mean Platelet Volume 10.2 fL (9.4-12.4); Monocytes # 2.3 K/mcL (0.0-1.3); Monocytes % 10.4 %; Neutrophils # 18.5 K/mcL (1.6-8.9); Platelet Count 173 K/mcL (140-400); Red Blood Count 4.01 M/mcL (4.19-5.50); Red Cell Distribution Width 13.8 % (11.5-14.5); Segmented Neutrophils % 84.4 %
[2017-03-09 04:23] LABS: BUN/Creatinine Ratio 13 (6-26); Blood Urea Nitrogen 14 mg/dL (8-26); Calcium 8.7 mg/dL (8.6-10.8); Carbon Dioxide 26 mEq/L (19-29); Chloride 101 mEq/L (98-109); Glucose 165 mg/dL (70-99); Osmolality,Calculated 278 (280-300); Potassium 5.2 mEq/L (3.5-4.5); Sodium 132 mEq/L (136-145); eGFR For African Americans > 60 (> 60); eGFR For Non-African Americans > 60 (> 60)
[2017-03-09] MEDS ORDERED: *HR* Heparin 5,000 UNIT/ML VIAL IVP ONE (04:42)
[2017-03-09] MEDS: *HR* Metoprolol 5 MG/5 ML VIAL IVP SCH (04:52)
[2017-03-09] MEDS: Insulin LISPRO 300 UNITS/3 ML VIAL SQ SCH ×3 (04:54→17:57)
[2017-03-09] MEDS: Budesonide/Formoterol 160/4.5 MDI IH SCH ×2 (07:47→21:45)
[2017-03-09] MEDS ORDERED: Vancomycin 2,000 MG in D5% in Water 500 ML IVPB ONE (08:00)
[2017-03-09] MEDS: Chlorhexidine Rinse 15 ML MOUTHWASH MM SCH ×2 (08:11→20:18)
[2017-03-09] MEDS: Piperacillin/Tazobactam 3.375 GM in D5% in Water (Mini-Bag+) 100 ML IVPB SCH ×3 (08:11→23:22)
[2017-03-09] MEDS: Pantoprazole 40 MG VIAL IVPB SCH (08:11)
[2017-03-09] MEDS: Dexmedetomidine HCl 400 MCG/100 ML MLS IVC SCH ×3 (08:14→20:48)
--- NOTE | 2017-03-09 08:38 | Cardiology Progress Note ---
Date of Encounter: 03/09/17 Time of Encounter: 08:00 Assessment and Plan (1) Atrial flutter Current Visit: Yes Status: Acute Initial presentation of slow ventricular response is secondary to metabolic disturbance. Renal function has improved. Heart rates are now elevated, 120's in atrial flutter. Fevers and increasing leukocytosis with preliminary blood culture is positive for GPCs. Suspect heart rates will improve once underlying systemic illness resolves. Patient was started on amiodarone and heparin yesterday. We will start PO BB to help with heart rates. Qualifiers: Atrial flutter type: unspecified Qualified Code(s): I48.92 - Unspecified atrial flutter Discussion w patient/family: Thank you for involving us in the care of your patient. Please call with any questions. Subjective Principal diagnosis: bradycardia Interval history: Patient remains intubated and sedated. Heart rates 120's on telemetry. Fevers with increasing leukocytosis. Preliminary blood culture demonstrates GPC. Objective Vital Signs, Last 4 Hours Pulse Resp BP Pulse Ox 03/09/17 07:41 128 03/09/17 07:00 129 26 139/93 95 03/09/17 06:01 16 148/87 93 03/09/17 06:00 120 16 148/87 93 03/09/17 05:00 129 15 147/95 94 03/09/17 04:50 15 143/97 94 General: Other (intubated, sedated) HEENT: Atraumatic, Other (ETT in place) Neck: Other (JVP not well evaluated) Cardiac: Other (tachycardic, no appreciable murmur) Lungs: Other (shallow breath sounds) Neuro: Other (sedated) Abdomen: Soft, Other (soft bowel sounds) Extremities: Other (mild bilateral LE edema) Results 03/09/17 03:55 03/09/17 03:55 Lab Results 03/08/17 03/08/17 03/08/17 20:00 20:00 22:35 WBC 19.8 H Hgb 11.6 L Hct 35.5 L Plt Count 176 INR 1.8 APTT > 360.0 H* > 360.0 H* Sodium Potassium Chloride Carbon Dioxide BUN Creatinine Glucose Calcium 03/09/17 03/09/17 03/09/17 03:55 03:55 03:55 WBC 21.9 H Hgb 11.8 L Hct 36.5 L Plt Count 173 INR APTT 33.3 D Sodium 132 L Potassium 5.2 H Chloride 101 Carbon Dioxide 26 BUN 14 Creatinine 1.08 D Glucose 165 H Calcium 8.7 - Imaging and Cardiology Echo: report reviewed - EKG Interpretation EKG results cardiology: other (24h telemetry demonstrates atrial flutter, average HR 126 bpm) Consult Discharge Plan - Plan Referrals: [facility] [Primary Care Provider] -
[2017-03-09] MEDS: Amiodarone Premix 360 MG/200 ML BAG IVC SCH ×2 (09:43→20:48)
--- NOTE | 2017-03-09 10:30 | Nephrology Progress Note ---
Date of Encounter: 03/09/17 Time of Encounter: 08:25 - Assessment and Plan (1) EMILIA (acute kidney injury) Current Visit: Yes Status: Acute UOP is starting to improve, but the rapid decrease of the SCr was primary from the Hollie modality of CVVHDF which is excellent at clearance via both diffusion and ultrafiltration. Will continue Hollie 4K/2.5Ca 2000mL/hr on the dialysate and 2000mL/hr on the replacement fluid for much of today, but will hold Hollie at roughly 5pm. Continue fluid removal for goal net negative state as tolerated by hemodynamics. Stopped Citrate yesterday since Cardio started a heparin gtt. His effluent dose was at about 26 so meeting the minimal goal for dialysis dosing. Will reassess his UOP, SCr and K+ tomorrow AM to determine if he can be fully liberated from Hollie. Discussed in detail the above plan with his [employer]. Thank you. (2) Hyperkalemia Current Visit: Yes Status: Acute Remains elevated. Last night I changed his Hollie to a 4K/2.5Ca (3) Hypotension Current Visit: Yes Status: Acute Despite the hypotension, his pressor requirements are less and I have been able to remove fluid with Hollie to a net negative state. Qualifiers: Hypotension type: other hypotension type Qualified Code(s): I95.89 - Other hypotension (4) Rhabdomyolysis Current Visit: Yes Status: Acute Likely has contributed to the hyperkalemia. Qualifiers: Rhabdomyolysis type: non-traumatic Qualified Code(s): M62.82 - Rhabdomyolysis (5) Hypocalcemia Current Visit: Yes Status: Acute Trending better. Since he was so hyperkalemia, the only low K+ bath available here was the 2K/0Ca, but I provided a Ca gtt with frequent boluses, but had to change to the 4K/2.5ca yesterday afternoon to better manage the hypocalcemia, which is now trending better. (6) Atrial flutter Current Visit: Yes Status: Acute As per cardio Qualifiers: Atrial flutter type: unspecified Qualified Code(s): I48.92 - Unspecified atrial flutter Subjective Principal diagnosis: bradycardia Interval history: Pt was seen/examined while on CRRT. His sedation was just turned off but he was not yet arrousable by verbal command. [employer] updated me on the filter life and fluid removal rates from overnight. No major critical events were noted from last night. Objective - Vital Signs Vital signs: Vital Signs Temp Pulse Resp BP Pulse Ox 03/09/17 10:00 125 18 102/77 97 03/09/17 09:19 23 126/103 88 03/09/17 09:00 134 16 126/103 98 03/09/17 08:00 98.2 F 124 15 128/101 94 03/09/17 07:41 128 03/09/17 07:00 129 26 139/93 95 03/09/17 06:01 16 148/87 93 03/09/17 06:00 120 16 148/87 93 03/09/17 05:00 129 15 147/95 94 03/09/17 04:50 15 143/97 94 03/09/17 04:10 99.4 F 129 19 140/87 94 03/09/17 03:08 120 21 134/90 94 03/09/17 02:02 16 141/88 94 03/09/17 02:00 130 16 141/88 94 03/09/17 01:00 129 17 118/75 96 03/09/17 00:00 98.4 F 133 20 116/87 95 03/08/17 23:49 15 139/93 99 03/08/17 23:00 125 21 133/90 96 03/08/17 22:15 15 144/99 96 03/08/17 22:00 131 14 134/99 98 03/08/17 21:00 133 20 113/90 99 03/08/17 20:40 18 117/107 99 03/08/17 20:00 99.5 F 126 21 137/83 98 03/08/17 19:00 128 20 108/92 97 03/08/17 18:00 130 18 103/76 97 03/08/17 17:00 136 19 117/87 95 03/08/17 16:34 18 118/86 96 03/08/17 16:00 98.8 F 134 17 126/85 96 03/08/17 15:00 132 18 106/80 96 03/08/17 14:00 124 19 112/69 97 03/08/17 13:00 122 17 128/66 97 03/08/17 12:00 123 19 103/61 97 03/08/17 11:58 20 99/74 97 03/08/17 11:00 98.7 F 117 21 101/71 97 Intake and Output 03/08/17 03/09/17 03/09/17 23:59 07:59 15:59 Intake Total 1412.8 / 1412.8 530 / 530 356 / 356 Output Total 1944 / 194 1033 / 1033 501 / 501 Balance -532.2 / -532.2 -503 / -503 -145 / -145 Intake: IV Fluids 1292.8 / 1292.8 410 / 410 280 / 280 Calcium Chloride 4,000 MG 730.8 / 730.8 In 0.9 % Sodium Chloride 1,000 ML @ 40 mls/hr CRRT [facility] Rx#: [id number] Amiodarone Drip Premix 200 / 200 200 / 200 360mg/200mL 360 mg In 200 ml @ 0.5 MG/MIN 16.667 mls/hr IVC [facility] Rx#: [id number] PRECEDEX 400 mcg In 100 0 / 0 ml @ 0.3 MCG/KG/HR 11.345 mls/hr IVC .Q8H49M [facility] Rx#:[id number] FentaNYL (PF) 1,000 MCG 200 / 200 0 / 0 In 0.9 % Sodium Chloride 80 ML @ 50 MCG/HR 5 mls/ hr IVC [facility] Rx#: [id number] Heparin 25,000 UNIT/500 63 / 63 110 / 110 ML D5W 25,000 unit In 500 ml @ 14 UNIT/KG/HR 45. 405 mls/hr IVC .Q11H1M [facility] Rx#:[id number] Versed 50 MG In 0.9 % 79 / 79 80 / 80 Sodium Chloride 90 ML @ 2 MG/HR 4 mls/hr IVC [facility] Rx#:[id number] Calcium Gluconate 2,000 120 / 120 MG In Dextrose 5% 100 ML @ 220 mls/hr IVPB ONCE [facility] Rx#:[id number] Zosyn 3.375 GM In 100 / 100 100 / 100 Dextrose 5% (Minibag+) 100 ML 100 ML @ 25 mls/hr IVPB Q8HR [facility] Rx#: [id number] Tube Feeding 120 / 120 120 / 120 46 / 46 Free Water 30 / 30 Free Water Intake Amount 0 / 0 0 / 0 Output: Hollie 1525 / 1525 641 / 641 386 / 386 Catheter 420 / 420 392 / 392 115 / 115 Other: Weight 151.273 kg Blood Glucose* 116 146 Patient Weight 03/09/17 23:59 Weight 151.273 kg - General Appearance General appearance: Present: well-developed, well-nourished, cachectic, sedated on ventilator, intubated EENT: Present: ATNC Neck: Present: supple Respiratory: Present: course breath sounds Cardiology: Present: edema (1+ ankle edema b/l), rapid rhythm, normal S1, normal S2 Dialysis Vascular Access: Venous Catheter (RIJ temporary HD catheter was C/D/I) Gastrointestinal: Present: normoactive bowel sounds, no tenderness, obese, distended Integumentary: Present: warm and dry Neurologic: Present: no asterixis Musculoskeletal: Present: no cyanosis, no clubbing - Lab 03/09/17 03:55 03/09/17 03:55 Most recent lab results ABG pH 7.26 pH Units (7.32-7.45) L 03/09/17 03:47 ABG pCO2 69 mmHg (35-45) H 03/09/17 03:47 ABG pO2 59 mmHg (85-104) L 03/09/17 03:47 ABG HCO3 31.0 mEQ/L (21-27) H 03/09/17 03:47 ABG O2 Saturation 86 % (95-98) L 03/09/17 03:47 Calcium 8.7 mg/dL (8.6-10.8) 03/09/17 03:55 Phosphorus 4.0 mg/dL (2.3-4.7) 03/08/17 04:46 Magnesium 1.7 mg/dL (1.6-2.6) 03/08/17 04:46 Consult Discharge Plan - Plan [facility]errals: [facility] [Primary Care Provider] -
--- NOTE | 2017-03-09 11:16 | Pulmonology Progress Note ---
Date of Encounter: 03/09/17 Time of Encounter: 11:16 Assessment and Plan (1) Cardiogenic shock Current Visit: Yes Status: Acute Neuropsych: Sedated for comfort while on vent attempting to lighten sedation for a goal Sabiha 2 there is no evidence for focal neurological deficit at this time Pulm: Acute hypoxic hypercapnic respiratory failure which in large part appears mediated by cardiogenic pulmonary edema. He has acceptable oxygenation but very mild respiratory acidosis respiratory rate was increased to correct this. Cards: Atrial flutter with rapid ventricular response cardiology following amiodarone has been loaded and is now on maintenance infusion. Cardiology following. Mean arterial pressure is acceptable FEN-GI: Enteral nutrition at goal PPI prophylaxis given. Bowel regimen also given Renal: Acute kidney injury of unclear etiology with evidence of rhabdomyolysis which has resulted in severe hyperkalemia requiring continuous renal replacement therapy nephrology following. Electrolytes are being monitored and replaced per protocol. Continue volume removal would consider loop diuretic patient continues to make anywhere between 25 mL 200 mL an hour of urine ID: Persistent leukocytosis likely secondary to MRSA bacteremia vancomycin and trough was on low side today this is been re-added chested by the pharmacy for higher dose. I have repeated blood cultures could consider echocardiogram (SHONDA ) if persistent tachycardia to rule out endocarditis Continue to follow. Consider infectious disease consult if no improvement in the next 24 hours Heme/Onc: DVT prophylaxis given plan to transition to therapeutic heparin for primary stroke prevention with underlying atrial flutter Endo: Glucose monitored sliding scale insulin given for hyperglycemia as needed Integ/MSK: Skin care per routine ICU protocol to prevent skin ulcers all lines examined without evidence of infection CODE: Full code (2) CHF (congestive heart failure) Current Visit: No Status: Acute Qualifiers: Congestive heart failure type: unspecified congestive heart failure type Congestive heart failure chronicity: chronic Qualified Code(s): I50.9 - Heart failure, unspecified (3) Type 2 diabetes mellitus Current Visit: No Status: Chronic Qualifiers: Diabetes mellitus complication status: without complication Diabetes mellitus custodial insulin use: with custodial use Qualified Code(s): E11.9 - Type 2 diabetes mellitus without complications; Z79.4 - FDC (current) use of insulin (4) Sleep apnea Current Visit: No Status: Chronic Qualifiers: Sleep apnea type: unspecified type Qualified Code(s): G47.30 - Sleep apnea , unspecified (5) DVT prophylaxis Current Visit: No Status: Acute (6) Morbid obesity with BMI of 40.0-44.9, adult Current Visit: No Status: Chronic (7) EMILIA (acute kidney injury) Current Visit: Yes Status: Resolved (8) Diastolic CHF Current Visit: No Status: Acute Qualifiers: Congestive heart failure chronicity: chronic Qualified Code(s): I50.32 - Chronic diastolic (congestive) heart failure (9) Rhabdomyolysis Current Visit: Yes Status: Acute Qualifiers: Rhabdomyolysis type: non-traumatic Qualified Code(s): M62.82 - Rhabdomyolysis Subjective Principal diagnosis: bradycardia Interval history: No acute changes overnight he continued in atrial flutter with rapid ventricular response despite loading maintenance with amiodarone sedation was lightened this morning and he was noted to him the moving all extremities although he cannot purposefully follow commands. Objective PUL Vital signs: Last Vital Signs Temp 98.2 F 03/09/17 08:00 Pulse 124 03/09/17 11:00 Resp 15 03/09/17 11:00 BP 99/81 03/09/17 11:00 Pulse Ox 97 03/09/17 11:00 General appearance: other (Gen. he appears comfortable on the vent although periodically Apsey the patient agitated these brief episodes resolve on their own or with modest bolus of sedative) Eyes: nonicteric Auscultation: bilateral: diminished breath sounds, rales Cardiovascular: regular rate and rhythm Gastrointestinal: normoactive bowel sounds Integumentary: normal Extremities: edema Ventilator Settings Ventilator Settings: Ventilator Settings, Last 8 Hours Ventilator Mode A/C Ventilator Mode A/C Ventilator Mode A/C Ventilator Mode VC+ Ventilator Mode A/C Ventilator Mode A/C Ventilator Mode A/C Ventilator Mode A/C Ventilator Mode A/C Ventilator Mode A/C Ventilator Mode A/C Ventilator Mode A/C Ventilator Tidal Volume 550 Setting Ventilator Tidal Volume 550 Setting Ventilator Tidal Volume 550 Setting Ventilator Tidal Volume 550 Setting Ventilator Tidal Volume 550 Setting Ventilator Tidal Volume 550 Setting Ventilator Tidal Volume 550 Setting Ventilator Tidal Volume 550 Setting Ventilator Tidal Volume 550 Setting Ventilator Tidal Volume 550 Setting Ventilator Tidal Volume 550 Setting Ventilator Tidal Volume 550 Setting Ventilator Respiratory Rate 12 Setting Ventilator Respiratory Rate 12 Setting Ventilator Respiratory Rate 12 Setting Ventilator Respiratory Rate 12 Setting Ventilator Respiratory Rate 12 Setting Ventilator Respiratory Rate 12 Setting Ventilator Respiratory Rate 12 Setting Ventilator Respiratory Rate 12 Setting Ventilator Respiratory Rate 12 Setting Ventilator Respiratory Rate 12 Setting Ventilator Respiratory Rate 12 Setting Ventilator Respiratory Rate 12 Setting Actual Respiratory Rate 23 Actual Respiratory Rate 16 Actual Respiratory Rate 15 Positive End Expiratory 8 Pressure Positive End Expiratory 8 Pressure Positive End Expiratory 8 Pressure Positive End Expiratory 8 Pressure Positive End Expiratory 8 Pressure Positive End Expiratory 8 Pressure Positive End Expiratory 8 Pressure Positive End Expiratory 8 Pressure Positive End Expiratory 8 Pressure Positive End Expiratory 8 Pressure Positive End Expiratory 8 Pressure Positive End Expiratory 8 Pressure Peak Inspiratory Airway 17 Pressure Peak Inspiratory Airway 18 Pressure Peak Inspiratory Airway 18 Pressure Results - Laboratory Findings CBC and BMP: 03/09/17 03:55 03/09/17 03:55 ABG ABG pH 7.26 pH Units (7.32-7.45) L 03/09/17 03:47 ABG pCO2 69 mmHg (35-45) H 03/09/17 03:47 ABG pO2 59 mmHg (85-104) L 03/09/17 03:47 ABG O2 Saturation 86 % (95-98) L 03/09/17 03:47 PT/INR, D-dimer PT 19.3 Seconds (9.4-12.1) H 03/08/17 20:00 Abnormal lab findings: Abnormal lab results WBC 21.9 K/mcL (4.3-11.1) H 03/09/17 03:55 RBC 4.01 M/mcL (4.19-5.50) L 03/09/17 03:55 Hgb 11.8 g/dL (12.9-16.9) L 03/09/17 03:55 Hct 36.5 % (37.5-50.1) L 03/09/17 03:55 Neutrophils # 18.5 K/mcL (1.6-8.9) H 03/09/17 03:55 Monocytes # 2.3 K/mcL (0.0-1.3) H 03/09/17 03:55 PT 19.3 Seconds (9.4-12.1) H 03/08/17 20:00 Heparin Anti-Xa, Unfract 1.96 IU/mL (0.30-0.70) H* 03/08/17 22:35 ABG pH 7.26 pH Units (7.32-7.45) L 03/09/17 03:47 ABG pCO2 69 mmHg (35-45) H 03/09/17 03:47 ABG pO2 59 mmHg (85-104) L 03/09/17 03:47 ABG HCO3 31.0 mEQ/L (21-27) H 03/09/17 03:47 ABG Total CO2 33.1 mEq/L (20-26) H 03/09/17 03:47 ABG O2 Saturation 86 % (95-98) L 03/09/17 03:47 Sodium 132 mEq/L (136-145) L 03/09/17 03:55 Potassium 5.2 mEq/L (3.5-4.5) H 03/09/17 03:55 Glucose 165 mg/dL (70-99) H 03/09/17 03:55 POC Glucose 146 (58-89) H 03/09/17 04:54 Calculated Osmolality 278 (280-300) L 03/09/17 03:55 Uric Acid 8.5 mg/dL (3.5-7.2) H 03/07/17 05:45 Ionized Calcium 1.12 mmol/L (1.15-1.35) L 03/09/17 03:55 AST 367 Units/L (5-34) H 03/07/17 05:45 ALT 334 Units/L (0-55) H 03/07/17 05:45 Alkaline Phosphatase 162 Units/L (38-126) H 03/07/17 05:45 Creatine Kinase 6364 Units/L (30-200) H 03/08/17 04:46 Serum Total Protein 5.9 g/dL (6.0-8.3) L 03/07/17 05:45 Albumin 3.0 g/dL (3.5-5.0) L 03/07/17 05:45 Albumin/Globulin Ratio 1.0 (1.1-2.2) L 03/07/17 05:45 Urine Clarity Turbid (Clear) A 03/08/17 15:00 Ur Specific [place] 1.030 (1.010-1.025) H 03/08/17 15:00 Urine Protein 100 mg/dL (Neg-Trace) H 03/08/17 15:00 Urine Blood Large (Negative) H 03/08/17 15:00 Urine Microscopic RBC TNTC per hpf (0-3) H 03/08/17 15:00 Urine Microscopic WBC 5-15 per hpf (0-3) H 03/08/17 15:00 Ur Squamous Epith Cells Many per lpf (None-Few) H 03/08/17 15:00 Ur Culture Indicated? YES (NO) A 03/08/17 15:00 Vancomycin Trough 9.6 mcg/mL (10-20) L 03/09/17 03:55 Staphylococcus sp PCR DETECTED (Not Detect) A 03/07/17 05:45 mecA-Methicil Res Gene DETECTED (Not Detect) A 03/07/17 05:45 - Microbiology Findings Microbiology Findings: Microbiology, Last 48 Hours 03/07/17 05:45 Blood Culture - Preliminary Central Venous Catheter Gram Positive Cocci - Clinical Findings Intake & Output: Intake & Output 03/08/17 03/09/17 03/09/17 23:59 07:59 15:59 Intake Total 1412.8 / 1412.8 530 / 530 386 / 386 Output Total 1945 / 1945 1033 / 1033 814 / 814 Balance -532.2 / -532.2 -503 / -503 -428 / -428 Weight 151.273 kg Consult Discharge Plan - Plan Referrals: [facility] [Primary Care Provider] -
[2017-03-09 12:30] LABS: Activated Partial Thrombo Time 301.4 Seconds (26.0-36.0)
[2017-03-09 13:01] LABS: Heparin anti-factor XA UFH 1.22 IU/mL (0.30-0.70)
[2017-03-09] MEDS: Heparin 25,000 UNIT/500 ML D5W 25,000 UNIT/500 ML MLS IVC SCH (14:12)
[2017-03-09] MEDS: Norepinephrine 4 MG in D5% in Water 250 ML IVC SCH (15:52)
[2017-03-09] MEDS ORDERED: *HR* Heparin 5,000 UNIT/ML VIAL ONE (16:19)
[2017-03-09 18:41] LABS: Activated Partial Thrombo Time 228.5 Seconds (26.0-36.0)
[2017-03-09 18:55] LABS: Heparin anti-factor XA UFH 0.82 IU/mL (0.30-0.70)
[2017-03-10] MEDS: Insulin LISPRO 300 UNITS/3 ML VIAL SQ SCH ×5 (00:21→23:22)
[2017-03-10] MEDS: Dexmedetomidine HCl 400 MCG/100 ML MLS IVC SCH ×6 (01:05→19:41)
[2017-03-10 03:56] LABS: Basophils % 0.2 %; Eosinophils # 0.1 K/mcL (0.0-0.6); Eosinophils % 0.5 %; Hematocrit 30.5 % (37.5-50.1); Immature Granulocytes % 0.7 % (0-4); Lymphocytes # 0.9 K/mcL (0.6-4.6); Lymphocytes % 5.8 %; Mean Corpuscular HGB Conc 32.8 g/dL (31.6-35.5); Mean Corpuscular Hemoglobin 29.4 pg (28.0-33.3); Mean Corpuscular Volume 89.7 fL (83.0-100.0); Mean Platelet Volume 10.1 fL (9.4-12.4); Monocytes # 1.2 K/mcL (0.0-1.3); Monocytes % 7.9 %; Neutrophils # 13.2 K/mcL (1.6-8.9); Platelet Count 149 K/mcL (140-400); Red Cell Distribution Width 13.6 % (11.5-14.5); Segmented Neutrophils % 84.9 %
[2017-03-10 04:12] LABS: BUN/Creatinine Ratio 14 (6-26); Blood Urea Nitrogen 13 mg/dL (8-26); Calcium 8.3 mg/dL (8.6-10.8); Carbon Dioxide 29 mEq/L (19-29); Chloride 103 mEq/L (98-109); Creatine Kinase 3139 Units/L (30-200); Glucose 149 mg/dL (70-99); Osmolality,Calculated 283 (280-300); Phosphorous 2.1 mg/dL (2.3-4.7); Potassium 4.6 mEq/L (3.5-4.5); Sodium 135 mEq/L (136-145); eGFR For African Americans > 60 (> 60); eGFR For Non-African Americans > 60 (> 60)
[2017-03-10 04:43] LABS: ABG Base Excess 4.1 mEq/L (-2.0 to 3.0); ABG HCO3 29.7 mEQ/L (21-27); ABG Oxygen Saturation 91 % (95-98); ABG PCO2 49 mmHg (35-45); ABG PH 7.39 pH Units (7.32-7.45); ABG PO2 63 mmHg (85-104); ABG TCO2 31.2 mEq/L (20-26); Blood Gas FiO2 50 %
[2017-03-10] MEDS: FentaNYL (PF) 1,000 MCG in 0.9 % Sodium Chloride 80 ML IVC SCH ×3 (05:29→22:52)
[2017-03-10] MEDS: Lacri-Lube 3.5 GM TUBE BOTH EYES SCH ×6 (05:30→23:21)
[2017-03-10] MEDS: Amiodarone Premix 360 MG/200 ML BAG IVC SCH ×2 (06:39→17:51)
[2017-03-10] MEDS ORDERED: Vancomycin 2,000 MG in D5% in Water 500 ML IVPB ONE (08:00)
--- NOTE | 2017-03-10 08:10 | Pulmonology Progress Note ---
Date of Encounter: 03/10/17 Time of Encounter: 08:10 Assessment and Plan (1) Cardiogenic shock Current Visit: Yes Status: Acute Neuropsych: Sedated for comfort while weaning narcotic continue dexmedetomidine goal Sabiha 2. Pulm: Acute hypoxic hypercapnic respiratory failure which in large part appears mediated by cardiogenic pulmonary edema. He has acceptable oxygenation and ventilation spontaneous breathing trial one more awake Cards: Atrial flutter with rapid ventricular response cardiology following amiodarone has been loaded and is now on maintenance infusion. Cardiology following. Mean arterial pressure is acceptable FEN-GI: Enteral nutrition at goal PPI prophylaxis given. Bowel regimen also given Renal: Acute kidney injury of unclear etiology with evidence of rhabdomyolysis which has resulted in severe hyperkalemia continuous renal replacement therapy has been this continued per nephrology recommendations he continues to make adequate urine we will continue to monitor his electrolyte panel and replace as per protocol ID: Persistent but now improving leukocytosis likely secondary to MRSA bacteremia vancomycin dosed by pharmacy this was readjusted for low trough I have repeated blood cultures (but at this time are pending) could consider echocardiogram (SHONDA) if persistent tachycardia to rule out endocarditis Continue to follow. Heme/Onc: Patient is on therapeutic heparin for primary stroke prevention with AFL; H&H and platelets are stable Endo: Glucose monitored sliding scale insulin given for hyperglycemia as needed Integ/MSK: Skin care per routine ICU protocol to prevent skin ulcers all lines examined without evidence of infection CODE: Full code (2) CHF (congestive heart failure) Current Visit: No Status: Acute Qualifiers: Congestive heart failure type: unspecified congestive heart failure type Congestive heart failure chronicity: chronic Qualified Code(s): I50.9 - Heart failure, unspecified (3) Type 2 diabetes mellitus Current Visit: No Status: Chronic Qualifiers: Diabetes mellitus complication status: without complication Diabetes mellitus custodial insulin use: with custodial use Qualified Code(s): E11.9 - Type 2 diabetes mellitus without complications; Z79.4 - snf (current) use of insulin (4) Sleep apnea Current Visit: No Status: Chronic Qualifiers: Sleep apnea type: unspecified type Qualified Code(s): G47.30 - Sleep apnea , unspecified (5) DVT prophylaxis Current Visit: No Status: Acute (6) Morbid obesity with BMI of 40.0-44.9, adult Current Visit: No Status: Chronic (7) EMILIA (acute kidney injury) Current Visit: Yes Status: Resolved (8) Diastolic CHF Current Visit: No Status: Acute Qualifiers: Congestive heart failure chronicity: chronic Qualified Code(s): I50.32 - Chronic diastolic (congestive) heart failure (9) Rhabdomyolysis Current Visit: Yes Status: Acute Qualifiers: Rhabdomyolysis type: non-traumatic Qualified Code(s): M62.82 - Rhabdomyolysis Subjective Principal diagnosis: bradycardia Interval history: Remains of SVT but rate is better. Otherwise hemodynamically stable minimal O2 support on ventilator more awake sedation has been lifted Objective PUL Vital signs: Last Vital Signs Temp 98.6 F 03/10/17 07:49 Pulse 101 03/10/17 06:00 Resp 14 03/10/17 07:10 BP 98/78 03/10/17 07:10 Pulse Ox 96 03/10/17 07:10 General appearance: no acute distress Auscultation: bilateral: diminished breath sounds, rales Cardiovascular: irregular rhythm Gastrointestinal: normoactive bowel sounds, soft, non-tender Extremities: no edema non-focal exam, pupils equal and round Ventilator Settings Ventilator Settings: Ventilator Settings, Last 8 Hours Ventilator Mode VC+ Ventilator Mode VC+ Ventilator Mode VC+ Ventilator Mode VC+ Ventilator Mode VC+ Ventilator Mode VC+ Ventilator Mode VC+ Ventilator Mode VC+ Ventilator Mode VC+ Ventilator Mode VC+ Ventilator Mode VC+ Ventilator Tidal Volume 550 Setting Ventilator Tidal Volume 550 Setting Ventilator Tidal Volume 550 Setting Ventilator Tidal Volume 550 Setting Ventilator Tidal Volume 550 Setting Ventilator Tidal Volume 500 Setting Ventilator Tidal Volume 550 Setting Ventilator Tidal Volume 550 Setting Ventilator Tidal Volume 550 Setting Ventilator Tidal Volume 550 Setting Ventilator Tidal Volume 550 Setting Ventilator Respiratory Rate 12 Setting Ventilator Respiratory Rate 12 Setting Ventilator Respiratory Rate 12 Setting Ventilator Respiratory Rate 12 Setting Ventilator Respiratory Rate 12 Setting Ventilator Respiratory Rate 12 Setting Ventilator Respiratory Rate 12 Setting Ventilator Respiratory Rate 12 Setting Ventilator Respiratory Rate 12 Setting Ventilator Respiratory Rate 12 Setting Ventilator Respiratory Rate 12 Setting Actual Respiratory Rate 14 Actual Respiratory Rate 16 Actual Respiratory Rate 16 Actual Respiratory Rate 16 Actual Respiratory Rate 16 Actual Respiratory Rate 18 Actual Respiratory Rate 17 Actual Respiratory Rate 16 Actual Respiratory Rate 19 Actual Respiratory Rate 14 Positive End Expiratory 5 Pressure Positive End Expiratory 5 Pressure Positive End Expiratory 5 Pressure Positive End Expiratory 5 Pressure Positive End Expiratory 5 Pressure Positive End Expiratory 5 Pressure Positive End Expiratory 5 Pressure Positive End Expiratory 5 Pressure Positive End Expiratory 5 Pressure Positive End Expiratory 5 Pressure Positive End Expiratory 5 Pressure Peak Inspiratory Airway 28 Pressure Peak Inspiratory Airway 21 Pressure Peak Inspiratory Airway 21 Pressure Peak Inspiratory Airway 18 Pressure Peak Inspiratory Airway 17 Pressure Peak Inspiratory Airway 20 Pressure Peak Inspiratory Airway 24 Pressure Peak Inspiratory Airway 23 Pressure Peak Inspiratory Airway 30 Pressure Peak Inspiratory Airway 20 Pressure Results - Laboratory Findings CBC and BMP: 03/10/17 03:34 03/10/17 03:34 ABG ABG pH 7.39 pH Units (7.32-7.45) 03/10/17 04:29 ABG pCO2 49 mmHg (35-45) H 03/10/17 04:29 ABG pO2 63 mmHg (85-104) L 03/10/17 04:29 ABG O2 Saturation 91 % (95-98) L 03/10/17 04:29 PT/INR, D-dimer PT 19.3 Seconds (9.4-12.1) H 03/08/17 20:00 Abnormal lab findings: Abnormal lab results WBC 15.6 K/mcL (4.3-11.1) H 03/10/17 03:34 RBC 3.40 M/mcL (4.19-5.50) L 03/10/17 03:34 Hgb 10.0 g/dL (12.9-16.9) L D 03/10/17 03:34 Hct 30.5 % (37.5-50.1) L 03/10/17 03:34 Neutrophils # 13.2 K/mcL (1.6-8.9) H 03/10/17 03:34 PT 19.3 Seconds (9.4-12.1) H 03/08/17 20:00 APTT 70.8 Seconds (26.0-36.0) H D 03/10/17 06:40 Heparin Anti-Xa, Unfract 0.82 IU/mL (0.30-0.70) H 03/09/17 18:02 ABG pCO2 49 mmHg (35-45) H 03/10/17 04:29 ABG pO2 63 mmHg (85-104) L 03/10/17 04:29 ABG HCO3 29.7 mEQ/L (21-27) H 03/10/17 04:29 ABG Total CO2 31.2 mEq/L (20-26) H 03/10/17 04:29 ABG O2 Saturation 91 % (95-98) L 03/10/17 04:29 ABG Base Excess 4.1 mEq/L (-2.0 to 3.0) H 03/10/17 04:29 Sodium 135 mEq/L (136-145) L 03/10/17 03:34 Potassium 4.6 mEq/L (3.5-4.5) H 03/10/17 03:34 Glucose 149 mg/dL (70-99) H 03/10/17 03:34 POC Glucose 149 (58-89) H 03/10/17 04:29 Uric Acid 8.5 mg/dL (3.5-7.2) H 03/07/17 05:45 Calcium 8.3 mg/dL (8.6-10.8) L 03/10/17 03:34 Ionized Calcium 1.12 mmol/L (1.15-1.35) L 03/09/17 03:55 Phosphorus 2.1 mg/dL (2.3-4.7) L 03/10/17 03:34 AST 367 Units/L (5-34) H 03/07/17 05:45 ALT 334 Units/L (0-55) H 03/07/17 05:45 Alkaline Phosphatase 162 Units/L (38-126) H 03/07/17 05:45 Creatine Kinase 3139 Units/L (30-200) H 03/10/17 03:34 Serum Total Protein 5.9 g/dL (6.0-8.3) L 03/07/17 05:45 Albumin 3.0 g/dL (3.5-5.0) L 03/07/17 05:45 Albumin/Globulin Ratio 1.0 (1.1-2.2) L 03/07/17 05:45 Urine Clarity Turbid (Clear) A 03/08/17 15:00 Ur Specific [place] 1.030 (1.010-1.025) H 03/08/17 15:00 Urine Protein 100 mg/dL (Neg-Trace) H 03/08/17 15:00 Urine Blood Large (Negative) H 03/08/17 15:00 Urine Microscopic RBC TNTC per hpf (0-3) H 03/08/17 15:00 Urine Microscopic WBC 5-15 per hpf (0-3) H 03/08/17 15:00 Ur Squamous Epith Cells Many per lpf (None-Few) H 03/08/17 15:00 Ur Culture Indicated? YES (NO) A 03/08/17 15:00 Staphylococcus sp PCR DETECTED (Not Detect) A 03/07/17 05:45 mecA-Methicil Res Gene DETECTED (Not Detect) A 03/07/17 05:45 - Microbiology Findings Microbiology Findings: Microbiology, Last 48 Hours 03/08/17 11:11 Blood Culture - Preliminary Peripheral Venipuncture No growth. 03/08/17 15:00 Urine Culture - Final Urine,Clean Catch No growth. 03/07/17 05:45 Blood Culture - Preliminary Central Venous Catheter Gram Positive Cocci - Clinical Findings Intake & Output: Intake & Output 03/09/17 03/10/17 03/10/17 23:59 07:59 15:59 Intake Total 814 / 814 844 / 844 Output Total 236 / 236 525 / 525 Balance 578 / 578 319 / 319 Weight 158.621 kg Consult Discharge Plan - Plan [facility]: [facility] [Primary Care Provider] -
[2017-03-10] MEDS: Piperacillin/Tazobactam 3.375 GM in D5% in Water (Mini-Bag+) 100 ML IVPB SCH ×3 (08:51→23:21)
[2017-03-10] MEDS: Chlorhexidine Rinse 15 ML MOUTHWASH MM SCH ×2 (08:51→20:07)
[2017-03-10] MEDS: Pantoprazole 40 MG VIAL IVPB SCH (08:51)
[2017-03-10] MEDS: Heparin 25,000 UNIT/500 ML D5W 25,000 UNIT/500 ML MLS IVC SCH ×2 (08:54→22:53)
[2017-03-10] MEDS: Budesonide/Formoterol 160/4.5 MDI IH SCH ×2 (09:15→21:12)
--- NOTE | 2017-03-10 10:08 | Cardiology Progress Note ---
Date of Encounter: 03/10/17 Time of Encounter: 08:50 Assessment and Plan (1) Atrial flutter Current Visit: Yes Status: Acute Initial presentation of slow ventricular response is secondary to metabolic disturbance. Renal function has normalized. Heart rates have improved overnight, now in the 100's while on amiodarone and with the start of PO beta doni yesterday. BP is stable. Recommend uptitrating BB today. Continue amiodarone and heparin gtt. Now with improving leukocytosis - primary service concerned for MRSA bacteremia. Suspect heart rates will improve once underlying systemic illness resolves. Qualifiers: Atrial flutter type: unspecified Qualified Code(s): I48.92 - Unspecified atrial flutter Discussion w patient/family: Thank you for involving us in the care of your patient. Please call with any questions. Subjective Principal diagnosis: bradycardia Interval history: Patient remains intubated and sedated. Heart rates 100's on telemetry, an improvement. Low grade temperatures with improving leukocytosis. Primary service concern for MRSA bacteremia. Objective Vital Signs, Last 4 Hours Temp Resp BP Pulse Ox 03/10/17 07:49 98.6 F 03/10/17 07:10 14 98/78 96 General: Other (intubated, sedated) HEENT: Atraumatic, Other (ETT in place) Neck: Other (JVP difficult to appreciate) Cardiac: Other (tachycardic, no apparent murmur) Lungs: Other (rhonchorous breath sounds) Neuro: Other (sedated) Abdomen: Soft Extremities: Other (mild bilateral LE edema) Results 03/10/17 03:34 03/10/17 03:34 Lab Results 03/09/17 03/09/17 03/10/17 11:53 18:02 00:50 WBC Hgb Hct Plt Count APTT 301.4 H* D 228.5 H* 46.6 H D Sodium Potassium Chloride Carbon Dioxide BUN Creatinine Glucose Calcium 03/10/17 03/10/17 03/10/17 03:34 03:34 06:40 WBC 15.6 H Hgb 10.0 L D Hct 30.5 L Plt Count 149 APTT 70.8 H D Sodium 135 L Potassium 4.6 H Chloride 103 Carbon Dioxide 29 BUN 13 Creatinine 0.96 Glucose 149 H Calcium 8.3 L - EKG Interpretation EKG results cardiology: other (24h telemetry reviewed demonstrating average HR 101 bpm - atrial flutter, no concerning dysrhythmia) Consult Discharge Plan - Plan [facility]errals: [facility] [Primary Care Provider] -
--- NOTE | 2017-03-10 12:36 | Nephrology Progress Note ---
Date of Encounter: 03/11/17 Time of Encounter: 09:00 - Assessment and Plan (1) EMILIA (acute kidney injury) Current Visit: Yes Status: Acute Improved and UOP is responding. Stopped Hollie yesterday. Edema persists If SCr remains excellent then plan to have the temporary HD catheter removed tomorrow. Discussed in detail the above plan with his ICU team. Thank you. (2) Hyperkalemia Current Visit: Yes Status: Acute Improving (3) Hypotension Current Visit: Yes Status: Acute stabilizing Qualifiers: Hypotension type: other hypotension type Qualified Code(s): I95.89 - Other hypotension (4) Rhabdomyolysis Current Visit: Yes Status: Acute Likely has contributed to the hyperkalemia. Qualifiers: Rhabdomyolysis type: non-traumatic Qualified Code(s): M62.82 - Rhabdomyolysis (5) Hypocalcemia Current Visit: Yes Status: Acute Trending better. Since he was so hyperkalemia, the only low K+ bath available here was the 2K/0Ca, but I provided a Ca gtt with frequent boluses, but had to change to the 4K/2.5ca to better manage the hypocalcemia, which is now trending better. He is now fully off Hollie. (6) Atrial flutter Current Visit: Yes Status: Acute As per cardio Qualifiers: Atrial flutter type: unspecified Qualified Code(s): I48.92 - Unspecified atrial flutter Subjective Principal diagnosis: bradycardia Interval history: Pt was seen/examined earlier in the day. [facility] [place] [facility] updated me on his progress: no major critical events were noted from last night. Sedation was off and starting CPAP trial. Hollie was off all night. Objective - Vital Signs Vital signs: Vital Signs Temp Pulse Resp BP Pulse Ox 03/10/17 12:23 98.9 F 03/10/17 10:00 102 20 112/78 90 03/10/17 09:15 16 98/78 98 03/10/17 09:00 104 24 110/74 99 03/10/17 08:00 120 33 141/93 95 03/10/17 07:49 98.6 F 03/10/17 07:10 14 98/78 96 03/10/17 07:00 104 20 101/71 96 03/10/17 06:00 101 16 98/78 94 03/10/17 05:58 16 94 03/10/17 05:00 102 17 96/73 94 03/10/17 04:51 98.9 F 03/10/17 04:48 17 94 03/10/17 04:00 106 18 106/83 93 03/10/17 03:00 106 16 91/69 92 03/10/17 02:24 16 94/67 94 03/10/17 02:00 103 19 94/67 92 03/10/17 01:00 102 16 101/74 95 03/10/17 00:46 99 F 03/10/17 00:00 107 14 97/69 95 03/09/17 23:00 104 16 112/63 96 03/09/17 22:53 102 03/09/17 22:00 102 16 122/78 96 03/09/17 21:39 16 122/78 96 03/09/17 21:00 103 16 105/69 97 03/09/17 20:27 99.3 F 03/09/17 20:06 15 95/66 95 03/09/17 20:00 101 17 95/66 96 03/09/17 19:00 101 17 110/76 96 03/09/17 18:00 101 17 94/64 99 03/09/17 17:21 16 110/94 95 03/09/17 17:00 107 17 110/94 95 03/09/17 16:31 22 107/91 97 03/09/17 16:00 99.0 F 105 16 107/91 96 03/09/17 15:00 107 22 118/93 96 03/09/17 14:00 119 16 120/70 96 03/09/17 13:07 17 101/68 96 03/09/17 13:00 118 21 101/68 95 Intake and Output 03/09/17 03/10/17 03/10/17 23:59 07:59 15:59 Intake Total 814 / 814 844 / 844 449 / 449 Output Total 236 / 236 525 / 525 350 / 350 Balance 578 / 578 319 / 319 99 / 99 Intake: IV Fluids 724 / 724 600 / 600 375 / 375 Amiodarone Drip Premix 200 / 200 200 / 200 360mg/200mL 360 mg In 200 ml @ 0.5 MG/MIN 16.667 mls/hr IVC [facility] Rx#: [id number] PRECEDEX 400 mcg In 100 100 / 100 200 / 200 100 / 100 ml @ 0.3 MCG/KG/HR 11.345 mls/hr IVC .Q8H49M [facility] Rx#:[id number] FentaNYL (PF) 1,000 MCG 70 / 70 100 / 100 29 / 29 In 0.9 % Sodium Chloride 80 ML @ 50 MCG/HR 5 mls/ hr IVC CONT [facility] Rx#: [id number] Heparin 25,000 UNIT/500 254 / 254 0 / 0 246 / 246 ML D5W 25,000 unit In 500 ml @ 14 UNIT/KG/HR 45. 405 mls/hr IVC .Q11H1M [facility] Rx#:[id number] Zosyn 3.375 GM In 100 / 100 100 / 100 Dextrose 5% (Minibag+) 100 ML 100 ML @ 25 mls/hr IVPB Q8HR [facility] Rx#: [id number] Tube Feeding 15 / 15 194 / 194 44 / 44 Free Water Intake Amount 75 / 75 50 / 50 30 / 30 Output: Hollie 106 / 106 Catheter 130 / 130 525 / 525 350 / 350 Gastric Drainage 0 / 0 Other: Weight 158.621 kg Blood Glucose* 159 149 203 Patient Weight 03/10/17 23:59 Weight 158.621 kg - General Appearance Exam: General appearance: Present: well-developed, well-nourished, cachectic, sedated on ventilator, intubated EENT: Present: ATNC Neck: Present: supple Respiratory: Present: course breath sounds Cardiology: Present: edema (1+ ankle edema b/l), rapid rhythm, normal S1, normal S2 Dialysis Vascular Access: Venous Catheter (RIJ temporary HD catheter was C/D/I) Gastrointestinal: Present: normoactive bowel sounds, no tenderness, obese, distended Integumentary: Present: warm and dry Neurologic: Present: no asterixis Musculoskeletal: Present: no cyanosis, no clubbing - Lab 03/11/17 04:11 03/11/17 04:11 Most recent lab results ABG pH 7.39 pH Units (7.32-7.45) 03/10/17 04:29 ABG pCO2 49 mmHg (35-45) H 03/10/17 04:29 ABG pO2 63 mmHg (85-104) L 03/10/17 04:29 ABG HCO3 29.7 mEQ/L (21-27) H 03/10/17 04:29 ABG O2 Saturation 91 % (95-98) L 03/10/17 04:29 Calcium 8.3 mg/dL (8.6-10.8) L 03/10/17 03:34 Phosphorus 2.1 mg/dL (2.3-4.7) L 03/10/17 03:34 Magnesium 1.7 mg/dL (1.6-2.6) 03/08/17 04:46 Consult Discharge Plan - Plan [facility]errals: [facility] [Primary Care Provider] -
[2017-03-10] MEDS: Norepinephrine 4 MG in D5% in Water 250 ML IVC SCH (17:56)
[2017-03-11] MEDS: *HR* Metoprolol 5 MG/5 ML VIAL IVP PRN ×2 (03:25→12:36)
[2017-03-11] MEDS: FentaNYL (PF) 1,000 MCG in 0.9 % Sodium Chloride 80 ML IVC SCH ×4 (04:38→20:43)
[2017-03-11 04:53] LABS: Basophils % 0.1 %; Eosinophils # 0.1 K/mcL (0.0-0.6); Eosinophils % 0.3 %; Hematocrit 30.4 % (37.5-50.1); Hemoglobin 10.2 g/dL (12.9-16.9); Immature Granulocytes % 0.7 % (0-4); Lymphocytes # 0.6 K/mcL (0.6-4.6); Lymphocytes % 3.8 %; Mean Corpuscular HGB Conc 33.6 g/dL (31.6-35.5); Mean Corpuscular Hemoglobin 29.7 pg (28.0-33.3); Mean Corpuscular Volume 88.6 fL (83.0-100.0); Mean Platelet Volume 10.2 fL (9.4-12.4); Monocytes # 1.3 K/mcL (0.0-1.3); Monocytes % 8.1 %; Neutrophils # 13.6 K/mcL (1.6-8.9); Platelet Count 176 K/mcL (140-400); Red Blood Count 3.43 M/mcL (4.19-5.50); Red Cell Distribution Width 13.7 % (11.5-14.5)
[2017-03-11 04:56] LABS: BUN/Creatinine Ratio 12 (6-26); Blood Urea Nitrogen 11 mg/dL (8-26); Calcium 8.9 mg/dL (8.6-10.8); Carbon Dioxide 28 mEq/L (19-29); Chloride 101 mEq/L (98-109); Glucose 135 mg/dL (70-99); Osmolality,Calculated 283 (280-300); Potassium 4.1 mEq/L (3.5-4.5); Sodium 136 mEq/L (136-145); eGFR For African Americans > 60 (> 60); eGFR For Non-African Americans > 60 (> 60)
[2017-03-11 05:04] LABS: ABG Base Excess 3.1 mEq/L (-2.0 to 3.0); ABG HCO3 28.5 mEQ/L (21-27); ABG Oxygen Saturation 97 % (95-98); ABG PCO2 46 mmHg (35-45); ABG PO2 92 mmHg (85-104); ABG TCO2 29.9 mEq/L (20-26)
[2017-03-11 05:05] LABS: Blood Gas FiO2 50 %
[2017-03-11] MEDS: Amiodarone Premix 360 MG/200 ML BAG IVC SCH ×2 (05:35→17:35)
[2017-03-11] MEDS: Insulin LISPRO 300 UNITS/3 ML VIAL SQ SCH ×3 (06:16→18:58)
[2017-03-11] MEDS: Lacri-Lube 3.5 GM TUBE BOTH EYES SCH ×5 (06:17→20:46)
[2017-03-11] MEDS: Piperacillin/Tazobactam 3.375 GM in D5% in Water (Mini-Bag+) 100 ML IVPB SCH (07:54)
[2017-03-11] MEDS: Chlorhexidine Rinse 15 ML MOUTHWASH MM SCH ×2 (07:55→20:43)
[2017-03-11] MEDS: Pantoprazole 40 MG VIAL IVPB SCH (07:55)
--- NOTE | 2017-03-11 09:09 | Pulmonology Progress Note ---
<Verónica Nolasco - Last Filed: 03/11/17 15:15> Date of Encounter: 03/11/17 Time of Encounter: 09:09 Assessment and Plan (1) Atrial flutter Current Visit: Yes Status: Acute Patient has a history of atrial flutter. Cardiology is on board. Her awaiting [facility] for the patient have an [facility]. Patient is currently on Cardizem and amiodarone drip this is maintaining his heart rate in the 120s. Patient sedation was attempted to be weaned today. However patient easily gets agitated. He does not track you with his eyes however is arousable and opens his eyes to voice command. Head CT today was negative. His AK is resolving well. He is not hyperkalemic today. He does have an MRSA bacteremia. We will keep him on vancomycin for this. Plan: On heparin drip. We will stop this if we extubate the patient. Spontaneous breathing trial. Wean sedation as tolerated. Amiodarone and Cardizem for rate control. Vanc for MRSA bacteremia. Protonix for GI prophylaxis Qualifiers: Atrial flutter type: unspecified Qualified Code(s): I48.92 - Unspecified atrial flutter (2) Acute respiratory failure with hypoxia Current Visit: No Status: Resolved Plan as above (3) Hyperkalemia Current Visit: Yes Status: Acute (4) DVT prophylaxis Current Visit: No Status: Acute Patient on heparin drip. (5) Bradycardia Current Visit: Yes Status: Acute Resolved (6) Hyperkalemia Current Visit: Yes Status: Acute Resolved (7) EMILIA (acute kidney injury) Current Visit: Yes Status: Acute Resolved (8) Hypotension Current Visit: Yes Status: Acute Resolved Qualifiers: Hypotension type: other hypotension type Qualified Code(s): I95.89 - Other hypotension Subjective Principal diagnosis: bradycardia Interval history: No events overnight. Patient is now on a Cardizem as well as amiodarone drip due to his tachycardia. Cardiology advises that we are currently waiting on approval from the [facility] for an [facility] due to patient's chronic A flutter. Patient's creatinine has normalized. His potassium has also normalized. We will attempt to wean sedation to do a spontaneous breathing trial today. Patient does open his eyes to command but he does not track. We have ordered a head CT which came back with no acute process noted. Objective PUL Vital signs: Last Vital Signs Temp 100.2 F H 03/11/17 07:30 Pulse 133 03/11/17 08:00 Resp 21 03/11/17 08:00 BP 103/74 03/11/17 08:00 Pulse Ox 95 03/11/17 08:00 General appearance: other (Intubated and sedated) Eyes: nonicteric ENT: oropharynx moist Neck: supple, no lymphadenopathy Effort: normal Auscultation: bilateral: clear Cardiovascular: other (Tachycardic.) Gastrointestinal: normoactive bowel sounds, soft, non-tender, non-distended Integumentary: normal, other (Left IJ central line appears well. Skin is non- erythematous. There is no discharge around this site.) Extremities: no cyanosis, no edema, pink and warm, pulses normal, no ischemia or petechiae Musculoskeletal: no deformities other (Patient opens eyes to command however does not track.) Ventilator Settings Ventilator Settings: Ventilator Settings, Last 8 Hours Ventilator Mode VC+ Ventilator Mode VC+ Ventilator Mode VC+ Ventilator Mode VC+ Ventilator Mode VC+ Ventilator Mode VC+ Ventilator Mode VC+ Ventilator Mode VC+ Ventilator Mode VC+ Ventilator Tidal Volume 550 Setting Ventilator Tidal Volume 550 Setting Ventilator Tidal Volume 550 Setting Ventilator Tidal Volume 550 Setting Ventilator Tidal Volume 550 Setting Ventilator Tidal Volume 550 Setting Ventilator Tidal Volume 550 Setting Ventilator Tidal Volume 550 Setting Ventilator Tidal Volume 550 Setting Ventilator Respiratory Rate 12 Setting Ventilator Respiratory Rate 12 Setting Ventilator Respiratory Rate 12 Setting Ventilator Respiratory Rate 12 Setting Ventilator Respiratory Rate 12 Setting Ventilator Respiratory Rate 12 Setting Ventilator Respiratory Rate 12 Setting Ventilator Respiratory Rate 12 Setting Ventilator Respiratory Rate 12 Setting Actual Respiratory Rate 31 Actual Respiratory Rate 28 Actual Respiratory Rate 21 Actual Respiratory Rate 20 Actual Respiratory Rate 18 Actual Respiratory Rate 18 Actual Respiratory Rate 18 Positive End Expiratory 5 Pressure Positive End Expiratory 5 Pressure Positive End Expiratory 5 Pressure Positive End Expiratory 5 Pressure Positive End Expiratory 5 Pressure Positive End Expiratory 5 Pressure Positive End Expiratory 5 Pressure Positive End Expiratory 5 Pressure Positive End Expiratory 5 Pressure Peak Inspiratory Airway 19 Pressure Peak Inspiratory Airway 30 Pressure Peak Inspiratory Airway 35 Pressure Peak Inspiratory Airway 37 Pressure Peak Inspiratory Airway 17 Pressure Peak Inspiratory Airway 18 Pressure Peak Inspiratory Airway 16 Pressure Peak Inspiratory Airway 22 Pressure Results - Laboratory Findings CBC and BMP: 03/11/17 04:11 03/11/17 04:11 ABG ABG pH 7.40 pH Units (7.32-7.45) 03/11/17 04:55 ABG pCO2 46 mmHg (35-45) H 03/11/17 04:55 ABG pO2 92 mmHg (85-104) 03/11/17 04:55 ABG O2 Saturation 97 % (95-98) 03/11/17 04:55 PT/INR, D-dimer PT 19.3 Seconds (9.4-12.1) H 03/08/17 20:00 Abnormal lab findings: Abnormal lab results WBC 15.6 K/mcL (4.3-11.1) H 03/11/17 04:11 RBC 3.43 M/mcL (4.19-5.50) L 03/11/17 04:11 Hgb 10.2 g/dL (12.9-16.9) L 03/11/17 04:11 Hct 30.4 % (37.5-50.1) L 03/11/17 04:11 Neutrophils # 13.6 K/mcL (1.6-8.9) H 03/11/17 04:11 PT 19.3 Seconds (9.4-12.1) H 03/08/17 20:00 APTT 52.8 Seconds (26.0-36.0) H 03/11/17 04:11 Heparin Anti-Xa, Unfract 0.82 IU/mL (0.30-0.70) H 03/09/17 18:02 ABG pCO2 46 mmHg (35-45) H 03/11/17 04:55 ABG HCO3 28.5 mEQ/L (21-27) H 03/11/17 04:55 ABG Total CO2 29.9 mEq/L (20-26) H 03/11/17 04:55 ABG Base Excess 3.1 mEq/L (-2.0 to 3.0) H 03/11/17 04:55 Glucose 135 mg/dL (70-99) H 03/11/17 04:11 POC Glucose 136 (58-89) H 03/11/17 04:18 Uric Acid 8.5 mg/dL (3.5-7.2) H 03/07/17 05:45 Ionized Calcium 1.12 mmol/L (1.15-1.35) L 03/09/17 03:55 Phosphorus 2.1 mg/dL (2.3-4.7) L 03/10/17 03:34 AST 367 Units/L (5-34) H 03/07/17 05:45 ALT 334 Units/L (0-55) H 03/07/17 05:45 Alkaline Phosphatase 162 Units/L (38-126) H 03/07/17 05:45 Creatine Kinase 3139 Units/L (30-200) H 03/10/17 03:34 Serum Total Protein 5.9 g/dL (6.0-8.3) L 03/07/17 05:45 Albumin 3.0 g/dL (3.5-5.0) L 03/07/17 05:45 Albumin/Globulin Ratio 1.0 (1.1-2.2) L 03/07/17 05:45 Urine Clarity Turbid (Clear) A 03/08/17 15:00 Ur Specific Ephraim 1.030 (1.010-1.025) H 03/08/17 15:00 Urine Protein 100 mg/dL (Neg-Trace) H 03/08/17 15:00 Urine Blood Large (Negative) H 03/08/17 15:00 Urine Microscopic RBC TNTC per hpf (0-3) H 03/08/17 15:00 Urine Microscopic WBC 5-15 per hpf (0-3) H 03/08/17 15:00 Ur Squamous Epith Cells Many per lpf (None-Few) H 03/08/17 15:00 Ur Culture Indicated? YES (NO) A 03/08/17 15:00 Staphylococcus sp PCR DETECTED (Not Detect) A 03/07/17 05:45 mecA-Methicil Res Gene DETECTED (Not Detect) A 03/07/17 05:45 - Microbiology Findings Microbiology Findings: Microbiology, Last 48 Hours 03/07/17 05:45 Blood Culture - Preliminary Central Venous Catheter Gram Positive Cocci 03/09/17 15:45 Blood Culture - Preliminary Peripheral Venipuncture No growth. 03/08/17 11:11 Blood Culture - Preliminary Peripheral Venipuncture No growth. 03/08/17 15:00 Urine Culture - Final Urine,Clean Catch No growth. - Clinical Findings Intake & Output: Intake & Output 03/10/17 03/11/17 03/11/17 23:59 07:59 15:59 Intake Total 916 / 916 980 / 980 Output Total 650 / 650 1650 / 1650 Balance 266 / 266 -670 / -670 Weight 159.256 kg Consult Discharge Plan - Plan [facility]errals: [facility] [Primary Care Provider] - <Nikki Ivan - Last Filed: 03/11/17 17:46> Date of Encounter: 03/11/17 Objective PUL Vital signs: Last Vital Signs Temp 97.8 F 03/11/17 15:34 Pulse 127 03/11/17 17:00 Resp 21 03/11/17 17:00 BP 145/95 03/11/17 17:00 Pulse Ox 95 03/11/17 17:00 Ventilator Settings Ventilator Settings: Ventilator Settings, Last 8 Hours Ventilator Mode VC+ Ventilator Mode VC+ Ventilator Mode VC+ Ventilator Mode VC+ Ventilator Mode VC+ Ventilator Mode VC+ Ventilator Tidal Volume 550 Setting Ventilator Tidal Volume 550 Setting Ventilator Tidal Volume 550 Setting Ventilator Tidal Volume 550 Setting Ventilator Tidal Volume 550 Setting Ventilator Respiratory Rate 12 Setting Ventilator Respiratory Rate 12 Setting Ventilator Respiratory Rate 12 Setting Ventilator Respiratory Rate 12 Setting Ventilator Respiratory Rate 12 Setting Actual Respiratory Rate 20 Actual Respiratory Rate 22 Actual Respiratory Rate 21 Actual Respiratory Rate 23 Actual Respiratory Rate 17 Positive End Expiratory 5 Pressure Positive End Expiratory 5 Pressure Positive End Expiratory 5 Pressure Positive End Expiratory 5 Pressure Positive End Expiratory 5 Pressure Peak Inspiratory Airway 28 Pressure Peak Inspiratory Airway 17 Pressure Peak Inspiratory Airway 17 Pressure Peak Inspiratory Airway 22 Pressure Peak Inspiratory Airway 23 Pressure Peak Inspiratory Airway 18 Pressure Peak Inspiratory Airway 26 Pressure Peak Inspiratory Airway 32 Pressure Peak Inspiratory Airway 19 Pressure Peak Inspiratory Airway 28 Pressure Results - Laboratory Findings CBC and BMP: 03/11/17 04:11 03/11/17 04:11 ABG ABG pH 7.40 pH Units (7.32-7.45) 03/11/17 04:55 ABG pCO2 46 mmHg (35-45) H 03/11/17 04:55 ABG pO2 92 mmHg (85-104) 03/11/17 04:55 ABG O2 Saturation 97 % (95-98) 03/11/17 04:55 PT/INR, D-dimer PT 19.3 Seconds (9.4-12.1) H 03/08/17 20:00 Abnormal lab findings: Abnormal lab results WBC 15.6 K/mcL (4.3-11.1) H 03/11/17 04:11 RBC 3.43 M/mcL (4.19-5.50) L 03/11/17 04:11 Hgb 10.2 g/dL (12.9-16.9) L 03/11/17 04:11 Hct 30.4 % (37.5-50.1) L 03/11/17 04:11 Neutrophils # 13.6 K/mcL (1.6-8.9) H 03/11/17 04:11 PT 19.3 Seconds (9.4-12.1) H 03/08/17 20:00 APTT 62.8 Seconds (26.0-36.0) H 03/11/17 17:15 Heparin Anti-Xa, Unfract 0.82 IU/mL (0.30-0.70) H 03/09/17 18:02 ABG pCO2 46 mmHg (35-45) H 03/11/17 04:55 ABG HCO3 28.5 mEQ/L (21-27) H 03/11/17 04:55 ABG Total CO2 29.9 mEq/L (20-26) H 03/11/17 04:55 ABG Base Excess 3.1 mEq/L (-2.0 to 3.0) H 03/11/17 04:55 Glucose 135 mg/dL (70-99) H 03/11/17 04:11 POC Glucose 223 (58-89) H 03/11/17 15:36 Uric Acid 8.5 mg/dL (3.5-7.2) H 03/07/17 05:45 Ionized Calcium 1.12 mmol/L (1.15-1.35) L 03/09/17 03:55 Phosphorus 2.1 mg/dL (2.3-4.7) L 03/10/17 03:34 AST 367 Units/L (5-34) H 03/07/17 05:45 ALT 334 Units/L (0-55) H 03/07/17 05:45 Alkaline Phosphatase 162 Units/L (38-126) H 03/07/17 05:45 Creatine Kinase 3139 Units/L (30-200) H 03/10/17 03:34 Serum Total Protein 5.9 g/dL (6.0-8.3) L 03/07/17 05:45 Albumin 3.0 g/dL (3.5-5.0) L 03/07/17 05:45 Albumin/Globulin Ratio 1.0 (1.1-2.2) L 03/07/17 05:45 Urine Clarity Turbid (Clear) A 03/08/17 15:00 Ur Specific Ephraim 1.030 (1.010-1.025) H 03/08/17 15:00 Urine Protein 100 mg/dL (Neg-Trace) H 03/08/17 15:00 Urine Blood Large (Negative) H 03/08/17 15:00 Urine Microscopic RBC TNTC per hpf (0-3) H 03/08/17 15:00 Urine Microscopic WBC 5-15 per hpf (0-3) H 03/08/17 15:00 Ur Squamous Epith Cells Many per lpf (None-Few) H 03/08/17 15:00 Ur Culture Indicated? YES (NO) A 03/08/17 15:00 Staphylococcus sp PCR DETECTED (Not Detect) A 03/07/17 05:45 mecA-Methicil Res Gene DETECTED (Not Detect) A 03/07/17 05:45 - Microbiology Findings Microbiology Findings: Microbiology, Last 48 Hours 03/07/17 05:45 Blood Culture - Preliminary Central Venous Catheter Gram Positive Cocci 03/09/17 15:45 Blood Culture - Preliminary Peripheral Venipuncture No growth. 03/08/17 11:11 Blood Culture - Preliminary Peripheral Venipuncture No growth. 03/08/17 15:00 Urine Culture - Final Urine,Clean Catch No growth. - Clinical Findings Intake & Output: Intake & Output 03/11/17 03/11/17 03/11/17 07:59 15:59 23:59 Intake Total 980 / 980 427 / 427 118 / 118 Output Total 1650 / 1650 1550 / 1550 Balance -670 / -670 -1123 / -1123 118 / 118 Weight 159.256 kg - Attending Attestation I examined this patient and my medical decision-making was reviewed with the [employer]/PA/Advanced Practice Nurse/Resident Physician. I agree with the documented findings, disposition and treatment plan as described except to the extent set forth below. Patient seen and examined. Labs, radiology, chart personally reviewed. Agree with resident's history and physical, assessment, plan with following comments: [employer] ATTENDANT: Patient does not follows commands, sedated for agitation. Suspect metabolic encephalopathy. Will consider CT head. We will add low-dose Seroquel to help liberation from mechanical ventilation. Pulmonary: Acceptable oxygenation and ventilation. Once stable from cardiovascular point of view then will consider extubation. Cardiovascular: Continue to have A. fib with rapid ventricular response we will add Cardizem drip for better control of heart rate and then CPAP trial after that. GI: Nutrition per dietary and GI prophylaxis per routine Heme: DVT prophylaxis per routine ID: Continue antibiotics and plan to de-escalation Renal; urine out put and renal funtion reviewed Endorcine: blood glucose is monitored Lines: all lines checked and no evidence of infections Skin: skin care to prevent pressure ulcers per nursing routine care I spent 32 min of Critical Care time with this patient. It involved decision making of high complexity to assess, manipulate, and support vital organ system failure and/or to prevent further life threatening deterioration of the patient' s condition. The time involved in the performance of separately reportable procedures was not counted toward critical care time.
[2017-03-11] MEDS: Vancomycin 2,000 MG in D5% in Water 500 ML IVPB SCH (10:11)
[2017-03-11] MEDS: Budesonide/Formoterol 160/4.5 MDI IH SCH ×2 (10:41→22:07)
[2017-03-11] MEDS: Heparin 25,000 UNIT/500 ML D5W 25,000 UNIT/500 ML MLS IVC SCH ×3 (12:58→20:45)
--- NOTE | 2017-03-11 13:00 | Cardiology Progress Note ---
Date of Encounter: 03/11/17 Time of Encounter: 12:00 Assessment and Plan (1) EMILIA (acute kidney injury) Current Visit: Yes Status: Resolved Per cardiology: -Patient with EMILIA on admission. -Nephrology following. -Required temporary CRRT, now off CRRT. -Management per primary and nephrology services. (2) Atrial flutter with rapid ventricular response Current Visit: No Status: Acute Per cardiology: -Known atrial flutter. Has had multiple admission for atrial flutter with RVR. -Patient currently on lopressor 50mg BID, LOpressor IV PRN, amiodarone drip at 0.5mg/hour, cardizem drip at 20mg/hour. -Patient on heparin drip, had been on xarelto in outpatient setting. May need to change to coumadin due to EMILIA. -[id number] score 4 (age, HTN, CHF, DM). Recommend long-term anticoagulation. -Average HR previous 12 hours noted to be 116, atrial flutter. -Patient current intubated and sedated. -Cardizem drip with bolus started this am per pulmonary team. -Remains tachycardic. -Will increase po beta doni. -Will continue to monitor BP and HR. Discussion w patient/family: The assessment and plan as outlined above was discussed with the patient who expressed understanding and agreement. All questions were answered. Thank you for involving us in the care of your patient. Please call with any questions. Discussed and reviewed with . Subjective Principal diagnosis: bradycardia Interval history: Patient admitted with EMILIA and bradycardia with atrial flutter with slow ventricular response. Patient required temporary vasopressor support and temporary CRRT. Patient remains intubated. Patient now with atrial flutter with rapid ventricular response. Objective Vital Signs, Last 4 Hours Temp Pulse Resp BP Pulse Ox 03/11/17 12:00 124 20 181/112 96 03/11/17 11:30 100.5 F H 03/11/17 11:00 124 23 183/107 96 03/11/17 10:41 19 95 03/11/17 10:00 123 21 152/98 93 03/11/17 09:00 123 22 170/93 94 General: Other (Intubated and sedated. Opens eyes to tactile stimuli. Does not follow commands. ) HEENT: Atraumatic, Normocephaly, Mucus Membranes Moist Neck: No JVD, Normal carotid pulses Cardiac: Other (Irregularly irregular, tachycardic. ) Lungs: Normal Breath Sounds, No Wheeze, Rales, Rhonchi Neuro: Other (Intubated and sedated) Abdomen: Soft Skin: No rashes noted on visualized skin Musculoskeletal: Other (No grimacing noted to palpation of chest wall) Extremities: No Clubbing, No Cyanosis, Normal Pulses, Other (Mild bilateral pedal edema, non-pitting. ) Results 03/11/17 04:11 03/11/17 04:11 Lab Results Impressions Head CT 03/11/17 08:55 IMPRESSION: Stable exam with no acute intracranial abnormality. Redemonstration of chronic small vessel ischemic disease. D/ / 03/11/2017 10:05:02 Fercho Sultana MD / alycia Interpreting Provider: Fercho Sultana MD Active Medications Albuterol/Ipratropium (Duoneb) 3 ml IH [id number] PRN; Protocol PRN Reason: Shortness Of Breath/Wheezing Stop: 09/06/17 04:18 Last Admin: 03/08/17 07:38 Dose: 3 ml Artificial Tears (Lacri-Lube) 1 appl BOTH EYES Q4HR LORI PRN Reason: Protocol Stop: 09/06/17 08:01 Last Admin: 03/11/17 07:56 Dose: 1 appl Artificial Tears (Lacri-Lube) 1 appl BOTH EYES Q2HR PRN; Protocol PRN Reason: Dry Eyes Stop: 09/06/17 06:14 Budesonide/Formoterol Fumarate (Symbicort) 2 puff IH BIDRESP LORI PRN Reason: Protocol Stop: 09/06/17 10:01 Last Admin: 03/11/17 10:41 Dose: 2 puff Chlorhexidine Gluconate (Chlorhexidine Rinse) 15 ml MM BID LORI Stop: 09/06/17 09:01 Last Admin: 03/11/17 07:55 Dose: 15 ml Dextrose/Water (Dextrose 50% (Syg)) 25 ml IVP AD PRN PRN Reason: Hypoglycemia Stop: 09/06/17 11:06 Glucagon (Glucagen) 1 mg IM ONCE PRN PRN Reason: Hypoglycemia Stop: 09/06/17 11:06 Glucose (Gluctose) 15 gm PO ONCE PRN PRN Reason: Hypoglycemia Stop: 09/06/17 11:06 Glucose (Gluctose) 30 gm PO ONCE PRN PRN Reason: Hypoglycemia Stop: 09/06/17 11:06 Heparin Sodium (Porcine) (Heparin) 4,500 unit IVP Q6H PRN PRN Reason: SEE COMMENTS Stop: 09/07/17 17:00 Dopamine HCl/Dextrose (Dopamine Premix 400mg/250ml) 400 mg in 250 mls @ 14.879 mls/hr IVC .[id number] LORI; 2.5 MCG/KG/MIN PRN Reason: Protocol Stop: 09/06/17 01:01 Last Admin: 03/10/17 13:31 Dose: Not Given Fentanyl Citrate 1,000 mcg/ (Sodium Chloride) 100 mls @ 5 mls/hr IVC CONT LORI; 50 MCG/HR PRN Reason: Protocol Stop: 09/06/17 04:46 Last Admin: 03/11/17 12:00 Dose: 125 mcg/hr, 12.5 mls/hr Midazolam HCl 50 mg/ Sodium (Chloride) 100 mls @ 4 mls/hr IVC CONT LORI; 2 MG/HR PRN Reason: Protocol Stop: 09/06/17 04:46 Last Titration: 03/11/17 08:00 Dose: 4 mg/hr, 8 mls/hr Vancomycin HCl 1 each/ (Miscellaneous) 250 mls @ 0 mls/hr IVPB RPHPROT LORI; Per Protocol PRN Reason: Protocol Stop: 09/07/17 09:01 Dextrose (Dextrose 5%) 1,000 mls @ 100 mls/hr IVC .Q10H PRN PRN Reason: HYPOGLYCEMIA Stop: 09/06/17 11:06 Norepinephrine Bitartrate 4 mg (/ Dextrose) 250 mls @ 30 mls/hr IVC CONT LORI; 8 MCG/MIN PRN Reason: Protocol Stop: 09/06/17 15:31 Last Admin: 03/10/17 17:56 Dose: Not Given Amiodarone HCl/Dextrose (Amiodarone Drip Premix 360mg/200ml) 360 mg in 200 mls @ 16.667 mls/hr IVC CONT LORI PRN Reason: 0.5 MG/MIN Stop: 09/07/17 17:01 Last Admin: 03/11/17 05:35 Dose: 0.5 mg/min, 16.667 mls/hr Heparin Sodium/Dextrose (Heparin 25,000 Unit/500 Ml D5w) 25,000 unit in 500 mls @ 45.405 mls/hr IVC .Q11H1M LORI; 14 UNIT/KG/HR PRN Reason: Protocol Stop: 09/07/17 17:01 Last Titration: 03/11/17 12:43 Dose: 13 unit/kg/hr, 42.161 mls/hr Dexmedetomidine HCl (Precedex) 400 mcg in 100 mls @ 11.345 mls/hr IVC .Q8H49M LORI; 0.3 MCG/KG/HR PRN Reason: Protocol Stop: 09/08/17 07:16 Last Titration: 03/11/17 03:10 Dose: Infused Diltiazem HCl 125 mg/ Dextrose 125 mls @ 5 mls/hr IVC .Q24H LORI; 5 MG/HR PRN Reason: Protocol Stop: 09/10/17 08:31 Last Titration: 03/11/17 10:30 Dose: 7.5 mg/hr, 7.5 mls/hr Vancomycin HCl 2,000 mg/ (Dextrose) 500 mls @ 250 mls/hr IVPB Q24H LORI Stop: 09/10/17 09:01 Last Admin: 03/11/17 10:11 Dose: 250 mls/hr Insulin Human Lispro (Humalog) 0 units SQ Q6HR LORI PRN Reason: Protocol Stop: 09/06/17 12:01 Last Admin: 03/11/17 12:38 Dose: 4 units Metoprolol Tartrate (Lopressor) 5 mg IVP Q6HR PRN PRN Reason: Tachyarrhythmias Stop: 09/07/17 18:01 Last Admin: 03/11/17 12:36 Dose: 5 mg Metoprolol Tartrate (Lopressor) 50 mg PO BID LORI Stop: 09/09/17 21:01 Last Admin: 03/11/17 07:55 Dose: 50 mg Naloxone HCl (Narcan) 0.4 mg IVP Q2MIN PRN PRN Reason: Opioid Reversal Stop: 09/06/17 03:41 Pantoprazole Sodium (Protonix) 40 mg IVPB DAILY [facility] Stop: 09/06/17 09:01 Last Admin: 03/11/17 07:55 Dose: 40 mg Senna (Senna) 8.8 mg GTUBE BID [facility] Stop: 09/07/17 21:01 Last Admin: 03/11/17 07:55 Dose: 8.8 mg Laboratory Tests 03/07/17 03/07/17 03/08/17 01:05 05:45 04:46 WBC Hgb Potassium Creatinine 3.02 H Magnesium 1.7 Troponin I 0.01 03/11/17 03/11/17 04:11 04:11 WBC 15.6 H Hgb 10.2 L Potassium 4.1 Creatinine 0.93 Magnesium Troponin I - Imaging and Cardiology Chest Xray: report reviewed Echo: report reviewed - EKG Interpretation EKG results cardiology: personally reviewed (ECG with atrial flutter with slow ventricular response, HR 39.), other (Telemetry reviewed with average HR previous 12 hours noted to be 116, atrial flutter with RVR. Longest pause noted to be 1.3 seconds. PVCs noted.) Consult Discharge Plan - Plan [facility]errals: [facility] [Primary Care Provider] -
--- NOTE | 2017-03-11 13:55 | Nephrology Progress Note ---
Date of Encounter: 03/11/17 Time of Encounter: 13:51 - Assessment and Plan (1) EMILIA (acute kidney injury) Current Visit: Yes Status: Resolved Resolved. EGFR greater than 60. Urine output 2115 the last 14 hours. Hyperkalemia resolved. Renal ultrasound shows echogenicity on bilateral renal cortex: likely has underlying CKD. CK 6364: can also add rhabdolmyolysis to list of causes for EMILIA. Plan: Remove HD catheter as serum creatinine stable for several days. Continue strict I/O and monitor renal function We will sign off. Thank you for consulting [facility]. (2) Hyperkalemia Current Visit: Yes Status: Acute (3) Rhabdomyolysis Current Visit: Yes Status: Acute Qualifiers: Rhabdomyolysis type: non-traumatic Qualified Code(s): M62.82 - Rhabdomyolysis Subjective Principal diagnosis: bradycardia Interval history: NO overnight issues. Remains intubated and sedated. Objective - Vital Signs Vital signs: Vital Signs Temp Pulse Resp BP Pulse Ox 03/11/17 12:00 124 20 181/112 96 03/11/17 11:30 100.5 F H 03/11/17 11:00 124 23 183/107 96 03/11/17 10:41 19 95 03/11/17 10:00 123 21 152/98 93 03/11/17 09:00 123 22 170/93 94 03/11/17 08:00 133 21 103/74 95 03/11/17 07:54 28 96 03/11/17 07:30 100.2 F H 03/11/17 07:15 153 28 164/108 94 03/11/17 06:12 21 114/75 91 03/11/17 06:00 125 20 114/75 90 03/11/17 05:10 99.5 F 03/11/17 03:15 20 118/80 95 03/11/17 03:00 115 16 118/80 94 03/11/17 02:50 122 03/11/17 02:00 122 18 142/85 98 03/11/17 01:20 18 132/82 98 03/11/17 01:00 106 22 132/82 98 03/11/17 00:46 99.4 F 03/11/17 00:00 97 22 154/93 98 03/10/17 23:35 19 110/88 98 03/10/17 23:00 91 14 95/88 98 03/10/17 22:46 98 03/10/17 22:00 98 14 116/82 98 03/10/17 21:12 15 102/64 97 03/10/17 21:00 94 14 102/64 96 03/10/17 20:27 99.5 F 03/10/17 20:00 101 22 139/86 98 03/10/17 19:35 22 156/97 98 03/10/17 19:00 106 22 156/97 97 03/10/17 18:00 101 25 125/93 96 03/10/17 17:08 18 149/99 99 03/10/17 17:00 101 18 115/85 96 03/10/17 16:00 99 22 149/99 98 03/10/17 15:57 97.7 F 03/10/17 15:03 14 111/83 96 03/10/17 15:00 100 16 110/77 99 03/10/17 14:00 90 14 111/83 96 Intake and Output 03/10/17 03/11/17 03/11/17 23:59 07:59 15:59 Intake Total 916 / 916 980 / 980 357 / 357 Output Total 650 / 650 1650 / 1650 500 / 500 Balance 266 / 266 -670 / -670 -143 / -143 Intake: IV Fluids 806 / 806 980 / 980 357 / 357 Amiodarone Drip Premix 200 / 200 200 / 200 360mg/200mL 360 mg In 200 ml @ 0.5 MG/MIN 16.667 mls/hr IVC CONT [facility] Rx#: [id number] PRECEDEX 400 mcg In 100 100 / 100 100 / 100 ml @ 0.3 MCG/KG/HR 11.345 mls/hr IVC .Q8H49M [facility] Rx#:[id number] Cardizem 125 MG In 7 / 7 Dextrose 5% 100 ML @ 5 MG /HR 5 mls/hr IVC .Q24H [facility] Rx#:[id number] FentaNYL (PF) 1,000 MCG 100 / 100 200 / 200 100 / 100 In 0.9 % Sodium Chloride 80 ML @ 50 MCG/HR 5 mls/ hr IVC CONT [facility] Rx#: [id number] Heparin 25,000 UNIT/500 286 / 286 280 / 280 220 / 220 ML D5W 25,000 unit In 500 ml @ 14 UNIT/KG/HR 45. 405 mls/hr IVC .Q11H1M [facility] Rx#:[id number] Versed 50 MG In 0.9 % 20 / 20 100 / 100 30 / 30 Sodium Chloride 90 ML @ 2 MG/HR 4 mls/hr IVC CONT [facility] Rx#:[id number] Zosyn 3.375 GM In 100 / 100 100 / 100 Dextrose 5% (Minibag+) 100 ML 100 ML @ 25 mls/hr IVPB Q8HR [facility] Rx#: [id number] Tube Feeding 110 / 110 Output: Catheter 650 / 650 1650 / 1650 500 / 500 Other: Weight 159.256 kg Blood Glucose* 136 155 Patient Weight 03/11/17 23:59 Weight 159.256 kg - General Appearance General appearance: Present: sedated on ventilator Additional Comments: JVD unable to be assessed due to large neck Respiratory: Present: clear Cardiology: Present: no edema, normal S1, normal S2 Additional Comments: Tachycardia Gastrointestinal: Present: normoactive bowel sounds Integumentary: Present: no rash, warm and dry Musculoskeletal: Present: no deformities, no erythema, no cyanosis, no clubbing - Lab 03/11/17 04:11 03/11/17 04:11 Most recent lab results ABG pH 7.40 pH Units (7.32-7.45) 03/11/17 04:55 ABG pCO2 46 mmHg (35-45) H 03/11/17 04:55 ABG pO2 92 mmHg (85-104) 03/11/17 04:55 ABG HCO3 28.5 mEQ/L (21-27) H 03/11/17 04:55 ABG O2 Saturation 97 % (95-98) 03/11/17 04:55 Calcium 8.9 mg/dL (8.6-10.8) 03/11/17 04:11 Phosphorus 2.1 mg/dL (2.3-4.7) L 03/10/17 03:34 Magnesium 1.7 mg/dL (1.6-2.6) 03/08/17 04:46 Consult Discharge Plan - Plan [facility]errals: [facility]Primary Care Provider[facility] -
[2017-03-11] MEDS ORDERED: Aminoglycoside Consult 1 EACH MC ONE (15:02)
[2017-03-11] MEDS: Dexmedetomidine HCl 400 MCG/100 ML MLS IVC SCH ×2 (20:45→20:46)
[2017-03-11] MEDS: Norepinephrine 4 MG in D5% in Water 250 ML IVC SCH (20:46)
[2017-03-12] MEDS: Lacri-Lube 3.5 GM TUBE BOTH EYES SCH ×7 (00:54→23:04)
[2017-03-12] MEDS: Insulin LISPRO 300 UNITS/3 ML VIAL SQ SCH ×5 (00:54→23:32)
[2017-03-12] MEDS: Heparin 25,000 UNIT/500 ML D5W 25,000 UNIT/500 ML MLS IVC SCH ×3 (00:58→23:03)
[2017-03-12 03:21] LABS: Basophils % 0.2 %; Eosinophils # 0.1 K/mcL (0.0-0.6); Eosinophils % 1.1 %; Hematocrit 30.3 % (37.5-50.1); Lymphocytes # 0.8 K/mcL (0.6-4.6); Lymphocytes % 6.6 %; Mean Corpuscular Hemoglobin 29.3 pg (28.0-33.3); Mean Corpuscular Volume 88.9 fL (83.0-100.0); Mean Platelet Volume 9.3 fL (9.4-12.4); Monocytes # 1.5 K/mcL (0.0-1.3); Monocytes % 12.3 %; Neutrophils # 9.7 K/mcL (1.6-8.9); Platelet Count 182 K/mcL (140-400); Red Blood Count 3.41 M/mcL (4.19-5.50); Red Cell Distribution Width 13.8 % (11.5-14.5); Segmented Neutrophils % 78.8 %
[2017-03-12 03:32] LABS: BUN/Creatinine Ratio 13 (6-26); Blood Urea Nitrogen 11 mg/dL (8-26); Calcium 8.8 mg/dL (8.6-10.8); Carbon Dioxide 29 mEq/L (19-29); Chloride 101 mEq/L (98-109); Glucose 184 mg/dL (70-99); Osmolality,Calculated 286 (280-300); Potassium 3.8 mEq/L (3.5-4.5); Sodium 136 mEq/L (136-145); eGFR For African Americans > 60 (> 60); eGFR For Non-African Americans > 60 (> 60)
[2017-03-12 03:43] LABS: ABG Base Excess 5.5 mEq/L (-2.0 to 3.0); ABG HCO3 30.5 mEQ/L (21-27); ABG Oxygen Saturation 92 % (95-98); ABG PCO2 46 mmHg (35-45); ABG PH 7.43 pH Units (7.32-7.45); ABG PO2 63 mmHg (85-104); ABG TCO2 31.9 mEq/L (20-26)
[2017-03-12 03:44] LABS: Blood Gas FiO2 50 %
[2017-03-12] MEDS: FentaNYL (PF) 1,000 MCG in 0.9 % Sodium Chloride 80 ML IVC SCH ×3 (04:19→20:30)
[2017-03-12] MEDS: Amiodarone Premix 360 MG/200 ML BAG IVC SCH ×2 (04:25→15:45)
[2017-03-12] MEDS: Dexmedetomidine HCl 400 MCG/100 ML MLS IVC SCH ×3 (06:17→23:25)
--- NOTE | 2017-03-12 07:30 | Pulmonology Progress Note ---
<Verónica Nolasco - Last Filed: 03/12/17 15:29> Date of Encounter: 03/12/17 Time of Encounter: 07:30 Assessment and Plan (1) Atrial flutter Current Visit: Yes Status: Acute Patient has a history of atrial flutter. Cardiology is on board. Possible ablation for aflutter. Patient is currently on Cardizem and amiodarone drip this is maintaining his heart rate in the 120s. Patient sedation was attempted to be weaned today. However patient easily gets agitated. He does not track you with his eyes however is arousable and opens his eyes to voice command. Head CT today was negative. His EMILIA is resolving well. He is not hyperkalemic today. Patient has had a negative blood culture as well as negative urine. We will stop antibiotics. He has not been febrile. We did place the patient on Seroquel to help decrease his sedation requirement. Plan: On heparin drip. We will stop this if we extubate the patient. Wean sedation as tolerated. Amiodarone and Cardizem for rate control. Beta blockers for rate control Protonix for GI prophylaxis Continue Seroquel to help decrease sedation. Qualifiers: Atrial flutter type: unspecified Qualified Code(s): I48.92 - Unspecified atrial flutter (2) Acute respiratory failure with hypoxia Current Visit: No Status: Resolved Plan as above (3) Hyperkalemia Current Visit: Yes Status: Acute Resolved (4) DVT prophylaxis Current Visit: No Status: Acute Patient on heparin drip. (5) Bradycardia Current Visit: Yes Status: Acute Resolved (6) Hyperkalemia Current Visit: Yes Status: Acute Resolved (7) EMILIA (acute kidney injury) Current Visit: Yes Status: Acute Resolved (8) Hypotension Current Visit: Yes Status: Acute Resolved Qualifiers: Hypotension type: other hypotension type Qualified Code(s): I95.89 - Other hypotension (9) MRSA (methicillin resistant Staphylococcus aureus) septicemia Current Visit: Yes Status: Acute Resolved. He did have a positive serology for MRSA. He was placed on vancomycin as well as Zosyn. He also had a leukocytosis. However this has resolved. Antibiotic coverage has been stopped. Subjective Principal diagnosis: bradycardia Interval history: Patient's oxygen saturation decreased this morning. We have increased his FiO2 to 70%. Patient is now on a Cardizem as well as amiodarone drip and metoprolol IV due to his tachycardia. His average heart rate overnight was 92. Patient's creatinine has normalized. His potassium has also normalized. Patient does open his eyes to command but he does not track. Patient easily becomes agitated. We will continue to wean sedation as possible. Seroquel was added yesterday to help with sedation weaning. No SBT today due to his desatting this morning. We will attempt this tomorrow. Objective PUL Vital signs: Last Vital Signs Temp 98.2 F 03/12/17 05:00 Pulse 114 03/12/17 06:00 Resp 20 03/12/17 06:30 BP 116/90 03/12/17 06:00 Pulse Ox 94 03/12/17 06:30 General appearance: no acute distress, other (Intubated and sedated) Eyes: nonicteric ENT: oropharynx moist Neck: supple Effort: other (Assisted on a ventilator) Auscultation: bilateral: clear Cardiovascular: other (mildly tachycardic, aflutter) Integumentary: normal, other (Patient has a left IJ central line. This is not erythematous around the insertion site. It appears well and noninfected.) Extremities: no cyanosis, no clubbing, pink and warm, pulses normal, edema ( Mild to bilateral ankles.) Musculoskeletal: no deformities other (intubated and sedated) Ventilator Settings Ventilator Settings: Ventilator Settings, Last 8 Hours Ventilator Mode VC+ Ventilator Mode VC+ Ventilator Mode VC+ Ventilator Mode VC+ Ventilator Mode VC+ Ventilator Mode VC+ Ventilator Mode VC+ Ventilator Mode VC+ Ventilator Mode VC+ Ventilator Mode VC+ Ventilator Mode VC+ Ventilator Mode VC+ Ventilator Tidal Volume 550 Setting Ventilator Tidal Volume 550 Setting Ventilator Tidal Volume 550 Setting Ventilator Tidal Volume 550 Setting Ventilator Tidal Volume 550 Setting Ventilator Tidal Volume 550 Setting Ventilator Tidal Volume 550 Setting Ventilator Tidal Volume 550 Setting Ventilator Tidal Volume 550 Setting Ventilator Tidal Volume 550 Setting Ventilator Tidal Volume 550 Setting Ventilator Tidal Volume 550 Setting Ventilator Respiratory Rate 12 Setting Ventilator Respiratory Rate 12 Setting Ventilator Respiratory Rate 12 Setting Ventilator Respiratory Rate 12 Setting Ventilator Respiratory Rate 12 Setting Ventilator Respiratory Rate 12 Setting Ventilator Respiratory Rate 12 Setting Ventilator Respiratory Rate 12 Setting Ventilator Respiratory Rate 12 Setting Ventilator Respiratory Rate 12 Setting Ventilator Respiratory Rate 12 Setting Ventilator Respiratory Rate 12 Setting Actual Respiratory Rate 17 Actual Respiratory Rate 18 Actual Respiratory Rate 21 Actual Respiratory Rate 18 Actual Respiratory Rate 21 Actual Respiratory Rate 17 Actual Respiratory Rate 20 Actual Respiratory Rate 16 Actual Respiratory Rate 16 Actual Respiratory Rate 17 Actual Respiratory Rate 17 Positive End Expiratory 5 Pressure Positive End Expiratory 5 Pressure Positive End Expiratory 5 Pressure Positive End Expiratory 5 Pressure Positive End Expiratory 5 Pressure Positive End Expiratory 5 Pressure Positive End Expiratory 5 Pressure Positive End Expiratory 5 Pressure Positive End Expiratory 5 Pressure Positive End Expiratory 5 Pressure Positive End Expiratory 5 Pressure Positive End Expiratory 5 Pressure Peak Inspiratory Airway 19 Pressure Peak Inspiratory Airway 21 Pressure Peak Inspiratory Airway 28 Pressure Peak Inspiratory Airway 21 Pressure Peak Inspiratory Airway 22 Pressure Peak Inspiratory Airway 17 Pressure Peak Inspiratory Airway 23 Pressure Peak Inspiratory Airway 19 Pressure Peak Inspiratory Airway 13 Pressure Peak Inspiratory Airway 18 Pressure Peak Inspiratory Airway 11 Pressure Results - Laboratory Findings CBC and BMP: 03/12/17 03:13 03/12/17 03:13 ABG ABG pH 7.43 pH Units (7.32-7.45) 03/12/17 03:31 ABG pCO2 46 mmHg (35-45) H 03/12/17 03:31 ABG pO2 63 mmHg (85-104) L 03/12/17 03:31 ABG O2 Saturation 92 % (95-98) L 03/12/17 03:31 PT/INR, D-dimer PT 19.3 Seconds (9.4-12.1) H 03/08/17 20:00 Abnormal lab findings: Abnormal lab results WBC 12.3 K/mcL (4.3-11.1) H 03/12/17 03:13 RBC 3.41 M/mcL (4.19-5.50) L 03/12/17 03:13 Hgb 10.0 g/dL (12.9-16.9) L 03/12/17 03:13 Hct 30.3 % (37.5-50.1) L 03/12/17 03:13 MPV 9.3 fL (9.4-12.4) L 03/12/17 03:13 Neutrophils # 9.7 K/mcL (1.6-8.9) H 03/12/17 03:13 Monocytes # 1.5 K/mcL (0.0-1.3) H 03/12/17 03:13 PT 19.3 Seconds (9.4-12.1) H 03/08/17 20:00 APTT 61.8 Seconds (26.0-36.0) H 03/12/17 04:35 Heparin Anti-Xa, Unfract 0.82 IU/mL (0.30-0.70) H 03/09/17 18:02 ABG pCO2 46 mmHg (35-45) H 03/12/17 03:31 ABG pO2 63 mmHg (85-104) L 03/12/17 03:31 ABG HCO3 30.5 mEQ/L (21-27) H 03/12/17 03:31 ABG Total CO2 31.9 mEq/L (20-26) H 03/12/17 03:31 ABG O2 Saturation 92 % (95-98) L 03/12/17 03:31 ABG Base Excess 5.5 mEq/L (-2.0 to 3.0) H 03/12/17 03:31 Glucose 184 mg/dL (70-99) H 03/12/17 03:13 POC Glucose 148 (58-89) H 03/12/17 00:23 Uric Acid 8.5 mg/dL (3.5-7.2) H 03/07/17 05:45 Ionized Calcium 1.12 mmol/L (1.15-1.35) L 03/09/17 03:55 Phosphorus 2.1 mg/dL (2.3-4.7) L 03/10/17 03:34 AST 367 Units/L (5-34) H 03/07/17 05:45 ALT 334 Units/L (0-55) H 03/07/17 05:45 Alkaline Phosphatase 162 Units/L (38-126) H 03/07/17 05:45 Creatine Kinase 3139 Units/L (30-200) H 03/10/17 03:34 Serum Total Protein 5.9 g/dL (6.0-8.3) L 03/07/17 05:45 Albumin 3.0 g/dL (3.5-5.0) L 03/07/17 05:45 Albumin/Globulin Ratio 1.0 (1.1-2.2) L 03/07/17 05:45 Urine Clarity Turbid (Clear) A 03/08/17 15:00 Ur Specific [place] 1.030 (1.010-1.025) H 03/08/17 15:00 Urine Protein 100 mg/dL (Neg-Trace) H 03/08/17 15:00 Urine Blood Large (Negative) H 03/08/17 15:00 Urine Microscopic RBC TNTC per hpf (0-3) H 03/08/17 15:00 Urine Microscopic WBC 5-15 per hpf (0-3) H 03/08/17 15:00 Ur Squamous Epith Cells Many per lpf (None-Few) H 03/08/17 15:00 Ur Culture Indicated? YES (NO) A 03/08/17 15:00 Staphylococcus sp PCR DETECTED (Not Detect) A 03/07/17 05:45 mecA-Methicil Res Gene DETECTED (Not Detect) A 03/07/17 05:45 - Microbiology Findings Microbiology Findings: Microbiology, Last 48 Hours 03/07/17 05:45 Blood Culture - Final Central Venous Catheter Staphylococcus epidermidis 03/09/17 15:45 Blood Culture - Preliminary Peripheral Venipuncture No growth. 03/08/17 11:11 Blood Culture - Preliminary Peripheral Venipuncture No growth. 03/08/17 15:00 Urine Culture - Final Urine,Clean Catch No growth. - Diagnostic Findings Additional studies: Guidance Ultrasound 03/07/17 00:00 IMPRESSION: 1. Right internal jugular vein temporary dialysis catheter placement as discussed above. D/ / Gigi Linn MD / Gigi Linn MD Interpreting Provider: Gigi Linn MD Insertion Non-Tunneled Catheter 03/07/17 00:00 IMPRESSION: 1. Right internal jugular vein temporary dialysis catheter placement as discussed above. D/ / Gigi Linn MD / Gigi Linn MD Interpreting Provider: Gigi Linn MD X-Ray 03/07/17 09:04 IMPRESSION: 1. Right temporary dialysis catheter is in the distal superior vena cava with no acute complication. 2. Stable asymmetric patchy pulmonary opacities more prominent on the left. 3. Nasogastric tube in the stomach with the tip at the mid to distal gastric body. D/ / 03/07/2017 11:20:42 Fercho Sultana MD / cayden Interpreting Provider: Fercho Sultana MD Chest X-Ray 03/07/17 09:44 IMPRESSION: 1. Right temporary dialysis catheter is in the distal superior vena cava with no acute complication. 2. Stable asymmetric patchy pulmonary opacities more prominent on the left. 3. Nasogastric tube in the stomach with the tip at the mid to distal gastric body. D/ / 03/07/2017 11:20:42 Fercho Sultana MD / cayden Interpreting Provider: Fercho Sultana MD Retroperitoneum Ultrasound 03/07/17 11:00 IMPRESSION: Increased echogenicity of the bilateral renal cortex, likely related to medical renal disease. Nonvisualized urinary bladder. D/ / Martinez Resendiz MD / Martinez Resendiz MD Interpreting Provider: Martinez Resendiz MD Abdomen Ultrasound 03/07/17 11:17 IMPRESSION: 1. Limited examination due to patient body habitus. 2. Coarsened echotexture of the liver without evidence of a focal hepatic abnormality. 3. Otherwise, no acute abnormality within the visualized right upper quadrant. 4. Small right pleural effusion. D/ / Dilip Soriano MD / Dilip Soriano MD Interpreting Provider: Dilip Soriano MD Head CT 03/11/17 08:55 IMPRESSION: Stable exam with no acute intracranial abnormality. Redemonstration of chronic small vessel ischemic disease. D/ / 03/11/2017 10:05:02 Fercho Sultana MD / alycia Interpreting Provider: Fercho Sultana MD - Clinical Findings Intake & Output: Intake & Output 03/11/17 03/11/17 03/12/17 15:59 23:59 07:59 Intake Total 927 / 927 858 / 858 829 / 829 Output Total 1550 / 1550 900 / 900 250 / 250 Balance -623 / -623 -42 / -42 579 / 579 Weight 159.075 kg Consult Discharge Plan - Plan [facility]errals: [facility] [Primary Care Provider[facility] - <Nikki Ivan - Last Filed: 03/12/17 17:54> Date of Encounter: 03/12/17 Objective PUL Vital signs: Last Vital Signs Temp 99.4 F 03/12/17 15:41 Pulse 124 03/12/17 16:30 Resp 22 03/12/17 16:30 BP 140/88 03/12/17 16:30 Pulse Ox 96 03/12/17 16:30 Ventilator Settings Ventilator Settings: Ventilator Settings, Last 8 Hours Ventilator Mode VC+ Ventilator Mode VC+ Ventilator Mode VC+ Ventilator Tidal Volume 550 Setting Ventilator Tidal Volume 550 Setting Ventilator Tidal Volume 550 Setting Ventilator Respiratory Rate 12 Setting Ventilator Respiratory Rate 12 Setting Ventilator Respiratory Rate 12 Setting Actual Respiratory Rate 17 Actual Respiratory Rate 18 Actual Respiratory Rate 17 Positive End Expiratory 5 Pressure Positive End Expiratory 5 Pressure Positive End Expiratory 5 Pressure Peak Inspiratory Airway 17 Pressure Peak Inspiratory Airway 23 Pressure Peak Inspiratory Airway 23 Pressure Results - Laboratory Findings CBC and BMP: 03/12/17 03:13 03/12/17 03:13 ABG ABG pH 7.43 pH Units (7.32-7.45) 03/12/17 03:31 ABG pCO2 46 mmHg (35-45) H 03/12/17 03:31 ABG pO2 63 mmHg (85-104) L 03/12/17 03:31 ABG O2 Saturation 92 % (95-98) L 03/12/17 03:31 PT/INR, D-dimer PT 19.3 Seconds (9.4-12.1) H 03/08/17 20:00 Abnormal lab findings: Abnormal lab results WBC 12.3 K/mcL (4.3-11.1) H 03/12/17 03:13 RBC 3.41 M/mcL (4.19-5.50) L 03/12/17 03:13 Hgb 10.0 g/dL (12.9-16.9) L 03/12/17 03:13 Hct 30.3 % (37.5-50.1) L 03/12/17 03:13 MPV 9.3 fL (9.4-12.4) L 03/12/17 03:13 Neutrophils # 9.7 K/mcL (1.6-8.9) H 03/12/17 03:13 Monocytes # 1.5 K/mcL (0.0-1.3) H 03/12/17 03:13 PT 19.3 Seconds (9.4-12.1) H 03/08/17 20:00 APTT 61.8 Seconds (26.0-36.0) H 03/12/17 04:35 Heparin Anti-Xa, Unfract 0.82 IU/mL (0.30-0.70) H 03/09/17 18:02 ABG pCO2 46 mmHg (35-45) H 03/12/17 03:31 ABG pO2 63 mmHg (85-104) L 03/12/17 03:31 ABG HCO3 30.5 mEQ/L (21-27) H 03/12/17 03:31 ABG Total CO2 31.9 mEq/L (20-26) H 03/12/17 03:31 ABG O2 Saturation 92 % (95-98) L 03/12/17 03:31 ABG Base Excess 5.5 mEq/L (-2.0 to 3.0) H 03/12/17 03:31 Glucose 184 mg/dL (70-99) H 03/12/17 03:13 POC Glucose 215 (58-89) H 03/12/17 11:11 Uric Acid 8.5 mg/dL (3.5-7.2) H 03/07/17 05:45 Ionized Calcium 1.12 mmol/L (1.15-1.35) L 03/09/17 03:55 Phosphorus 2.1 mg/dL (2.3-4.7) L 03/10/17 03:34 AST 367 Units/L (5-34) H 03/07/17 05:45 ALT 334 Units/L (0-55) H 03/07/17 05:45 Alkaline Phosphatase 162 Units/L (38-126) H 03/07/17 05:45 Creatine Kinase 3139 Units/L (30-200) H 03/10/17 03:34 Serum Total Protein 5.9 g/dL (6.0-8.3) L 03/07/17 05:45 Albumin 3.0 g/dL (3.5-5.0) L 03/07/17 05:45 Albumin/Globulin Ratio 1.0 (1.1-2.2) L 03/07/17 05:45 Urine Clarity Turbid (Clear) A 03/08/17 15:00 Ur Specific [place] 1.030 (1.010-1.025) H 03/08/17 15:00 Urine Protein 100 mg/dL (Neg-Trace) H 03/08/17 15:00 Urine Blood Large (Negative) H 03/08/17 15:00 Urine Microscopic RBC TNTC per hpf (0-3) H 03/08/17 15:00 Urine Microscopic WBC 5-15 per hpf (0-3) H 03/08/17 15:00 Ur Squamous Epith Cells Many per lpf (None-Few) H 03/08/17 15:00 Ur Culture Indicated? YES (NO) A 03/08/17 15:00 Staphylococcus sp PCR DETECTED (Not Detect) A 03/07/17 05:45 mecA-Methicil Res Gene DETECTED (Not Detect) A 03/07/17 05:45 - Microbiology Findings Microbiology Findings: Microbiology, Last 48 Hours 03/07/17 05:45 Blood Culture - Final Central Venous Catheter Staphylococcus epidermidis 03/09/17 15:45 Blood Culture - Preliminary Peripheral Venipuncture No growth. - Clinical Findings Intake & Output: Intake & Output 03/12/17 03/12/17 03/12/17 07:59 15:59 23:59 Intake Total 829 / 829 1725 / 1725 Output Total 450 / 450 850 / 850 Balance 379 / 379 875 / 875 Weight 159.075 kg - Attending Attestation I examined this patient and my medical decision-making was reviewed with the PARACHUTE FOLDER/PA/Advanced Practice Nurse/Resident Physician. I agree with the documented findings, disposition and treatment plan as described except to the extent set forth below. Patient seen and examined. Labs, radiology, chart personally reviewed. Agree with resident's history and physical, assessment, plan with following comments: LOCK AND DAM OPERATOR: Patient does not follows commands, Pulmonary: Acceptable oxygenation and ventilation, however due to his tachycardia SBT was not done, will plan for tomorrow. Cardiovascular: Patient remained in A. fib with rapid ventricular response, however is better controlled with changing indication by cardiology team GI: Nutrition per dietary and GI prophylaxis per routine Heme: DVT prophylaxis per routine ID: Continue antibiotics and plan to de-escalation Renal; urine out put and renal funtion reviewed Endorcine: blood glucose is monitored Lines: all lines checked and no evidence of infections Skin: skin care to prevent pressure ulcers per nursing routine care
[2017-03-12] MEDS: Budesonide/Formoterol 160/4.5 MDI IH SCH ×2 (07:41→21:44)
[2017-03-12] MEDS: Pantoprazole 40 MG VIAL IVPB SCH (09:09)
[2017-03-12] MEDS: Chlorhexidine Rinse 15 ML MOUTHWASH MM SCH ×2 (09:09→19:54)
[2017-03-12] MEDS: Vancomycin 2,000 MG in D5% in Water 500 ML IVPB SCH (09:10)
--- NOTE | 2017-03-12 10:04 | Cardiology Progress Note ---
Date of Encounter: 03/12/17 Time of Encounter: 09:30 Assessment and Plan (1) EMILIA (acute kidney injury) Current Visit: Yes Status: Resolved Per cardiology: -Patient with EMILIA on admission. -Nephrology following. -Required temporary CRRT, now off CRRT. -Management per primary and nephrology services. (2) Atrial flutter with rapid ventricular response Current Visit: No Status: Acute Per cardiology: -Known atrial flutter. Has had multiple admission for atrial flutter with RVR. -Patient currently on lopressor 75mg BID, LOpressor IV PRN, amiodarone drip at 0.5mg/hour, cardizem drip at 20mg/hour. -Patient on heparin drip, had been on xarelto in outpatient setting. May need to change to coumadin due to EMILIA. -[id number] score 4 (age, HTN, CHF, DM). Recommend senior care anticoagulation. -Average HR previous 12 hours noted to be 92, atrial flutter. Average HR improved from yesterday, which was 116. -Patient current intubated and sedated. -Remains tachycardic. -BPs 110-120s systolic. -Patient has been difficult to rate control this admission and during previous admission. -Will increase po beta doni to 100mg BID. WIll given 25mg dose x1 to equal 100mg dose this morning. -Will continue to monitor BP and HR. Discussion w patient/family: The assessment and plan as outlined above was discussed with the patient who expressed understanding and agreement. All questions were answered. Thank you for involving us in the care of your patient. Please call with any questions. Discussed and reviewed with . Subjective Principal diagnosis: bradycardia Interval history: Patient admitted with EMILIA and bradycardia with atrial flutter with slow ventricular response. Patient required temporary vasopressor support and temporary CRRT. Patient remains intubated. Patient now with atrial flutter with rapid ventricular response. Average HR pervious 12 hours noted to be 109. Objective Vital Signs, Last 4 Hours Temp Pulse Resp BP Pulse Ox 03/12/17 09:38 124 156/97 23 03/12/17 08:30 124 22 129/80 93 03/12/17 07:59 100.0 F H 03/12/17 07:42 122 18 122/83 90 03/12/17 06:30 20 94 General: Other (Intubated and sedated. ) HEENT: Atraumatic, Normocephaly, Mucus Membranes Moist Neck: No JVD, Normal carotid pulses Cardiac: Other (Irregularly irregular) Lungs: Other (Lung sounds coarse throughout. ) Neuro: Other (Intubated and sedated. ) Abdomen: Soft Skin: No rashes noted on visualized skin Musculoskeletal: Other (No grimacing noted to chest wall palpation. ) Extremities: No Clubbing, No Cyanosis, Normal Pulses, Other (Mild bilateral pedal edema, non-pitting. ) Results 03/12/17 03:13 03/12/17 03:13 Lab Results Impressions Head CT 03/11/17 08:55 IMPRESSION: Stable exam with no acute intracranial abnormality. Redemonstration of chronic small vessel ischemic disease. D/ / 03/11/2017 10:05:02 Fercho Sultana MD / bcarter Interpreting Provider: Fercho Sultana MD Active Medications Albuterol/Ipratropium (Duoneb) 3 ml IH [id number] PRN; Protocol PRN Reason: Shortness Of Breath/Wheezing Stop: 09/06/17 04:18 Last Admin: 03/08/17 07:38 Dose: 3 ml Artificial Tears (Lacri-Lube) 1 appl BOTH EYES Q4HR LORI PRN Reason: Protocol Stop: 09/06/17 08:01 Last Admin: 03/12/17 04:19 Dose: 1 appl Artificial Tears (Lacri-Lube) 1 appl BOTH EYES Q2HR PRN; Protocol PRN Reason: Dry Eyes Stop: 09/06/17 06:14 Budesonide/Formoterol Fumarate (Symbicort) 2 puff IH BIDRESP LORI PRN Reason: Protocol Stop: 09/06/17 10:01 Last Admin: 03/12/17 07:41 Dose: 2 puff Chlorhexidine Gluconate (Chlorhexidine Rinse) 15 ml MM BID LORI Stop: 09/06/17 09:01 Last Admin: 03/12/17 09:09 Dose: 15 ml Dextrose/Water (Dextrose 50% (Syg)) 25 ml IVP AD PRN PRN Reason: Hypoglycemia Stop: 09/06/17 11:06 Glucagon (Glucagen) 1 mg IM ONCE PRN PRN Reason: Hypoglycemia Stop: 09/06/17 11:06 Glucose (Gluctose) 15 gm PO ONCE PRN PRN Reason: Hypoglycemia Stop: 09/06/17 11:06 Glucose (Gluctose) 30 gm PO ONCE PRN PRN Reason: Hypoglycemia Stop: 09/06/17 11:06 Heparin Sodium (Porcine) (Heparin) 4,500 unit IVP Q6H PRN PRN Reason: SEE COMMENTS Stop: 09/07/17 17:00 Dopamine HCl/Dextrose (Dopamine Premix 400mg/250ml) 400 mg in 250 mls @ 14.879 mls/hr IVC .[id number] LORI; 2.5 MCG/KG/MIN PRN Reason: Protocol Stop: 09/06/17 01:01 Last Admin: 03/11/17 21:46 Dose: Not Given Fentanyl Citrate 1,000 mcg/ (Sodium Chloride) 100 mls @ 5 mls/hr IVC CONT LORI; 50 MCG/HR PRN Reason: Protocol Stop: 09/06/17 04:46 Last Admin: 03/12/17 04:19 Dose: 125 mcg/hr, 12.5 mls/hr Midazolam HCl 50 mg/ Sodium (Chloride) 100 mls @ 4 mls/hr IVC CONT LORI; 2 MG/HR PRN Reason: Protocol Stop: 09/06/17 04:46 Last Admin: 03/12/17 09:22 Dose: 6 mg/hr, 12 mls/hr Vancomycin HCl 1 each/ (Miscellaneous) 250 mls @ 0 mls/hr IVPB RPHPROT LORI; Per Protocol PRN Reason: Protocol Stop: 09/07/17 09:01 Dextrose (Dextrose 5%) 1,000 mls @ 100 mls/hr IVC .Q10H PRN PRN Reason: HYPOGLYCEMIA Stop: 09/06/17 11:06 Norepinephrine Bitartrate 4 mg (/ Dextrose) 250 mls @ 30 mls/hr IVC CONT LORI; 8 MCG/MIN PRN Reason: Protocol Stop: 09/06/17 15:31 Last Admin: 03/11/17 20:46 Dose: Not Given Amiodarone HCl/Dextrose (Amiodarone Drip Premix 360mg/200ml) 360 mg in 200 mls @ 16.667 mls/hr IVC CONT LORI PRN Reason: 0.5 MG/MIN Stop: 09/07/17 17:01 Last Admin: 03/12/17 04:25 Dose: 0.5 mg/min, 16.667 mls/hr Heparin Sodium/Dextrose (Heparin 25,000 Unit/500 Ml D5w) 25,000 unit in 500 mls @ 45.405 mls/hr IVC .Q11H1M LORI; 14 UNIT/KG/HR PRN Reason: Protocol Stop: 09/07/17 17:01 Last Admin: 03/12/17 00:58 Dose: 13 unit/kg/hr, 42.161 mls/hr Dexmedetomidine HCl (Precedex) 400 mcg in 100 mls @ 11.345 mls/hr IVC .Q8H49M LORI; 0.3 MCG/KG/HR PRN Reason: Protocol Stop: 09/08/17 07:16 Last Admin: 03/12/17 06:17 Dose: Not Given Diltiazem HCl 125 mg/ Dextrose 125 mls @ 5 mls/hr IVC .Q24H LORI; 5 MG/HR PRN Reason: Protocol Stop: 09/10/17 08:31 Last Admin: 03/12/17 05:30 Dose: 20 mg/hr, 20 mls/hr Vancomycin HCl 2,000 mg/ (Dextrose) 500 mls @ 250 mls/hr IVPB Q24H [facility] Stop: 09/10/17 09:01 Last Admin: 03/12/17 09:10 Dose: 250 mls/hr Insulin Human Lispro (Humalog) 0 units SQ Q6HR LORI PRN Reason: Protocol Stop: 09/06/17 12:01 Last Admin: 03/12/17 05:29 Dose: 6 units Metoprolol Tartrate (Lopressor) 5 mg IVP Q6HR PRN PRN Reason: Tachyarrhythmias Stop: 09/07/17 18:01 Last Admin: 03/11/17 12:36 Dose: 5 mg Metoprolol Tartrate (Lopressor) 100 mg PO BID [facility] Stop: 09/11/17 21:01 Naloxone HCl (Narcan) 0.4 mg IVP Q2MIN PRN PRN Reason: Opioid Reversal Stop: 09/06/17 03:41 Pantoprazole Sodium (Protonix) 40 mg IVPB DAILY [facility] Stop: 09/06/17 09:01 Last Admin: 03/12/17 09:09 Dose: 40 mg Quetiapine Fumarate (Seroquel) 25 mg PO HS [facility] PRN Reason: Protocol Stop: 09/10/17 21:01 Last Admin: 03/11/17 20:47 Dose: 25 mg Senna (Senna) 8.8 mg GTUBE BID [facility] Stop: 09/07/17 21:01 Last Admin: 03/12/17 09:09 Dose: 8.8 mg Laboratory Tests 03/12/17 03/12/17 03:13 03:13 WBC 12.3 H Hgb 10.0 L Potassium 3.8 Creatinine 0.87 - Imaging and Cardiology Chest Xray: report reviewed Echo: report reviewed Other Results: CT head report reviewed. - EKG Interpretation EKG results cardiology: other (Telemetry reviewed with average HR previous 12 hours noted to be 109, atrial flutter. Longest pause 2 seconds. PVCs noted.) Consult Discharge Plan - Plan [facility]errals: [facility] [Primary Care Provider[facility] -
[2017-03-12] MEDS: Norepinephrine 4 MG in D5% in Water 250 ML IVC SCH (15:46)
[2017-03-12] MEDS: Metoprolol 100 MG TABLET PO SCH (19:55)
[2017-03-13] MEDS: Heparin 25,000 UNIT/500 ML D5W 25,000 UNIT/500 ML MLS IVC SCH ×2 (01:06→13:48)
[2017-03-13] MEDS: Amiodarone Premix 360 MG/200 ML BAG IVC SCH ×2 (02:39→13:53)
[2017-03-13] MEDS: Lacri-Lube 3.5 GM TUBE BOTH EYES SCH ×5 (03:11→20:42)
[2017-03-13 03:25] LABS: Basophils % 0.2 %; Eosinophils # 0.2 K/mcL (0.0-0.6); Eosinophils % 1.7 %; Hematocrit 32.1 % (37.5-50.1); Hemoglobin 10.3 g/dL (12.9-16.9); Lymphocytes % 9.4 %; Mean Corpuscular HGB Conc 32.1 g/dL (31.6-35.5); Mean Corpuscular Hemoglobin 28.5 pg (28.0-33.3); Mean Corpuscular Volume 88.7 fL (83.0-100.0); Mean Platelet Volume 9.7 fL (9.4-12.4); Monocytes # 1.3 K/mcL (0.0-1.3); Monocytes % 12.5 %; Neutrophils # 7.9 K/mcL (1.6-8.9); Platelet Count 188 K/mcL (140-400); Red Blood Count 3.62 M/mcL (4.19-5.50); Red Cell Distribution Width 13.6 % (11.5-14.5); Segmented Neutrophils % 75.2 %
[2017-03-13 03:35] LABS: BUN/Creatinine Ratio 11 (6-26); Blood Urea Nitrogen 11 mg/dL (8-26); Calcium 9.2 mg/dL (8.6-10.8); Carbon Dioxide 31 mEq/L (19-29); Chloride 99 mEq/L (98-109); Glucose 222 mg/dL (70-99); Osmolality,Calculated 286 (280-300); Potassium 3.9 mEq/L (3.5-4.5); Sodium 135 mEq/L (136-145); eGFR For African Americans > 60 (> 60); eGFR For Non-African Americans > 60 (> 60)
[2017-03-13 03:41] LABS: ABG Base Excess 7.8 mEq/L (-2.0 to 3.0); ABG HCO3 33.2 mEQ/L (21-27); ABG Oxygen Saturation 94 % (95-98); ABG PCO2 50 mmHg (35-45); ABG PH 7.43 pH Units (7.32-7.45); ABG PO2 67 mmHg (85-104); ABG TCO2 34.7 mEq/L (20-26); Blood Gas FiO2 60 %; Blood Gas PEEP 5 cm H2O; Blood Gas Respiration Rate 12; Blood Gas VT 550 cc
[2017-03-13] MEDS: Insulin LISPRO 300 UNITS/3 ML VIAL SQ SCH ×3 (06:00→18:17)
[2017-03-13] MEDS: Chlorhexidine Rinse 15 ML MOUTHWASH MM SCH ×2 (07:59→20:41)
[2017-03-13] MEDS: Budesonide/Formoterol 160/4.5 MDI IH SCH ×2 (08:01→21:49)
[2017-03-13] MEDS: FentaNYL (PF) 1,000 MCG in 0.9 % Sodium Chloride 80 ML IVC SCH ×2 (08:04→20:40)
[2017-03-13] MEDS: Pantoprazole 40 MG VIAL IVPB SCH (08:05)
[2017-03-13] MEDS: Metoprolol 100 MG TABLET PO SCH ×2 (08:05→20:41)
--- NOTE | 2017-03-13 08:12 | Pulmonology Progress Note ---
<Verónica Nolasco - Last Filed: 03/13/17 11:03> Date of Encounter: 03/13/17 Time of Encounter: 08:12 Assessment and Plan (1) Atrial flutter Current Visit: Yes Status: Acute Patient has a history of atrial flutter. Cardiology is on board. Possible ablation for aflutter. Patient is currently on Cardizem and amiodarone drip as well as a beta doni this is maintaining his heart rate in the 90s today. We are continuing to wean the patient sedation. However patient easily gets agitated. His EMILIA is resolving well. He is not hyperkalemic today. Patient has had a negative blood culture as well as negative urine. We stopped antibiotics on 03/12. He has not been febrile. We did place the patient on Seroquel to help decrease his sedation requirement. We will do another SBT today. Plan: On heparin drip. We will stop this if we extubate the patient. Wean sedation as tolerated. Amiodarone and Cardizem for rate control. Beta blockers for rate control Protonix for GI prophylaxis Continue Seroquel to help decrease sedation. SBT today Qualifiers: Atrial flutter type: unspecified Qualified Code(s): I48.92 - Unspecified atrial flutter (2) Hyperkalemia Current Visit: Yes Status: Acute Resolved (3) DVT prophylaxis Current Visit: No Status: Acute Patient on heparin drip. (4) Bradycardia Current Visit: Yes Status: Acute Resolved (5) Hyperkalemia Current Visit: Yes Status: Acute Resolved (6) EMILIA (acute kidney injury) Current Visit: Yes Status: Acute Resolved (7) Hypotension Current Visit: Yes Status: Acute Resolved Qualifiers: Hypotension type: other hypotension type Qualified Code(s): I95.89 - Other hypotension (8) MRSA (methicillin resistant Staphylococcus aureus) septicemia Current Visit: Yes Status: Acute Resolved. He did have a positive serology for MRSA. He was placed on vancomycin as well as Zosyn. He also had a leukocytosis. However this has resolved. Antibiotic coverage has been stopped. Subjective Principal diagnosis: bradycardia Interval history: Patient's oxygen saturation decreased this morning. We have increased his FiO2 to 70%. Patient is now on a Cardizem as well as amiodarone drip and metoprolol IV due to his tachycardia. His average heart rate overnight was 92. Patient's creatinine has normalized. His potassium has also normalized. Patient does open his eyes to command but he does not track. Patient easily becomes agitated. We will continue to wean sedation as possible. Seroquel was added yesterday to help with sedation weaning. No SBT today due to his desatting this morning. We will attempt this tomorrow. Objective PUL Vital signs: Last Vital Signs Temp 101 F H 03/13/17 04:21 Pulse 122 03/13/17 06:00 Resp 27 03/13/17 06:08 BP 134/92 03/13/17 06:08 Pulse Ox 95 03/13/17 06:08 General appearance: other (Intubated and sedated. He is moving his hands.) Eyes: nonicteric ENT: oropharynx moist Neck: supple Effort: normal Cardiovascular: regular rate and rhythm Gastrointestinal: normoactive bowel sounds, soft, non-distended Integumentary: normal, other (Left IJ central line appears well. No erythema no signs of infection.) Extremities: no cyanosis, no edema, pink and warm, pulses normal Musculoskeletal: no deformities Gait: normal gait Ventilator Settings Ventilator Settings: Ventilator Settings, Last 8 Hours Ventilator Mode CPAP Ventilator Mode VC+ Ventilator Mode VC+ Ventilator Mode VC+ Ventilator Mode VC+ Ventilator Tidal Volume 550 Setting Ventilator Tidal Volume 550 Setting Ventilator Tidal Volume 550 Setting Ventilator Tidal Volume 550 Setting Ventilator Respiratory Rate 12 Setting Ventilator Respiratory Rate 12 Setting Ventilator Respiratory Rate 12 Setting Ventilator Respiratory Rate 12 Setting Actual Respiratory Rate 27 Actual Respiratory Rate 21 Actual Respiratory Rate 21 Actual Respiratory Rate 20 Positive End Expiratory 5 Pressure Positive End Expiratory 5 Pressure Positive End Expiratory 5 Pressure Positive End Expiratory 5 Pressure Positive End Expiratory 5 Pressure Peak Inspiratory Airway 12 Pressure Peak Inspiratory Airway 27 Pressure Peak Inspiratory Airway 31 Pressure Peak Inspiratory Airway 26 Pressure Results - Laboratory Findings CBC and BMP: 03/13/17 03:17 03/13/17 03:17 ABG ABG pH 7.43 pH Units (7.32-7.45) 03/13/17 03:32 ABG pCO2 50 mmHg (35-45) H 03/13/17 03:32 ABG pO2 67 mmHg (85-104) L 03/13/17 03:32 ABG O2 Saturation 94 % (95-98) L 03/13/17 03:32 PT/INR, D-dimer PT 19.3 Seconds (9.4-12.1) H 03/08/17 20:00 Abnormal lab findings: Abnormal lab results RBC 3.62 M/mcL (4.19-5.50) L 03/13/17 03:17 Hgb 10.3 g/dL (12.9-16.9) L 03/13/17 03:17 Hct 32.1 % (37.5-50.1) L 03/13/17 03:17 PT 19.3 Seconds (9.4-12.1) H 03/08/17 20:00 APTT 54.3 Seconds (26.0-36.0) H 03/13/17 03:17 Heparin Anti-Xa, Unfract 0.82 IU/mL (0.30-0.70) H 03/09/17 18:02 ABG pCO2 50 mmHg (35-45) H 03/13/17 03:32 ABG pO2 67 mmHg (85-104) L 03/13/17 03:32 ABG HCO3 33.2 mEQ/L (21-27) H 03/13/17 03:32 ABG Total CO2 34.7 mEq/L (20-26) H 03/13/17 03:32 ABG O2 Saturation 94 % (95-98) L 03/13/17 03:32 ABG Base Excess 7.8 mEq/L (-2.0 to 3.0) H 03/13/17 03:32 Sodium 135 mEq/L (136-145) L 03/13/17 03:17 Carbon Dioxide 31 mEq/L (19-29) H 03/13/17 03:17 Glucose 222 mg/dL (70-99) H 03/13/17 03:17 POC Glucose 213 (58-89) H 03/13/17 04:01 Uric Acid 8.5 mg/dL (3.5-7.2) H 03/07/17 05:45 Ionized Calcium 1.12 mmol/L (1.15-1.35) L 03/09/17 03:55 Phosphorus 2.1 mg/dL (2.3-4.7) L 03/10/17 03:34 AST 367 Units/L (5-34) H 03/07/17 05:45 ALT 334 Units/L (0-55) H 03/07/17 05:45 Alkaline Phosphatase 162 Units/L (38-126) H 03/07/17 05:45 Creatine Kinase 3139 Units/L (30-200) H 03/10/17 03:34 Serum Total Protein 5.9 g/dL (6.0-8.3) L 03/07/17 05:45 Albumin 3.0 g/dL (3.5-5.0) L 03/07/17 05:45 Albumin/Globulin Ratio 1.0 (1.1-2.2) L 03/07/17 05:45 Urine Clarity Turbid (Clear) A 03/08/17 15:00 Ur Specific Bolton 1.030 (1.010-1.025) H 03/08/17 15:00 Urine Protein 100 mg/dL (Neg-Trace) H 03/08/17 15:00 Urine Blood Large (Negative) H 03/08/17 15:00 Urine Microscopic RBC TNTC per hpf (0-3) H 03/08/17 15:00 Urine Microscopic WBC 5-15 per hpf (0-3) H 03/08/17 15:00 Ur Squamous Epith Cells Many per lpf (None-Few) H 03/08/17 15:00 Ur Culture Indicated? YES (NO) A 03/08/17 15:00 Staphylococcus sp PCR DETECTED (Not Detect) A 03/07/17 05:45 mecA-Methicil Res Gene DETECTED (Not Detect) A 03/07/17 05:45 - Microbiology Findings Microbiology Findings: Microbiology, Last 48 Hours 03/07/17 05:45 Blood Culture - Final Central Venous Catheter Staphylococcus epidermidis 03/09/17 15:45 Blood Culture - Preliminary Peripheral Venipuncture No growth. - Clinical Findings Intake & Output: Intake & Output 03/12/17 03/13/17 03/13/17 23:59 07:59 15:59 Intake Total 532 / 532 1792 / 1792 Output Total 700 / 700 600 / 600 Balance -168 / -168 1192 / 1192 Consult Discharge Plan - Plan [facility]errals: [facility] [Primary Care Provider[facility] - <Nikki Ivan - Last Filed: 03/13/17 12:13> Date of Encounter: 03/13/17 Objective PUL Vital signs: Last Vital Signs Temp 100.5 F H 03/13/17 11:57 Pulse 112 03/13/17 12:00 Resp 22 03/13/17 12:00 BP 149/93 03/13/17 12:00 Pulse Ox 95 03/13/17 12:00 Ventilator Settings Ventilator Settings: Ventilator Settings, Last 8 Hours Ventilator Mode VC+ Ventilator Mode VC+ Ventilator Mode VC+ Ventilator Mode VC+ Ventilator Mode VC+ Ventilator Mode VC+ Ventilator Mode VC+ Ventilator Mode CPAP Ventilator Mode VC+ Ventilator Tidal Volume 550 Setting Ventilator Tidal Volume 550 Setting Ventilator Tidal Volume 550 Setting Ventilator Tidal Volume 550 Setting Ventilator Tidal Volume 550 Setting Ventilator Tidal Volume 550 Setting Ventilator Tidal Volume 550 Setting Ventilator Tidal Volume 550 Setting Ventilator Respiratory Rate 12 Setting Ventilator Respiratory Rate 12 Setting Ventilator Respiratory Rate 12 Setting Ventilator Respiratory Rate 12 Setting Ventilator Respiratory Rate 12 Setting Ventilator Respiratory Rate 12 Setting Ventilator Respiratory Rate 12 Setting Ventilator Respiratory Rate 12 Setting Actual Respiratory Rate 22 Actual Respiratory Rate 20 Actual Respiratory Rate 24 Actual Respiratory Rate 18 Actual Respiratory Rate 20 Actual Respiratory Rate 19 Actual Respiratory Rate 22 Actual Respiratory Rate 27 Actual Respiratory Rate 21 Positive End Expiratory 5 Pressure Positive End Expiratory 5 Pressure Positive End Expiratory 5 Pressure Positive End Expiratory 5 Pressure Positive End Expiratory 5 Pressure Positive End Expiratory 5 Pressure Positive End Expiratory 5 Pressure Positive End Expiratory 5 Pressure Positive End Expiratory 5 Pressure Peak Inspiratory Airway 55 Pressure Peak Inspiratory Airway 32 Pressure Peak Inspiratory Airway 32 Pressure Peak Inspiratory Airway 31 Pressure Peak Inspiratory Airway 34 Pressure Peak Inspiratory Airway 36 Pressure Peak Inspiratory Airway 12 Pressure Peak Inspiratory Airway 27 Pressure Results - Laboratory Findings CBC and BMP: 03/13/17 03:17 03/13/17 03:17 ABG ABG pH 7.43 pH Units (7.32-7.45) 03/13/17 03:32 ABG pCO2 50 mmHg (35-45) H 03/13/17 03:32 ABG pO2 67 mmHg (85-104) L 03/13/17 03:32 ABG O2 Saturation 94 % (95-98) L 03/13/17 03:32 PT/INR, D-dimer PT 19.3 Seconds (9.4-12.1) H 03/08/17 20:00 Abnormal lab findings: Abnormal lab results RBC 3.62 M/mcL (4.19-5.50) L 03/13/17 03:17 Hgb 10.3 g/dL (12.9-16.9) L 03/13/17 03:17 Hct 32.1 % (37.5-50.1) L 03/13/17 03:17 PT 19.3 Seconds (9.4-12.1) H 03/08/17 20:00 APTT 64.3 Seconds (26.0-36.0) H 03/13/17 09:43 Heparin Anti-Xa, Unfract 0.82 IU/mL (0.30-0.70) H 03/09/17 18:02 ABG pCO2 50 mmHg (35-45) H 03/13/17 03:32 ABG pO2 67 mmHg (85-104) L 03/13/17 03:32 ABG HCO3 33.2 mEQ/L (21-27) H 03/13/17 03:32 ABG Total CO2 34.7 mEq/L (20-26) H 03/13/17 03:32 ABG O2 Saturation 94 % (95-98) L 03/13/17 03:32 ABG Base Excess 7.8 mEq/L (-2.0 to 3.0) H 03/13/17 03:32 Sodium 135 mEq/L (136-145) L 03/13/17 03:17 Carbon Dioxide 31 mEq/L (19-29) H 03/13/17 03:17 Glucose 222 mg/dL (70-99) H 03/13/17 03:17 POC Glucose 252 (58-89) H 03/13/17 11:34 Uric Acid 8.5 mg/dL (3.5-7.2) H 03/07/17 05:45 Ionized Calcium 1.12 mmol/L (1.15-1.35) L 03/09/17 03:55 Phosphorus 2.1 mg/dL (2.3-4.7) L 03/10/17 03:34 AST 367 Units/L (5-34) H 03/07/17 05:45 ALT 334 Units/L (0-55) H 03/07/17 05:45 Alkaline Phosphatase 162 Units/L (38-126) H 03/07/17 05:45 Creatine Kinase 3139 Units/L (30-200) H 03/10/17 03:34 Serum Total Protein 5.9 g/dL (6.0-8.3) L 03/07/17 05:45 Albumin 3.0 g/dL (3.5-5.0) L 03/07/17 05:45 Albumin/Globulin Ratio 1.0 (1.1-2.2) L 03/07/17 05:45 Urine Clarity Turbid (Clear) A 03/08/17 15:00 Ur Specific [place] 1.030 (1.010-1.025) H 03/08/17 15:00 Urine Protein 100 mg/dL (Neg-Trace) H 03/08/17 15:00 Urine Blood Large (Negative) H 03/08/17 15:00 Urine Microscopic RBC TNTC per hpf (0-3) H 03/08/17 15:00 Urine Microscopic WBC 5-15 per hpf (0-3) H 03/08/17 15:00 Ur Squamous Epith Cells Many per lpf (None-Few) H 03/08/17 15:00 Ur Culture Indicated? YES (NO) A 03/08/17 15:00 Staphylococcus sp PCR DETECTED (Not Detect) A 03/07/17 05:45 mecA-Methicil Res Gene DETECTED (Not Detect) A 03/07/17 05:45 - Microbiology Findings Microbiology Findings: Microbiology, Last 48 Hours 03/07/17 05:45 Blood Culture - Final Central Venous Catheter Staphylococcus epidermidis - Clinical Findings Intake & Output: Intake & Output 03/12/17 03/13/17 03/13/17 23:59 07:59 15:59 Intake Total 532 / 532 1832 / 1832 340 / 340 Output Total 700 / 700 600 / 600 825 / 825 Balance -168 / -168 1232 / 1232 -485 / -485 - Attending Attestation I examined this patient and my medical decision-making was reviewed with the LEGISLATIVE ANALYST/PA/Advanced Practice Nurse/Resident Physician. I agree with the documented findings, disposition and treatment plan as described except to the extent set forth below. Patient seen and examined. Labs, radiology, chart personally reviewed. Agree with resident's history and physical, assessment, plan with following comments: NECK FITTER: Patient remained sedated and does not follows commands, Pulmonary: Acceptable oxygenation and ventilation. Patient failed spontaneous breathing trial and will try again. Cardiovascular: stable and heart rate under better control GI: Nutrition per dietary and GI prophylaxis per routine Heme: DVT prophylaxis per routine ID: Continue antibiotics and plan to de-escalation Renal; urine out put and renal funtion reviewed Endorcine: blood glucose is monitored. Increase sliding scale insulin Lines: all lines checked and no evidence of infections Skin: skin care to prevent pressure ulcers per nursing routine care
[2017-03-13] MEDS ORDERED: Bisacodyl 10 MG RECTAL SUPPOSITORY RC PRN (10:08)
--- NOTE | 2017-03-13 10:32 | Cardiology Progress Note ---
Date of Encounter: 03/13/17 Time of Encounter: 09:00 Assessment and Plan (1) EMILIA (acute kidney injury) Current Visit: Yes Status: Resolved Per cardiology: -Patient with EMILIA on admission. -Nephrology following. -Required temporary CRRT, now off CRRT. -Management per primary and nephrology services. (2) Atrial flutter with rapid ventricular response Current Visit: No Status: Acute Per cardiology: -Known atrial flutter. Has had multiple admission for atrial flutter with RVR. -Patient currently on lopressor 100mg BID, LOpressor IV PRN, amiodarone drip at 0.5mg/hour, cardizem drip at 20mg/hour. -Patient on heparin drip, had been on xarelto in outpatient setting. May need to change to coumadin due to EMILIA. -[id number] score 4 (age, HTN, CHF, DM). Recommend penitentiary anticoagulation. -Average HR previous 12 hours noted to be 112, atrial flutter. During time of assessment, HRs 90s. -Patient current intubated and sedated. -Remains tachycardic. -BPs 130-140s systolic. -Patient has been difficult to rate control this admission and during previous admission. -Will continue to monitor BP and HR. Discussion w patient/family: The assessment and plan as outlined above was discussed with the patient. Thank you for involving us in the care of your patient. Please call with any questions. Discussed and reviewed with . Subjective Principal diagnosis: bradycardia Interval history: Patient admitted with EMILIA and bradycardia with atrial flutter with slow ventricular response. Patient required temporary vasopressor support and temporary CRRT. Patient remains intubated. Patient now with atrial flutter with rapid ventricular response. Average HR pervious 12 hours noted to be 112, atrial flutter. AT time of assessment, HRs 90s. Objective Vital Signs, Last 4 Hours Temp Pulse Resp BP Pulse Ox 03/13/17 10:00 97 18 125/76 94 03/13/17 09:30 95 20 130/82 94 03/13/17 08:30 116 19 146/94 94 03/13/17 08:15 100.2 F H 03/13/17 08:05 27 95 03/13/17 07:30 121 22 133/89 96 General: Other (INtubated and sedated. ) HEENT: Atraumatic, Normocephaly, Mucus Membranes Moist Neck: No JVD, Normal carotid pulses Cardiac: Other (Irregularly, irregular) Lungs: Normal Breath Sounds, No Wheeze, Rales, Rhonchi Neuro: Other (Intubated and sedated. ) Abdomen: Soft Skin: No rashes noted on visualized skin Musculoskeletal: Other (NO grimacing noted to chest wall palpation. ) Extremities: No Clubbing, No Cyanosis, Normal Pulses, Other (Mild bilateral pedal edema noted. ) Results 03/13/17 03:17 03/13/17 03:17 Lab Results Active Medications Albuterol/Ipratropium (Duoneb) 3 ml IH [id number] PRN; Protocol PRN Reason: Shortness Of Breath/Wheezing Stop: 09/06/17 04:18 Last Admin: 03/08/17 07:38 Dose: 3 ml Artificial Tears (Lacri-Lube) 1 appl BOTH EYES Q4HR LORI PRN Reason: Protocol Stop: 09/06/17 08:01 Last Admin: 03/13/17 08:06 Dose: 1 appl Artificial Tears (Lacri-Lube) 1 appl BOTH EYES Q2HR PRN; Protocol PRN Reason: Dry Eyes Stop: 09/06/17 06:14 Bisacodyl (Dulcolax) 10 mg RC DAILY PRN PRN Reason: Constipation Stop: 09/12/17 10:09 Budesonide/Formoterol Fumarate (Symbicort) 2 puff IH BIDRESP LORI PRN Reason: Protocol Stop: 09/06/17 10:01 Last Admin: 03/13/17 08:01 Dose: 2 puff Chlorhexidine Gluconate (Chlorhexidine Rinse) 15 ml MM BID LORI Stop: 09/06/17 09:01 Last Admin: 03/13/17 07:59 Dose: 15 ml Dextrose/Water (Dextrose 50% (Syg)) 25 ml IVP AD PRN PRN Reason: Hypoglycemia Stop: 09/06/17 11:06 Glucagon (Glucagen) 1 mg IM ONCE PRN PRN Reason: Hypoglycemia Stop: 09/06/17 11:06 Glucose (Gluctose) 15 gm PO ONCE PRN PRN Reason: Hypoglycemia Stop: 09/06/17 11:06 Glucose (Gluctose) 30 gm PO ONCE PRN PRN Reason: Hypoglycemia Stop: 09/06/17 11:06 Heparin Sodium (Porcine) (Heparin) 4,500 unit IVP Q6H PRN PRN Reason: SEE COMMENTS Stop: 09/07/17 17:00 Dopamine HCl/Dextrose (Dopamine Premix 400mg/250ml) 400 mg in 250 mls @ 14.879 mls/hr IVC .[id number] LORI; 2.5 MCG/KG/MIN PRN Reason: Protocol Stop: 09/06/17 01:01 Last Admin: 03/13/17 08:05 Dose: Not Given Fentanyl Citrate 1,000 mcg/ (Sodium Chloride) 100 mls @ 5 mls/hr IVC CONT LORI; 50 MCG/HR PRN Reason: Protocol Stop: 09/06/17 04:46 Last Admin: 03/13/17 08:04 Dose: 125 mcg/hr, 12.5 mls/hr Midazolam HCl 50 mg/ Sodium (Chloride) 100 mls @ 4 mls/hr IVC CONT LORI; 2 MG/HR PRN Reason: Protocol Stop: 09/06/17 04:46 Last Admin: 03/13/17 08:06 Dose: Not Given Dextrose (Dextrose 5%) 1,000 mls @ 100 mls/hr IVC .Q10H PRN PRN Reason: HYPOGLYCEMIA Stop: 09/06/17 11:06 Norepinephrine Bitartrate 4 mg (/ Dextrose) 250 mls @ 30 mls/hr IVC CONT LORI; 8 MCG/MIN PRN Reason: Protocol Stop: 09/06/17 15:31 Last Admin: 03/12/17 15:46 Dose: Not Given Amiodarone HCl/Dextrose (Amiodarone Drip Premix 360mg/200ml) 360 mg in 200 mls @ 16.667 mls/hr IVC CONT LORI PRN Reason: 0.5 MG/MIN Stop: 09/07/17 17:01 Last Admin: 03/13/17 02:39 Dose: 0.5 mg/min, 16.667 mls/hr Heparin Sodium/Dextrose (Heparin 25,000 Unit/500 Ml D5w) 25,000 unit in 500 mls @ 45.405 mls/hr IVC .Q11H1M LORI; 14 UNIT/KG/HR PRN Reason: Protocol Stop: 09/07/17 17:01 Last Titration: 03/13/17 04:14 Dose: 14.49 unit/kg/hr, 47 mls/hr Dexmedetomidine HCl (Precedex) 400 mcg in 100 mls @ 11.345 mls/hr IVC .Q8H49M LORI; 0.3 MCG/KG/HR PRN Reason: Protocol Stop: 09/08/17 07:16 Last Admin: 03/12/17 23:25 Dose: Not Given Diltiazem HCl 125 mg/ Dextrose 125 mls @ 5 mls/hr IVC .Q24H LORI; 5 MG/HR PRN Reason: Protocol Stop: 09/10/17 08:31 Last Admin: 03/13/17 09:30 Dose: 20 mg/hr, 20 mls/hr Insulin Human Lispro (Humalog) 0 units SQ Q6HR LORI PRN Reason: Protocol Stop: 09/12/17 12:01 Metoprolol Tartrate (Lopressor) 5 mg IVP Q6HR PRN PRN Reason: Tachyarrhythmias Stop: 09/07/17 18:01 Last Admin: 03/11/17 12:36 Dose: 5 mg Metoprolol Tartrate (Lopressor) 100 mg PO BID [facility] Stop: 09/11/17 21:01 Last Admin: 03/13/17 08:05 Dose: 100 mg Naloxone HCl (Narcan) 0.4 mg IVP Q2MIN PRN PRN Reason: Opioid Reversal Stop: 09/06/17 03:41 Pantoprazole Sodium (Protonix) 40 mg IVPB DAILY [facility] Stop: 09/06/17 09:01 Last Admin: 03/13/17 08:05 Dose: 40 mg Quetiapine Fumarate (Seroquel) 25 mg PO HS [facility] PRN Reason: Protocol Stop: 09/10/17 21:01 Last Admin: 03/12/17 19:55 Dose: 25 mg Senna (Senna) 8.8 mg GTUBE BID [facility] Stop: 09/07/17 21:01 Last Admin: 03/13/17 08:05 Dose: 8.8 mg Laboratory Tests 03/13/17 03/13/17 03:17 03:17 Hgb 10.3 L Potassium 3.9 Creatinine 1.01 - Imaging and Cardiology Chest Xray: report reviewed Echo: report reviewed - EKG Interpretation EKG results cardiology: other (Telemetry reviewed with average HR 112, atrial flutter. Longest pause 1.4 seconds. PVCs noted.) Consult Discharge Plan - Plan [facility]errals: [facility]Primary Care Provider[facility] -
[2017-03-13] MEDS: Dexmedetomidine HCl 400 MCG/100 ML MLS IVC SCH ×2 (10:37→13:57)
[2017-03-13] MEDS: *HR* Metoprolol 5 MG/5 ML VIAL IVP PRN (13:41)
[2017-03-13] MEDS: Norepinephrine 4 MG in D5% in Water 250 ML IVC SCH (16:14)
[2017-03-14] MEDS: Lacri-Lube 3.5 GM TUBE BOTH EYES SCH ×6 (00:12→20:11)
[2017-03-14] MEDS: Insulin LISPRO 300 UNITS/3 ML VIAL SQ SCH ×4 (00:12→17:58)
[2017-03-14] MEDS: Amiodarone Premix 360 MG/200 ML BAG IVC SCH ×3 (00:49→22:49)
[2017-03-14] MEDS: Heparin 25,000 UNIT/500 ML D5W 25,000 UNIT/500 ML MLS IVC SCH (00:50)
[2017-03-14 04:47] LABS: Basophils % 0.2 %; Eosinophils # 0.2 K/mcL (0.0-0.6); Eosinophils % 1.4 %; Hematocrit 29.3 % (37.5-50.1); Hemoglobin 9.6 g/dL (12.9-16.9); Immature Granulocytes % 0.9 % (0-4); Immature Platelets 2.5 % (1.1-6.1); Lymphocytes # 1.1 K/mcL (0.6-4.6); Lymphocytes % 8.5 %; Mean Corpuscular HGB Conc 32.8 g/dL (31.6-35.5); Mean Corpuscular Hemoglobin 28.7 pg (28.0-33.3); Mean Corpuscular Volume 87.7 fL (83.0-100.0); Mean Platelet Volume 9.6 fL (9.4-12.4); Monocytes # 1.7 K/mcL (0.0-1.3); Monocytes % 13.4 %; Neutrophils # 9.4 K/mcL (1.6-8.9); Platelet Count 230 K/mcL (140-400); Red Blood Count 3.34 M/mcL (4.19-5.50); Red Cell Distribution Width 13.6 % (11.5-14.5); Segmented Neutrophils % 75.6 %
[2017-03-14 04:57] LABS: BUN/Creatinine Ratio 14 (6-26); Blood Urea Nitrogen 14 mg/dL (8-26); Carbon Dioxide 31 mEq/L (19-29); Chloride 99 mEq/L (98-109); Glucose 227 mg/dL (70-99); Osmolality,Calculated 292 (280-300); Potassium 3.6 mEq/L (3.5-4.5); Sodium 137 mEq/L (136-145); eGFR For African Americans > 60 (> 60); eGFR For Non-African Americans > 60 (> 60)
[2017-03-14] MEDS ORDERED: Furosemide 40 MG/4 ML VIAL IVP ONE (08:05)
[2017-03-14] MEDS: Budesonide/Formoterol 160/4.5 MDI IH SCH ×2 (08:16→21:03)
--- NOTE | 2017-03-14 08:28 | Pulmonology Progress Note ---
<Verónica Nolasco - Last Filed: 03/14/17 14:34> Date of Encounter: 03/14/17 Time of Encounter: 08:28 Assessment and Plan (1) Atrial flutter Current Visit: Yes Status: Acute Patient has a history of atrial flutter. Cardiology is on board. They are recommending outpatient ablation for a flutter. Patient is currently on Cardizem and amiodarone drip as well as a beta doni, this is maintaining his heart rate in the 90s today. We are continuing to wean the patient sedation. However patient easily gets agitated. His EMILIA is resolving well. He is no longer hyperkalemic. Patient has had a negative blood culture as well as negative urine. We stopped antibiotics on 03/12. He has not been febrile. We did place the patient on Seroquel to help decrease his sedation requirement. We will do another SBT today. Plan: Beginning subcutaneous heparin for DVT prophylaxis. Wean sedation as tolerated. Amiodarone and Cardizem for rate control. Beta blockers for rate control Protonix for GI prophylaxis Continue Seroquel to help decrease sedation. SBT today Cardiology on board Added basal insulin. Diuresing with Lasix today. Enema today Qualifiers: Atrial flutter type: unspecified Qualified Code(s): I48.92 - Unspecified atrial flutter (2) Hyperkalemia Current Visit: Yes Status: Acute Resolved (3) DVT prophylaxis Current Visit: No Status: Acute Subcutaneous heparin (4) Bradycardia Current Visit: Yes Status: Acute Resolved (5) Hyperkalemia Current Visit: Yes Status: Acute Resolved (6) EMILIA (acute kidney injury) Current Visit: Yes Status: Acute Resolved (7) Hypotension Current Visit: Yes Status: Acute Resolved Qualifiers: Hypotension type: other hypotension type Qualified Code(s): I95.89 - Other hypotension (8) MRSA (methicillin resistant Staphylococcus aureus) septicemia Current Visit: Yes Status: Acute Resolved. He did have a positive serology for MRSA. He was placed on vancomycin as well as Zosyn. He also had a leukocytosis. However this has resolved. Antibiotic coverage has been stopped. Subjective Principal diagnosis: bradycardia Interval history: No events overnight. Patient BiPAP for about 45 minutes yesterday. We will continue to try BiPAP today to attempt to extubate the patient. We will also give patient an enema. He had Dulcolax yesterday with no result. He is still on Cardizem and amiodarone per cardiology. They are advising that they will possibly do an ablation as an outpatient. We will attempt to transition the patient off IV amiodarone and Cardizem and onto by mouth however he is still intubated at this time. We have stopped his IV heparin. We will diurese him today. Objective PUL Vital signs: Last Vital Signs Temp 99.7 F H 03/14/17 07:30 Pulse 130 03/14/17 08:00 Resp 26 03/14/17 08:00 BP 155/97 03/14/17 08:00 Pulse Ox 96 03/14/17 08:00 General appearance: no acute distress, other (Intubated and sedated. Patient is arousable however does not track you. He will open his eyes and move his arms.) Eyes: nonicteric ENT: oropharynx moist Neck: supple Effort: normal Auscultation: bilateral: clear Cardiovascular: regular rate and rhythm Gastrointestinal: normoactive bowel sounds, soft, non-tender, non-distended Integumentary: normal Extremities: no cyanosis, pink and warm, pulses normal, no ischemia or petechiae , edema (Trace pitting edema to bilateral lower extremities as well as hands bilaterally.) Musculoskeletal: no deformities pupils equal and round Ventilator Settings Ventilator Settings: Ventilator Settings, Last 8 Hours Ventilator Mode CPAP Ventilator Mode CPAP Ventilator Mode CPAP Ventilator Mode VC+ Ventilator Mode VC+ Ventilator Mode VC+ Ventilator Tidal Volume 550 Setting Ventilator Tidal Volume 550 Setting Ventilator Tidal Volume 550 Setting Ventilator Tidal Volume 550 Setting Ventilator Respiratory Rate 12 Setting Ventilator Respiratory Rate 12 Setting Ventilator Respiratory Rate 12 Setting Ventilator Respiratory Rate 12 Setting Actual Respiratory Rate 26 Actual Respiratory Rate 30 Actual Respiratory Rate 30 Actual Respiratory Rate 29 Actual Respiratory Rate 23 Positive End Expiratory 5 Pressure Positive End Expiratory 5 Pressure Positive End Expiratory 5 Pressure Positive End Expiratory 5 Pressure Positive End Expiratory 5 Pressure Peak Inspiratory Airway 11 Pressure Peak Inspiratory Airway 11 Pressure Peak Inspiratory Airway 21 Pressure Peak Inspiratory Airway 29 Pressure Peak Inspiratory Airway 21 Pressure Results - Laboratory Findings CBC and BMP: 03/14/17 04:10 03/14/17 04:10 ABG ABG pH 7.43 pH Units (7.32-7.45) 03/13/17 03:32 ABG pCO2 50 mmHg (35-45) H 03/13/17 03:32 ABG pO2 67 mmHg (85-104) L 03/13/17 03:32 ABG O2 Saturation 94 % (95-98) L 03/13/17 03:32 PT/INR, D-dimer PT 19.3 Seconds (9.4-12.1) H 03/08/17 20:00 Abnormal lab findings: Abnormal lab results WBC 12.4 K/mcL (4.3-11.1) H 03/14/17 04:10 RBC 3.34 M/mcL (4.19-5.50) L 03/14/17 04:10 Hgb 9.6 g/dL (12.9-16.9) L 03/14/17 04:10 Hct 29.3 % (37.5-50.1) L 03/14/17 04:10 Neutrophils # 9.4 K/mcL (1.6-8.9) H 03/14/17 04:10 Monocytes # 1.7 K/mcL (0.0-1.3) H 03/14/17 04:10 PT 19.3 Seconds (9.4-12.1) H 03/08/17 20:00 APTT 51.0 Seconds (26.0-36.0) H 03/14/17 04:10 Heparin Anti-Xa, Unfract 0.82 IU/mL (0.30-0.70) H 03/09/17 18:02 ABG pCO2 50 mmHg (35-45) H 03/13/17 03:32 ABG pO2 67 mmHg (85-104) L 03/13/17 03:32 ABG HCO3 33.2 mEQ/L (21-27) H 03/13/17 03:32 ABG Total CO2 34.7 mEq/L (20-26) H 03/13/17 03:32 ABG O2 Saturation 94 % (95-98) L 03/13/17 03:32 ABG Base Excess 7.8 mEq/L (-2.0 to 3.0) H 03/13/17 03:32 Carbon Dioxide 31 mEq/L (19-29) H 03/14/17 04:10 Glucose 227 mg/dL (70-99) H 03/14/17 04:10 POC Glucose 216 (58-89) H 03/14/17 06:07 Uric Acid 8.5 mg/dL (3.5-7.2) H 03/07/17 05:45 Ionized Calcium 1.12 mmol/L (1.15-1.35) L 03/09/17 03:55 Phosphorus 2.1 mg/dL (2.3-4.7) L 03/10/17 03:34 AST 367 Units/L (5-34) H 03/07/17 05:45 ALT 334 Units/L (0-55) H 03/07/17 05:45 Alkaline Phosphatase 162 Units/L (38-126) H 03/07/17 05:45 Creatine Kinase 3139 Units/L (30-200) H 03/10/17 03:34 Serum Total Protein 5.9 g/dL (6.0-8.3) L 03/07/17 05:45 Albumin 3.0 g/dL (3.5-5.0) L 03/07/17 05:45 Albumin/Globulin Ratio 1.0 (1.1-2.2) L 03/07/17 05:45 Urine Clarity Turbid (Clear) A 03/08/17 15:00 Ur Specific [place] 1.030 (1.010-1.025) H 03/08/17 15:00 Urine Protein 100 mg/dL (Neg-Trace) H 03/08/17 15:00 Urine Blood Large (Negative) H 03/08/17 15:00 Urine Microscopic RBC TNTC per hpf (0-3) H 03/08/17 15:00 Urine Microscopic WBC 5-15 per hpf (0-3) H 03/08/17 15:00 Ur Squamous Epith Cells Many per lpf (None-Few) H 03/08/17 15:00 Ur Culture Indicated? YES (NO) A 03/08/17 15:00 Staphylococcus sp PCR DETECTED (Not Detect) A 03/07/17 05:45 mecA-Methicil Res Gene DETECTED (Not Detect) A 03/07/17 05:45 - Microbiology Findings Microbiology Findings: Microbiology, Last 48 Hours 03/08/17 11:11 Blood Culture - Final Peripheral Venipuncture No growth. 03/07/17 05:45 Blood Culture - Final Central Venous Catheter Staphylococcus epidermidis - Diagnostic Findings Additional studies: Guidance Ultrasound 03/07/17 00:00 IMPRESSION: 1. Right internal jugular vein temporary dialysis catheter placement as discussed above. D/ / Gigi Linn MD / Gigi Linn MD Interpreting Provider: Gigi Linn MD Insertion Non-Tunneled Catheter 03/07/17 00:00 IMPRESSION: 1. Right internal jugular vein temporary dialysis catheter placement as discussed above. D/ / Gigi Linn MD / Gigi Linn MD Interpreting Provider: Gigi Linn MD X-Ray 03/07/17 09:04 IMPRESSION: 1. Right temporary dialysis catheter is in the distal superior vena cava with no acute complication. 2. Stable asymmetric patchy pulmonary opacities more prominent on the left. 3. Nasogastric tube in the stomach with the tip at the mid to distal gastric body. D/ / 03/07/2017 11:20:42 Fercho Sultana MD / cayden Interpreting Provider: Fercho Sultana MD Chest X-Ray 03/07/17 09:44 IMPRESSION: 1. Right temporary dialysis catheter is in the distal superior vena cava with no acute complication. 2. Stable asymmetric patchy pulmonary opacities more prominent on the left. 3. Nasogastric tube in the stomach with the tip at the mid to distal gastric body. D/ / 03/07/2017 11:20:42 Fercho Sultana MD / cayden Interpreting Provider: Fercho Sultana MD Retroperitoneum Ultrasound 03/07/17 11:00 IMPRESSION: Increased echogenicity of the bilateral renal cortex, likely related to medical renal disease. Nonvisualized urinary bladder. D/ / Martinez Resendiz MD / Martinez Resendiz MD Interpreting Provider: Martniez Resendiz MD Abdomen Ultrasound 03/07/17 11:17 IMPRESSION: 1. Limited examination due to patient body habitus. 2. Coarsened echotexture of the liver without evidence of a focal hepatic abnormality. 3. Otherwise, no acute abnormality within the visualized right upper quadrant. 4. Small right pleural effusion. D/ / Dilip Soriano MD / Dilip Soriano MD Interpreting Provider: Dilip Soriano MD Head CT 03/11/17 08:55 IMPRESSION: Stable exam with no acute intracranial abnormality. Redemonstration of chronic small vessel ischemic disease. D/ / 03/11/2017 10:05:02 Fercho Sultana MD / [email or web address] Interpreting Provider: Fercho Sultana MD - Clinical Findings Intake & Output: Intake & Output 03/13/17 03/14/17 03/14/17 23:59 07:59 15:59 Intake Total 755 / 755 2033 / 2033 Output Total 950 / 950 1550 / 1550 Balance -195 / -195 483 / 483 Weight 163.747 kg Consult Discharge Plan - Plan [facility]errals: [facility] [Primary Care Provider[facility] - <Nikki Ivan - Last Filed: 03/14/17 16:54> Date of Encounter: 03/14/17 Objective PUL Vital signs: Last Vital Signs Temp 99.1 F 03/14/17 16:00 Pulse 100 03/14/17 16:00 Resp 38 03/14/17 16:00 BP 122/73 03/14/17 16:00 Pulse Ox 95 03/14/17 16:00 Ventilator Settings Ventilator Settings: Ventilator Settings, Last 8 Hours Ventilator Mode CPAP Ventilator Mode CPAP Ventilator Mode CPAP Ventilator Mode CPAP Ventilator Mode VC+ Ventilator Mode VC+ Ventilator Mode VC+ Ventilator Mode VC+ Ventilator Mode VC+ Ventilator Mode VC+ Ventilator Mode VC+ Ventilator Mode VC+ Ventilator Tidal Volume 550 Setting Ventilator Tidal Volume 550 Setting Ventilator Tidal Volume 550 Setting Ventilator Tidal Volume 550 Setting Ventilator Tidal Volume 550 Setting Ventilator Tidal Volume 550 Setting Ventilator Tidal Volume 550 Setting Ventilator Tidal Volume 550 Setting Ventilator Tidal Volume 550 Setting Ventilator Tidal Volume 550 Setting Ventilator Tidal Volume 550 Setting Ventilator Respiratory Rate 12 Setting Ventilator Respiratory Rate 12 Setting Ventilator Respiratory Rate 12 Setting Ventilator Respiratory Rate 12 Setting Ventilator Respiratory Rate 12 Setting Ventilator Respiratory Rate 12 Setting Ventilator Respiratory Rate 12 Setting Ventilator Respiratory Rate 12 Setting Ventilator Respiratory Rate 12 Setting Ventilator Respiratory Rate 12 Setting Actual Respiratory Rate 38 Actual Respiratory Rate 37 Actual Respiratory Rate 36 Actual Respiratory Rate 30 Actual Respiratory Rate 17 Actual Respiratory Rate 17 Actual Respiratory Rate 18 Actual Respiratory Rate 20 Actual Respiratory Rate 17 Actual Respiratory Rate 22 Actual Respiratory Rate 17 Actual Respiratory Rate 24 Positive End Expiratory 5 Pressure Positive End Expiratory 5 Pressure Positive End Expiratory 5 Pressure Positive End Expiratory 5 Pressure Positive End Expiratory 5 Pressure Positive End Expiratory 5 Pressure Positive End Expiratory 5 Pressure Positive End Expiratory 5 Pressure Positive End Expiratory 5 Pressure Positive End Expiratory 5 Pressure Positive End Expiratory 5 Pressure Positive End Expiratory 5 Pressure Peak Inspiratory Airway 14 Pressure Peak Inspiratory Airway 14 Pressure Peak Inspiratory Airway 14 Pressure Peak Inspiratory Airway 14 Pressure Peak Inspiratory Airway 24 Pressure Peak Inspiratory Airway 26 Pressure Peak Inspiratory Airway 22 Pressure Peak Inspiratory Airway 20 Pressure Peak Inspiratory Airway 23 Pressure Peak Inspiratory Airway 21 Pressure Peak Inspiratory Airway 23 Pressure Results - Laboratory Findings CBC and BMP: 03/14/17 04:10 03/14/17 04:10 ABG ABG pH 7.43 pH Units (7.32-7.45) 03/13/17 03:32 ABG pCO2 50 mmHg (35-45) H 03/13/17 03:32 ABG pO2 67 mmHg (85-104) L 03/13/17 03:32 ABG O2 Saturation 94 % (95-98) L 03/13/17 03:32 PT/INR, D-dimer PT 19.3 Seconds (9.4-12.1) H 03/08/17 20:00 Abnormal lab findings: Abnormal lab results WBC 12.4 K/mcL (4.3-11.1) H 03/14/17 04:10 RBC 3.34 M/mcL (4.19-5.50) L 03/14/17 04:10 Hgb 9.6 g/dL (12.9-16.9) L 03/14/17 04:10 Hct 29.3 % (37.5-50.1) L 03/14/17 04:10 Neutrophils # 9.4 K/mcL (1.6-8.9) H 03/14/17 04:10 Monocytes # 1.7 K/mcL (0.0-1.3) H 03/14/17 04:10 PT 19.3 Seconds (9.4-12.1) H 03/08/17 20:00 APTT 51.0 Seconds (26.0-36.0) H 03/14/17 04:10 Heparin Anti-Xa, Unfract 0.82 IU/mL (0.30-0.70) H 03/09/17 18:02 ABG pCO2 50 mmHg (35-45) H 03/13/17 03:32 ABG pO2 67 mmHg (85-104) L 03/13/17 03:32 ABG HCO3 33.2 mEQ/L (21-27) H 03/13/17 03:32 ABG Total CO2 34.7 mEq/L (20-26) H 03/13/17 03:32 ABG O2 Saturation 94 % (95-98) L 03/13/17 03:32 ABG Base Excess 7.8 mEq/L (-2.0 to 3.0) H 03/13/17 03:32 Carbon Dioxide 31 mEq/L (19-29) H 03/14/17 04:10 Glucose 227 mg/dL (70-99) H 03/14/17 04:10 POC Glucose 265 (58-89) H 03/14/17 10:51 Uric Acid 8.5 mg/dL (3.5-7.2) H 03/07/17 05:45 Ionized Calcium 1.12 mmol/L (1.15-1.35) L 03/09/17 03:55 Phosphorus 2.1 mg/dL (2.3-4.7) L 03/10/17 03:34 AST 367 Units/L (5-34) H 03/07/17 05:45 ALT 334 Units/L (0-55) H 03/07/17 05:45 Alkaline Phosphatase 162 Units/L (38-126) H 03/07/17 05:45 Creatine Kinase 3139 Units/L (30-200) H 03/10/17 03:34 Serum Total Protein 5.9 g/dL (6.0-8.3) L 03/07/17 05:45 Albumin 3.0 g/dL (3.5-5.0) L 03/07/17 05:45 Albumin/Globulin Ratio 1.0 (1.1-2.2) L 03/07/17 05:45 Urine Clarity Turbid (Clear) A 03/08/17 15:00 Ur Specific [place] 1.030 (1.010-1.025) H 03/08/17 15:00 Urine Protein 100 mg/dL (Neg-Trace) H 03/08/17 15:00 Urine Blood Large (Negative) H 03/08/17 15:00 Urine Microscopic RBC TNTC per hpf (0-3) H 03/08/17 15:00 Urine Microscopic WBC 5-15 per hpf (0-3) H 03/08/17 15:00 Ur Squamous Epith Cells Many per lpf (None-Few) H 03/08/17 15:00 Ur Culture Indicated? YES (NO) A 03/08/17 15:00 Staphylococcus sp PCR DETECTED (Not Detect) A 03/07/17 05:45 mecA-Methicil Res Gene DETECTED (Not Detect) A 03/07/17 05:45 - Microbiology Findings Microbiology Findings: Microbiology, Last 48 Hours 03/08/17 11:11 Blood Culture - Final Peripheral Venipuncture No growth. - Clinical Findings Intake & Output: Intake & Output 03/14/17 03/14/17 03/14/17 07:59 15:59 23:59 Intake Total 3 / 2033 758 / 758 100 / 100 Output Total 1550 / 1550 2150 / 2150 Balance 483 / 483 -1392 / -1392 100 / 100 Weight 163.747 kg - Attending Attestation I examined this patient and my medical decision-making was reviewed with the SHIRT TURNER/PA/Advanced Practice Nurse/Resident Physician. I agree with the documented findings, disposition and treatment plan as described except to the extent set forth below. Patient seen and examined. Labs, radiology, chart personally reviewed. Agree with resident's history and physical, assessment, plan with following comments: [employer] SAL[employer]: Patient more awake, however still not following commands., If anything some simple commands. Pulmonary: Acceptable oxygenation and ventilation. Patient is doing better with spontaneous breathing trial, however is still not stable for extubation. Cardiovascular: Cardiology follow-up, heart rate is under better control GI: Nutrition per dietary and GI prophylaxis per routine Heme: DVT prophylaxis per routine ID: Continue antibiotics and plan to de-escalation Renal; urine out put and renal funtion reviewed. Diuresis Endorcine: blood glucose is monitored Lines: all lines checked and no evidence of infections Skin: skin care to prevent pressure ulcers per nursing routine care
[2017-03-14] MEDS: FentaNYL (PF) 1,000 MCG in 0.9 % Sodium Chloride 80 ML IVC SCH (08:42)
[2017-03-14] MEDS: Chlorhexidine Rinse 15 ML MOUTHWASH MM SCH ×2 (08:49→20:12)
[2017-03-14] MEDS: Metoprolol 100 MG TABLET PO SCH ×2 (08:50→20:12)
[2017-03-14] MEDS: Pantoprazole 40 MG VIAL IVPB SCH (08:50)
[2017-03-14] MEDS ORDERED: Milk and Molasses Enema 200 ML RC ONE (10:09)
--- NOTE | 2017-03-14 10:25 | Cardiology Consult Note ---
Date of Encounter: 03/14/17 Time of Encounter: 10:23 Assessment and Plan (1) Atrial flutter with rapid ventricular response Current Visit: No Status: Acute Per Electrophysiology: -Known atrial flutter. Has had multiple admission for atrial flutter with RVR. -Presented this admission with slow ventricular response, HR 30s in setting of hyperkalemia K 7.0. -Once potassium was corrected, went into RVR. -Patient currently on lopressor 100mg BID, Lopressor IV PRN, amiodarone drip at 0.5mg/hour, cardizem drip at 20mg/hour. -Patient on heparin drip, had been on xarelto in outpatient setting. May need to change to coumadin due to EMILIA. -[id number] score 4 (age, HTN, CHF, DM). Recommend manager intermediate anticoagulation. -Average HR previous 12 hours noted to be 110, atrial flutter. During time of assessment, HRs 110s as well. -Patient current intubated and sedated. -Remains tachycardic. -Okay with AVG HR ~100 given he is intubated. Continue current meds. -Once extubated, recommend attempting to get pt back on his home rate control meds only--Cardizem CD 360mg daily and Lopressor 100mg BID. Recommend amiodarone only short term. -Do not recommend digoxin given his EMILIA on presentation requiring temporary CRRT , now off CRRT. -Would benefit from outpt A-Flutter ablation, but do not recommend as inpt in his current state. -Will discuss with Dr. Glynn Tian and make changes as necessary. Discussion w patient/family: The assessment and plan as outlined above was discussed with the patient and/or family members who expressed understanding and agreement. All questions were answered. Thank you for involving us in the care of your patient. Please call with any questions. I will discuss all the above with Dr. Glynn Tian and make changes as necessary. History of Present Illness Consult date: 03/14/17 Requesting physician: Fadumo Muñoz Consult reason: A-Flutter RVR Chief complaint: n/a History of present illness: ELECTROPHYSIOLOGY CONSULT NOTE Mr. Molina is a 71 year old male with a past medical history significant for atrial fibrillation/flutter on xarelto, HTN, HLD, DM type II, and FARAZ on c-pap. He presented with weakness, AMS, and SOB. He was found to have atrial flutter with slow ventricular response, HR 30's, hypotension, and EMILIA with hyperkalemia K 7.2. EP consulted due to pt now being A-Flutter with RVR and difficult to rate control, on multiple AV shreyas blockers. He was recently admitted for atrial flutter with RVR and cardizem was increased. He was set up in the out patient setting with electrophysiology to discuss atrial flutter ablation. Mr. Molina is currently sedated and intubated. Pt required temporary vasopressor support and temporary CRRT. 24 hr tele AVG HR 110, A-Flutter RVR. Limited Echo 03/07/17 EF 60-65%, RV not well visualized, appears mildly dilated with mild hypokinesis. Past Med Surg Social Fam HX - Past Medical History Medical history: arthritis, asthma, atrial fibrillation, cancer, diabetes, hypertension, other Psychiatric history: no psych history - Past Surgical History Surgical History: orthopedic, other, prostatectomy - Social History Smoking Status: Former smoker Smokeless Tobacco Status: No Alcohol use: none Drug use: none - Family History Mother Living Status: Hx Family Cardiac Disorders: Yes (CHF) Father Living Status: Hx Family Cardiac Disorders: Yes Medications and Allergies Albuterol Sulfate [Albuterol Inhaler] 2 puff IH QID PRN 02/13/17 [History] Aspirin Enteric Coated [Aspirin EC] 81 mg PO DAILY 02/13/17 [History] Atorvastatin [Lipitor] 10 mg PO HS 02/13/17 [History] Budesonide/Formoterol 160/4.5 [Symbicort 160/4.5] 2 puff IH BIDR 02/13/17 [ History] Cetirizine HCl [All Day Allergy] 10 mg PO DAILY 02/13/17 [History] Cholecalciferol (D-3) [Vitamin D] 2,000 unit PO DAILY 02/13/17 [History] Diltiazem CD (24hr) [Cardizem CD] 360 mg PO DAILY 02/13/17 [History] Duloxetine HCl [Cymbalta] 60 mg PO DAILY 02/13/17 [History] Fluticasone Propionate Nasal [Flonase] 1 spray NS BID 02/13/17 [History] HYDROcodone/Acet 5/325 mg [[place] 5-325 mg] 1 tab PO BID 02/13/17 [History] Insulin ASPART [NovoLOG] 5 unit SQ TIDWM 02/13/17 [History] Insulin Glargine [Lantus] 58 unit SQ HS 02/13/17 [History] Lisinopril 2.5 mg PO DAILY 02/13/17 [History] Melatonin/Pyridoxine HCl (B6) [Melatonin 3 mg Tablet] 6 mg PO HS 02/13/17 [ History] Metformin HCl [Glucophage] 1,000 mg PO BID 02/13/17 [History] Metoprolol [Lopressor] 100 mg PO BID 02/13/17 [History] Montelukast [Singulair] 10 mg PO HS 02/13/17 [History] Omeprazole [PriLOSEC] 40 mg PO DAILY 02/13/17 [History] Polyvinyl Alcohol [Artificial Tears] 1 drop BOTH EYES AD PRN 02/13/17 [History] Pregabalin [Lyrica] 200 mg PO BID 02/13/17 [History] Rivaroxaban [Xarelto] 20 mg PO DAILY 02/13/17 [History] Saliva Substitute Combo No.3 [Aquoral] 3 - 5 spray MM BID 02/13/17 [History] Sildenafil Citrate [Viagra] 50 mg PO AD PRN 02/13/17 [History] Sodium Chloride [Mina-128] 1 drop BOTH EYES QID 02/13/17 [History] Tamsulosin HCl [Flomax] 0.4 mg PO DAILY 02/13/17 [History] Trazodone HCl 150 mg PO HS PRN 02/13/17 [History] Docusate [Colace] 100 mg PO BID PRN #60 capsule 02/18/17 [Rx] Furosemide [Lasix] 40 mg PO DAILY #30 tablet 02/18/17 [Rx] Sennosides/Docusate Sodium [Senna Plus] 2 each PO BID PRN #60 tablet 02/18/17 [ Rx] Albuterol Neb [Proventil Neb] 2.5 mg IH Q4H PRN 02/19/17 [History] GuaiFENesin/Dextromethorphan [Tussin Dm Syrup] 10 ml PO Q4H PRN 02/19/17 [ History] Ipratropium/Albuterol Neb [Duoneb] 3 ml IH ONCE PRN 02/19/17 [History] Allergies codeine Allergy (Verified 02/13/17 16:16) Anaphylaxis ROS unobtainable: due to endotracheal tube All Systems Review: A 10-system review of systems was performed and is negative for pertinent findings except as documented above in the HPI. Physical Examination Vital Signs, Last 4 Hours Temp Pulse Resp BP Pulse Ox 03/14/17 09:29 17 132/86 95 03/14/17 09:00 132 24 160/93 99 03/14/17 08:00 130 26 155/97 96 03/14/17 07:54 26 155/97 96 03/14/17 07:30 99.7 F H Vital Signs Temp Pulse Resp BP Pulse Ox 03/14/17 09:29 17 132/86 95 03/14/17 09:00 132 24 160/93 99 03/14/17 08:00 130 26 155/97 96 03/14/17 07:54 26 155/97 96 03/14/17 07:30 99.7 F H 03/14/17 06:02 30 140/85 95 03/14/17 06:00 130 28 140/85 96 03/14/17 05:44 30 127/76 98 03/14/17 04:23 29 139/81 96 03/14/17 01:20 23 147/85 95 03/14/17 01:00 111 20 147/85 96 03/14/17 00:07 100.9 F H 03/14/17 00:00 106 03/13/17 23:10 25 141/80 95 03/13/17 23:00 105 16 141/80 95 03/13/17 22:00 94 17 127/82 93 03/13/17 21:49 19 101/89 93 03/13/17 21:00 113 20 130/84 93 03/13/17 20:33 100.5 F H 03/13/17 20:00 116 20 132/84 95 03/13/17 19:53 24 143/80 95 03/13/17 19:00 115 19 151/92 94 03/13/17 18:19 27 147/66 97 03/13/17 18:00 115 27 147/86 100 03/13/17 17:00 96 25 112/79 96 03/13/17 16:52 27 121/78 93 03/13/17 16:00 98.6 F 96 22 121/78 90 03/13/17 15:00 101 19 112/74 93 03/13/17 14:14 44 03/13/17 14:00 124 45 90 03/13/17 13:00 121 23 146/102 93 03/13/17 12:00 112 22 149/93 95 03/13/17 11:57 100.5 F H 03/13/17 11:00 114 20 128/92 93 03/13/17 10:54 20 110/83 95 Intake and Output 03/13/17 03/14/17 03/14/17 23:59 07:59 15:59 Intake Total 755 / 755 3 / 2033 Output Total 950 / 950 1550 / 1550 1100 / 1100 Balance -195 / -195 483 / 483 -1100 / -1100 Intake: IV Fluids 350 / 350 1348 / 1348 Amiodarone Drip Premix 200 / 200 360mg/200mL 360 mg In 200 ml @ 0.5 MG/MIN 16.667 mls/hr IVC CONT [facility] Rx#: [id number] PRECEDEX 400 mcg In 100 50 / 50 ml @ 0.3 MCG/KG/HR 11.345 mls/hr IVC .Q8H49M [facility] Rx#:[id number] Cardizem 125 MG In 125 / 125 200 / 200 Dextrose 5% 100 ML @ 5 MG /HR 5 mls/hr IVC .Q24H [facility] Rx#:[id number] FentaNYL (PF) 1,000 MCG 100 / 100 100 / 100 In 0.9 % Sodium Chloride 80 ML @ 50 MCG/HR 5 mls/ hr IVC CONT [facility] Rx#: [id number] Heparin 25,000 UNIT/500 848 / 848 ML D5W 25,000 unit In 500 ml @ 14 UNIT/KG/HR 45. 405 mls/hr IVC .Q11H1M [facility] Rx#:[id number] Versed 50 MG In 0.9 % 75 / 75 Sodium Chloride 90 ML @ 2 MG/HR 4 mls/hr IVC CONT [facility]I Rx#:[id number] Tube Feeding 345 / 345 485 / 485 Free Water 60 / 60 100 / 100 Free Water Intake Amount 100 / 100 Output: Catheter 950 / 950 1550 / 1550 1100 / 1100 Other: Weight 163.747 kg Blood Glucose* 301 216 Patient Weight 03/14/17 23:59 Weight 163.747 kg General: Other (intubated, sedated) HEENT: Atraumatic, Normocephaly, Mucus Membranes Moist Neck: No JVD, Normal carotid pulses Cardiac: Other (irregular) Lungs: Other (intubated) Neuro: Other (intubated and sedated) Abdomen: Soft Skin: No rashes noted on visualized skin Musculoskeletal: No Chest Wall Tenderness Extremities: No Clubbing, No Cyanosis, No Edema, Normal Pulses Results 03/14/17 04:10 03/14/17 04:10 Lab Results 03/13/17 03/14/17 03/14/17 16:51 04:10 04:10 WBC 12.4 H Hgb 9.6 L Hct 29.3 L Plt Count 230 APTT 62.1 H Sodium 137 Potassium 3.6 Chloride 99 Carbon Dioxide 31 H BUN 14 Creatinine 0.99 Glucose 227 H Calcium 9.0 03/14/17 04:10 WBC Hgb Hct Plt Count APTT 51.0 H Sodium Potassium Chloride Carbon Dioxide BUN Creatinine Glucose Calcium Short CBC 03/14/17 Range/Units 04:10 WBC 12.4 H (4.3-11.1) K/mcL Hgb 9.6 L (12.9-16.9) g/dL Hct 29.3 L (37.5-50.1) % Plt Count 230 (140-400) K/mcL Neutrophils # 9.4 H (1.6-8.9) K/mcL BMP 03/14/17 Range/Units 04:10 Sodium 137 (136-145) mEq/L Potassium 3.6 (3.5-4.5) mEq/L Chloride 99 (98-109) mEq/L Carbon Dioxide 31 H (19-29) mEq/L BUN 14 (8-26) mg/dL Creatinine 0.99 (0.72-1.25) mg/dL Glucose 227 H (70-99) mg/dL Calcium 9.0 (8.6-10.8) mg/dL Active Medications Albuterol/Ipratropium (Duoneb) 3 ml IH [id number] PRN; Protocol PRN Reason: Shortness Of Breath/Wheezing Stop: 09/06/17 04:18 Last Admin: 03/08/17 07:38 Dose: 3 ml Artificial Tears (Lacri-Lube) 1 appl BOTH EYES Q4HR [facility]I PRN Reason: Protocol Stop: 09/06/17 08:01 Last Admin: 03/14/17 06:00 Dose: 1 appl Artificial Tears (Lacri-Lube) 1 appl BOTH EYES Q2HR PRN; Protocol PRN Reason: Dry Eyes Stop: 09/06/17 06:14 Bisacodyl (Dulcolax) 10 mg RC DAILY PRN PRN Reason: Constipation Stop: 09/12/17 10:09 Last Admin: 03/13/17 12:36 Dose: 10 mg Budesonide/Formoterol Fumarate (Symbicort) 2 puff IH BIDRESP [facility] PRN Reason: Protocol Stop: 09/06/17 10:01 Last Admin: 03/14/17 08:16 Dose: 2 puff Chlorhexidine Gluconate (Chlorhexidine Rinse) 15 ml MM BID [facility] Stop: 09/06/17 09:01 Last Admin: 03/14/17 08:49 Dose: 15 ml Dextrose/Water (Dextrose 50% (Syg)) 25 ml IVP AD PRN PRN Reason: Hypoglycemia Stop: 09/06/17 11:06 Glucagon (Glucagen) 1 mg IM ONCE PRN PRN Reason: Hypoglycemia Stop: 09/06/17 11:06 Glucose (Gluctose) 15 gm PO ONCE PRN PRN Reason: Hypoglycemia Stop: 09/06/17 11:06 Glucose (Gluctose) 30 gm PO ONCE PRN PRN Reason: Hypoglycemia Stop: 09/06/17 11:06 Dopamine HCl/Dextrose (Dopamine Premix 400mg/250ml) 400 mg in 250 mls @ 14.879 mls/hr IVC .[id number] [facility]I; 2.5 MCG/KG/MIN PRN Reason: Protocol Stop: 09/06/17 01:01 Last Admin: 03/14/17 01:18 Dose: Not Given Fentanyl Citrate 1,000 mcg/ (Sodium Chloride) 100 mls @ 5 mls/hr IVC CONT LORI; 50 MCG/HR PRN Reason: Protocol Stop: 09/06/17 04:46 Last Admin: 03/14/17 08:42 Dose: 100 mcg/hr, 10 mls/hr Midazolam HCl 50 mg/ Sodium (Chloride) 100 mls @ 4 mls/hr IVC CONT [facility]ORI; 2 MG/HR PRN Reason: Protocol Stop: 09/06/17 04:46 Last Titration: 03/13/17 22:08 Dose: 2 mg/hr, 4 mls/hr Dextrose (Dextrose 5%) 1,000 mls @ 100 mls/hr IVC .Q10H PRN PRN Reason: HYPOGLYCEMIA Stop: 09/06/17 11:06 Norepinephrine Bitartrate 4 mg (/ Dextrose) 250 mls @ 30 mls/hr IVC CONT [facility]ORI; 8 MCG/MIN PRN Reason: Protocol Stop: 09/06/17 15:31 Last Admin: 03/13/17 16:14 Dose: Not Given Amiodarone HCl/Dextrose (Amiodarone Drip Premix 360mg/200ml) 360 mg in 200 mls @ 16.667 mls/hr IVC CONT [facility]ORI PRN Reason: 0.5 MG/MIN Stop: 09/07/17 17:01 Last Admin: 03/14/17 00:49 Dose: 0.5 mg/min, 16.667 mls/hr Dexmedetomidine HCl (Precedex) 400 mcg in 100 mls @ 11.345 mls/hr IVC .Q8H49M [facility]; 0.3 MCG/KG/HR PRN Reason: Protocol Stop: 09/08/17 07:16 Last Titration: 03/13/17 16:43 Dose: 0 mcg/kg/hr, 0 mls/hr Diltiazem HCl 125 mg/ Dextrose 125 mls @ 5 mls/hr IVC .Q24H [facility]; 5 MG/HR PRN Reason: Protocol Stop: 09/10/17 08:31 Last Admin: 03/14/17 05:00 Dose: 20 mg/hr, 20 mls/hr Insulin Human Lispro (Humalog) 0 units SQ Q6HR [facility] PRN Reason: Protocol Stop: 09/12/17 12:01 Last Admin: 03/14/17 06:09 Dose: 8 units Metoprolol Tartrate (Lopressor) 5 mg IVP Q6HR PRN PRN Reason: Tachyarrhythmias Stop: 09/07/17 18:01 Last Admin: 03/13/17 13:41 Dose: 5 mg Metoprolol Tartrate (Lopressor) 100 mg PO BID [facility] Stop: 09/11/17 21:01 Last Admin: 03/14/17 08:50 Dose: 100 mg Naloxone HCl (Narcan) 0.4 mg IVP Q2MIN PRN PRN Reason: Opioid Reversal Stop: 09/06/17 03:41 Pantoprazole Sodium (Protonix) 40 mg IVPB DAILY [facility] Stop: 09/06/17 09:01 Last Admin: 03/14/17 08:50 Dose: 40 mg Quetiapine Fumarate (Seroquel) 25 mg PO HS LOIR PRN Reason: Protocol Stop: 09/10/17 21:01 Last Admin: 03/13/17 20:41 Dose: 25 mg Senna (Senna) 8.8 mg GTUBE BID [facility] Stop: 09/07/17 21:01 Last Admin: 03/14/17 08:50 Dose: 8.8 mg - Imaging and Cardiology Echo: report reviewed - EKG Interpretation EKG results cardiology: other (24 hr tele AVG HR 110, A-Flutter RVR) Consult Discharge Plan - Plan [facility]errals: [facility]Primary Care Provider[facility] -
[2017-03-14] MEDS ORDERED: Insulin DETEMIR 100 UNIT/ML X5UNITS SQ SCH (11:30)
[2017-03-14] MEDS: Dexmedetomidine HCl 400 MCG/100 ML MLS IVC SCH ×3 (12:54→20:18)
[2017-03-14] MEDS: *HR* Heparin 5,000 UNIT/ML VIAL SQ SCH (17:58)
[2017-03-14] MEDS: Insulin DETEMIR 100 UNIT/ML X5UNITS SQ SCH (20:18)
[2017-03-14] MEDS: Norepinephrine 4 MG in D5% in Water 250 ML IVC SCH (20:49)
[2017-03-15] MEDS: Dexmedetomidine HCl 400 MCG/100 ML MLS IVC SCH ×8 (00:01→21:25)
[2017-03-15] MEDS: Insulin LISPRO 300 UNITS/3 ML VIAL SQ SCH ×4 (00:03→17:40)
[2017-03-15] MEDS: Lacri-Lube 3.5 GM TUBE BOTH EYES SCH ×2 (00:03→04:31)
[2017-03-15 04:06] LABS: ABG Base Excess 11.9 mEq/L (-2.0 to 3.0); ABG HCO3 35.9 mEQ/L (21-27); ABG Oxygen Saturation 94 % (95-98); ABG PCO2 44 mmHg (35-45); ABG PH 7.52 pH Units (7.32-7.45); ABG PO2 62 mmHg (85-104); ABG TCO2 37.3 mEq/L (20-26)
[2017-03-15 04:08] LABS: Blood Gas FiO2 60 %
[2017-03-15 04:11] LABS: Basophils % 0.3 %; Eosinophils # 0.2 K/mcL (0.0-0.6); Eosinophils % 1.6 %; Hematocrit 28.1 % (37.5-50.1); Hemoglobin 9.2 g/dL (12.9-16.9); Immature Granulocytes % 0.9 % (0-4); Lymphocytes # 0.9 K/mcL (0.6-4.6); Lymphocytes % 7.4 %; Mean Corpuscular HGB Conc 32.7 g/dL (31.6-35.5); Mean Corpuscular Hemoglobin 28.9 pg (28.0-33.3); Mean Corpuscular Volume 88.4 fL (83.0-100.0); Mean Platelet Volume 9.4 fL (9.4-12.4); Monocytes # 1.3 K/mcL (0.0-1.3); Monocytes % 11.5 %; Neutrophils # 9.2 K/mcL (1.6-8.9); Platelet Count 227 K/mcL (140-400); Red Blood Count 3.18 M/mcL (4.19-5.50); Red Cell Distribution Width 13.4 % (11.5-14.5); Segmented Neutrophils % 78.3 %
[2017-03-15 04:49] LABS: BUN/Creatinine Ratio 17 (6-26); Blood Urea Nitrogen 18 mg/dL (8-26); Carbon Dioxide 32 mEq/L (19-29); Chloride 99 mEq/L (98-109); Glucose 241 mg/dL (70-99); Osmolality,Calculated 296 (280-300); Potassium 3.9 mEq/L (3.5-4.5); Sodium 138 mEq/L (136-145); eGFR For African Americans > 60 (> 60); eGFR For Non-African Americans > 60 (> 60)
[2017-03-15] MEDS: *HR* Heparin 5,000 UNIT/ML VIAL SQ SCH ×2 (04:51→17:31)
[2017-03-15] MEDS: Chlorhexidine Rinse 15 ML MOUTHWASH MM SCH (07:56)
[2017-03-15] MEDS: Pantoprazole 40 MG VIAL IVPB SCH (07:56)
[2017-03-15] MEDS ORDERED: Furosemide 40 MG/4 ML VIAL IVP ONE (08:57)
[2017-03-15] MEDS: Metoprolol 100 MG TABLET PO SCH ×2 (10:32→21:31)
--- NOTE | 2017-03-15 10:58 | Cardiology Progress Note ---
Date of Encounter: 03/15/17 Time of Encounter: 10:00 Assessment and Plan (1) EMILIA (acute kidney injury) Current Visit: Yes Status: Resolved Per cardiology: -Patient with EMILIA on admission. -Nephrology following. -Required temporary CRRT, now off CRRT. -Management per primary and nephrology services. (2) Atrial flutter with rapid ventricular response Current Visit: No Status: Acute Per Electrophysiology: -Known atrial flutter. Has had multiple admission for atrial flutter with RVR. -Presented this admission with slow ventricular response, HR 30s in setting of hyperkalemia K 7.0. -Once potassium was corrected, went into RVR. -Patient currently on lopressor 100mg BID, Lopressor IV PRN, amiodarone drip at 0.5mg/hour, cardizem drip at 10mg/hour. -Patient had been on heparin drip. Now on heparin subcutaneous. Will re-start oral anticoagulation once breathing more stabilized. -[id number] score 4 (age, HTN, CHF, DM). Recommend terminal system operator anticoagulation. -Average HR previous 12 hours noted to be 88, atrial flutter. However, after extubation, HRs have been tachycardic. During time of assessment, HRs 110s as well. -Patient current extubated, however respiratory distress noted. Per discussion with [employer] M[employer] TENDER, patient is going to be placed on Bipap. -Okay with AVG HR ~100. Continue current meds. -Would benefit from outpt A-Flutter ablation, but do not recommend as inpt in his current state. -Will continue to monitor. -Will attempt to change medications to oral, if patient remains extubated. Discussion w patient/family: The assessment and plan as outlined above was discussed with the patient. Thank you for involving us in the care of your patient. Please call with any questions. Discussed and reviewed with . Subjective Principal diagnosis: bradycardia Interval history: Patient admitted with EMILIA and bradycardia with atrial flutter with slow ventricular response. Patient required temporary vasopressor support and temporary CRRT. Patient currently extubated, however respiratory distress and use of accessory muscles noted. Patient now with atrial flutter with rapid ventricular response. Average HR pervious 12 hours noted to be 88, atrial flutter. AT time of assessment, HRs 110s. Objective Vital Signs, Last 4 Hours Temp Pulse Resp BP Pulse Ox 03/15/17 10:00 128 42 162/86 98 03/15/17 09:30 119 36 139/91 92 03/15/17 08:00 106 31 138/90 94 03/15/17 07:57 97.4 F L 03/15/17 07:46 105 03/15/17 07:30 105 34 138/92 94 General: Other (Difficulty with speach. Respiratory distress noted. ) HEENT: Atraumatic, Normocephaly, Mucus Membranes Moist Neck: No JVD, Normal carotid pulses Cardiac: Other (Irregularly, irregular. ) Lungs: Other (Lung sound coarse throughout. ) Neuro: Alert and responsive, Other (Oriented to person and place. ) Abdomen: Soft, Non-Tender Skin: No rashes noted on visualized skin Musculoskeletal: No Chest Wall Tenderness Extremities: No Clubbing, No Cyanosis, Normal Pulses, Other (Mild bilateral pedal edema noted. Non-pitting. ) Results 03/15/17 04:01 03/15/17 04:01 Lab Results Active Medications Albuterol/Ipratropium (Duoneb) 3 ml IH [id number] PRN; Protocol PRN Reason: Shortness Of Breath/Wheezing Stop: 09/06/17 04:18 Last Admin: 03/08/17 07:38 Dose: 3 ml Bisacodyl (Dulcolax) 10 mg RC DAILY PRN PRN Reason: Constipation Stop: 09/12/17 10:09 Last Admin: 03/13/17 12:36 Dose: 10 mg Budesonide/Formoterol Fumarate (Symbicort) 2 puff IH BIDRESP [facility]I PRN Reason: Protocol Stop: 09/06/17 10:01 Last Admin: 03/14/17 21:03 Dose: 2 puff Dextrose/Water (Dextrose 50% (Syg)) 25 ml IVP AD PRN PRN Reason: Hypoglycemia Stop: 09/06/17 11:06 Glucagon (Glucagen) 1 mg IM ONCE PRN PRN Reason: Hypoglycemia Stop: 09/06/17 11:06 Glucose (Gluctose) 15 gm PO ONCE PRN PRN Reason: Hypoglycemia Stop: 09/06/17 11:06 Glucose (Gluctose) 30 gm PO ONCE PRN PRN Reason: Hypoglycemia Stop: 09/06/17 11:06 Heparin Sodium (Porcine) (Heparin) 5,000 unit SQ Q12HCO [facility] Stop: 09/13/17 18:01 Last Admin: 03/15/17 04:51 Dose: 5,000 unit Fentanyl Citrate 1,000 mcg/ (Sodium Chloride) 100 mls @ 5 mls/hr IVC CONT LORI; 50 MCG/HR PRN Reason: Protocol Stop: 09/06/17 04:46 Last Titration: 03/14/17 22:30 Dose: 0 mcg/hr, 0 mls/hr Midazolam HCl 50 mg/ Sodium (Chloride) 100 mls @ 4 mls/hr IVC CONT LORI; 2 MG/HR PRN Reason: Protocol Stop: 09/06/17 04:46 Last Titration: 03/14/17 23:30 Dose: 0 mg/hr, 0 mls/hr Dextrose (Dextrose 5%) 1,000 mls @ 100 mls/hr IVC .Q10H PRN PRN Reason: HYPOGLYCEMIA Stop: 09/06/17 11:06 Norepinephrine Bitartrate 4 mg (/ Dextrose) 250 mls @ 30 mls/hr IVC CONT LORI; 8 MCG/MIN PRN Reason: Protocol Stop: 09/06/17 15:31 Last Admin: 03/14/17 20:49 Dose: Not Given Amiodarone HCl/Dextrose (Amiodarone Drip Premix 360mg/200ml) 360 mg in 200 mls @ 16.667 mls/hr IVC CONT LORI PRN Reason: 0.5 MG/MIN Stop: 09/07/17 17:01 Last Admin: 03/14/17 22:49 Dose: 0.5 mg/min, 16.667 mls/hr Dexmedetomidine HCl (Precedex) 400 mcg in 100 mls @ 11.345 mls/hr IVC .Q8H49M [facility]ORI; 0.3 MCG/KG/HR PRN Reason: Protocol Stop: 09/08/17 07:16 Last Admin: 03/15/17 08:50 Dose: 0.6 mcg/kg/hr, 22.691 mls/hr Diltiazem HCl 125 mg/ Dextrose 125 mls @ 5 mls/hr IVC .Q24H [facility]ORI; 5 MG/HR PRN Reason: Protocol Stop: 09/10/17 08:31 Last Titration: 03/15/17 08:54 Dose: 10 mg/hr, 10 mls/hr Insulin Detemir (Levemir) 30 unit SQ HS [facility] Stop: 09/13/17 21:01 Last Admin: 03/14/17 20:18 Dose: 30 unit Insulin Human Lispro (Humalog) 0 units SQ Q6HR [facility]I PRN Reason: Protocol Stop: 09/12/17 12:01 Last Admin: 03/15/17 05:30 Dose: 10 units Metoprolol Tartrate (Lopressor) 5 mg IVP Q6HR PRN PRN Reason: Tachyarrhythmias Stop: 09/07/17 18:01 Last Admin: 03/13/17 13:41 Dose: 5 mg Metoprolol Tartrate (Lopressor) 100 mg PO BID [facility] Stop: 09/11/17 21:01 Last Admin: 03/15/17 10:32 Dose: Not Given Naloxone HCl (Narcan) 0.4 mg IVP Q2MIN PRN PRN Reason: Opioid Reversal Stop: 09/06/17 03:41 Pantoprazole Sodium (Protonix) 40 mg IVPB DAILY [facility] Stop: 09/06/17 09:01 Last Admin: 03/15/17 07:56 Dose: 40 mg Quetiapine Fumarate (Seroquel) 25 mg PO HS [facility] PRN Reason: Protocol Stop: 09/10/17 21:01 Last Admin: 03/14/17 20:12 Dose: 25 mg Senna (Senna) 8.8 mg GTUBE BID [facility] Stop: 09/07/17 21:01 Last Admin: 03/15/17 10:32 Dose: Not Given Laboratory Tests 03/15/17 03/15/17 04:01 04:01 WBC 11.7 H Hgb 9.2 L Potassium 3.9 Creatinine 1.04 - Imaging and Cardiology Chest Xray: report reviewed Echo: report reviewed - EKG Interpretation EKG results cardiology: other (Telemetry reviewed with average HR previous 12 hours noted to be 88, atrial flutter. However at time of assessment HRs 110s. Longest pause noted 1.4 seconds.) Consult Discharge Plan - Plan [facility]errals: [facility] [Primary Care Provider[facility] -
[2017-03-15] MEDS: Amiodarone Premix 360 MG/200 ML BAG IVC SCH ×2 (11:10→21:26)
[2017-03-15] MEDS: Budesonide/Formoterol 160/4.5 MDI IH SCH ×2 (11:29→21:27)
--- NOTE | 2017-03-15 13:38 | Pulmonology Progress Note ---
<MarzenaNikki M - Last Filed: 03/15/17 16:04> Date of Encounter: 03/15/17 Objective PUL Vital signs: Last Vital Signs Temp 100.8 F H 03/15/17 12:00 Pulse 97 03/15/17 15:00 Resp 30 03/15/17 15:00 BP 124/78 03/15/17 15:00 Pulse Ox 97 03/15/17 15:00 Results - Laboratory Findings CBC and BMP: 03/15/17 04:01 03/15/17 04:01 ABG ABG pH 7.52 pH Units (7.32-7.45) H 03/15/17 04:00 ABG pCO2 44 mmHg (35-45) 03/15/17 04:00 ABG pO2 62 mmHg (85-104) L 03/15/17 04:00 ABG O2 Saturation 94 % (95-98) L 03/15/17 04:00 PT/INR, D-dimer PT 19.3 Seconds (9.4-12.1) H 03/08/17 20:00 Abnormal lab findings: Abnormal lab results WBC 11.7 K/mcL (4.3-11.1) H 03/15/17 04:01 RBC 3.18 M/mcL (4.19-5.50) L 03/15/17 04:01 Hgb 9.2 g/dL (12.9-16.9) L 03/15/17 04:01 Hct 28.1 % (37.5-50.1) L 03/15/17 04:01 Neutrophils # 9.2 K/mcL (1.6-8.9) H 03/15/17 04:01 PT 19.3 Seconds (9.4-12.1) H 03/08/17 20:00 APTT 51.0 Seconds (26.0-36.0) H 03/14/17 04:10 Heparin Anti-Xa, Unfract 0.82 IU/mL (0.30-0.70) H 03/09/17 18:02 ABG pH 7.52 pH Units (7.32-7.45) H 03/15/17 04:00 ABG pO2 62 mmHg (85-104) L 03/15/17 04:00 ABG HCO3 35.9 mEQ/L (21-27) H 03/15/17 04:00 ABG Total CO2 37.3 mEq/L (20-26) H 03/15/17 04:00 ABG O2 Saturation 94 % (95-98) L 03/15/17 04:00 ABG Base Excess 11.9 mEq/L (-2.0 to 3.0) H 03/15/17 04:00 Carbon Dioxide 32 mEq/L (19-29) H 03/15/17 04:01 Glucose 241 mg/dL (70-99) H 03/15/17 04:01 POC Glucose 179 (58-89) H 03/15/17 11:37 Uric Acid 8.5 mg/dL (3.5-7.2) H 03/07/17 05:45 Ionized Calcium 1.12 mmol/L (1.15-1.35) L 03/09/17 03:55 Phosphorus 2.1 mg/dL (2.3-4.7) L 03/10/17 03:34 AST 367 Units/L (5-34) H 03/07/17 05:45 ALT 334 Units/L (0-55) H 03/07/17 05:45 Alkaline Phosphatase 162 Units/L (38-126) H 03/07/17 05:45 Creatine Kinase 3139 Units/L (30-200) H 03/10/17 03:34 Serum Total Protein 5.9 g/dL (6.0-8.3) L 03/07/17 05:45 Albumin 3.0 g/dL (3.5-5.0) L 03/07/17 05:45 Albumin/Globulin Ratio 1.0 (1.1-2.2) L 03/07/17 05:45 Urine Clarity Turbid (Clear) A 03/08/17 15:00 Ur Specific [place] 1.030 (1.010-1.025) H 03/08/17 15:00 Urine Protein 100 mg/dL (Neg-Trace) H 03/08/17 15:00 Urine Blood Large (Negative) H 03/08/17 15:00 Urine Microscopic RBC TNTC per hpf (0-3) H 03/08/17 15:00 Urine Microscopic WBC 5-15 per hpf (0-3) H 03/08/17 15:00 Ur Squamous Epith Cells Many per lpf (None-Few) H 03/08/17 15:00 Ur Culture Indicated? YES (NO) A 03/08/17 15:00 Staphylococcus sp PCR DETECTED (Not Detect) A 03/07/17 05:45 mecA-Methicil Res Gene DETECTED (Not Detect) A 03/07/17 05:45 - Microbiology Findings Microbiology Findings: Microbiology, Last 48 Hours 03/09/17 15:45 Blood Culture - Final Peripheral Venipuncture No growth. 03/08/17 11:11 Blood Culture - Final Peripheral Venipuncture No growth. - Clinical Findings Intake & Output: Intake & Output 03/15/17 03/15/17 03/15/17 07:59 15:59 23:59 Intake Total 958 / 958 482 / 482 Output Total 400 / 400 2100 / 2100 Balance 558 / 558 -1618 / -1618 Weight 163.91 kg Consult Discharge Plan - Plan [facility]errals: [facility] [Primary Care Provider] - - Attending Attestation I examined this patient and my medical decision-making was reviewed with the SOFTWARE TESTER/PA/Advanced Practice Nurse/Resident Physician. I agree with the documented findings, disposition and treatment plan as described except to the extent set forth below. Patient seen and examined. Labs, radiology, chart personally reviewed. Agree with resident's history and physical, assessment, plan with following comments: FUR PLUCKER: Patient more awake and follows commands, Pulmonary: Acceptable oxygenation and ventilation and patient was successfully extubated to BiPAP. Patient needs to remain in ICU to monitor him closely, he still have very tenuous respiratory status which could deteriorate. Cardiovascular: His atrial fibrillation being managed by director river restoration. GI: Nutrition per dietary and GI prophylaxis per routine. Will keep patient nothing by mouth in case his breathing worsen and needs to be reintubated. Heme: DVT prophylaxis per routine ID: Monitor his WBC Renal; urine out put and renal funtion reviewed Endorcine: blood glucose is monitored Lines: all lines checked and no evidence of infections Skin: skin care to prevent pressure ulcers per nursing routine care <Verónica Nolasco - Last Filed: 03/15/17 16:48> Date of Encounter: 03/15/17 Time of Encounter: 13:38 Assessment and Plan (1) Atrial flutter Current Visit: Yes Status: Acute Patient has a history of atrial flutter. Cardiology is on board. They are recommending outpatient ablation for a flutter. Patient is currently on Cardizem and amiodarone drip as well as a beta doni, this is maintaining his heart rate in the 90s today. We will attempt to transition this to by mouth as soon as patient is able to pass a swallow eval. He was successfully extubated today. He has been on BiPAP for most of the day. He is speaking in short sentences. He tracks you throughout the room. He has motion in all 4 extremities. He does follow commands. We did place the patient on Seroquel to help decrease his sedation requirement. Plan: subcutaneous heparin for DVT prophylaxis. Wean sedation as tolerated. Amiodarone and Cardizem for rate control. Beta blockers for rate control Protonix for GI prophylaxis Continue Seroquel to help decrease sedation. Cardiology on board Added basal insulin. Continuing to diurese with Lasix today. Qualifiers: Atrial flutter type: unspecified Qualified Code(s): I48.92 - Unspecified atrial flutter (2) Hyperkalemia Current Visit: Yes Status: Resolved Resolved (3) DVT prophylaxis Current Visit: No Status: Acute Subcutaneous heparin (4) Bradycardia Current Visit: Yes Status: Resolved Resolved (5) Hyperkalemia Current Visit: Yes Status: Resolved Resolved (6) EMILIA (acute kidney injury) Current Visit: Yes Status: Resolved Resolved (7) Hypotension Current Visit: Yes Status: Resolved Resolved (8) MRSA (methicillin resistant Staphylococcus aureus) septicemia Current Visit: Yes Status: Resolved Resolved. He did have a positive serology for MRSA. He was placed on vancomycin as well as Zosyn. He also had a leukocytosis. However this has resolved. Antibiotic coverage has been stopped. Subjective Principal diagnosis: bradycardia Interval history: No events overnight. Patient was extubated today successfully. He is alert and able to look about the room. He is only speaking minimally but has use of all 4 extremities extremities on command. We will use BiPAP intermittently for patient comfort. He has also needed some mild sedation to help with his agitation throughout the day. Objective PUL Vital signs: Last Vital Signs Temp 100.8 F H 03/15/17 12:00 Pulse 103 03/15/17 13:00 Resp 38 03/15/17 13:00 BP 142/84 03/15/17 13:00 Pulse Ox 96 03/15/17 13:00 General appearance: no acute distress, other (Easily aroused. Will look about the room. Speaking in short sentences.) Eyes: nonicteric ENT: oropharynx moist Neck: supple Effort: normal Auscultation: bilateral: rhonchi (Mild, diffuse) Cardiovascular: regular rate and rhythm Gastrointestinal: normoactive bowel sounds, soft, non-tender, non-distended Integumentary: normal Extremities: no cyanosis, no clubbing, pink and warm, pulses normal, no ischemia or petechiae, edema (Mild trace edema to his lower extremities and hands.) Musculoskeletal: no deformities non-focal exam, pupils equal and round Ventilator Settings Ventilator Settings: Ventilator Settings, Last 8 Hours Ventilator Mode CPAP Ventilator Mode CPAP Ventilator Mode CPAP Ventilator Mode CPAP Ventilator Tidal Volume 550 Setting Ventilator Tidal Volume 550 Setting Ventilator Tidal Volume 550 Setting Ventilator Tidal Volume 550 Setting Ventilator Respiratory Rate 12 Setting Ventilator Respiratory Rate 12 Setting Actual Respiratory Rate 31 Actual Respiratory Rate 34 Actual Respiratory Rate 31 Positive End Expiratory 5 Pressure Positive End Expiratory 5 Pressure Positive End Expiratory 5 Pressure Positive End Expiratory 5 Pressure Peak Inspiratory Airway 16 Pressure Results - Laboratory Findings CBC and BMP: 03/15/17 04:01 03/15/17 04:01 ABG ABG pH 7.52 pH Units (7.32-7.45) H 03/15/17 04:00 ABG pCO2 44 mmHg (35-45) 03/15/17 04:00 ABG pO2 62 mmHg (85-104) L 03/15/17 04:00 ABG O2 Saturation 94 % (95-98) L 03/15/17 04:00 PT/INR, D-dimer PT 19.3 Seconds (9.4-12.1) H 03/08/17 20:00 Abnormal lab findings: Abnormal lab results WBC 11.7 K/mcL (4.3-11.1) H 03/15/17 04:01 RBC 3.18 M/mcL (4.19-5.50) L 03/15/17 04:01 Hgb 9.2 g/dL (12.9-16.9) L 03/15/17 04:01 Hct 28.1 % (37.5-50.1) L 03/15/17 04:01 Neutrophils # 9.2 K/mcL (1.6-8.9) H 03/15/17 04:01 PT 19.3 Seconds (9.4-12.1) H 03/08/17 20:00 APTT 51.0 Seconds (26.0-36.0) H 03/14/17 04:10 Heparin Anti-Xa, Unfract 0.82 IU/mL (0.30-0.70) H 03/09/17 18:02 ABG pH 7.52 pH Units (7.32-7.45) H 03/15/17 04:00 ABG pO2 62 mmHg (85-104) L 03/15/17 04:00 ABG HCO3 35.9 mEQ/L (21-27) H 03/15/17 04:00 ABG Total CO2 37.3 mEq/L (20-26) H 03/15/17 04:00 ABG O2 Saturation 94 % (95-98) L 03/15/17 04:00 ABG Base Excess 11.9 mEq/L (-2.0 to 3.0) H 03/15/17 04:00 Carbon Dioxide 32 mEq/L (19-29) H 03/15/17 04:01 Glucose 241 mg/dL (70-99) H 03/15/17 04:01 POC Glucose 179 (58-89) H 03/15/17 11:37 Uric Acid 8.5 mg/dL (3.5-7.2) H 03/07/17 05:45 Ionized Calcium 1.12 mmol/L (1.15-1.35) L 03/09/17 03:55 Phosphorus 2.1 mg/dL (2.3-4.7) L 03/10/17 03:34 AST 367 Units/L (5-34) H 03/07/17 05:45 ALT 334 Units/L (0-55) H 03/07/17 05:45 Alkaline Phosphatase 162 Units/L (38-126) H 03/07/17 05:45 Creatine Kinase 3139 Units/L (30-200) H 03/10/17 03:34 Serum Total Protein 5.9 g/dL (6.0-8.3) L 03/07/17 05:45 Albumin 3.0 g/dL (3.5-5.0) L 03/07/17 05:45 Albumin/Globulin Ratio 1.0 (1.1-2.2) L 03/07/17 05:45 Urine Clarity Turbid (Clear) A 03/08/17 15:00 Ur Specific [place] 1.030 (1.010-1.025) H 03/08/17 15:00 Urine Protein 100 mg/dL (Neg-Trace) H 03/08/17 15:00 Urine Blood Large (Negative) H 03/08/17 15:00 Urine Microscopic RBC TNTC per hpf (0-3) H 03/08/17 15:00 Urine Microscopic WBC 5-15 per hpf (0-3) H 03/08/17 15:00 Ur Squamous Epith Cells Many per lpf (None-Few) H 03/08/17 15:00 Ur Culture Indicated? YES (NO) A 03/08/17 15:00 Staphylococcus sp PCR DETECTED (Not Detect) A 03/07/17 05:45 mecA-Methicil Res Gene DETECTED (Not Detect) A 03/07/17 05:45 - Microbiology Findings Microbiology Findings: Microbiology, Last 48 Hours 03/09/17 15:45 Blood Culture - Final Peripheral Venipuncture No growth. 03/08/17 11:11 Blood Culture - Final Peripheral Venipuncture No growth. - Diagnostic Findings Additional studies: Guidance Ultrasound 03/07/17 00:00 IMPRESSION: 1. Right internal jugular vein temporary dialysis catheter placement as discussed above. D/ / Gigi Linn MD / Gigi Linn MD Interpreting Provider: Gigi Linn MD Insertion Non-Tunneled Catheter 03/07/17 00:00 IMPRESSION: 1. Right internal jugular vein temporary dialysis catheter placement as discussed above. D/ / Gigi Linn MD / Gigi Linn MD Interpreting Provider: Gigi Linn MD X-Ray 03/07/17 09:04 IMPRESSION: 1. Right temporary dialysis catheter is in the distal superior vena cava with no acute complication. 2. Stable asymmetric patchy pulmonary opacities more prominent on the left. 3. Nasogastric tube in the stomach with the tip at the mid to distal gastric body. D/ / 03/07/2017 11:20:42 Fercho Sultana MD / cayden Interpreting Provider: Fercho Sultana MD Chest X-Ray 03/07/17 09:44 IMPRESSION: 1. Right temporary dialysis catheter is in the distal superior vena cava with no acute complication. 2. Stable asymmetric patchy pulmonary opacities more prominent on the left. 3. Nasogastric tube in the stomach with the tip at the mid to distal gastric body. D/ / 03/07/2017 11:20:42 Fercho Sultana MD / cayden Interpreting Provider: Fercho Sultana MD Retroperitoneum Ultrasound 03/07/17 11:00 IMPRESSION: Increased echogenicity of the bilateral renal cortex, likely related to medical renal disease. Nonvisualized urinary bladder. D/ / Martinez Resendiz MD / Martinez Resendiz MD Interpreting Provider: Martinze Resendiz MD Abdomen Ultrasound 03/07/17 11:17 IMPRESSION: 1. Limited examination due to patient body habitus. 2. Coarsened echotexture of the liver without evidence of a focal hepatic abnormality. 3. Otherwise, no acute abnormality within the visualized right upper quadrant. 4. Small right pleural effusion. D/ / Dilip Soriano MD / Dilip Soriano MD Interpreting Provider: Dilip Soriano MD Head CT 03/11/17 08:55 IMPRESSION: Stable exam with no acute intracranial abnormality. Redemonstration of chronic small vessel ischemic disease. D/ / 03/11/2017 10:05:02 Fercho Sultana MD / alycia Interpreting Provider: Fercho Sultana MD - Clinical Findings Intake & Output: Intake & Output 03/14/17 03/15/17 03/15/17 23:59 07:59 15:59 Intake Total 895 / 895 958 / 958 382 / 382 Output Total 1250 / 1250 400 / 400 2100 / 2100 Balance -355 / -355 558 / 558 -1718 / -1718 Weight 163.91 kg
[2017-03-15] MEDS: FentaNYL (PF) 1,000 MCG in 0.9 % Sodium Chloride 80 ML IVC SCH (16:08)
[2017-03-15] MEDS: Norepinephrine 4 MG in D5% in Water 250 ML IVC SCH (16:09)
[2017-03-15] MEDS: Insulin DETEMIR 100 UNIT/ML X5UNITS SQ SCH (20:39)
[2017-03-15] MEDS: *HR* Metoprolol 5 MG/5 ML VIAL IVP PRN (21:14)
[2017-03-15] MEDS ORDERED: *HR* LORazepam 2 MG/ML VIAL IVP ONE (22:18)
[2017-03-15 22:52] LABS: ABG Base Excess 11.9 mEq/L (-2.0 to 3.0); ABG HCO3 37.5 mEQ/L (21-27); ABG Oxygen Saturation 98 % (95-98); ABG PCO2 54 mmHg (35-45); ABG PH 7.45 pH Units (7.32-7.45); ABG PO2 102 mmHg (85-104); ABG TCO2 39.2 mEq/L (20-26)
[2017-03-15 22:53] LABS: Blood Gas FiO2 60 %
[2017-03-16] MEDS: FentaNYL (PF) 1,000 MCG in 0.9 % Sodium Chloride 80 ML IVC SCH ×4 (00:11→20:25)
[2017-03-16] MEDS: Insulin LISPRO 300 UNITS/3 ML VIAL SQ SCH ×4 (00:51→17:42)
[2017-03-16] MEDS: Dexmedetomidine HCl 400 MCG/100 ML MLS IVC SCH ×4 (02:13→15:00)
[2017-03-16] MEDS: *HR* LORazepam 2 MG/ML VIAL IVP PRN ×2 (03:07→09:25)
[2017-03-16 04:23] LABS: Basophils % 0.2 %; Eosinophils # 0.4 K/mcL (0.0-0.6); Eosinophils % 2.7 %; Hematocrit 30.7 % (37.5-50.1); Hemoglobin 10.2 g/dL (12.9-16.9); Immature Granulocytes % 0.8 % (0-4); Lymphocytes # 0.8 K/mcL (0.6-4.6); Lymphocytes % 5.6 %; Mean Corpuscular HGB Conc 33.2 g/dL (31.6-35.5); Mean Corpuscular Hemoglobin 29.5 pg (28.0-33.3); Mean Corpuscular Volume 88.7 fL (83.0-100.0); Mean Platelet Volume 9.7 fL (9.4-12.4); Monocytes # 1.5 K/mcL (0.0-1.3); Monocytes % 10.4 %; Neutrophils # 11.4 K/mcL (1.6-8.9); Platelet Count 302 K/mcL (140-400); Red Blood Count 3.46 M/mcL (4.19-5.50); Red Cell Distribution Width 13.5 % (11.5-14.5); Segmented Neutrophils % 80.3 %
[2017-03-16 04:37] LABS: BUN/Creatinine Ratio 18 (6-26); Blood Urea Nitrogen 15 mg/dL (8-26); Calcium 9.4 mg/dL (8.6-10.8); Carbon Dioxide 32 mEq/L (19-29); Chloride 100 mEq/L (98-109); Glucose 102 mg/dL (70-99); Osmolality,Calculated 289 (280-300); Potassium 3.8 mEq/L (3.5-4.5); Sodium 139 mEq/L (136-145); eGFR For African Americans > 60 (> 60); eGFR For Non-African Americans > 60 (> 60)
[2017-03-16] MEDS: *HR* Heparin 5,000 UNIT/ML VIAL SQ SCH (05:34)
[2017-03-16 06:08] LABS: ABG Base Excess 10.6 mEq/L (-2.0 to 3.0); ABG HCO3 36.1 mEQ/L (21-27); ABG Oxygen Saturation 98 % (95-98); ABG PCO2 52 mmHg (35-45); ABG PH 7.45 pH Units (7.32-7.45); ABG PO2 104 mmHg (85-104); ABG TCO2 37.7 mEq/L (20-26)
[2017-03-16 06:09] LABS: Blood Gas FiO2 60 %
[2017-03-16] MEDS: Budesonide/Formoterol 160/4.5 MDI IH SCH ×2 (08:57→21:11)
[2017-03-16] MEDS: Metoprolol 100 MG TABLET PO SCH ×2 (09:15→20:24)
[2017-03-16] MEDS: Furosemide 20 MG/2 ML VIAL IVP SCH ×2 (09:22→17:41)
[2017-03-16] MEDS: Amiodarone Premix 360 MG/200 ML BAG IVC SCH ×2 (09:50→22:09)
[2017-03-16] MEDS: Pantoprazole 40 MG VIAL IVPB SCH (10:25)
--- NOTE | 2017-03-16 10:40 | Pulmonology Progress Note ---
Date of Encounter: 03/16/17 Time of Encounter: 10:38 Assessment and Plan (1) Acute respiratory failure with hypoxia Current Visit: No Status: Resolved Acute respiratory failure with hypoxemia in this particular individual is multifactorial in etiology possibly related to pneumonia, pulmonary edema particular in light of atrial fibrillation with rapid ventricular response ( reportedly atrial fibrillation is been very difficult to control per discussion with nursing staff). Insert patient has seemingly clinically failed noninvasive ventilatory support ( persistent tachypnea, I work of breathing) he will undergo intubation. all other medical measures as outlined. Cardiology assisting with management of atrial fibrillation and appreciate their input. Kyle Kline [phone] Code(s): J96.01 - Acute respiratory failure with hypoxia SNOMED Code(s): 21516006, [id number] Subjective Principal diagnosis: Acute respiratory failure, A Fib with RVR Interval history: The patient was extubated approximately 36 hours ago, is reliant on noninvasive ventilation but in spite of this is persistently to Him tachycardic. He is also anxious in spite of administration of intravenous sedative agents. I am unable to obtain a review of systems in light of the patient's clinical status. I note persistent atrial fibrillation with somewhat controlled ventricular response (tachycardic). Objective PUL Vital signs: Last Vital Signs Temp 98.7 F 03/16/17 04:24 Pulse 121 03/16/17 09:00 Resp 24 03/16/17 09:56 BP 146/97 03/16/17 09:00 Pulse Ox 100 03/16/17 09:56 General appearance: agitated, appears uncomfortable, other (Anxious) Eyes: nonicteric Auscultation: bilateral: diminished breath sounds, rhonchi Cardiovascular: irregular rhythm, other (Rapid ventricular rate) Gastrointestinal: normoactive bowel sounds, non-tender Integumentary: normal Extremities: edema (Mild lower extremity edema) non-focal exam Ventilator Settings Ventilator Settings: Ventilator Settings, Last 8 Hours Ventilator Mode CPAP Ventilator Tidal Volume 600 Setting Ventilator Respiratory Rate 12 Setting Actual Respiratory Rate 24 Positive End Expiratory 5 Pressure Peak Inspiratory Airway 27 Pressure Results - Laboratory Findings CBC and BMP: 03/16/17 04:00 03/16/17 04:00 ABG ABG pH 7.45 pH Units (7.32-7.45) 03/16/17 06:00 ABG pCO2 52 mmHg (35-45) H 03/16/17 06:00 ABG pO2 104 mmHg (85-104) 03/16/17 06:00 ABG O2 Saturation 98 % (95-98) 03/16/17 06:00 PT/INR, D-dimer PT 19.3 Seconds (9.4-12.1) H 03/08/17 20:00 Abnormal lab findings: Abnormal lab results WBC 14.2 K/mcL (4.3-11.1) H 03/16/17 04:00 RBC 3.46 M/mcL (4.19-5.50) L 03/16/17 04:00 Hgb 10.2 g/dL (12.9-16.9) L 03/16/17 04:00 Hct 30.7 % (37.5-50.1) L 03/16/17 04:00 Neutrophils # 11.4 K/mcL (1.6-8.9) H 03/16/17 04:00 Monocytes # 1.5 K/mcL (0.0-1.3) H 03/16/17 04:00 PT 19.3 Seconds (9.4-12.1) H 03/08/17 20:00 APTT 51.0 Seconds (26.0-36.0) H 03/14/17 04:10 Heparin Anti-Xa, Unfract 0.82 IU/mL (0.30-0.70) H 03/09/17 18:02 ABG pCO2 52 mmHg (35-45) H 03/16/17 06:00 ABG HCO3 36.1 mEQ/L (21-27) H 03/16/17 06:00 ABG Total CO2 37.7 mEq/L (20-26) H 03/16/17 06:00 ABG Base Excess 10.6 mEq/L (-2.0 to 3.0) H 03/16/17 06:00 Carbon Dioxide 32 mEq/L (19-29) H 03/16/17 04:00 Glucose 102 mg/dL (70-99) H 03/16/17 04:00 POC Glucose 92 (58-89) H 03/16/17 07:13 Uric Acid 8.5 mg/dL (3.5-7.2) H 03/07/17 05:45 Ionized Calcium 1.12 mmol/L (1.15-1.35) L 03/09/17 03:55 Phosphorus 2.1 mg/dL (2.3-4.7) L 03/10/17 03:34 AST 367 Units/L (5-34) H 03/07/17 05:45 ALT 334 Units/L (0-55) H 03/07/17 05:45 Alkaline Phosphatase 162 Units/L (38-126) H 03/07/17 05:45 Creatine Kinase 3139 Units/L (30-200) H 03/10/17 03:34 Serum Total Protein 5.9 g/dL (6.0-8.3) L 03/07/17 05:45 Albumin 3.0 g/dL (3.5-5.0) L 03/07/17 05:45 Albumin/Globulin Ratio 1.0 (1.1-2.2) L 03/07/17 05:45 Urine Clarity Turbid (Clear) A 03/08/17 15:00 Ur Specific [place] 1.030 (1.010-1.025) H 03/08/17 15:00 Urine Protein 100 mg/dL (Neg-Trace) H 03/08/17 15:00 Urine Blood Large (Negative) H 03/08/17 15:00 Urine Microscopic RBC TNTC per hpf (0-3) H 03/08/17 15:00 Urine Microscopic WBC 5-15 per hpf (0-3) H 03/08/17 15:00 Ur Squamous Epith Cells Many per lpf (None-Few) H 03/08/17 15:00 Ur Culture Indicated? YES (NO) A 03/08/17 15:00 Staphylococcus sp PCR DETECTED (Not Detect) A 03/07/17 05:45 mecA-Methicil Res Gene DETECTED (Not Detect) A 03/07/17 05:45 - Microbiology Findings Microbiology Findings: Microbiology, Last 48 Hours 03/09/17 15:45 Blood Culture - Final Peripheral Venipuncture No growth. 03/08/17 11:11 Blood Culture - Final Peripheral Venipuncture No growth. - Clinical Findings Intake & Output: Intake & Output 03/15/17 03/16/17 03/16/17 23:59 07:59 15:59 Intake Total 584.9 / 584.9 300 / 300 200 / 200 Output Total 700 / 700 550 / 550 Balance -115.1 / -115.1 -250 / -250 200 / 200 Weight 163.9 kg Consult Discharge Plan - Plan Referrals: [facility] [Primary Care Provider] -
--- NOTE | 2017-03-16 10:46 | Event Note ---
Date of Encounter: 03/16/17 Time of Encounter: 10:44 Given persistent respiratory distress high work of breathing, the patient underwent intubation by respiratory therapy with my supervision. Of note, following intubation, thick purulent secretions were noted emanating from the endotracheal tube. Given this finding in the patient's tenuous respiratory status as well as the post intubation chest x-ray which disclosed infiltrates throughout the chest (persistent), the patient will be placed on cefepime and vancomycin pending the results of cultures.
--- NOTE | 2017-03-16 11:46 | Cardiology Progress Note ---
Date of Encounter: 03/16/17 Time of Encounter: 11:43 Assessment and Plan (1) Atrial flutter with rapid ventricular response Current Visit: No Status: Acute Per Electrophysiology: -Known atrial flutter. Has had multiple admission for atrial flutter with RVR. -Presented this admission with slow ventricular response, HR 30s in setting of hyperkalemia K 7.0. -Once potassium was corrected, went into RVR. -Patient currently on lopressor 100mg BID, Lopressor IV PRN, amiodarone drip at 0.5mg/hour, cardizem drip at 10mg/hour. -Patient had been on heparin drip. Now on heparin subcutaneous. Recommendations: Restart heparin gtt for AC. Start oral amiodarone 400 mg BID. Continue IV amiodarone, IV cardizem, and lopressor. -[id number] score 4 (age, HTN, CHF, DM). 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 -Average HR previous 12 hours noted to be 110, atrial flutter. Currently 110- 120. -Plan of care and recommendations discussed with Dr. Rios. (2) EMILIA (acute kidney injury) Current Visit: Yes Status: Resolved Per cardiology: -Patient with EMILIA on admission. -Nephrology following. -Required temporary CRRT, now off CRRT. -Management per primary and nephrology services. (3) Diastolic CHF Current Visit: No Status: Acute H/o chronic diastolic CHF. Mild fluid on exam. On IV lasix. Re-intubated for respiratory distress. Pulmonology following. Seen to have persistant infiltrates and was started on antibiotics. No pulmonary edema. Kidney function remains normal. Negative 1175 for 24 hours. Continue strict I&O and daily weights. Qualifiers: Congestive heart failure chronicity: chronic Qualified Code(s): I50.32 - Chronic diastolic (congestive) heart failure Discussion w patient/family: The assessment and plan as outlined above was discussed with the patient and/or family members who expressed understanding and agreement. All questions were answered. Thank you for involving us in the care of your patient. Please call with any questions. Subjective Principal diagnosis: Acute respiratory failure, A Fib with RVR Interval history: Unfortunately, patient re-intubated this morning due to respiratory distress. CXR show persistent bilateral infiltrates. Patient started on antibiotic. Objective Vital Signs, Last 4 Hours Pulse Resp BP Pulse Ox 03/16/17 11:07 17 97 03/16/17 11:00 117 15 123/83 95 03/16/17 10:00 127 17 146/82 95 03/16/17 09:56 24 100 03/16/17 09:00 121 47 146/97 99 03/16/17 08:58 42 100 03/16/17 08:00 110 38 150/88 98 General: Other (Now on ventilator. Opens eyes. Drowsy. Not following commands. ) HEENT: Atraumatic, Normocephaly, Mucus Membranes Moist, Other (ET tube in place. ) Neck: No JVD, Normal carotid pulses Cardiac: Other (atrial flutter on telemetry. ) Lungs: Other (Respirations easy on ventilator. ) Neuro: Other (Drowsy with sedation recently given.) Abdomen: Soft, Non-Tender Skin: No rashes noted on visualized skin Musculoskeletal: No Chest Wall Tenderness Extremities: No Clubbing, No Cyanosis, Normal Pulses, Other (Trace edema BLE. ) Results 03/16/17 04:00 03/16/17 04:00 Lab Results 03/16/17 03/16/17 04:00 04:00 WBC 14.2 H Hgb 10.2 L Hct 30.7 L Plt Count 302 Sodium 139 Potassium 3.8 Chloride 100 Carbon Dioxide 32 H BUN 15 Creatinine 0.85 Glucose 102 H Calcium 9.4 Consult Discharge Plan - Plan Referrals: [facility] [Primary Care Provider] -
[2017-03-16] MEDS ORDERED: *HR* Heparin 5,000 UNIT/ML VIAL IVP PRN ×2 (11:57)
[2017-03-16] MEDS ORDERED: *HR* Heparin 5,000 UNIT/ML VIAL IVP ONE (11:57)
[2017-03-16] MEDS: Vancomycin 2,000 MG in D5% in Water 500 ML IVPB SCH (13:23)
[2017-03-16 14:03] LABS: Hematocrit 29.3 % (37.5-50.1); Hemoglobin 9.5 g/dL (12.9-16.9); Immature Platelets 1.9 % (1.1-6.1); Mean Corpuscular HGB Conc 32.4 g/dL (31.6-35.5); Mean Corpuscular Hemoglobin 28.9 pg (28.0-33.3); Mean Corpuscular Volume 89.1 fL (83.0-100.0); Mean Platelet Volume 9.4 fL (9.4-12.4); Red Blood Count 3.29 M/mcL (4.19-5.50); Red Cell Distribution Width 13.4 % (11.5-14.5)
[2017-03-16 14:09] LABS: INR 1.3; Prothrombin Time 14.3 Seconds (9.4-12.1)
[2017-03-16] MEDS: Heparin 25,000 UNIT/500 ML D5W 25,000 UNIT/500 ML MLS IVC SCH (14:09)
[2017-03-16 14:12] LABS: Activated Partial Thrombo Time 28.9 Seconds (26.0-36.0)
[2017-03-16] MEDS: *HR* Amiodarone 200 MG TABLET PO SCH ×2 (14:29→20:24)
[2017-03-16] MEDS ORDERED: Acetaminophen 325 MG TABLET PO ONE (15:22)
[2017-03-16] MEDS: Cefepime HCl 1,000 MG in D5% in Water (Mini-Bag+) 100 ML IVPB SCH (15:53)
[2017-03-16] MEDS ORDERED: Vancomycin 1,000 MG in D5% in Water 250 ML IVPB SCH (18:00)
[2017-03-16] MEDS: Norepinephrine 4 MG in D5% in Water 250 ML IVC SCH (20:27)
[2017-03-16] MEDS: Insulin DETEMIR 100 UNIT/ML X5UNITS SQ SCH (20:36)
[2017-03-17] MEDS: Cefepime HCl 1,000 MG in D5% in Water (Mini-Bag+) 100 ML IVPB SCH ×3 (00:43→16:12)
[2017-03-17] MEDS: Insulin LISPRO 300 UNITS/3 ML VIAL SQ SCH ×4 (00:44→18:10)
[2017-03-17] MEDS: Vancomycin 2,000 MG in D5% in Water 500 ML IVPB SCH (00:46)
[2017-03-17] MEDS: Heparin 25,000 UNIT/500 ML D5W 25,000 UNIT/500 ML MLS IVC SCH ×2 (00:57→14:13)
[2017-03-17] MEDS: Dexmedetomidine HCl 400 MCG/100 ML MLS IVC SCH ×3 (01:23→20:14)
[2017-03-17] MEDS: FentaNYL (PF) 1,000 MCG in 0.9 % Sodium Chloride 80 ML IVC SCH (01:24)
[2017-03-17] MEDS ORDERED: Acetaminophen 325 MG TABLET PO ONE (04:25)
[2017-03-17] MEDS: FentaNYL (PF) 3,000 MCG in 0.9 % Sodium Chloride 240 ML IVC SCH ×2 (06:09→21:33)
[2017-03-17] MEDS: Budesonide/Formoterol 160/4.5 MDI IH SCH ×2 (08:04→20:21)
[2017-03-17] MEDS: Furosemide 20 MG/2 ML VIAL IVP SCH ×2 (08:41→16:13)
[2017-03-17] MEDS: Pantoprazole 40 MG VIAL IVPB SCH (08:41)
[2017-03-17] MEDS: *HR* Amiodarone 200 MG TABLET PO SCH ×2 (08:42→19:20)
[2017-03-17] MEDS: Metoprolol 100 MG TABLET PO SCH ×2 (08:42→19:20)
[2017-03-17] MEDS: Amiodarone Premix 360 MG/200 ML BAG IVC SCH ×3 (08:42→20:52)
--- NOTE | 2017-03-17 09:44 | Pulmonology Progress Note ---
Date of Encounter: 03/17/17 Time of Encounter: 09:42 Assessment and Plan (1) Acute respiratory failure with hypoxia Current Visit: No Status: Resolved Acute respiratory failure with hypoxemia in this particular individual is multifactorial in etiology likely related to pneumonia, minimal pulmonary edema particular in light of atrial fibrillation with rapid ventricular response ( reportedly atrial fibrillation is been very difficult to control per discussion with nursing staff). Continue full ventilatory support. Continue suctioning bronchodilator therapy for enhancement of pulmonary hygiene. Antibiotic continuation pending the results of cultures as well as MRSA probe (current antibiotic therapy cefepime, vancomycin). Patient requires continuous sedation in order to synchronize with ventilation. Cardiology assisting with management of atrial fibrillation and appreciate their input. Management review during multidisciplinary critical care rounds. This patient suffers from critical illness including acute respiratory failure, ammonia atrial fibrillation. Management today required 32 minutes of critical care time. Kyle Kline [phone] Code(s): J96.01 - Acute respiratory failure with hypoxia SNOMED Code(s): 13542882, 086764042 Subjective Principal diagnosis: Acute respiratory failure, A Fib with RVR Interval history: Given declining respiratory status yesterday in spite of noninvasive ventilatory support, the patient was reintubated. Thick purulent voluminous secretions noted with endotracheal suctioning and overnight, the patient required lavage Endobag hygiene maneuvers in order to clear the secretions from airway. I note acceptable hemodynamics. Patient's heart rate remains elevated however more consistently within the 100-120 range with current therapy as provided by the cardiology service. Patient remains sedated with infusions. Moderate FiO2 requirement noted. Acceptable urine output. Tolerance of tube feeds. Objective PUL Vital signs: Last Vital Signs Temp 99.9 F H 03/17/17 07:29 Pulse 76 03/17/17 08:00 Resp 18 03/17/17 09:08 BP 135/76 03/17/17 08:00 Pulse Ox 94 03/17/17 09:08 General appearance: no acute distress, other (Orally intubated and arousable) ENT: oropharynx moist Auscultation: bilateral: diminished breath sounds (Coarse breath sounds bilaterally, clear with suctioning of endotracheal tube.) Cardiovascular: irregular rhythm Gastrointestinal: normoactive bowel sounds, non-distended Integumentary: normal Extremities: edema (Mild lower extremity edema) non-focal exam (Limited neurologic examination due to sedation, reportedly with S ATB, the patient does move all extremities and is able to follow some simple commands per discussion with nursing staff.) Ventilator Settings Ventilator Settings: Ventilator Settings, Last 8 Hours Ventilator Mode VC+ Ventilator Mode VC+ Ventilator Mode VC+ Ventilator Mode VC+ Ventilator Mode VC+ Ventilator Mode VC+ Ventilator Mode VC+ Ventilator Mode VC+ Ventilator Mode VC+ Ventilator Mode VC+ Ventilator Tidal Volume 600 Setting Ventilator Tidal Volume 600 Setting Ventilator Tidal Volume 600 Setting Ventilator Tidal Volume 600 Setting Ventilator Tidal Volume 600 Setting Ventilator Tidal Volume 600 Setting Ventilator Tidal Volume 600 Setting Ventilator Tidal Volume 600 Setting Ventilator Tidal Volume 600 Setting Ventilator Tidal Volume 600 Setting Ventilator Respiratory Rate 14 Setting Ventilator Respiratory Rate 14 Setting Ventilator Respiratory Rate 14 Setting Ventilator Respiratory Rate 14 Setting Ventilator Respiratory Rate 14 Setting Ventilator Respiratory Rate 14 Setting Ventilator Respiratory Rate 14 Setting Ventilator Respiratory Rate 14 Setting Ventilator Respiratory Rate 14 Setting Ventilator Respiratory Rate 14 Setting Actual Respiratory Rate 22 Actual Respiratory Rate 20 Actual Respiratory Rate 17 Actual Respiratory Rate 15 Actual Respiratory Rate 15 Actual Respiratory Rate 17 Actual Respiratory Rate 17 Actual Respiratory Rate 14 Actual Respiratory Rate 21 Actual Respiratory Rate 18 Positive End Expiratory 5 Pressure Positive End Expiratory 5 Pressure Positive End Expiratory 5 Pressure Positive End Expiratory 5 Pressure Positive End Expiratory 5 Pressure Positive End Expiratory 5 Pressure Positive End Expiratory 5 Pressure Positive End Expiratory 5 Pressure Positive End Expiratory 5 Pressure Positive End Expiratory 5 Pressure Peak Inspiratory Airway 25 Pressure Peak Inspiratory Airway 24 Pressure Peak Inspiratory Airway 24 Pressure Peak Inspiratory Airway 26 Pressure Peak Inspiratory Airway 27 Pressure Peak Inspiratory Airway 27 Pressure Peak Inspiratory Airway 23 Pressure Peak Inspiratory Airway 23 Pressure Peak Inspiratory Airway 22 Pressure Peak Inspiratory Airway 24 Pressure Results - Laboratory Findings CBC and BMP: 03/16/17 13:40 03/16/17 04:00 ABG ABG pH 7.45 pH Units (7.32-7.45) 03/16/17 06:00 ABG pCO2 52 mmHg (35-45) H 03/16/17 06:00 ABG pO2 104 mmHg (85-104) 03/16/17 06:00 ABG O2 Saturation 98 % (95-98) 03/16/17 06:00 PT/INR, D-dimer PT 14.3 Seconds (9.4-12.1) H 03/16/17 13:40 Abnormal lab findings: Abnormal lab results WBC 13.2 K/mcL (4.3-11.1) H 03/16/17 13:40 RBC 3.29 M/mcL (4.19-5.50) L 03/16/17 13:40 Hgb 9.5 g/dL (12.9-16.9) L 03/16/17 13:40 Hct 29.3 % (37.5-50.1) L 03/16/17 13:40 Neutrophils # 11.4 K/mcL (1.6-8.9) H 03/16/17 04:00 Monocytes # 1.5 K/mcL (0.0-1.3) H 03/16/17 04:00 PT 14.3 Seconds (9.4-12.1) H 03/16/17 13:40 APTT 68.7 Seconds (26.0-36.0) H 03/17/17 03:24 Heparin Anti-Xa, Unfract 0.82 IU/mL (0.30-0.70) H 03/09/17 18:02 ABG pCO2 52 mmHg (35-45) H 03/16/17 06:00 ABG HCO3 36.1 mEQ/L (21-27) H 03/16/17 06:00 ABG Total CO2 37.7 mEq/L (20-26) H 03/16/17 06:00 ABG Base Excess 10.6 mEq/L (-2.0 to 3.0) H 03/16/17 06:00 Carbon Dioxide 32 mEq/L (19-29) H 03/16/17 04:00 Glucose 102 mg/dL (70-99) H 03/16/17 04:00 POC Glucose 149 (58-89) H 03/17/17 06:05 Uric Acid 8.5 mg/dL (3.5-7.2) H 03/07/17 05:45 Ionized Calcium 1.12 mmol/L (1.15-1.35) L 03/09/17 03:55 Phosphorus 2.1 mg/dL (2.3-4.7) L 03/10/17 03:34 AST 367 Units/L (5-34) H 03/07/17 05:45 ALT 334 Units/L (0-55) H 03/07/17 05:45 Alkaline Phosphatase 162 Units/L (38-126) H 03/07/17 05:45 Creatine Kinase 3139 Units/L (30-200) H 03/10/17 03:34 Serum Total Protein 5.9 g/dL (6.0-8.3) L 03/07/17 05:45 Albumin 3.0 g/dL (3.5-5.0) L 03/07/17 05:45 Albumin/Globulin Ratio 1.0 (1.1-2.2) L 03/07/17 05:45 Urine Clarity Turbid (Clear) A 03/08/17 15:00 Ur Specific [place] 1.030 (1.010-1.025) H 03/08/17 15:00 Urine Protein 100 mg/dL (Neg-Trace) H 03/08/17 15:00 Urine Blood Large (Negative) H 03/08/17 15:00 Urine Microscopic RBC TNTC per hpf (0-3) H 03/08/17 15:00 Urine Microscopic WBC 5-15 per hpf (0-3) H 03/08/17 15:00 Ur Squamous Epith Cells Many per lpf (None-Few) H 03/08/17 15:00 Ur Culture Indicated? YES (NO) A 03/08/17 15:00 Staphylococcus sp PCR DETECTED (Not Detect) A 03/07/17 05:45 mecA-Methicil Res Gene DETECTED (Not Detect) A 03/07/17 05:45 - Microbiology Findings Microbiology Findings: Microbiology, Last 48 Hours 03/17/17 03:39 Sputum Culture - Preliminary Sputum 03/09/17 15:45 Blood Culture - Final Peripheral Venipuncture No growth. - Clinical Findings Intake & Output: Intake & Output 03/16/17 03/17/17 03/17/17 23:59 07:59 15:59 Intake Total 1063.6 / 1063.6 1616.9 / 1616.9 200 / 200 Output Total 650 / 650 525 / 525 Balance 413.6 / 413.6 1091.9 / 1091.9 200 / 200 Weight 169.417 kg Consult Discharge Plan - Plan [facility]errals: [facility] [Primary Care Provider] -
--- NOTE | 2017-03-17 11:08 | Cardiology Progress Note ---
Date of Encounter: 03/17/17 Time of Encounter: 10:15 Assessment and Plan (1) Atrial flutter with rapid ventricular response Current Visit: No Status: Acute Per Electrophysiology: -Known atrial flutter. Has had multiple admission for atrial flutter with RVR. -Presented this admission with slow ventricular response, HR 30s in setting of hyperkalemia K 7.0. -Once potassium was corrected, went into RVR. -Patient currently on lopressor 100mg BID, Lopressor IV PRN, amiodarone drip at 0.5mg/hour, cardizem drip at 10mg/hour, and oral amiodarone added yesterday.. - On heparin gtt for AC. Restart xarelto when taking oral meds uncrushed. - Continues to have poor rate control. HR 120's currently. -Increase lopressor to 150 mg BID. - Plan of care discussed with Dr. Rios. (2) EMILIA (acute kidney injury) Current Visit: Yes Status: Resolved Per cardiology: -Patient with EMILIA on admission. -Nephrology following. -Required temporary CRRT, now off CRRT. -Management per primary and nephrology services. (3) Diastolic CHF Current Visit: No Status: Acute H/o chronic diastolic CHF. Mild fluid on exam. On IV lasix. Re-intubated for respiratory distress. Pulmonology following. Seen to have persistant infiltrates and was started on antibiotics. No pulmonary edema. Kidney function remains normal. Negative 236 for 24 hours. Will give extra dose lasix today. Continue to monitor. Continue strict I&O and daily weights. Qualifiers: Congestive heart failure chronicity: chronic Qualified Code(s): I50.32 - Chronic diastolic (congestive) heart failure Discussion w patient/family: The assessment and plan as outlined above was discussed with the patient and/or family members who expressed understanding and agreement. All questions were answered. Thank you for involving us in the care of your patient. Please call with any questions. Subjective Principal diagnosis: Acute respiratory failure, A Fib with RVR Interval history: Patient remains intubated and sedated. Objective Vital Signs, Last 4 Hours Temp Pulse Resp BP Pulse Ox 03/17/17 10:00 98 20 104/66 03/17/17 09:08 18 94 03/17/17 09:00 123 20 134/96 96 03/17/17 08:04 18 94 03/17/17 08:00 122 17 135/76 95 03/17/17 07:29 99.9 F H General: Other (Intubated and sedated. ) Neck: No JVD, Normal carotid pulses Cardiac: Other (irregularly irregular) Lungs: Other (diminished through out) Abdomen: Soft, Non-Tender Skin: No rashes noted on visualized skin Extremities: No Edema (Trace BLE edema) Results 03/16/17 13:40 03/16/17 04:00 Lab Results 03/16/17 03/16/17 03/16/17 13:40 13:40 19:57 WBC 13.2 H Hgb 9.5 L Hct 29.3 L Plt Count 330 INR 1.3 APTT 28.9 95.2 H D 03/17/17 03/17/17 03:24 10:10 WBC Hgb Hct Plt Count INR APTT 68.7 H 82.6 H Consult Discharge Plan - Plan Referrals: [facility] [Primary Care Provider] -
[2017-03-17] MEDS ORDERED: Furosemide 20 MG/2 ML VIAL IVP ONE (14:00)
[2017-03-17] MEDS: Norepinephrine 4 MG in D5% in Water 250 ML IVC SCH (19:21)
[2017-03-17] MEDS: Insulin DETEMIR 100 UNIT/ML X5UNITS SQ SCH (19:47)
[2017-03-18] MEDS: Insulin LISPRO 300 UNITS/3 ML VIAL SQ SCH ×5 (00:11→23:40)
[2017-03-18] MEDS: Cefepime HCl 1,000 MG in D5% in Water (Mini-Bag+) 100 ML IVPB SCH ×4 (00:12→23:38)
[2017-03-18] MEDS: Vancomycin 2,000 MG in D5% in Water 500 ML IVPB SCH (00:12)
[2017-03-18] MEDS: *HR* Metoprolol 5 MG/5 ML VIAL IVP PRN (01:54)
[2017-03-18] MEDS: Heparin 25,000 UNIT/500 ML D5W 25,000 UNIT/500 ML MLS IVC SCH ×4 (03:34→22:08)
[2017-03-18 03:43] LABS: Basophils % 0.3 %; Eosinophils # 0.2 K/mcL (0.0-0.6); Eosinophils % 1.8 %; Hematocrit 28.2 % (37.5-50.1); Hemoglobin 8.8 g/dL (12.9-16.9); Immature Platelets 2.2 % (1.1-6.1); Lymphocytes # 0.8 K/mcL (0.6-4.6); Lymphocytes % 6.5 %; Mean Corpuscular HGB Conc 31.2 g/dL (31.6-35.5); Mean Corpuscular Volume 89.8 fL (83.0-100.0); Mean Platelet Volume 9.7 fL (9.4-12.4); Monocytes # 1.1 K/mcL (0.0-1.3); Monocytes % 9.1 %; Neutrophils # 10.1 K/mcL (1.6-8.9); Platelet Count 350 K/mcL (140-400); Red Blood Count 3.14 M/mcL (4.19-5.50); Red Cell Distribution Width 13.7 % (11.5-14.5); Segmented Neutrophils % 81.3 %
[2017-03-18] MEDS: Dexmedetomidine HCl 400 MCG/100 ML MLS IVC SCH ×3 (03:50→20:01)
[2017-03-18] MEDS ORDERED: Acetaminophen 325 MG TABLET PO PRN (04:50)
[2017-03-18] MEDS: FentaNYL (PF) 3,000 MCG in 0.9 % Sodium Chloride 240 ML IVC SCH ×2 (07:00→14:36)
--- NOTE | 2017-03-18 07:46 | Pulmonology Progress Note ---
<Nicolas Church - Last Filed: 03/18/17 09:16> Date of Encounter: 03/18/17 Time of Encounter: 07:45 Assessment and Plan (1) Acute respiratory failure with hypoxia Current Visit: No Status: Resolved Likely related to underlying pneumonia as well as possible pulmonary edema in the setting of A. fib with RVR. Patient requires full ventilatory support, continue suctioning. Patient spiked a fever last night. We will continue with cefepime and vancomycin. Repeat blood cultures. Patient's heart rate has proven very difficult to control. Remains on IV amiodarone with transition to by mouth amiodarone with overlap. Patient is also on Cardizem drip as well. Discussed with cardiology and they are attempting to transition the patient to all oral medications. Further management of atrial fibrillation per cardiology. (2) CHF (congestive heart failure) Current Visit: No Status: Acute Qualifiers: Congestive heart failure type: unspecified congestive heart failure type Congestive heart failure chronicity: chronic Qualified Code(s): I50.9 - Heart failure, unspecified (3) Atrial fibrillation with RVR Current Visit: No Status: Resolved (4) Diastolic CHF Current Visit: No Status: Acute Qualifiers: Congestive heart failure chronicity: chronic Qualified Code(s): I50.32 - Chronic diastolic (congestive) heart failure (5) Diabetes Current Visit: No Status: Acute Qualifiers: Diabetes mellitus type: type 2 Diabetes mellitus complication status: with kidney complications Diabetes mellitus complication detail: with chronic kidney disease Diabetes mellitus intermodal customer service insulin use: without intermodal customer service use Chronic kidney disease stage: stage 3 (moderate) Qualified Code(s): E11.22 - Type 2 diabetes mellitus with diabetic chronic kidney disease; N18.3 - Chronic kidney disease, stage 3 (moderate) Subjective Principal diagnosis: Acute respiratory failure, A Fib with RVR Interval history: Patient seen and examined at bedside. Patient remains intubated and sedated. No acute events overnight. Hemodynamically stable. Objective PUL Vital signs: Last Vital Signs Temp 100.1 F H 03/18/17 07:16 Pulse 105 03/18/17 07:00 Resp 03/18/17 07:00 BP 108/73 03/18/17 07:00 Pulse Ox 92 03/18/17 07:00 General appearance: no acute distress Effort: normal Auscultation: bilateral: diminished breath sounds Cardiovascular: irregular rhythm (Tachycardia) Gastrointestinal: hypoactive bowel sounds, soft, non-tender Extremities: no cyanosis, edema (1+) unable to assess due to mental status (Intubated and sedated) Ventilator Settings Ventilator Settings: Ventilator Settings, Last 8 Hours Ventilator Mode VC+ Ventilator Mode VC+ Ventilator Mode VC+ Ventilator Mode VC+ Ventilator Mode VC+ Ventilator Mode VC+ Ventilator Mode VC+ Ventilator Mode VC+ Ventilator Mode VC+ Ventilator Mode VC+ Ventilator Tidal Volume 600 Setting Ventilator Tidal Volume 600 Setting Ventilator Tidal Volume 600 Setting Ventilator Tidal Volume 600 Setting Ventilator Tidal Volume 600 Setting Ventilator Tidal Volume 600 Setting Ventilator Tidal Volume 600 Setting Ventilator Tidal Volume 600 Setting Ventilator Tidal Volume 600 Setting Ventilator Tidal Volume 600 Setting Ventilator Respiratory Rate 14 Setting Ventilator Respiratory Rate 14 Setting Ventilator Respiratory Rate 14 Setting Ventilator Respiratory Rate 14 Setting Ventilator Respiratory Rate 14 Setting Ventilator Respiratory Rate 14 Setting Ventilator Respiratory Rate 14 Setting Ventilator Respiratory Rate 14 Setting Ventilator Respiratory Rate 14 Setting Ventilator Respiratory Rate 14 Setting Actual Respiratory Rate 16 Actual Respiratory Rate 15 Actual Respiratory Rate 16 Actual Respiratory Rate 17 Actual Respiratory Rate 18 Actual Respiratory Rate 24 Actual Respiratory Rate 22 Actual Respiratory Rate 20 Actual Respiratory Rate 20 Actual Respiratory Rate 20 Positive End Expiratory 5 Pressure Positive End Expiratory 5 Pressure Positive End Expiratory 5 Pressure Positive End Expiratory 5 Pressure Positive End Expiratory 5 Pressure Positive End Expiratory 5 Pressure Positive End Expiratory 5 Pressure Positive End Expiratory 5 Pressure Positive End Expiratory 5 Pressure Positive End Expiratory 5 Pressure Peak Inspiratory Airway 25 Pressure Peak Inspiratory Airway 21 Pressure Peak Inspiratory Airway 27 Pressure Peak Inspiratory Airway 24 Pressure Peak Inspiratory Airway 25 Pressure Peak Inspiratory Airway 29 Pressure Peak Inspiratory Airway 26 Pressure Peak Inspiratory Airway 21 Pressure Peak Inspiratory Airway 20 Pressure Peak Inspiratory Airway 20 Pressure Results - Laboratory Findings CBC and BMP: 03/18/17 03:17 03/16/17 04:00 ABG ABG pH 7.45 pH Units (7.32-7.45) 03/16/17 06:00 ABG pCO2 52 mmHg (35-45) H 03/16/17 06:00 ABG pO2 104 mmHg (85-104) 03/16/17 06:00 ABG O2 Saturation 98 % (95-98) 03/16/17 06:00 PT/INR, D-dimer PT 14.3 Seconds (9.4-12.1) H 03/16/17 13:40 Abnormal lab findings: Abnormal lab results WBC 12.4 K/mcL (4.3-11.1) H 03/18/17 03:17 RBC 3.14 M/mcL (4.19-5.50) L 03/18/17 03:17 Hgb 8.8 g/dL (12.9-16.9) L 03/18/17 03:17 Hct 28.2 % (37.5-50.1) L 03/18/17 03:17 MCHC 31.2 g/dL (31.6-35.5) L 03/18/17 03:17 Neutrophils # 10.1 K/mcL (1.6-8.9) H 03/18/17 03:17 PT 14.3 Seconds (9.4-12.1) H 03/16/17 13:40 APTT 95.0 Seconds (26.0-36.0) H 03/18/17 03:17 Heparin Anti-Xa, Unfract 0.82 IU/mL (0.30-0.70) H 03/09/17 18:02 ABG pCO2 52 mmHg (35-45) H 03/16/17 06:00 ABG HCO3 36.1 mEQ/L (21-27) H 03/16/17 06:00 ABG Total CO2 37.7 mEq/L (20-26) H 03/16/17 06:00 ABG Base Excess 10.6 mEq/L (-2.0 to 3.0) H 03/16/17 06:00 Carbon Dioxide 32 mEq/L (19-29) H 03/16/17 04:00 Glucose 102 mg/dL (70-99) H 03/16/17 04:00 POC Glucose 304 (58-89) H 03/18/17 05:22 Uric Acid 8.5 mg/dL (3.5-7.2) H 03/07/17 05:45 Ionized Calcium 1.12 mmol/L (1.15-1.35) L 03/09/17 03:55 Phosphorus 2.1 mg/dL (2.3-4.7) L 03/10/17 03:34 AST 367 Units/L (5-34) H 03/07/17 05:45 ALT 334 Units/L (0-55) H 03/07/17 05:45 Alkaline Phosphatase 162 Units/L (38-126) H 03/07/17 05:45 Creatine Kinase 3139 Units/L (30-200) H 03/10/17 03:34 Serum Total Protein 5.9 g/dL (6.0-8.3) L 03/07/17 05:45 Albumin 3.0 g/dL (3.5-5.0) L 03/07/17 05:45 Albumin/Globulin Ratio 1.0 (1.1-2.2) L 03/07/17 05:45 Urine Clarity Turbid (Clear) A 03/08/17 15:00 Ur Specific [place] 1.030 (1.010-1.025) H 03/08/17 15:00 Urine Protein 100 mg/dL (Neg-Trace) H 03/08/17 15:00 Urine Blood Large (Negative) H 03/08/17 15:00 Urine Microscopic RBC TNTC per hpf (0-3) H 03/08/17 15:00 Urine Microscopic WBC 5-15 per hpf (0-3) H 03/08/17 15:00 Ur Squamous Epith Cells Many per lpf (None-Few) H 03/08/17 15:00 Ur Culture Indicated? YES (NO) A 03/08/17 15:00 Staphylococcus sp PCR DETECTED (Not Detect) A 03/07/17 05:45 mecA-Methicil Res Gene DETECTED (Not Detect) A 03/07/17 05:45 - Microbiology Findings Microbiology Findings: Microbiology, Last 48 Hours 03/17/17 03:39 Sputum Culture - Preliminary Sputum - Clinical Findings Intake & Output: Intake & Output 03/17/17 03/17/17 03/18/17 15:59 23:59 07:59 Intake Total 1572 / 1572 1260 / 1260 1768.4 / 1768.4 Output Total 700 / 700 150 / 150 650 / 650 Balance 872 / 872 1110 / 1110 1118.4 / 1118.4 Weight 162.658 kg Consult Discharge Plan - Plan [facility]errals: [facility] [Primary Care Provider] - <Eulalio Kline - Last Filed: 03/18/17 11:43> Date of Encounter: 03/18/17 Assessment and Plan (1) Acute respiratory failure with hypoxia Current Visit: No Status: Resolved Code(s): J96.01 - Acute respiratory failure with hypoxia SNOMED Code(s): 76114025, [id number] Objective PUL Vital signs: Last Vital Signs Temp 98.5 F 03/18/17 11:11 Pulse 92 03/18/17 11:00 Resp 18 03/18/17 11:23 BP 110/70 03/18/17 11:23 Pulse Ox 97 03/18/17 11:23 ENT: other (Orally intubated) Auscultation: bilateral: diminished breath sounds, rhonchi motor strength normal and symmetric Ventilator Settings Ventilator Settings: Ventilator Settings, Last 8 Hours Ventilator Mode VC+ Ventilator Mode VC+ Ventilator Mode VC+ Ventilator Mode VC+ Ventilator Mode VC+ Ventilator Mode VC+ Ventilator Mode VC+ Ventilator Tidal Volume 600 Setting Ventilator Tidal Volume 600 Setting Ventilator Tidal Volume 600 Setting Ventilator Tidal Volume 600 Setting Ventilator Tidal Volume 600 Setting Ventilator Tidal Volume 600 Setting Ventilator Tidal Volume 600 Setting Ventilator Respiratory Rate 14 Setting Ventilator Respiratory Rate 14 Setting Ventilator Respiratory Rate 14 Setting Ventilator Respiratory Rate 14 Setting Ventilator Respiratory Rate 14 Setting Ventilator Respiratory Rate 14 Setting Ventilator Respiratory Rate 14 Setting Actual Respiratory Rate 15 Actual Respiratory Rate 19 Actual Respiratory Rate 16 Actual Respiratory Rate 16 Actual Respiratory Rate 15 Actual Respiratory Rate 16 Actual Respiratory Rate 17 Positive End Expiratory 5 Pressure Positive End Expiratory 5 Pressure Positive End Expiratory 5 Pressure Positive End Expiratory 5 Pressure Positive End Expiratory 5 Pressure Positive End Expiratory 5 Pressure Positive End Expiratory 5 Pressure Peak Inspiratory Airway 19 Pressure Peak Inspiratory Airway 19 Pressure Peak Inspiratory Airway 20 Pressure Peak Inspiratory Airway 25 Pressure Peak Inspiratory Airway 21 Pressure Peak Inspiratory Airway 27 Pressure Peak Inspiratory Airway 24 Pressure Results - Laboratory Findings CBC and BMP: 03/18/17 03:17 03/18/17 08:55 ABG ABG pH 7.45 pH Units (7.32-7.45) 03/16/17 06:00 ABG pCO2 52 mmHg (35-45) H 03/16/17 06:00 ABG pO2 104 mmHg (85-104) 03/16/17 06:00 ABG O2 Saturation 98 % (95-98) 03/16/17 06:00 PT/INR, D-dimer PT 14.3 Seconds (9.4-12.1) H 03/16/17 13:40 Abnormal lab findings: Abnormal lab results WBC 12.4 K/mcL (4.3-11.1) H 03/18/17 03:17 RBC 3.14 M/mcL (4.19-5.50) L 03/18/17 03:17 Hgb 8.8 g/dL (12.9-16.9) L 03/18/17 03:17 Hct 28.2 % (37.5-50.1) L 03/18/17 03:17 MCHC 31.2 g/dL (31.6-35.5) L 03/18/17 03:17 Neutrophils # 10.1 K/mcL (1.6-8.9) H 03/18/17 03:17 PT 14.3 Seconds (9.4-12.1) H 03/16/17 13:40 APTT 104.8 Seconds (26.0-36.0) H 03/18/17 08:55 Heparin Anti-Xa, Unfract 0.82 IU/mL (0.30-0.70) H 03/09/17 18:02 ABG pCO2 52 mmHg (35-45) H 03/16/17 06:00 ABG HCO3 36.1 mEQ/L (21-27) H 03/16/17 06:00 ABG Total CO2 37.7 mEq/L (20-26) H 03/16/17 06:00 ABG Base Excess 10.6 mEq/L (-2.0 to 3.0) H 03/16/17 06:00 Sodium 135 mEq/L (136-145) L 03/18/17 08:55 Chloride 95 mEq/L (98-109) L 03/18/17 08:55 Carbon Dioxide 33 mEq/L (19-29) H 03/18/17 08:55 Glucose 245 mg/dL (70-99) H 03/18/17 08:55 POC Glucose 220 (58-89) H 03/18/17 11:05 Uric Acid 8.5 mg/dL (3.5-7.2) H 03/07/17 05:45 Ionized Calcium 1.12 mmol/L (1.15-1.35) L 03/09/17 03:55 Phosphorus 2.1 mg/dL (2.3-4.7) L 03/10/17 03:34 AST 367 Units/L (5-34) H 03/07/17 05:45 ALT 334 Units/L (0-55) H 03/07/17 05:45 Alkaline Phosphatase 162 Units/L (38-126) H 03/07/17 05:45 Creatine Kinase 3139 Units/L (30-200) H 03/10/17 03:34 Serum Total Protein 5.9 g/dL (6.0-8.3) L 03/07/17 05:45 Albumin 3.0 g/dL (3.5-5.0) L 03/07/17 05:45 Albumin/Globulin Ratio 1.0 (1.1-2.2) L 03/07/17 05:45 Urine Clarity Turbid (Clear) A 03/08/17 15:00 Ur Specific [place] 1.030 (1.010-1.025) H 03/08/17 15:00 Urine Protein 100 mg/dL (Neg-Trace) H 03/08/17 15:00 Urine Blood Large (Negative) H 03/08/17 15:00 Urine Microscopic RBC TNTC per hpf (0-3) H 03/08/17 15:00 Urine Microscopic WBC 5-15 per hpf (0-3) H 03/08/17 15:00 Ur Squamous Epith Cells Many per lpf (None-Few) H 03/08/17 15:00 Ur Culture Indicated? YES (NO) A 03/08/17 15:00 Staphylococcus sp PCR DETECTED (Not Detect) A 03/07/17 05:45 mecA-Methicil Res Gene DETECTED (Not Detect) A 03/07/17 05:45 - Microbiology Findings Microbiology Findings: Microbiology, Last 48 Hours 03/17/17 03:39 Sputum Culture - Preliminary Sputum Gram Positive Cocci - Clinical Findings Intake & Output: Intake & Output 03/17/17 03/18/17 03/18/17 23:59 07:59 15:59 Intake Total 1260 / 1260 1921.0 / 1921.0 619 / 619 Output Total 150 / 150 650 / 650 150 / 150 Balance 1110 / 1110 1271.0 / 1271.0 469 / 469 Weight 162.658 kg
[2017-03-18] MEDS ORDERED: *HR* Etomidate 20 MG/10 ML AMPUL IVP ONE (07:50)
[2017-03-18] MEDS: Budesonide/Formoterol 160/4.5 MDI IH SCH ×2 (08:06→20:49)
[2017-03-18] MEDS: *HR* Amiodarone 200 MG TABLET PO SCH ×2 (08:35→19:49)
[2017-03-18] MEDS: Furosemide 20 MG/2 ML VIAL IVP SCH ×2 (08:35→16:23)
[2017-03-18] MEDS: Pantoprazole 40 MG VIAL IVPB SCH (08:35)
[2017-03-18] MEDS: Metoprolol 100 MG TABLET PO SCH ×2 (08:35→19:49)
[2017-03-18] MEDS: Amiodarone Premix 360 MG/200 ML BAG IVC SCH ×2 (08:38→21:30)
[2017-03-18] MEDS ORDERED: Lacri-Lube 3.5 GM TUBE BOTH EYES PRN (08:41)
--- NOTE | 2017-03-18 08:45 | Cardiology Progress Note ---
Date of Encounter: 03/18/17 Time of Encounter: 08:41 Assessment and Plan (1) Atrial flutter with rapid ventricular response Current Visit: No Status: Acute Per Electrophysiology: -Known atrial flutter. Has had multiple admission for atrial flutter with RVR. -Presented this admission with slow ventricular response, HR 30s in setting of hyperkalemia K 7.0. -Once potassium was corrected, went into RVR. -Continues to be difficult to control in the setting of pneumonia. HR has improved and currentl 100-110. -Lopressor increased yesterday and continues to be loaded with oral and IV amiodarone. -Patient currently on lopressor 150mg BID, Lopressor IV PRN, amiodarone drip at 0.5mg/hour and oral amiodarone, cardizem drip at 15mg/hour. -Continue IV amiodarone for 24 more hours then ok to d/c. - On heparin gtt for AC. Restart xarelto when taking oral meds uncrushed. -Suspect HR will improve once PNA improves. (2) EMILIA (acute kidney injury) Current Visit: Yes Status: Resolved Per cardiology: -Patient with EMILIA on admission. -Nephrology following. -Required temporary CRRT, now off CRRT. -SCr returned to normal. -Management per primary and nephrology services. (3) Diastolic CHF Current Visit: No Status: Acute H/o chronic diastolic CHF. Mild fluid on exam. On IV lasix. Re-intubated for respiratory distress. Pulmonology following. Seen to have persistant infiltrates and was started on antibiotics. No pulmonary edema. Kidney function remains normal. Positive 3L for 24 hours due to all of the IV medications and tube feeding. Will give extra dose lasix today. Continue to monitor. Continue strict I&O and daily weights. Qualifiers: Congestive heart failure chronicity: chronic Qualified Code(s): I50.32 - Chronic diastolic (congestive) heart failure Discussion w patient/family: The assessment and plan as outlined above was discussed with the patient and/or family members who expressed understanding and agreement. All questions were answered. Thank you for involving us in the care of your patient. Please call with any questions. Subjective Principal diagnosis: Acute respiratory failure, A Fib with RVR Interval history: Patient remains intubated and sedated. Objective Vital Signs, Last 4 Hours Temp Pulse Resp BP Pulse Ox 03/18/17 08:06 22 127/91 97 03/18/17 08:00 108 18 127/91 93 03/18/17 07:45 105 03/18/17 07:16 100.1 F H 03/18/17 07:00 105 17 108/73 92 03/18/17 06:00 98.4 F 108 16 128/89 92 03/18/17 05:30 109 16 119/82 97 03/18/17 04:51 18 122/78 97 General: No Apparent Distress HEENT: Atraumatic Neck: No JVD, Normal carotid pulses Cardiac: Other (irregularly irregular, atrial flutter on telemetry) Lungs: Other (on ventilator support. DIminished through-out.) Neuro: Alert and responsive, No focal deficits noted Abdomen: Soft, Non-Tender Skin: No rashes noted on visualized skin Musculoskeletal: No Chest Wall Tenderness Extremities: Other (trace to 1+ ankle edema.) Results 03/18/17 03:17 03/18/17 08:55 Lab Results 03/17/17 03/18/17 03/18/17 10:10 03:17 03:17 WBC 12.4 H Hgb 8.8 L Hct 28.2 L Plt Count 350 APTT 82.6 H 95.0 H Consult Discharge Plan - Plan [facility]errals: [facility] [Primary Care Provider[facility] -
[2017-03-18] MEDS ORDERED: Furosemide 20 MG/2 ML VIAL IVP ONE (08:48)
[2017-03-18] MEDS: Chlorhexidine Rinse 15 ML MOUTHWASH MM SCH ×2 (09:10→19:49)
[2017-03-18 09:17] LABS: BUN/Creatinine Ratio 19 (6-26); Blood Urea Nitrogen 22 mg/dL (8-26); Calcium 8.6 mg/dL (8.6-10.8); Carbon Dioxide 33 mEq/L (19-29); Chloride 95 mEq/L (98-109); Glucose 245 mg/dL (70-99); Osmolality,Calculated 291 (280-300); Potassium 3.5 mEq/L (3.5-4.5); Sodium 135 mEq/L (136-145); eGFR For African Americans > 60 (> 60); eGFR For Non-African Americans > 60 (> 60)
[2017-03-18] MEDS: Insulin DETEMIR 100 UNIT/ML X5UNITS SQ SCH ×2 (10:08→19:50)
[2017-03-18] MEDS: Lacri-Lube 3.5 GM TUBE BOTH EYES SCH ×4 (11:03→23:38)
[2017-03-18] MEDS: Norepinephrine 4 MG in D5% in Water 250 ML IVC SCH (15:51)
[2017-03-19 00:20] LABS: Activated Partial Thrombo Time 263.9 Seconds (26.0-36.0)
[2017-03-19] MEDS: Vancomycin 2,000 MG in D5% in Water 500 ML IVPB SCH (00:29)
[2017-03-19 00:33] LABS: Heparin anti-factor XA UFH 0.88 IU/mL (0.30-0.70)
[2017-03-19] MEDS: Dexmedetomidine HCl 400 MCG/100 ML MLS IVC SCH ×3 (03:09→23:22)
[2017-03-19] MEDS: Lacri-Lube 3.5 GM TUBE BOTH EYES SCH ×6 (03:13→23:19)
[2017-03-19 03:39] LABS: Basophils % 0.4 %; Eosinophils # 0.3 K/mcL (0.0-0.6); Eosinophils % 2.9 %; Hematocrit 27.3 % (37.5-50.1); Hemoglobin 8.7 g/dL (12.9-16.9); Immature Granulocytes % 1.1 % (0-4); Lymphocytes % 9.2 %; Mean Corpuscular HGB Conc 31.9 g/dL (31.6-35.5); Mean Corpuscular Hemoglobin 29.1 pg (28.0-33.3); Mean Corpuscular Volume 91.3 fL (83.0-100.0); Mean Platelet Volume 9.5 fL (9.4-12.4); Monocytes % 9.1 %; Neutrophils # 8.7 K/mcL (1.6-8.9); Platelet Count 418 K/mcL (140-400); Red Blood Count 2.99 M/mcL (4.19-5.50); Red Cell Distribution Width 13.9 % (11.5-14.5); Segmented Neutrophils % 77.3 %
[2017-03-19 03:50] LABS: BUN/Creatinine Ratio 23 (6-26); Blood Urea Nitrogen 25 mg/dL (8-26); Calcium 8.6 mg/dL (8.6-10.8); Carbon Dioxide 34 mEq/L (19-29); Chloride 94 mEq/L (98-109); Glucose 189 mg/dL (70-99); Magnesium 1.4 mg/dL (1.6-2.6); Osmolality,Calculated 287 (280-300); Potassium 3.4 mEq/L (3.5-4.5); Sodium 134 mEq/L (136-145); eGFR For African Americans > 60 (> 60); eGFR For Non-African Americans > 60 (> 60)
[2017-03-19 04:49] LABS: ABG Base Excess 10.1 mEq/L (-2.0 to 3.0); ABG HCO3 35.4 mEQ/L (21-27); ABG Oxygen Saturation 93 % (95-98); ABG PCO2 51 mmHg (35-45); ABG PH 7.45 pH Units (7.32-7.45); ABG PO2 65 mmHg (85-104)
[2017-03-19] MEDS: Insulin LISPRO 300 UNITS/3 ML VIAL SQ SCH ×4 (05:06→23:22)
[2017-03-19] MEDS: FentaNYL (PF) 3,000 MCG in 0.9 % Sodium Chloride 240 ML IVC SCH ×2 (07:18→23:20)
[2017-03-19] MEDS: Pantoprazole 40 MG VIAL IVPB SCH (08:33)
[2017-03-19] MEDS: Cefepime HCl 1,000 MG in D5% in Water (Mini-Bag+) 100 ML IVPB SCH (08:33)
[2017-03-19] MEDS: Furosemide 20 MG/2 ML VIAL IVP SCH ×2 (08:34→17:56)
[2017-03-19] MEDS: Chlorhexidine Rinse 15 ML MOUTHWASH MM SCH ×2 (08:35→19:28)
[2017-03-19] MEDS: *HR* Amiodarone 200 MG TABLET PO SCH (08:35)
[2017-03-19] MEDS: Insulin DETEMIR 100 UNIT/ML X5UNITS SQ SCH ×2 (08:35→19:28)
[2017-03-19] MEDS: Metoprolol 100 MG TABLET PO SCH ×2 (08:36→19:28)
[2017-03-19] MEDS: Budesonide/Formoterol 160/4.5 MDI IH SCH ×2 (08:36→19:42)
[2017-03-19] MEDS ORDERED: Furosemide 20 MG/2 ML VIAL IVP ONE (09:44)
--- NOTE | 2017-03-19 09:44 | Pulmonology Progress Note ---
<Nicolas Church - Last Filed: 03/19/17 09:42> Date of Encounter: 03/19/17 Time of Encounter: 09:42 Assessment and Plan (1) Acute respiratory failure with hypoxia Current Visit: No Status: Resolved Likely related to underlying pneumonia as well as possible pulmonary edema in the setting of A. fib with RVR. Patient requires full ventilatory support, continue suctioning. Afebrile overnight. Sputum culture shows MSSA. We will transition to Rocephin. Repeat blood cultures are pending. Continue ventilatory support until pneumonia improves. Patient's heart rate has proven very difficult to control. Remains on IV amiodarone with transition to by mouth amiodarone with overlap. Patient is also on Cardizem drip as well. Discussed with cardiology and they are attempting to transition the patient to all oral medications. Further management of atrial fibrillation per cardiology. (2) CHF (congestive heart failure) Current Visit: No Status: Acute Qualifiers: Congestive heart failure type: unspecified congestive heart failure type Congestive heart failure chronicity: chronic Qualified Code(s): I50.9 - Heart failure, unspecified (3) Atrial fibrillation with RVR Current Visit: No Status: Resolved (4) Diastolic CHF Current Visit: No Status: Acute Most recent echo showed a normal EF with indeterminant diastolic dysfunction. Patient does have mild pulmonary edema on chest x-ray, likely related to the large amounts of fluids the patient received in the emergency department. Given the patient's acute kidney injury we will hold off on diuresis at this time until recheck of the patient's BMP can be completed and case can be discussed with nephrology. No indication to repeat echocardiogram. 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 Patient remains intubated and sedated. Spontaneous breathing trial was attempted this morning however the patient was unable to follow commands and became tachypneic to this was terminated. Objective PUL Vital signs: Last Vital Signs Temp 99.8 F H 03/19/17 08:04 Pulse 99 03/19/17 09:00 Resp 18 03/19/17 09:00 BP 154/82 03/19/17 09:00 Pulse Ox 92 03/19/17 09:00 General appearance: no acute distress ENT: oropharynx moist Effort: normal Auscultation: bilateral: diminished breath sounds Cardiovascular: irregular rhythm (Tachycardia) Gastrointestinal: hypoactive bowel sounds, soft, non-tender Extremities: no cyanosis, no clubbing, edema (1+) unable to assess due to mental status Ventilator Settings Ventilator Settings: Ventilator Settings, Last 8 Hours Ventilator Mode VC+ Ventilator Mode VC+ Ventilator Mode VC+ Ventilator Mode VC+ Ventilator Mode VC+ Ventilator Mode VC+ Ventilator Mode VC+ Ventilator Mode VC+ Ventilator Mode VC+ Ventilator Tidal Volume 600 Setting Ventilator Tidal Volume 600 Setting Ventilator Tidal Volume 600 Setting Ventilator Tidal Volume 600 Setting Ventilator Tidal Volume 600 Setting Ventilator Tidal Volume 600 Setting Ventilator Tidal Volume 600 Setting Ventilator Tidal Volume 600 Setting Ventilator Tidal Volume 600 Setting Ventilator Respiratory Rate 14 Setting Ventilator Respiratory Rate 14 Setting Ventilator Respiratory Rate 14 Setting Ventilator Respiratory Rate 14 Setting Ventilator Respiratory Rate 14 Setting Ventilator Respiratory Rate 14 Setting Ventilator Respiratory Rate 14 Setting Ventilator Respiratory Rate 14 Setting Ventilator Respiratory Rate 14 Setting Actual Respiratory Rate 26 Actual Respiratory Rate 16 Actual Respiratory Rate 15 Actual Respiratory Rate 19 Actual Respiratory Rate 18 Actual Respiratory Rate 20 Actual Respiratory Rate 18 Actual Respiratory Rate 17 Positive End Expiratory 5 Pressure Positive End Expiratory 5 Pressure Positive End Expiratory 5 Pressure Positive End Expiratory 5 Pressure Positive End Expiratory 5 Pressure Positive End Expiratory 5 Pressure Positive End Expiratory 5 Pressure Positive End Expiratory 5 Pressure Positive End Expiratory 5 Pressure Peak Inspiratory Airway 16 Pressure Peak Inspiratory Airway 12 Pressure Peak Inspiratory Airway 27 Pressure Peak Inspiratory Airway 25 Pressure Peak Inspiratory Airway 27 Pressure Peak Inspiratory Airway 22 Pressure Peak Inspiratory Airway 25 Pressure Peak Inspiratory Airway 24 Pressure Results - Laboratory Findings CBC and BMP: 03/19/17 03:31 03/19/17 03:31 ABG ABG pH 7.45 pH Units (7.32-7.45) 03/19/17 04:30 ABG pCO2 51 mmHg (35-45) H 03/19/17 04:30 ABG pO2 65 mmHg (85-104) L 03/19/17 04:30 ABG O2 Saturation 93 % (95-98) L 03/19/17 04:30 PT/INR, D-dimer PT 14.3 Seconds (9.4-12.1) H 03/16/17 13:40 Abnormal lab findings: Abnormal lab results WBC 11.2 K/mcL (4.3-11.1) H 03/19/17 03:31 RBC 2.99 M/mcL (4.19-5.50) L 03/19/17 03:31 Hgb 8.7 g/dL (12.9-16.9) L 03/19/17 03:31 Hct 27.3 % (37.5-50.1) L 03/19/17 03:31 Plt Count 418 K/mcL (140-400) H 03/19/17 03:31 PT 14.3 Seconds (9.4-12.1) H 03/16/17 13:40 APTT 105.5 Seconds (26.0-36.0) H D 03/19/17 07:35 Heparin Anti-Xa, Unfract 0.88 IU/mL (0.30-0.70) H 03/18/17 23:49 ABG pCO2 51 mmHg (35-45) H 03/19/17 04:30 ABG pO2 65 mmHg (85-104) L 03/19/17 04:30 ABG HCO3 35.4 mEQ/L (21-27) H 03/19/17 04:30 ABG Total CO2 37.0 mEq/L (20-26) H 03/19/17 04:30 ABG O2 Saturation 93 % (95-98) L 03/19/17 04:30 ABG Base Excess 10.1 mEq/L (-2.0 to 3.0) H 03/19/17 04:30 Sodium 134 mEq/L (136-145) L 03/19/17 03:31 Potassium 3.4 mEq/L (3.5-4.5) L 03/19/17 03:31 Chloride 94 mEq/L (98-109) L 03/19/17 03:31 Carbon Dioxide 34 mEq/L (19-29) H 03/19/17 03:31 Glucose 189 mg/dL (70-99) H 03/19/17 03:31 POC Glucose 184 (58-89) H 03/19/17 04:55 Uric Acid 8.5 mg/dL (3.5-7.2) H 03/07/17 05:45 Ionized Calcium 1.12 mmol/L (1.15-1.35) L 03/09/17 03:55 Phosphorus 2.1 mg/dL (2.3-4.7) L 03/10/17 03:34 Magnesium 1.4 mg/dL (1.6-2.6) L 03/19/17 03:31 AST 367 Units/L (5-34) H 03/07/17 05:45 ALT 334 Units/L (0-55) H 03/07/17 05:45 Alkaline Phosphatase 162 Units/L (38-126) H 03/07/17 05:45 Creatine Kinase 3139 Units/L (30-200) H 03/10/17 03:34 Serum Total Protein 5.9 g/dL (6.0-8.3) L 03/07/17 05:45 Albumin 3.0 g/dL (3.5-5.0) L 03/07/17 05:45 Albumin/Globulin Ratio 1.0 (1.1-2.2) L 03/07/17 05:45 Urine Clarity Turbid (Clear) A 03/08/17 15:00 Ur Specific [place] 1.030 (1.010-1.025) H 03/08/17 15:00 Urine Protein 100 mg/dL (Neg-Trace) H 03/08/17 15:00 Urine Blood Large (Negative) H 03/08/17 15:00 Urine Microscopic RBC TNTC per hpf (0-3) H 03/08/17 15:00 Urine Microscopic WBC 5-15 per hpf (0-3) H 03/08/17 15:00 Ur Squamous Epith Cells Many per lpf (None-Few) H 03/08/17 15:00 Ur Culture Indicated? YES (NO) A 03/08/17 15:00 Staphylococcus sp PCR DETECTED (Not Detect) A 03/07/17 05:45 mecA-Methicil Res Gene DETECTED (Not Detect) A 03/07/17 05:45 - Microbiology Findings Microbiology Findings: Microbiology, Last 48 Hours 03/17/17 03:39 Sputum Culture - Final Sputum Staphylococcus aureus - Clinical Findings Intake & Output: Intake & Output 03/18/17 03/19/17 03/19/17 23:59 07:59 15:59 Intake Total 1504 / 1504 1614.6 / 1614.6 140 / 140 Output Total 300 / 300 850 / 850 10 / 10 Balance 1204 / 1204 764.6 / 764.6 130 / 130 Weight 179.532 kg Consult Discharge Plan - Plan [facility]errals: [facility] [Primary Care Provider[facility] - <Eulalio Kline - Last Filed: 03/19/17 12:50> Date of Encounter: 03/19/17 Assessment and Plan (1) Acute respiratory failure with hypoxia Current Visit: No Status: Resolved Code(s): J96.01 - Acute respiratory failure with hypoxia SNOMED Code(s): 99476926, 913394144 Objective PUL Vital signs: Last Vital Signs Temp 99.8 F H 03/19/17 08:04 Pulse 94 03/19/17 12:00 Resp 18 03/19/17 12:00 BP 104/71 03/19/17 12:00 Pulse Ox 94 03/19/17 12:00 Ventilator Settings Ventilator Settings: Ventilator Settings, Last 8 Hours Ventilator Mode VC+ Ventilator Mode VC+ Ventilator Mode VC+ Ventilator Mode VC+ Ventilator Mode VC+ Ventilator Tidal Volume 600 Setting Ventilator Tidal Volume 600 Setting Ventilator Tidal Volume 600 Setting Ventilator Tidal Volume 600 Setting Ventilator Tidal Volume 600 Setting Ventilator Respiratory Rate 14 Setting Ventilator Respiratory Rate 14 Setting Ventilator Respiratory Rate 14 Setting Ventilator Respiratory Rate 14 Setting Ventilator Respiratory Rate 14 Setting Actual Respiratory Rate 24 Actual Respiratory Rate 26 Actual Respiratory Rate 16 Actual Respiratory Rate 15 Actual Respiratory Rate 19 Positive End Expiratory 5 Pressure Positive End Expiratory 5 Pressure Positive End Expiratory 5 Pressure Positive End Expiratory 5 Pressure Positive End Expiratory 5 Pressure Peak Inspiratory Airway 16 Pressure Peak Inspiratory Airway 16 Pressure Peak Inspiratory Airway 12 Pressure Peak Inspiratory Airway 27 Pressure Peak Inspiratory Airway 25 Pressure Results - Laboratory Findings CBC and BMP: 03/19/17 03:31 03/19/17 03:31 ABG ABG pH 7.45 pH Units (7.32-7.45) 03/19/17 04:30 ABG pCO2 51 mmHg (35-45) H 03/19/17 04:30 ABG pO2 65 mmHg (85-104) L 03/19/17 04:30 ABG O2 Saturation 93 % (95-98) L 03/19/17 04:30 PT/INR, D-dimer PT 14.3 Seconds (9.4-12.1) H 03/16/17 13:40 Abnormal lab findings: Abnormal lab results WBC 11.2 K/mcL (4.3-11.1) H 03/19/17 03:31 RBC 2.99 M/mcL (4.19-5.50) L 03/19/17 03:31 Hgb 8.7 g/dL (12.9-16.9) L 03/19/17 03:31 Hct 27.3 % (37.5-50.1) L 03/19/17 03:31 Plt Count 418 K/mcL (140-400) H 03/19/17 03:31 PT 14.3 Seconds (9.4-12.1) H 03/16/17 13:40 APTT 105.5 Seconds (26.0-36.0) H D 03/19/17 07:35 Heparin Anti-Xa, Unfract 0.88 IU/mL (0.30-0.70) H 03/18/17 23:49 ABG pCO2 51 mmHg (35-45) H 03/19/17 04:30 ABG pO2 65 mmHg (85-104) L 03/19/17 04:30 ABG HCO3 35.4 mEQ/L (21-27) H 03/19/17 04:30 ABG Total CO2 37.0 mEq/L (20-26) H 03/19/17 04:30 ABG O2 Saturation 93 % (95-98) L 03/19/17 04:30 ABG Base Excess 10.1 mEq/L (-2.0 to 3.0) H 03/19/17 04:30 Sodium 134 mEq/L (136-145) L 03/19/17 03:31 Potassium 3.4 mEq/L (3.5-4.5) L 03/19/17 03:31 Chloride 94 mEq/L (98-109) L 03/19/17 03:31 Carbon Dioxide 34 mEq/L (19-29) H 03/19/17 03:31 Glucose 189 mg/dL (70-99) H 03/19/17 03:31 POC Glucose 168 (58-89) H 03/19/17 11:04 Uric Acid 8.5 mg/dL (3.5-7.2) H 03/07/17 05:45 Ionized Calcium 1.12 mmol/L (1.15-1.35) L 03/09/17 03:55 Phosphorus 2.1 mg/dL (2.3-4.7) L 03/10/17 03:34 Magnesium 1.4 mg/dL (1.6-2.6) L 03/19/17 03:31 AST 367 Units/L (5-34) H 03/07/17 05:45 ALT 334 Units/L (0-55) H 03/07/17 05:45 Alkaline Phosphatase 162 Units/L (38-126) H 03/07/17 05:45 Creatine Kinase 3139 Units/L (30-200) H 03/10/17 03:34 Serum Total Protein 5.9 g/dL (6.0-8.3) L 03/07/17 05:45 Albumin 3.0 g/dL (3.5-5.0) L 03/07/17 05:45 Albumin/Globulin Ratio 1.0 (1.1-2.2) L 03/07/17 05:45 Urine Clarity Turbid (Clear) A 03/08/17 15:00 Ur Specific [place] 1.030 (1.010-1.025) H 03/08/17 15:00 Urine Protein 100 mg/dL (Neg-Trace) H 03/08/17 15:00 Urine Blood Large (Negative) H 03/08/17 15:00 Urine Microscopic RBC TNTC per hpf (0-3) H 03/08/17 15:00 Urine Microscopic WBC 5-15 per hpf (0-3) H 03/08/17 15:00 Ur Squamous Epith Cells Many per lpf (None-Few) H 03/08/17 15:00 Ur Culture Indicated? YES (NO) A 03/08/17 15:00 Staphylococcus sp PCR DETECTED (Not Detect) A 03/07/17 05:45 mecA-Methicil Res Gene DETECTED (Not Detect) A 03/07/17 05:45 - Microbiology Findings Microbiology Findings: Microbiology, Last 48 Hours 03/17/17 03:39 Sputum Culture - Final Sputum Staphylococcus aureus - Clinical Findings Intake & Output: Intake & Output 03/18/17 03/19/17 03/19/17 23:59 07:59 15:59 Intake Total 1504 / 1504 1614.6 / 1614.6 731 / 731 Output Total 300 / 300 850 / 850 760 / 760 Balance 1204 / 1204 764.6 / 764.6 - / -29 Weight 179.532 kg
[2017-03-19] MEDS: Amiodarone Premix 360 MG/200 ML BAG IVC SCH (09:56)
--- NOTE | 2017-03-19 12:54 | Event Note ---
Date of Encounter: 03/19/17 Time of Encounter: 09:30 Seeded comprehensive progress note as provided by Dr. Lubin. I agree with his evaluation physical examination findings. The patient's management was redo during multidisciplinary critical care rounds. Continue ventilatory support for acute respiratory failure, antibiotic adjusted for MSSA coverage in light of the results of sputum culture, continue current antiarrhythmic therapy and anticoagulation therapy for persistent atrial fibrillation/flutter, enteral nutritional support. The patient's encephalopathy currently precludes breathing trial and extubation. I suspect encephalopathy will pose an issue for this patient in reference to successful extubation in light of other concurrent co-morbidities.. E Cordasco [phone]
[2017-03-19] MEDS: Heparin 25,000 UNIT/500 ML D5W 25,000 UNIT/500 ML MLS IVC SCH (13:39)
[2017-03-19] MEDS: Norepinephrine 4 MG in D5% in Water 250 ML IVC SCH (14:43)
--- NOTE | 2017-03-19 14:52 | Cardiology Progress Note ---
Date of Encounter: 03/19/17 Time of Encounter: 14:50 Assessment and Plan (1) Atrial flutter with rapid ventricular response Current Visit: No Status: Acute Per Electrophysiology: -Known atrial flutter. Has had multiple admission for atrial flutter with RVR. -Presented this admission with slow ventricular response, HR 30s in setting of hyperkalemia K 7.0. -Once potassium was corrected, went into RVR. -Currently rate controlled. HR in the 90's. Avg HR 103 bpm atrial flutter. HR increases when sedation decreased. Patient currently on lopressor 150mg BID, Lopressor IV PRN, amiodarone drip at 0.5mg/hour and oral amiodarone, cardizem drip at 15mg/hour. D/C IV amiodarone and change amio to 400 mg daily for a week and then 200 mg daily. Change cardizem to oral when able. On heparin gtt for AC. Restart xarelto when taking oral meds uncrushed. (2) Diastolic CHF Current Visit: No Status: Acute H/o chronic diastolic CHF. Mild fluid on exam. On IV lasix. Increasing BLE edema noted. Re-intubated for respiratory distress multifocal PNA. Pulmonology following. Kidney function remains normal. Positive 2800 ml for 24 hours. Increase lasix today to 40 mg BID. Continue to monitor. Continue strict I&O and daily weights. Qualifiers: Congestive heart failure chronicity: chronic Qualified Code(s): I50.32 - Chronic diastolic (congestive) heart failure Discussion w patient/family: The assessment and plan as outlined above was discussed with the patient and/or family members who expressed understanding and agreement. All questions were answered. Thank you for involving us in the care of your patient. Please call with any questions. Subjective Principal diagnosis: Acute respiratory failure, A Fib with RVR Interval history: Patient remains intubated and sedated. He was able to complete one hour of c- pap trial. Objective Vital Signs, Last 4 Hours Temp Pulse Resp BP Pulse Ox 03/19/17 14:00 105 20 126/74 95 03/19/17 13:54 19 110/82 95 03/19/17 13:00 100 15 110/82 95 03/19/17 12:00 94 18 104/71 94 03/19/17 11:00 98.6 F 96 16 103/74 96 General: Other (sedated on ventilator. ) HEENT: Atraumatic, Normocephaly, Mucus Membranes Moist Neck: No JVD, Normal carotid pulses Cardiac: Other (Irregularly irregular) Lungs: Other (Scattered rhonci, diminished breath sounds.) Neuro: No focal deficits noted Abdomen: Soft, Non-Tender Skin: No rashes noted on visualized skin Musculoskeletal: No Chest Wall Tenderness Extremities: No Clubbing, No Cyanosis, Normal Pulses, Other (2+ edema in BLE.) Results 03/19/17 03:31 03/19/17 03:31 Lab Results 03/18/17 03/18/17 03/18/17 16:30 23:03 23:49 WBC Hgb Hct Plt Count APTT 93.4 H 26.3 D 263.9 H* D Sodium Potassium Chloride Carbon Dioxide BUN Creatinine Glucose Calcium Magnesium 03/19/17 03/19/17 03/19/17 03:31 03:31 07:35 WBC 11.2 H Hgb 8.7 L Hct 27.3 L Plt Count 418 H APTT 105.5 H D Sodium 134 L Potassium 3.4 L Chloride 94 L Carbon Dioxide 34 H BUN 25 Creatinine 1.09 Glucose 189 H Calcium 8.6 Magnesium 1.4 L Consult Discharge Plan - Plan Referrals: [facility] [Primary Care Provider] -
[2017-03-19] MEDS ORDERED: Amiodarone Premix 360 MG/200 ML BAG IVC ONE ×2 (22:31→23:15)
[2017-03-19] MEDS ORDERED: Amiodarone 360 MG in D5% in Water 200 ML IVPB STA (22:59)
[2017-03-20] MEDS: Heparin 25,000 UNIT/500 ML D5W 25,000 UNIT/500 ML MLS IVC SCH ×3 (01:01→17:14)
[2017-03-20] MEDS: Lacri-Lube 3.5 GM TUBE BOTH EYES SCH ×6 (03:27→23:19)
[2017-03-20 04:26] LABS: Basophils % 0.3 %; Eosinophils # 0.3 K/mcL (0.0-0.6); Eosinophils % 2.8 %; Hematocrit 25.3 % (37.5-50.1); Hemoglobin 8.3 g/dL (12.9-16.9); Immature Granulocytes % 1.6 % (0-4); Lymphocytes # 1.2 K/mcL (0.6-4.6); Lymphocytes % 10.3 %; Mean Corpuscular HGB Conc 32.8 g/dL (31.6-35.5); Mean Corpuscular Hemoglobin 28.9 pg (28.0-33.3); Mean Corpuscular Volume 88.2 fL (83.0-100.0); Mean Platelet Volume 9.5 fL (9.4-12.4); Monocytes # 1.2 K/mcL (0.0-1.3); Monocytes % 10.4 %; Neutrophils # 8.6 K/mcL (1.6-8.9); Platelet Count 420 K/mcL (140-400); Red Blood Count 2.87 M/mcL (4.19-5.50); Red Cell Distribution Width 13.6 % (11.5-14.5); Segmented Neutrophils % 74.6 %
[2017-03-20 04:40] LABS: BUN/Creatinine Ratio 25 (6-26); Blood Urea Nitrogen 28 mg/dL (8-26); Calcium 8.7 mg/dL (8.6-10.8); Carbon Dioxide 33 mEq/L (19-29); Chloride 95 mEq/L (98-109); Glucose 219 mg/dL (70-99); Magnesium 1.6 mg/dL (1.6-2.6); Osmolality,Calculated 292 (280-300); Potassium 3.4 mEq/L (3.5-4.5); Sodium 135 mEq/L (136-145); eGFR For African Americans > 60 (> 60); eGFR For Non-African Americans > 60 (> 60)
[2017-03-20 04:51] LABS: ABG Base Excess 11.1 mEq/L (-2.0 to 3.0); ABG HCO3 36.3 mEQ/L (21-27); ABG Oxygen Saturation 98 % (95-98); ABG PCO2 51 mmHg (35-45); ABG PH 7.46 pH Units (7.32-7.45); ABG PO2 93 mmHg (85-104); ABG TCO2 37.9 mEq/L (20-26)
[2017-03-20 04:53] LABS: Blood Gas FiO2 55 %
[2017-03-20] MEDS: FentaNYL (PF) 3,000 MCG in 0.9 % Sodium Chloride 240 ML IVC SCH ×2 (05:10→16:29)
[2017-03-20] MEDS: Dexmedetomidine HCl 400 MCG/100 ML MLS IVC SCH ×2 (05:10→15:21)
[2017-03-20] MEDS: Insulin LISPRO 300 UNITS/3 ML VIAL SQ SCH ×4 (05:10→23:19)
[2017-03-20] MEDS: Pantoprazole 40 MG VIAL IVPB SCH (08:15)
[2017-03-20] MEDS: Metoprolol 100 MG TABLET PO SCH ×2 (08:16→20:44)
[2017-03-20] MEDS: *HR* Amiodarone 200 MG TABLET PO SCH (08:16)
[2017-03-20] MEDS: Chlorhexidine Rinse 15 ML MOUTHWASH MM SCH ×2 (08:16→20:44)
[2017-03-20] MEDS: Bisacodyl 10 MG RECTAL SUPPOSITORY RC SCH (08:16)
[2017-03-20] MEDS: Budesonide/Formoterol 160/4.5 MDI IH SCH ×2 (08:17→20:00)
[2017-03-20] MEDS: Furosemide 20 MG/2 ML VIAL IVP SCH ×2 (08:17→17:15)
[2017-03-20] MEDS: Insulin DETEMIR 100 UNIT/ML X5UNITS SQ SCH ×2 (08:34→20:44)
--- NOTE | 2017-03-20 09:36 | Pulmonology Progress Note ---
<Nicolas Church - Last Filed: 03/20/17 09:33> Date of Encounter: 03/20/17 Time of Encounter: 09:33 Assessment and Plan (1) Acute respiratory failure with hypoxia Current Visit: No Status: Resolved Likely related to underlying pneumonia as well as possible pulmonary edema in the setting of A. fib with RVR. Patient requires full ventilatory support, continue suctioning. Unfortunately the patient is not progressing encephalopathy, likely metabolic. Recent CT of the head was unremarkable. The patient does not show improvement in his mental status and respiratory status a discussion may need to be had with the POA regarding tracheostomy Afebrile overnight. Sputum culture shows MSSA. Continue Rocephin. Repeat blood cultures are pending. Continue ventilatory support until pneumonia improves. Patient's heart rate has proven very difficult to control. Remains on IV amiodarone with transition to by mouth amiodarone with overlap. Patient is also on Cardizem drip as well. Discussed with cardiology and they are attempting to transition the patient to all oral medications. Further management of atrial fibrillation per cardiology. Patient is on heparin drip for anticoagulation. (2) CHF (congestive heart failure) Current Visit: No Status: Acute Qualifiers: Congestive heart failure type: unspecified congestive heart failure type Congestive heart failure chronicity: chronic Qualified Code(s): I50.9 - Heart failure, unspecified (3) Atrial fibrillation with RVR Current Visit: No Status: Resolved (4) Diastolic CHF Current Visit: No Status: Acute Most recent echo showed a normal EF with indeterminant diastolic dysfunction. Patient does have mild pulmonary edema on chest x-ray, likely related to the large amounts of fluids the patient received in the emergency department. Given the patient's acute kidney injury we will hold off on diuresis at this time until recheck of the patient's BMP can be completed and case can be discussed with nephrology. No indication to repeat echocardiogram. Qualifiers: Congestive heart failure chronicity: chronic Qualified Code(s): I50.32 - Chronic diastolic (congestive) heart failure (5) Diabetes Current Visit: No Status: Acute Qualifiers: Diabetes mellitus type: type 2 Diabetes mellitus complication status: with kidney complications Diabetes mellitus complication detail: with chronic kidney disease Diabetes mellitus emt intermediate insulin use: without longterm use Chronic kidney disease stage: stage 3 (moderate) Qualified Code(s): E11.22 - Type 2 diabetes mellitus with diabetic chronic kidney disease; N18.3 - Chronic kidney disease, stage 3 (moderate) Subjective Principal diagnosis: Acute respiratory failure, A Fib with RVR Interval history: Patient seen and examined at bedside. Patient remains intubated and sedated. Patient does appear mildly anxious but does not respond to verbal or painful stimuli and will not follow commands. Objective PUL Vital signs: Last Vital Signs Temp 98.3 F 03/20/17 07:30 Pulse 87 03/20/17 09:00 Resp 15 03/20/17 09:00 BP 114/77 03/20/17 09:00 Pulse Ox 93 03/20/17 09:00 General appearance: agitated (mild) ENT: oropharynx moist Effort: normal Auscultation: bilateral: rhonchi Cardiovascular: irregular rhythm (Tachycardia) Gastrointestinal: normoactive bowel sounds, soft, non-tender, non-distended Extremities: no cyanosis, no clubbing, edema (1+) unable to assess due to mental status Ventilator Settings Ventilator Settings: Ventilator Settings, Last 8 Hours Ventilator Mode VC+ Ventilator Mode VC+ Ventilator Mode VC+ Ventilator Mode VC+ Ventilator Mode VC+ Ventilator Mode VC+ Ventilator Mode VC+ Ventilator Tidal Volume 600 Setting Ventilator Tidal Volume 600 Setting Ventilator Tidal Volume 600 Setting Ventilator Tidal Volume 600 Setting Ventilator Tidal Volume 600 Setting Ventilator Tidal Volume 600 Setting Ventilator Tidal Volume 600 Setting Ventilator Respiratory Rate 14 Setting Ventilator Respiratory Rate 14 Setting Ventilator Respiratory Rate 14 Setting Ventilator Respiratory Rate 14 Setting Ventilator Respiratory Rate 14 Setting Ventilator Respiratory Rate 14 Setting Ventilator Respiratory Rate 14 Setting Actual Respiratory Rate 17 Actual Respiratory Rate 18 Actual Respiratory Rate 17 Actual Respiratory Rate 17 Actual Respiratory Rate 17 Actual Respiratory Rate 17 Positive End Expiratory 5 Pressure Positive End Expiratory 5 Pressure Positive End Expiratory 5 Pressure Positive End Expiratory 5 Pressure Positive End Expiratory 5 Pressure Positive End Expiratory 5 Pressure Positive End Expiratory 5 Pressure Peak Inspiratory Airway 26 Pressure Peak Inspiratory Airway 26 Pressure Peak Inspiratory Airway 21 Pressure Peak Inspiratory Airway 24 Pressure Peak Inspiratory Airway 24 Pressure Peak Inspiratory Airway 24 Pressure Results - Laboratory Findings CBC and BMP: 03/20/17 04:15 03/20/17 04:15 ABG ABG pH 7.46 pH Units (7.32-7.45) H 03/20/17 04:43 ABG pCO2 51 mmHg (35-45) H 03/20/17 04:43 ABG pO2 93 mmHg (85-104) 03/20/17 04:43 ABG O2 Saturation 98 % (95-98) 03/20/17 04:43 PT/INR, D-dimer PT 14.3 Seconds (9.4-12.1) H 03/16/17 13:40 Abnormal lab findings: Abnormal lab results WBC 11.6 K/mcL (4.3-11.1) H 03/20/17 04:15 RBC 2.87 M/mcL (4.19-5.50) L 03/20/17 04:15 Hgb 8.3 g/dL (12.9-16.9) L 03/20/17 04:15 Hct 25.3 % (37.5-50.1) L 03/20/17 04:15 Plt Count 420 K/mcL (140-400) H 03/20/17 04:15 PT 14.3 Seconds (9.4-12.1) H 03/16/17 13:40 Heparin Anti-Xa, Unfract 0.88 IU/mL (0.30-0.70) H 03/18/17 23:49 ABG pH 7.46 pH Units (7.32-7.45) H 03/20/17 04:43 ABG pCO2 51 mmHg (35-45) H 03/20/17 04:43 ABG HCO3 36.3 mEQ/L (21-27) H 03/20/17 04:43 ABG Total CO2 37.9 mEq/L (20-26) H 03/20/17 04:43 ABG Base Excess 11.1 mEq/L (-2.0 to 3.0) H 03/20/17 04:43 Sodium 135 mEq/L (136-145) L 03/20/17 04:15 Potassium 3.4 mEq/L (3.5-4.5) L 03/20/17 04:15 Chloride 95 mEq/L (98-109) L 03/20/17 04:15 Carbon Dioxide 33 mEq/L (19-29) H 03/20/17 04:15 BUN 28 mg/dL (8-26) H 03/20/17 04:15 Glucose 219 mg/dL (70-99) H 03/20/17 04:15 POC Glucose 201 (58-89) H 03/19/17 23:12 Uric Acid 8.5 mg/dL (3.5-7.2) H 03/07/17 05:45 Ionized Calcium 1.12 mmol/L (1.15-1.35) L 03/09/17 03:55 Phosphorus 2.1 mg/dL (2.3-4.7) L 03/10/17 03:34 AST 367 Units/L (5-34) H 03/07/17 05:45 ALT 334 Units/L (0-55) H 03/07/17 05:45 Alkaline Phosphatase 162 Units/L (38-126) H 03/07/17 05:45 Creatine Kinase 3139 Units/L (30-200) H 03/10/17 03:34 Serum Total Protein 5.9 g/dL (6.0-8.3) L 03/07/17 05:45 Albumin 3.0 g/dL (3.5-5.0) L 03/07/17 05:45 Albumin/Globulin Ratio 1.0 (1.1-2.2) L 03/07/17 05:45 Urine Clarity Turbid (Clear) A 03/08/17 15:00 Ur Specific [place] 1.030 (1.010-1.025) H 03/08/17 15:00 Urine Protein 100 mg/dL (Neg-Trace) H 03/08/17 15:00 Urine Blood Large (Negative) H 03/08/17 15:00 Urine Microscopic RBC TNTC per hpf (0-3) H 03/08/17 15:00 Urine Microscopic WBC 5-15 per hpf (0-3) H 03/08/17 15:00 Ur Squamous Epith Cells Many per lpf (None-Few) H 03/08/17 15:00 Ur Culture Indicated? YES (NO) A 03/08/17 15:00 Staphylococcus sp PCR DETECTED (Not Detect) A 03/07/17 05:45 mecA-Methicil Res Gene DETECTED (Not Detect) A 03/07/17 05:45 - Microbiology Findings Microbiology Findings: Microbiology, Last 48 Hours 03/18/17 09:07 Blood Culture - Preliminary Peripheral Venipuncture No growth. 03/17/17 03:39 Sputum Culture - Final Sputum Staphylococcus aureus - Clinical Findings Intake & Output: Intake & Output 03/19/17 03/20/17 03/20/17 23:59 07:59 15:59 Intake Total 1207 / 1207 964.4 / 964.4 225 / 225 Output Total 900 / 900 700 / 700 Balance 307 / 307 264.4 / 264.4 225 / 225 Weight 178.5 kg Consult Discharge Plan - Plan [facility]errals: [facility] [Primary Care Provider[facility] - <Eulalio Kline - Last Filed: 03/20/17 09:43> Date of Encounter: 03/20/17 Assessment and Plan (1) Acute respiratory failure with hypoxia Current Visit: No Status: Resolved Code(s): J96.01 - Acute respiratory failure with hypoxia SNOMED Code(s): 02655219, 632215307 Objective PUL Vital signs: Last Vital Signs Temp 98.3 F 03/20/17 07:30 Pulse 87 03/20/17 09:00 Resp 15 03/20/17 09:00 BP 114/77 03/20/17 09:00 Pulse Ox 93 03/20/17 09:00 Ventilator Settings Ventilator Settings: Ventilator Settings, Last 8 Hours Ventilator Mode VC+ Ventilator Mode VC+ Ventilator Mode VC+ Ventilator Mode VC+ Ventilator Mode VC+ Ventilator Mode VC+ Ventilator Mode VC+ Ventilator Tidal Volume 600 Setting Ventilator Tidal Volume 600 Setting Ventilator Tidal Volume 600 Setting Ventilator Tidal Volume 600 Setting Ventilator Tidal Volume 600 Setting Ventilator Tidal Volume 600 Setting Ventilator Tidal Volume 600 Setting Ventilator Respiratory Rate 14 Setting Ventilator Respiratory Rate 14 Setting Ventilator Respiratory Rate 14 Setting Ventilator Respiratory Rate 14 Setting Ventilator Respiratory Rate 14 Setting Ventilator Respiratory Rate 14 Setting Ventilator Respiratory Rate 14 Setting Actual Respiratory Rate 17 Actual Respiratory Rate 18 Actual Respiratory Rate 17 Actual Respiratory Rate 17 Actual Respiratory Rate 17 Actual Respiratory Rate 17 Positive End Expiratory 5 Pressure Positive End Expiratory 5 Pressure Positive End Expiratory 5 Pressure Positive End Expiratory 5 Pressure Positive End Expiratory 5 Pressure Positive End Expiratory 5 Pressure Positive End Expiratory 5 Pressure Peak Inspiratory Airway 26 Pressure Peak Inspiratory Airway 26 Pressure Peak Inspiratory Airway 21 Pressure Peak Inspiratory Airway 24 Pressure Peak Inspiratory Airway 24 Pressure Peak Inspiratory Airway 24 Pressure Results - Laboratory Findings CBC and BMP: 03/20/17 04:15 03/20/17 04:15 ABG ABG pH 7.46 pH Units (7.32-7.45) H 03/20/17 04:43 ABG pCO2 51 mmHg (35-45) H 03/20/17 04:43 ABG pO2 93 mmHg (85-104) 03/20/17 04:43 ABG O2 Saturation 98 % (95-98) 03/20/17 04:43 PT/INR, D-dimer PT 14.3 Seconds (9.4-12.1) H 03/16/17 13:40 Abnormal lab findings: Abnormal lab results WBC 11.6 K/mcL (4.3-11.1) H 03/20/17 04:15 RBC 2.87 M/mcL (4.19-5.50) L 03/20/17 04:15 Hgb 8.3 g/dL (12.9-16.9) L 03/20/17 04:15 Hct 25.3 % (37.5-50.1) L 03/20/17 04:15 Plt Count 420 K/mcL (140-400) H 03/20/17 04:15 PT 14.3 Seconds (9.4-12.1) H 03/16/17 13:40 Heparin Anti-Xa, Unfract 0.88 IU/mL (0.30-0.70) H 03/18/17 23:49 ABG pH 7.46 pH Units (7.32-7.45) H 03/20/17 04:43 ABG pCO2 51 mmHg (35-45) H 03/20/17 04:43 ABG HCO3 36.3 mEQ/L (21-27) H 03/20/17 04:43 ABG Total CO2 37.9 mEq/L (20-26) H 03/20/17 04:43 ABG Base Excess 11.1 mEq/L (-2.0 to 3.0) H 03/20/17 04:43 Sodium 135 mEq/L (136-145) L 03/20/17 04:15 Potassium 3.4 mEq/L (3.5-4.5) L 03/20/17 04:15 Chloride 95 mEq/L (98-109) L 03/20/17 04:15 Carbon Dioxide 33 mEq/L (19-29) H 03/20/17 04:15 BUN 28 mg/dL (8-26) H 03/20/17 04:15 Glucose 219 mg/dL (70-99) H 03/20/17 04:15 POC Glucose 201 (58-89) H 03/19/17 23:12 Uric Acid 8.5 mg/dL (3.5-7.2) H 03/07/17 05:45 Ionized Calcium 1.12 mmol/L (1.15-1.35) L 03/09/17 03:55 Phosphorus 2.1 mg/dL (2.3-4.7) L 03/10/17 03:34 AST 367 Units/L (5-34) H 03/07/17 05:45 ALT 334 Units/L (0-55) H 03/07/17 05:45 Alkaline Phosphatase 162 Units/L (38-126) H 03/07/17 05:45 Creatine Kinase 3139 Units/L (30-200) H 03/10/17 03:34 Serum Total Protein 5.9 g/dL (6.0-8.3) L 03/07/17 05:45 Albumin 3.0 g/dL (3.5-5.0) L 03/07/17 05:45 Albumin/Globulin Ratio 1.0 (1.1-2.2) L 03/07/17 05:45 Urine Clarity Turbid (Clear) A 03/08/17 15:00 Ur Specific [place] 1.030 (1.010-1.025) H 03/08/17 15:00 Urine Protein 100 mg/dL (Neg-Trace) H 03/08/17 15:00 Urine Blood Large (Negative) H 03/08/17 15:00 Urine Microscopic RBC TNTC per hpf (0-3) H 03/08/17 15:00 Urine Microscopic WBC 5-15 per hpf (0-3) H 03/08/17 15:00 Ur Squamous Epith Cells Many per lpf (None-Few) H 03/08/17 15:00 Ur Culture Indicated? YES (NO) A 03/08/17 15:00 Staphylococcus sp PCR DETECTED (Not Detect) A 03/07/17 05:45 mecA-Methicil Res Gene DETECTED (Not Detect) A 03/07/17 05:45 - Microbiology Findings Microbiology Findings: Microbiology, Last 48 Hours 03/18/17 09:07 Blood Culture - Preliminary Peripheral Venipuncture No growth. 03/17/17 03:39 Sputum Culture - Final Sputum Staphylococcus aureus - Clinical Findings Intake & Output: Intake & Output 03/19/17 03/20/17 03/20/17 23:59 07:59 15:59 Intake Total 1207 / 1207 964.4 / 964.4 475 / 475 Output Total 900 / 900 700 / 700 Balance 307 / 307 264.4 / 264.4 475 / 475 Weight 178.5 kg
--- NOTE | 2017-03-20 10:19 | Cardiology Progress Note ---
Date of Encounter: 03/20/17 Time of Encounter: 10:16 Assessment and Plan (1) Atrial flutter with rapid ventricular response Current Visit: No Status: Acute Per Electrophysiology: -Known atrial flutter. Has had multiple admission for atrial flutter with RVR. -Presented this admission with slow ventricular response, HR 30s in setting of hyperkalemia K 7.0. -Once potassium was corrected, went into RVR. -Currently rate controlled. HR in the 90's. Avg HR 99 bpm atrial flutter. Patient currently on lopressor 150mg BID, Lopressor IV PRN, oral amiodarone, cardizem drip at 15mg/hour. Amiodarone recommendations: 400 mg daily until discharge and then 200 mg daily at home. Cardizem recommendation: Change to pill fom when extubated and taking oral. On 15 mg daily. Change to Cardizem CD 360 mg daily. Reduce dose if needed for low HR or b/p. On heparin gtt for AC. Restart xarelto when taking oral meds uncrushed. Patient had appt to discuss ablation. Can re-assess in out-pt setting. Out-pt f/u will be scheduled by [facility]. Please call with questions or concerns we will sign off. (2) Diastolic CHF Current Visit: No Status: Acute H/o chronic diastolic CHF. Mild acute on chronic CHf. Likely due to persistent aflutter and IV fluids. Kidney function remains normal. Continue IV lasix 40 mg BID until euvolemic. Continue to monitor BMP. Continue strict I&O and daily weights. Call with questions. Qualifiers: Congestive heart failure chronicity: chronic Qualified Code(s): I50.32 - Chronic diastolic (congestive) heart failure Discussion w patient/family: The assessment and plan as outlined above was discussed with the patient and/or family members who expressed understanding and agreement. All questions were answered. Thank you for involving us in the care of your patient. Please call with any questions. Subjective Principal diagnosis: Acute respiratory failure, A Fib with RVR Interval history: Patient remains intubated and sedated. HR continues to be in the 90's. Objective Vital Signs, Last 4 Hours Temp Pulse Resp BP Pulse Ox 03/20/17 09:00 87 15 114/77 93 03/20/17 08:00 101 16 126/69 94 03/20/17 07:55 106 03/20/17 07:30 98.3 F 03/20/17 07:00 104 21 130/77 96 General: Other (Sedated on ventilator) HEENT: Atraumatic, Normocephaly, Mucus Membranes Moist Neck: No JVD, Normal carotid pulses Cardiac: Other (Irregularly irregular, aflutter on telemetry.) Lungs: Normal Breath Sounds, No Wheeze, Rales, Rhonchi Neuro: Other (Sedated, unable to follow commands.) Abdomen: Soft, Non-Tender Skin: No rashes noted on visualized skin Musculoskeletal: No Chest Wall Tenderness Extremities: No Clubbing, No Cyanosis, Normal Pulses, Other (2+ pitting edema in ankles.) Results 03/20/17 04:15 03/20/17 04:15 Lab Results 03/19/17 03/19/17 03/20/17 16:40 Unknown 04:15 WBC 11.6 H Hgb 8.3 L Hct 25.3 L Plt Count 420 H APTT 29.3 D 84.5 H D Sodium Potassium Chloride Carbon Dioxide BUN Creatinine Glucose Calcium Magnesium 03/20/17 03/20/17 04:15 07:54 WBC Hgb Hct Plt Count APTT 34.1 D Sodium 135 L Potassium 3.4 L Chloride 95 L Carbon Dioxide 33 H BUN 28 H Creatinine 1.13 Glucose 219 H Calcium 8.7 Magnesium 1.6 Consult Discharge Plan - Plan [facility]errals: [facility] [Primary Care Provider] -
[2017-03-20] MEDS ORDERED: Aminoglycoside Consult 1 EACH MC ONE (10:50)
[2017-03-20] MEDS: Norepinephrine 4 MG in D5% in Water 250 ML IVC SCH (14:43)
[2017-03-21 00:42] LABS: Basophils # 0.1 K/mcL (0.0-0.2); Basophils % 0.4 %; Eosinophils # 0.2 K/mcL (0.0-0.6); Eosinophils % 1.6 %; Hematocrit 27.3 % (37.5-50.1); Hemoglobin 8.8 g/dL (12.9-16.9); Immature Granulocytes % 1.8 % (0-4); Lymphocytes # 1.2 K/mcL (0.6-4.6); Lymphocytes % 8.3 %; Mean Corpuscular HGB Conc 32.2 g/dL (31.6-35.5); Mean Corpuscular Hemoglobin 28.8 pg (28.0-33.3); Mean Corpuscular Volume 89.2 fL (83.0-100.0); Mean Platelet Volume 9.3 fL (9.4-12.4); Monocytes # 1.4 K/mcL (0.0-1.3); Platelet Count 520 K/mcL (140-400); Red Blood Count 3.06 M/mcL (4.19-5.50); Red Cell Distribution Width 13.8 % (11.5-14.5); Segmented Neutrophils % 77.9 %
[2017-03-21 00:57] LABS: BUN/Creatinine Ratio 23 (6-26); Blood Urea Nitrogen 29 mg/dL (8-26); Calcium 9.2 mg/dL (8.6-10.8); Carbon Dioxide 32 mEq/L (19-29); Chloride 94 mEq/L (98-109); Glucose 266 mg/dL (70-99); Magnesium 1.6 mg/dL (1.6-2.6); Osmolality,Calculated 295 (280-300); Phosphorous 3.5 mg/dL (2.3-4.7); Potassium 3.8 mEq/L (3.5-4.5); Sodium 135 mEq/L (136-145); eGFR For African Americans > 60 (> 60); eGFR For Non-African Americans 55 (> 60)
[2017-03-21] MEDS: Lacri-Lube 3.5 GM TUBE BOTH EYES SCH ×6 (02:52→23:27)
[2017-03-21] MEDS: Dexmedetomidine HCl 400 MCG/100 ML MLS IVC SCH ×3 (02:52→19:24)
[2017-03-21 04:44] LABS: ABG HCO3 34.1 mEQ/L (21-27); ABG Oxygen Saturation 95 % (95-98); ABG PCO2 49 mmHg (35-45); ABG PH 7.45 pH Units (7.32-7.45); ABG PO2 71 mmHg (85-104); ABG TCO2 35.6 mEq/L (20-26)
[2017-03-21 04:46] LABS: Blood Gas FiO2 55 %
[2017-03-21] MEDS: Heparin 25,000 UNIT/500 ML D5W 25,000 UNIT/500 ML MLS IVC SCH ×2 (05:17→12:50)
[2017-03-21] MEDS: Insulin LISPRO 300 UNITS/3 ML VIAL SQ SCH ×4 (05:38→23:26)
[2017-03-21] MEDS: FentaNYL (PF) 3,000 MCG in 0.9 % Sodium Chloride 240 ML IVC SCH ×2 (06:50→22:49)
[2017-03-21] MEDS: Budesonide/Formoterol 160/4.5 MDI IH SCH ×2 (08:10→19:52)
--- NOTE | 2017-03-21 08:59 | Pulmonology Progress Note ---
<Nicolas Church - Last Filed: 03/21/17 08:55> Date of Encounter: 03/21/17 Time of Encounter: 08:56 Assessment and Plan (1) Acute respiratory failure with hypoxia Current Visit: No Status: Resolved Likely related to underlying pneumonia as well as possible pulmonary edema in the setting of A. fib with RVR. Patient requires full ventilatory support, continue suctioning. Unfortunately the patient is not progressing encephalopathy, likely metabolic. Recent CT of the head was unremarkable. Afebrile overnight. Sputum culture shows MSSA. Continue Rocephin for a total of 8 days. Repeat blood cultures are no growth to date. Continue ventilatory support until pneumonia improves. Patient's heart rate has proven very difficult to control. Remains on IV amiodarone with transition to by mouth amiodarone with overlap. Patient is also on Cardizem drip as well. Discussed with cardiology and they are attempting to transition the patient to all oral medications. Further management of atrial fibrillation per cardiology. Patient is on heparin drip for anticoagulation. I had a long discussion with the patient's son who is the medical power of trial attorney regarding ultimate goals of care and that the patient is likely progressing towards the need of tracheostomy and long-term ventilation. The son understood that we are close to the point where a decision will need to be made on how we proceed with long-term plan of care and they son is planning on discussing this with other family members before coming to a final decision. We will follow-up with the son for further discussions on plan of care. (2) CHF (congestive heart failure) Current Visit: No Status: Acute Qualifiers: Congestive heart failure type: unspecified congestive heart failure type Congestive heart failure chronicity: chronic Qualified Code(s): I50.9 - Heart failure, unspecified (3) Atrial fibrillation with RVR Current Visit: No Status: Resolved (4) Diastolic CHF Current Visit: No Status: Acute Most recent echo showed a normal EF with indeterminant diastolic dysfunction. Patient does have mild pulmonary edema on chest x-ray, likely related to the large amounts of fluids the patient received in the emergency department. Given the patient's acute kidney injury we will hold off on diuresis at this time until recheck of the patient's BMP can be completed and case can be discussed with nephrology. No indication to repeat echocardiogram. Qualifiers: Congestive heart failure chronicity: chronic Qualified Code(s): I50.32 - Chronic diastolic (congestive) heart failure (5) Diabetes Current Visit: No Status: Acute Qualifiers: Diabetes mellitus type: type 2 Diabetes mellitus complication status: with kidney complications Diabetes mellitus complication detail: with chronic kidney disease Diabetes mellitus fdc insulin use: without fdc use Chronic kidney disease stage: stage 3 (moderate) Qualified Code(s): E11.22 - Type 2 diabetes mellitus with diabetic chronic kidney disease; N18.3 - Chronic kidney disease, stage 3 (moderate) Subjective Principal diagnosis: Acute respiratory failure, A Fib with RVR Interval history: Patient seen and examined at bedside. Patient remains intubated and sedated. Does not respond to verbal or painful stimuli and will not follow commands. Objective PUL Vital signs: Last Vital Signs Temp 99.2 F 03/21/17 07:30 Pulse 101 03/21/17 06:00 Resp 20 03/21/17 08:11 BP 127/74 03/21/17 08:11 Pulse Ox 93 03/21/17 08:11 General appearance: no acute distress, comatose ENT: oropharynx moist Auscultation: bilateral: rhonchi Cardiovascular: irregular rhythm (tachy) Gastrointestinal: hypoactive bowel sounds, soft, non-tender, non-distended Extremities: no cyanosis, no clubbing, edema (1+) unable to assess due to mental status Ventilator Settings Ventilator Settings: Ventilator Settings, Last 8 Hours Ventilator Mode VC+ Ventilator Mode VC+ Ventilator Mode VC+ Ventilator Mode VC+ Ventilator Mode VC+ Ventilator Mode VC+ Ventilator Mode VC+ Ventilator Mode VC+ Ventilator Mode VC+ Ventilator Mode VC+ Ventilator Mode VC+ Ventilator Tidal Volume 600 Setting Ventilator Tidal Volume 600 Setting Ventilator Tidal Volume 600 Setting Ventilator Tidal Volume 600 Setting Ventilator Tidal Volume 600 Setting Ventilator Tidal Volume 600 Setting Ventilator Tidal Volume 600 Setting Ventilator Tidal Volume 600 Setting Ventilator Tidal Volume 600 Setting Ventilator Tidal Volume 600 Setting Ventilator Tidal Volume 600 Setting Ventilator Respiratory Rate 14 Setting Ventilator Respiratory Rate 14 Setting Ventilator Respiratory Rate 14 Setting Ventilator Respiratory Rate 14 Setting Ventilator Respiratory Rate 14 Setting Ventilator Respiratory Rate 14 Setting Ventilator Respiratory Rate 14 Setting Ventilator Respiratory Rate 14 Setting Ventilator Respiratory Rate 14 Setting Ventilator Respiratory Rate 14 Setting Ventilator Respiratory Rate 14 Setting Actual Respiratory Rate 19 Actual Respiratory Rate 18 Actual Respiratory Rate 16 Actual Respiratory Rate 18 Actual Respiratory Rate 19 Actual Respiratory Rate 17 Actual Respiratory Rate 20 Actual Respiratory Rate 19 Actual Respiratory Rate 19 Actual Respiratory Rate 19 Positive End Expiratory 5 Pressure Positive End Expiratory 5 Pressure Positive End Expiratory 5 Pressure Positive End Expiratory 5 Pressure Positive End Expiratory 5 Pressure Positive End Expiratory 5 Pressure Positive End Expiratory 5 Pressure Positive End Expiratory 5 Pressure Positive End Expiratory 5 Pressure Positive End Expiratory 5 Pressure Positive End Expiratory 5 Pressure Peak Inspiratory Airway 25 Pressure Peak Inspiratory Airway 25 Pressure Peak Inspiratory Airway 25 Pressure Peak Inspiratory Airway 25 Pressure Peak Inspiratory Airway 25 Pressure Peak Inspiratory Airway 25 Pressure Peak Inspiratory Airway 23 Pressure Peak Inspiratory Airway 23 Pressure Peak Inspiratory Airway 23 Pressure Peak Inspiratory Airway 18 Pressure Results - Laboratory Findings CBC and BMP: 03/21/17 00:34 03/21/17 00:34 ABG ABG pH 7.45 pH Units (7.32-7.45) 03/21/17 04:28 ABG pCO2 49 mmHg (35-45) H 03/21/17 04:28 ABG pO2 71 mmHg (85-104) L 03/21/17 04:28 ABG O2 Saturation 95 % (95-98) 03/21/17 04:28 PT/INR, D-dimer PT 14.3 Seconds (9.4-12.1) H 03/16/17 13:40 Abnormal lab findings: Abnormal lab results WBC 14.1 K/mcL (4.3-11.1) H 03/21/17 00:34 RBC 3.06 M/mcL (4.19-5.50) L 03/21/17 00:34 Hgb 8.8 g/dL (12.9-16.9) L 03/21/17 00:34 Hct 27.3 % (37.5-50.1) L 03/21/17 00:34 Plt Count 520 K/mcL (140-400) H 03/21/17 00:34 MPV 9.3 fL (9.4-12.4) L 03/21/17 00:34 Neutrophils # 11.0 K/mcL (1.6-8.9) H 03/21/17 00:34 Monocytes # 1.4 K/mcL (0.0-1.3) H 03/21/17 00:34 PT 14.3 Seconds (9.4-12.1) H 03/16/17 13:40 APTT 53.9 Seconds (26.0-36.0) H 03/21/17 06:28 Heparin Anti-Xa, Unfract 0.88 IU/mL (0.30-0.70) H 03/18/17 23:49 ABG pCO2 49 mmHg (35-45) H 03/21/17 04:28 ABG pO2 71 mmHg (85-104) L 03/21/17 04:28 ABG HCO3 34.1 mEQ/L (21-27) H 03/21/17 04:28 ABG Total CO2 35.6 mEq/L (20-26) H 03/21/17 04:28 ABG Base Excess 9.0 mEq/L (-2.0 to 3.0) H 03/21/17 04:28 Sodium 135 mEq/L (136-145) L 03/21/17 00:34 Chloride 94 mEq/L (98-109) L 03/21/17 00:34 Carbon Dioxide 32 mEq/L (19-29) H 03/21/17 00:34 BUN 29 mg/dL (8-26) H 03/21/17 00:34 Creatinine 1.28 mg/dL (0.72-1.25) H 03/21/17 00:34 Est GFR (Non-Af Amer) 55 (> 60) L 03/21/17 00:34 Glucose 266 mg/dL (70-99) H 03/21/17 00:34 POC Glucose 256 (58-89) H 03/21/17 05:37 Uric Acid 8.5 mg/dL (3.5-7.2) H 03/07/17 05:45 Ionized Calcium 1.10 mmol/L (1.15-1.35) L 03/21/17 00:34 AST 367 Units/L (5-34) H 03/07/17 05:45 ALT 334 Units/L (0-55) H 03/07/17 05:45 Alkaline Phosphatase 162 Units/L (38-126) H 03/07/17 05:45 Creatine Kinase 3139 Units/L (30-200) H 03/10/17 03:34 Serum Total Protein 5.9 g/dL (6.0-8.3) L 03/07/17 05:45 Albumin 3.0 g/dL (3.5-5.0) L 03/07/17 05:45 Albumin/Globulin Ratio 1.0 (1.1-2.2) L 03/07/17 05:45 Urine Clarity Turbid (Clear) A 03/08/17 15:00 Ur Specific Cope 1.030 (1.010-1.025) H 03/08/17 15:00 Urine Protein 100 mg/dL (Neg-Trace) H 03/08/17 15:00 Urine Blood Large (Negative) H 03/08/17 15:00 Urine Microscopic RBC TNTC per hpf (0-3) H 03/08/17 15:00 Urine Microscopic WBC 5-15 per hpf (0-3) H 03/08/17 15:00 Ur Squamous Epith Cells Many per lpf (None-Few) H 03/08/17 15:00 Ur Culture Indicated? YES (NO) A 03/08/17 15:00 Staphylococcus sp PCR DETECTED (Not Detect) A 03/07/17 05:45 mecA-Methicil Res Gene DETECTED (Not Detect) A 03/07/17 05:45 - Microbiology Findings Microbiology Findings: Microbiology, Last 48 Hours 03/18/17 09:07 Blood Culture - Preliminary Peripheral Venipuncture No growth. 03/17/17 03:39 Sputum Culture - Final Sputum Staphylococcus aureus - Clinical Findings Intake & Output: Intake & Output 03/20/17 03/21/17 03/21/17 23:59 07:59 15:59 Intake Total 1020 / 1020 1237 / 1237 Output Total 475 / 475 1200 / 1200 Balance 545 / 545 37 / 37 Weight 180.7 kg Consult Discharge Plan - Plan Referrals: [facility] [Primary Care Provider[facility] - <Eulalio Kline - Last Filed: 03/21/17 10:45> Date of Encounter: 03/21/17 Assessment and Plan (1) Acute respiratory failure with hypoxia Current Visit: No Status: Resolved Code(s): J96.01 - Acute respiratory failure with hypoxia SNOMED Code(s): 86896542, [id number] Objective PUL Vital signs: Last Vital Signs Temp 99.6 F 03/21/17 08:00 Pulse 100 03/21/17 10:00 Resp 19 03/21/17 10:00 BP 101/65 03/21/17 10:00 Pulse Ox 90 03/21/17 10:00 Ventilator Settings Ventilator Settings: Ventilator Settings, Last 8 Hours Ventilator Mode VC+ Ventilator Mode VC+ Ventilator Mode VC+ Ventilator Mode VC+ Ventilator Mode VC+ Ventilator Mode VC+ Ventilator Mode VC+ Ventilator Mode VC+ Ventilator Mode VC+ Ventilator Mode VC+ Ventilator Mode VC+ Ventilator Mode VC+ Ventilator Mode VC+ Ventilator Tidal Volume 600 Setting Ventilator Tidal Volume 600 Setting Ventilator Tidal Volume 600 Setting Ventilator Tidal Volume 600 Setting Ventilator Tidal Volume 600 Setting Ventilator Tidal Volume 600 Setting Ventilator Tidal Volume 600 Setting Ventilator Tidal Volume 600 Setting Ventilator Tidal Volume 600 Setting Ventilator Tidal Volume 600 Setting Ventilator Tidal Volume 600 Setting Ventilator Tidal Volume 600 Setting Ventilator Tidal Volume 600 Setting Ventilator Respiratory Rate 14 Setting Ventilator Respiratory Rate 14 Setting Ventilator Respiratory Rate 14 Setting Ventilator Respiratory Rate 14 Setting Ventilator Respiratory Rate 14 Setting Ventilator Respiratory Rate 14 Setting Ventilator Respiratory Rate 14 Setting Ventilator Respiratory Rate 14 Setting Ventilator Respiratory Rate 14 Setting Ventilator Respiratory Rate 14 Setting Ventilator Respiratory Rate 14 Setting Ventilator Respiratory Rate 14 Setting Ventilator Respiratory Rate 14 Setting Actual Respiratory Rate 15 Actual Respiratory Rate 17 Actual Respiratory Rate 19 Actual Respiratory Rate 19 Actual Respiratory Rate 19 Actual Respiratory Rate 15 Actual Respiratory Rate 18 Actual Respiratory Rate 16 Actual Respiratory Rate 18 Actual Respiratory Rate 19 Actual Respiratory Rate 17 Actual Respiratory Rate 20 Positive End Expiratory 5 Pressure Positive End Expiratory 5 Pressure Positive End Expiratory 5 Pressure Positive End Expiratory 5 Pressure Positive End Expiratory 5 Pressure Positive End Expiratory 5 Pressure Positive End Expiratory 5 Pressure Positive End Expiratory 5 Pressure Positive End Expiratory 5 Pressure Positive End Expiratory 5 Pressure Positive End Expiratory 5 Pressure Positive End Expiratory 5 Pressure Positive End Expiratory 5 Pressure Peak Inspiratory Airway 29 Pressure Peak Inspiratory Airway 29 Pressure Peak Inspiratory Airway 25 Pressure Peak Inspiratory Airway 25 Pressure Peak Inspiratory Airway 25 Pressure Peak Inspiratory Airway 25 Pressure Peak Inspiratory Airway 25 Pressure Peak Inspiratory Airway 25 Pressure Peak Inspiratory Airway 25 Pressure Peak Inspiratory Airway 25 Pressure Peak Inspiratory Airway 25 Pressure Peak Inspiratory Airway 23 Pressure Results - Laboratory Findings CBC and BMP: 03/21/17 00:34 03/21/17 00:34 ABG ABG pH 7.45 pH Units (7.32-7.45) 03/21/17 04:28 ABG pCO2 49 mmHg (35-45) H 03/21/17 04:28 ABG pO2 71 mmHg (85-104) L 03/21/17 04:28 ABG O2 Saturation 95 % (95-98) 03/21/17 04:28 PT/INR, D-dimer PT 14.3 Seconds (9.4-12.1) H 03/16/17 13:40 Abnormal lab findings: Abnormal lab results WBC 14.1 K/mcL (4.3-11.1) H 03/21/17 00:34 RBC 3.06 M/mcL (4.19-5.50) L 03/21/17 00:34 Hgb 8.8 g/dL (12.9-16.9) L 03/21/17 00:34 Hct 27.3 % (37.5-50.1) L 03/21/17 00:34 Plt Count 520 K/mcL (140-400) H 03/21/17 00:34 MPV 9.3 fL (9.4-12.4) L 03/21/17 00:34 Neutrophils # 11.0 K/mcL (1.6-8.9) H 03/21/17 00:34 Monocytes # 1.4 K/mcL (0.0-1.3) H 03/21/17 00:34 PT 14.3 Seconds (9.4-12.1) H 03/16/17 13:40 APTT 53.9 Seconds (26.0-36.0) H 03/21/17 06:28 Heparin Anti-Xa, Unfract 0.88 IU/mL (0.30-0.70) H 03/18/17 23:49 ABG pCO2 49 mmHg (35-45) H 03/21/17 04:28 ABG pO2 71 mmHg (85-104) L 03/21/17 04:28 ABG HCO3 34.1 mEQ/L (21-27) H 03/21/17 04:28 ABG Total CO2 35.6 mEq/L (20-26) H 03/21/17 04:28 ABG Base Excess 9.0 mEq/L (-2.0 to 3.0) H 03/21/17 04:28 Sodium 135 mEq/L (136-145) L 03/21/17 00:34 Chloride 94 mEq/L (98-109) L 03/21/17 00:34 Carbon Dioxide 32 mEq/L (19-29) H 03/21/17 00:34 BUN 29 mg/dL (8-26) H 03/21/17 00:34 Creatinine 1.28 mg/dL (0.72-1.25) H 03/21/17 00:34 Est GFR (Non-Af Amer) 55 (> 60) L 03/21/17 00:34 Glucose 266 mg/dL (70-99) H 03/21/17 00:34 POC Glucose 256 (58-89) H 03/21/17 05:37 Uric Acid 8.5 mg/dL (3.5-7.2) H 03/07/17 05:45 Ionized Calcium 1.10 mmol/L (1.15-1.35) L 03/21/17 00:34 AST 367 Units/L (5-34) H 03/07/17 05:45 ALT 334 Units/L (0-55) H 03/07/17 05:45 Alkaline Phosphatase 162 Units/L (38-126) H 03/07/17 05:45 Creatine Kinase 3139 Units/L (30-200) H 03/10/17 03:34 Serum Total Protein 5.9 g/dL (6.0-8.3) L 03/07/17 05:45 Albumin 3.0 g/dL (3.5-5.0) L 03/07/17 05:45 Albumin/Globulin Ratio 1.0 (1.1-2.2) L 03/07/17 05:45 Urine Clarity Turbid (Clear) A 03/08/17 15:00 Ur Specific Cope 1.030 (1.010-1.025) H 03/08/17 15:00 Urine Protein 100 mg/dL (Neg-Trace) H 03/08/17 15:00 Urine Blood Large (Negative) H 03/08/17 15:00 Urine Microscopic RBC TNTC per hpf (0-3) H 03/08/17 15:00 Urine Microscopic WBC 5-15 per hpf (0-3) H 03/08/17 15:00 Ur Squamous Epith Cells Many per lpf (None-Few) H 03/08/17 15:00 Ur Culture Indicated? YES (NO) A 03/08/17 15:00 Staphylococcus sp PCR DETECTED (Not Detect) A 03/07/17 05:45 mecA-Methicil Res Gene DETECTED (Not Detect) A 03/07/17 05:45 - Microbiology Findings Microbiology Findings: Microbiology, Last 48 Hours 03/18/17 09:07 Blood Culture - Preliminary Peripheral Venipuncture No growth. - Clinical Findings Intake & Output: Intake & Output 03/20/17 03/21/17 03/21/17 23:59 07:59 15:59 Intake Total 1020 / 1020 1237 / 1237 171.7 / 171.7 Output Total 475 / 475 1200 / 1200 Balance 545 / 545 37 / 37 171.7 / 171.7 Weight 180.7 kg
[2017-03-21] MEDS: *HR* Amiodarone 200 MG TABLET PO SCH (09:13)
[2017-03-21] MEDS: Metoprolol 100 MG TABLET PO SCH ×2 (09:13→19:24)
[2017-03-21] MEDS: Chlorhexidine Rinse 15 ML MOUTHWASH MM SCH ×2 (09:14→19:24)
[2017-03-21] MEDS: Bisacodyl 10 MG RECTAL SUPPOSITORY RC SCH (09:14)
[2017-03-21] MEDS: Furosemide 20 MG/2 ML VIAL IVP SCH ×2 (09:14→17:24)
[2017-03-21] MEDS: Pantoprazole 40 MG VIAL IVPB SCH (09:14)
[2017-03-21] MEDS: Insulin DETEMIR 100 UNIT/ML X5UNITS SQ SCH ×2 (09:39→19:24)
[2017-03-21] MEDS ORDERED: Magnesium Sulfate 2 GM in D5% in Water 100 ML IVPB ONE (10:30)
[2017-03-21] MEDS ORDERED: Potassium Chloride Elixir 20 MEQ/15 ML UDC GTUBE ONE (10:30)
[2017-03-21] MEDS: Norepinephrine 4 MG in D5% in Water 250 ML IVC SCH (14:13)
[2017-03-22] MEDS: Heparin 25,000 UNIT/500 ML D5W 25,000 UNIT/500 ML MLS IVC SCH ×2 (02:04→10:39)
[2017-03-22] MEDS: Dexmedetomidine HCl 400 MCG/100 ML MLS IVC SCH ×2 (03:32→11:43)
[2017-03-22] MEDS: Lacri-Lube 3.5 GM TUBE BOTH EYES SCH ×3 (03:35→11:43)
[2017-03-22 04:19] LABS: ABG Base Excess 14.6 mEq/L (-2.0 to 3.0); ABG Oxygen Saturation 96 % (95-98); ABG PCO2 55 mmHg (35-45); ABG PH 7.47 pH Units (7.32-7.45); ABG PO2 75 mmHg (85-104); ABG TCO2 41.7 mEq/L (20-26)
[2017-03-22 04:20] LABS: Blood Gas FiO2 75 %
[2017-03-22 05:28] LABS: Basophils # 0.1 K/mcL (0.0-0.2); Basophils % 0.5 %; Eosinophils # 0.3 K/mcL (0.0-0.6); Eosinophils % 2.5 %; Hematocrit 27.2 % (37.5-50.1); Hemoglobin 8.8 g/dL (12.9-16.9); Immature Granulocytes % 2.8 % (0-4); Lymphocytes # 1.3 K/mcL (0.6-4.6); Lymphocytes % 10.3 %; Mean Corpuscular HGB Conc 32.4 g/dL (31.6-35.5); Mean Corpuscular Hemoglobin 29.2 pg (28.0-33.3); Mean Corpuscular Volume 90.4 fL (83.0-100.0); Mean Platelet Volume 10.6 fL (9.4-12.4); Monocytes # 1.5 K/mcL (0.0-1.3); Monocytes % 11.3 %; Neutrophils # 9.4 K/mcL (1.6-8.9); Nucleated Red Blood Cells 0.2 /100 WBC (0); Platelet Count 444 K/mcL (140-400); Red Blood Count 3.01 M/mcL (4.19-5.50); Segmented Neutrophils % 72.6 %
[2017-03-22 05:30] LABS: Ionized Calcium 1.05 mmol/L (1.15-1.35)
[2017-03-22 05:37] LABS: BUN/Creatinine Ratio 27 (6-26); Blood Urea Nitrogen 28 mg/dL (8-26); Calcium 8.9 mg/dL (8.6-10.8); Carbon Dioxide 32 mEq/L (19-29); Chloride 96 mEq/L (98-109); Glucose 196 mg/dL (70-99); Magnesium 1.7 mg/dL (1.6-2.6); Osmolality,Calculated 291 (280-300); Phosphorous 3.5 mg/dL (2.3-4.7); Potassium 4.2 mEq/L (3.5-4.5); Sodium 135 mEq/L (136-145); eGFR For African Americans > 60 (> 60); eGFR For Non-African Americans > 60 (> 60)
[2017-03-22] MEDS: Insulin LISPRO 300 UNITS/3 ML VIAL SQ SCH ×2 (05:51→11:43)
[2017-03-22] MEDS: Furosemide 20 MG/2 ML VIAL IVP SCH (08:04)
[2017-03-22] MEDS: Pantoprazole 40 MG VIAL IVPB SCH (08:04)
[2017-03-22] MEDS: Chlorhexidine Rinse 15 ML MOUTHWASH MM SCH (08:05)
[2017-03-22] MEDS: Bisacodyl 10 MG RECTAL SUPPOSITORY RC SCH (08:06)
[2017-03-22] MEDS: *HR* Amiodarone 200 MG TABLET PO SCH (08:06)
[2017-03-22] MEDS: Metoprolol 100 MG TABLET PO SCH (08:06)
[2017-03-22] MEDS: Insulin DETEMIR 100 UNIT/ML X5UNITS SQ SCH (08:39)
--- NOTE | 2017-03-22 09:15 | Pulmonology Progress Note ---
<AllieNicolas lindo - Last Filed: 03/22/17 09:12> Date of Encounter: 03/22/17 Time of Encounter: 09:15 Assessment and Plan (1) Acute respiratory failure with hypoxia Current Visit: No Status: Resolved Likely related to underlying pneumonia as well as possible pulmonary edema in the setting of A. fib with RVR. Patient requires full ventilatory support, continue suctioning. Unfortunately the patient is not progressing encephalopathy, likely metabolic. Recent CT of the head was unremarkable. Afebrile overnight. Sputum culture shows MSSA. Continue Rocephin for a total of 8 days. Repeat blood cultures are negative. Patient's heart rate has proven very difficult to control. Remains on IV amiodarone with transition to by mouth amiodarone with overlap. Patient is also on Cardizem drip as well. Discussed with cardiology and they are attempting to transition the patient to all oral medications. Further management of atrial fibrillation per cardiology. Patient is on heparin drip for anticoagulation. Patient continues to show no improvement in his clinical status. We will attempt to show off sedation to further evaluate his mental status. The son, who is the medical power of real estate attorney, is planning on arriving today from out of state and when he arrives we will further discuss goals and plan of care. If the patient's medical power of real estate attorney wishes to continue with aggressive support we will likely need to proceed with tracheostomy and PEG placement. Will discuss when family arrives. (2) CHF (congestive heart failure) Current Visit: No Status: Acute Qualifiers: Congestive heart failure type: unspecified congestive heart failure type Congestive heart failure chronicity: chronic Qualified Code(s): I50.9 - Heart failure, unspecified (3) Atrial fibrillation with RVR Current Visit: No Status: Resolved (4) Diastolic CHF Current Visit: No Status: Acute Most recent echo showed a normal EF with indeterminant diastolic dysfunction. Patient does have mild pulmonary edema on chest x-ray, likely related to the large amounts of fluids the patient received in the emergency department. Given the patient's acute kidney injury we will hold off on diuresis at this time until recheck of the patient's BMP can be completed and case can be discussed with nephrology. No indication to repeat echocardiogram. Qualifiers: Congestive heart failure chronicity: chronic Qualified Code(s): I50.32 - Chronic diastolic (congestive) heart failure (5) Diabetes Current Visit: No Status: Acute Qualifiers: Diabetes mellitus type: type 2 Diabetes mellitus complication status: with kidney complications Diabetes mellitus complication detail: with chronic kidney disease Diabetes mellitus deputy k 9 insulin use: without deputy k 9 use Chronic kidney disease stage: stage 3 (moderate) Qualified Code(s): E11.22 - Type 2 diabetes mellitus with diabetic chronic kidney disease; N18.3 - Chronic kidney disease, stage 3 (moderate) Subjective Principal diagnosis: Acute respiratory failure, A Fib with RVR Interval history: Patient seen and examined at bedside. Patient remains intubated and sedated. Does not respond to verbal or painful stimuli and will not follow commands. No acute events overnight. Objective PUL Vital signs: Last Vital Signs Temp 99.5 F 03/22/17 08:00 Pulse 106 03/22/17 08:00 Resp 18 03/22/17 08:00 BP 113/76 03/22/17 08:00 Pulse Ox 98 03/22/17 08:00 General appearance: no acute distress, comatose ENT: oropharynx moist Effort: normal Auscultation: bilateral: clear Cardiovascular: irregular rhythm Gastrointestinal: hypoactive bowel sounds, soft, non-tender, non-distended Extremities: no cyanosis, no clubbing, edema (Trace) unable to assess due to mental status Ventilator Settings Ventilator Settings: Ventilator Settings, Last 8 Hours Ventilator Mode VC+ Ventilator Mode VC+ Ventilator Mode VC+ Ventilator Mode VC+ Ventilator Mode VC+ Ventilator Mode VC+ Ventilator Mode VC+ Ventilator Mode VC+ Ventilator Mode VC+ Ventilator Mode VC+ Ventilator Mode VC+ Ventilator Mode VC+ Ventilator Tidal Volume 600 Setting Ventilator Tidal Volume 600 Setting Ventilator Tidal Volume 600 Setting Ventilator Tidal Volume 600 Setting Ventilator Tidal Volume 600 Setting Ventilator Tidal Volume 600 Setting Ventilator Tidal Volume 600 Setting Ventilator Tidal Volume 600 Setting Ventilator Tidal Volume 600 Setting Ventilator Tidal Volume 600 Setting Ventilator Tidal Volume 600 Setting Ventilator Tidal Volume 600 Setting Ventilator Respiratory Rate 14 Setting Ventilator Respiratory Rate 14 Setting Ventilator Respiratory Rate 14 Setting Ventilator Respiratory Rate 14 Setting Ventilator Respiratory Rate 14 Setting Ventilator Respiratory Rate 14 Setting Ventilator Respiratory Rate 14 Setting Ventilator Respiratory Rate 14 Setting Ventilator Respiratory Rate 14 Setting Ventilator Respiratory Rate 14 Setting Ventilator Respiratory Rate 14 Setting Ventilator Respiratory Rate 14 Setting Actual Respiratory Rate 17 Actual Respiratory Rate 17 Actual Respiratory Rate 17 Actual Respiratory Rate 16 Actual Respiratory Rate 19 Actual Respiratory Rate 19 Actual Respiratory Rate 16 Actual Respiratory Rate 20 Actual Respiratory Rate 18 Actual Respiratory Rate 19 Actual Respiratory Rate 19 Positive End Expiratory 5 Pressure Positive End Expiratory 5 Pressure Positive End Expiratory 5 Pressure Positive End Expiratory 5 Pressure Positive End Expiratory 5 Pressure Positive End Expiratory 5 Pressure Positive End Expiratory 5 Pressure Positive End Expiratory 5 Pressure Positive End Expiratory 5 Pressure Positive End Expiratory 5 Pressure Positive End Expiratory 5 Pressure Positive End Expiratory 5 Pressure Peak Inspiratory Airway 32 Pressure Peak Inspiratory Airway 32 Pressure Peak Inspiratory Airway 32 Pressure Peak Inspiratory Airway 41 Pressure Peak Inspiratory Airway 34 Pressure Peak Inspiratory Airway 34 Pressure Peak Inspiratory Airway 34 Pressure Peak Inspiratory Airway 34 Pressure Peak Inspiratory Airway 26 Pressure Peak Inspiratory Airway 27 Pressure Peak Inspiratory Airway 27 Pressure Results - Laboratory Findings CBC and BMP: 03/22/17 03:55 03/22/17 03:55 ABG ABG pH 7.47 pH Units (7.32-7.45) H 03/22/17 04:03 ABG pCO2 55 mmHg (35-45) H 03/22/17 04:03 ABG pO2 75 mmHg (85-104) L 03/22/17 04:03 ABG O2 Saturation 96 % (95-98) 03/22/17 04:03 PT/INR, D-dimer PT 14.3 Seconds (9.4-12.1) H 03/16/17 13:40 Abnormal lab findings: Abnormal lab results WBC 13.0 K/mcL (4.3-11.1) H 03/22/17 03:55 RBC 3.01 M/mcL (4.19-5.50) L 03/22/17 03:55 Hgb 8.8 g/dL (12.9-16.9) L 03/22/17 03:55 Hct 27.2 % (37.5-50.1) L 03/22/17 03:55 Plt Count 444 K/mcL (140-400) H 03/22/17 03:55 Neutrophils # 9.4 K/mcL (1.6-8.9) H 03/22/17 03:55 Monocytes # 1.5 K/mcL (0.0-1.3) H 03/22/17 03:55 Nucleated RBCs/100 WBC 0.2 /100 WBC (0) H 03/22/17 03:55 PT 14.3 Seconds (9.4-12.1) H 03/16/17 13:40 APTT 61.0 Seconds (26.0-36.0) H 03/22/17 03:55 Heparin Anti-Xa, Unfract 0.88 IU/mL (0.30-0.70) H 03/18/17 23:49 ABG pH 7.47 pH Units (7.32-7.45) H 03/22/17 04:03 ABG pCO2 55 mmHg (35-45) H 03/22/17 04:03 ABG pO2 75 mmHg (85-104) L 03/22/17 04:03 ABG HCO3 40.0 mEQ/L (21-27) H 03/22/17 04:03 ABG Total CO2 41.7 mEq/L (20-26) H 03/22/17 04:03 ABG Base Excess 14.6 mEq/L (-2.0 to 3.0) H 03/22/17 04:03 Sodium 135 mEq/L (136-145) L 03/22/17 03:55 Chloride 96 mEq/L (98-109) L 03/22/17 03:55 Carbon Dioxide 32 mEq/L (19-29) H 03/22/17 03:55 BUN 28 mg/dL (8-26) H 03/22/17 03:55 BUN/Creatinine Ratio 27 (6-26) H 03/22/17 03:55 Glucose 196 mg/dL (70-99) H 03/22/17 03:55 POC Glucose 218 (58-89) H 03/22/17 05:45 Uric Acid 8.5 mg/dL (3.5-7.2) H 03/07/17 05:45 Ionized Calcium 1.05 mmol/L (1.15-1.35) L 03/22/17 03:55 AST 367 Units/L (5-34) H 03/07/17 05:45 ALT 334 Units/L (0-55) H 03/07/17 05:45 Alkaline Phosphatase 162 Units/L (38-126) H 03/07/17 05:45 Creatine Kinase 3139 Units/L (30-200) H 03/10/17 03:34 Serum Total Protein 5.9 g/dL (6.0-8.3) L 03/07/17 05:45 Albumin 3.0 g/dL (3.5-5.0) L 03/07/17 05:45 Albumin/Globulin Ratio 1.0 (1.1-2.2) L 03/07/17 05:45 Urine Clarity Turbid (Clear) A 03/08/17 15:00 Ur Specific [place] 1.030 (1.010-1.025) H 03/08/17 15:00 Urine Protein 100 mg/dL (Neg-Trace) H 03/08/17 15:00 Urine Blood Large (Negative) H 03/08/17 15:00 Urine Microscopic RBC TNTC per hpf (0-3) H 03/08/17 15:00 Urine Microscopic WBC 5-15 per hpf (0-3) H 03/08/17 15:00 Ur Squamous Epith Cells Many per lpf (None-Few) H 03/08/17 15:00 Ur Culture Indicated? YES (NO) A 03/08/17 15:00 Staphylococcus sp PCR DETECTED (Not Detect) A 03/07/17 05:45 mecA-Methicil Res Gene DETECTED (Not Detect) A 03/07/17 05:45 - Microbiology Findings Microbiology Findings: Microbiology, Last 48 Hours 03/18/17 09:07 Blood Culture - Preliminary Peripheral Venipuncture No growth. - Clinical Findings Intake & Output: Intake & Output 03/21/17 03/22/17 03/22/17 23:59 07:59 15:59 Intake Total 1011 / 1011 899 / 899 0 / 0 Output Total 1450 / 1450 850 / 850 Balance -439 / -439 49 / 49 0 / 0 Weight 181.1 kg Consult Discharge Plan - Plan Referrals: [facility] [Primary Care Provider[facility] - <Eulalio Kline - Last Filed: 03/22/17 09:35> Date of Encounter: 03/22/17 Assessment and Plan (1) Acute respiratory failure with hypoxia Current Visit: No Status: Resolved Code(s): J96.01 - Acute respiratory failure with hypoxia SNOMED Code(s): 40904590, 435952244 Objective PUL Vital signs: Last Vital Signs Temp 99.5 F 03/22/17 08:00 Pulse 93 03/22/17 09:00 Resp 18 03/22/17 09:00 BP 109/72 03/22/17 09:00 Pulse Ox 98 03/22/17 09:00 Ventilator Settings Ventilator Settings: Ventilator Settings, Last 8 Hours Ventilator Mode VC+ Ventilator Mode VC+ Ventilator Mode VC+ Ventilator Mode VC+ Ventilator Mode VC+ Ventilator Mode VC+ Ventilator Mode VC+ Ventilator Mode VC+ Ventilator Mode VC+ Ventilator Mode VC+ Ventilator Mode VC+ Ventilator Mode VC+ Ventilator Mode VC+ Ventilator Tidal Volume 600 Setting Ventilator Tidal Volume 600 Setting Ventilator Tidal Volume 600 Setting Ventilator Tidal Volume 600 Setting Ventilator Tidal Volume 600 Setting Ventilator Tidal Volume 600 Setting Ventilator Tidal Volume 600 Setting Ventilator Tidal Volume 600 Setting Ventilator Tidal Volume 600 Setting Ventilator Tidal Volume 600 Setting Ventilator Tidal Volume 600 Setting Ventilator Tidal Volume 600 Setting Ventilator Tidal Volume 600 Setting Ventilator Respiratory Rate 14 Setting Ventilator Respiratory Rate 14 Setting Ventilator Respiratory Rate 14 Setting Ventilator Respiratory Rate 14 Setting Ventilator Respiratory Rate 14 Setting Ventilator Respiratory Rate 14 Setting Ventilator Respiratory Rate 14 Setting Ventilator Respiratory Rate 14 Setting Ventilator Respiratory Rate 14 Setting Ventilator Respiratory Rate 14 Setting Ventilator Respiratory Rate 14 Setting Ventilator Respiratory Rate 14 Setting Ventilator Respiratory Rate 14 Setting Actual Respiratory Rate 17 Actual Respiratory Rate 17 Actual Respiratory Rate 17 Actual Respiratory Rate 17 Actual Respiratory Rate 16 Actual Respiratory Rate 19 Actual Respiratory Rate 19 Actual Respiratory Rate 16 Actual Respiratory Rate 20 Actual Respiratory Rate 18 Actual Respiratory Rate 19 Actual Respiratory Rate 19 Positive End Expiratory 5 Pressure Positive End Expiratory 5 Pressure Positive End Expiratory 5 Pressure Positive End Expiratory 5 Pressure Positive End Expiratory 5 Pressure Positive End Expiratory 5 Pressure Positive End Expiratory 5 Pressure Positive End Expiratory 5 Pressure Positive End Expiratory 5 Pressure Positive End Expiratory 5 Pressure Positive End Expiratory 5 Pressure Positive End Expiratory 5 Pressure Positive End Expiratory 5 Pressure Peak Inspiratory Airway 32 Pressure Peak Inspiratory Airway 32 Pressure Peak Inspiratory Airway 32 Pressure Peak Inspiratory Airway 32 Pressure Peak Inspiratory Airway 41 Pressure Peak Inspiratory Airway 34 Pressure Peak Inspiratory Airway 34 Pressure Peak Inspiratory Airway 34 Pressure Peak Inspiratory Airway 34 Pressure Peak Inspiratory Airway 26 Pressure Peak Inspiratory Airway 27 Pressure Peak Inspiratory Airway 27 Pressure Results - Laboratory Findings CBC and BMP: 03/22/17 03:55 03/22/17 03:55 ABG ABG pH 7.47 pH Units (7.32-7.45) H 03/22/17 04:03 ABG pCO2 55 mmHg (35-45) H 03/22/17 04:03 ABG pO2 75 mmHg (85-104) L 03/22/17 04:03 ABG O2 Saturation 96 % (95-98) 03/22/17 04:03 PT/INR, D-dimer PT 14.3 Seconds (9.4-12.1) H 03/16/17 13:40 Abnormal lab findings: Abnormal lab results WBC 13.0 K/mcL (4.3-11.1) H 03/22/17 03:55 RBC 3.01 M/mcL (4.19-5.50) L 03/22/17 03:55 Hgb 8.8 g/dL (12.9-16.9) L 03/22/17 03:55 Hct 27.2 % (37.5-50.1) L 03/22/17 03:55 Plt Count 444 K/mcL (140-400) H 03/22/17 03:55 Neutrophils # 9.4 K/mcL (1.6-8.9) H 03/22/17 03:55 Monocytes # 1.5 K/mcL (0.0-1.3) H 03/22/17 03:55 Nucleated RBCs/100 WBC 0.2 /100 WBC (0) H 03/22/17 03:55 PT 14.3 Seconds (9.4-12.1) H 03/16/17 13:40 APTT 61.0 Seconds (26.0-36.0) H 03/22/17 03:55 Heparin Anti-Xa, Unfract 0.88 IU/mL (0.30-0.70) H 03/18/17 23:49 ABG pH 7.47 pH Units (7.32-7.45) H 03/22/17 04:03 ABG pCO2 55 mmHg (35-45) H 03/22/17 04:03 ABG pO2 75 mmHg (85-104) L 03/22/17 04:03 ABG HCO3 40.0 mEQ/L (21-27) H 03/22/17 04:03 ABG Total CO2 41.7 mEq/L (20-26) H 03/22/17 04:03 ABG Base Excess 14.6 mEq/L (-2.0 to 3.0) H 03/22/17 04:03 Sodium 135 mEq/L (136-145) L 03/22/17 03:55 Chloride 96 mEq/L (98-109) L 03/22/17 03:55 Carbon Dioxide 32 mEq/L (19-29) H 03/22/17 03:55 BUN 28 mg/dL (8-26) H 03/22/17 03:55 BUN/Creatinine Ratio 27 (6-26) H 03/22/17 03:55 Glucose 196 mg/dL (70-99) H 03/22/17 03:55 POC Glucose 218 (58-89) H 03/22/17 05:45 Uric Acid 8.5 mg/dL (3.5-7.2) H 03/07/17 05:45 Ionized Calcium 1.05 mmol/L (1.15-1.35) L 03/22/17 03:55 AST 367 Units/L (5-34) H 03/07/17 05:45 ALT 334 Units/L (0-55) H 03/07/17 05:45 Alkaline Phosphatase 162 Units/L (38-126) H 03/07/17 05:45 Creatine Kinase 3139 Units/L (30-200) H 03/10/17 03:34 Serum Total Protein 5.9 g/dL (6.0-8.3) L 03/07/17 05:45 Albumin 3.0 g/dL (3.5-5.0) L 03/07/17 05:45 Albumin/Globulin Ratio 1.0 (1.1-2.2) L 03/07/17 05:45 Urine Clarity Turbid (Clear) A 03/08/17 15:00 Ur Specific [place] 1.030 (1.010-1.025) H 03/08/17 15:00 Urine Protein 100 mg/dL (Neg-Trace) H 03/08/17 15:00 Urine Blood Large (Negative) H 03/08/17 15:00 Urine Microscopic RBC TNTC per hpf (0-3) H 03/08/17 15:00 Urine Microscopic WBC 5-15 per hpf (0-3) H 03/08/17 15:00 Ur Squamous Epith Cells Many per lpf (None-Few) H 03/08/17 15:00 Ur Culture Indicated? YES (NO) A 03/08/17 15:00 Staphylococcus sp PCR DETECTED (Not Detect) A 03/07/17 05:45 mecA-Methicil Res Gene DETECTED (Not Detect) A 03/07/17 05:45 - Microbiology Findings Microbiology Findings: Microbiology, Last 48 Hours 03/18/17 09:07 Blood Culture - Preliminary Peripheral Venipuncture No growth. - Clinical Findings Intake & Output: Intake & Output 03/21/17 03/22/17 03/22/17 23:59 07:59 15:59 Intake Total 1011 / 1011 899 / 899 250 / 250 Output Total 1450 / 1450 850 / 850 Balance -439 / -439 49 / 49 250 / 250 Weight 181.1 kg
[2017-03-22] MEDS: Budesonide/Formoterol 160/4.5 MDI IH SCH (09:49)
[2017-03-22] MEDS ORDERED: Atropine Sulfate 1% 40 DROP/2 ML BOTTLE SL PRN (15:30)
[2017-03-22] MEDS ORDERED: Haloperidol Lactate 5 MG/ML VIAL IVP PRN (15:31)
[2017-03-22] MEDS: *HR* LORazepam 2 MG/ML VIAL IVP PRN ×2 (15:54→16:50)
[2017-03-22] MEDS: FentaNYL (PF) 3,000 MCG in 0.9 % Sodium Chloride 240 ML IVC SCH (16:51)
[2017-03-23] MEDS: *HR* LORazepam 2 MG/ML VIAL IVP PRN ×2 (04:19→15:45)
[2017-03-23] MEDS ORDERED: FentaNYL (PF) 3,000 MCG in 0.9 % Sodium Chloride 240 ML IVC SCH (08:48)
[2017-03-23] MEDS ORDERED: Atropine Sulfate 1% 40 DROP/2 ML BOTTLE SL PRN (08:48)
[2017-03-23] MEDS ORDERED: Haloperidol Lactate 5 MG/ML VIAL IVP PRN (08:48)
--- NOTE | 2017-03-23 09:22 | Event Note ---
Date of Encounter: 03/23/17 Time of Encounter: 09:20 Per discussion with family yesterday, all members requested discontinuation of aggressive medical therapy including life support devices. Hence, the patient was extubated and maintained on comfort medication care only. Overnight, no new acute events were reported. This morning, the patient is arousable and appears comfortable no distress vitals reviewed. Chest exam is notable for rhonchi bilaterally. Cardiac exam irregular rate and rhythm. This patient has transitioned to comfort care measures only. The palliative care services aware of the patient's circumstances and will assist with care on the floor. The patient will be transitioned out of the intensive care unit today. Orders have been written to this effect as well.
--- NOTE | 2017-03-23 10:02 | Palliative - Consult Note ---
Date of Encounter: 03/23/17 Time of Encounter: 10:02 - Assessment and Plan (1) Metabolic encephalopathy Current Visit: Yes Status: Acute Assessment and plan: Mr. Molina was liberated from the ventilator starting. Sedation is turned off. Will discontinue fentanyl drip and change to when necessary dosing. (2) Dyspnea Current Visit: Yes Status: Acute Assessment and plan: Mr. Molina was liberated from the ventilator yesterday. May utilize morphine when necessary for dyspnea. Supplemental O2, position for comfort. Qualifiers: Dyspnea type: unspecified Qualified Code(s): R06.00 - Dyspnea, unspecified (3) Generalized pain Current Visit: Yes Status: Acute Assessment and plan: Mr. Molina has been on chronic opioid therapy along with Lyrica for management of arthritic type pain. Stop continuous fentanyl drip. Initiate morphine 4 mg IV push every 2 hours as needed. We will titrate for comfort. (4) Therapeutic opioid-induced constipation (OIC) Current Visit: Yes Status: Acute Assessment and plan: Mr. Molina has been on chronic opioid therapy for many years due to his osteoarthritis. Per [place] records, opioid induced constipation has been an ongoing problem. Mr. Molina was admitted on 03/07/2017, and his last substantial bowel movement was documented on 03/14/2017. He did have a "smear" documented yesterday. We will initiate daily bisacodyl rectal suppositories with fleets enemas as needed. If no bowel movement by tomorrow, we will repeat enemas. (5) CHF (congestive heart failure) Current Visit: No Status: Chronic Qualifiers: Congestive heart failure type: unspecified congestive heart failure type Congestive heart failure chronicity: chronic Qualified Code(s): I50.9 - Heart failure, unspecified (6) Atrial fibrillation with RVR Current Visit: Yes Status: Chronic (7) Acute respiratory failure with hypoxia Current Visit: Yes Status: Chronic (8) Goals of care, counseling/discussion Current Visit: Yes Status: Acute Assessment and plan: Mr. Molina has a [facility]% [facility]. He [facility], and his primary care providers [facility]. Once family is available at bedside, we will continue further discussions regarding discharge planning. human services manager will continue to follow with the patient. Palliative-CN HPI - Data of Consult Patient: new to practice Consult date: 03/23/17 Requesting Physician: Quentin Wallace Primary Care Provider[facility] - Consult Narrative Palliative Care/Comfort Measures: Palliative care Reason for consult: Goals of care/symptom management History of present illness: Mr. Molina is a 71 year old male initially presenting to [facility] with difficulty breathing weakness. Workup revealed symptom medic bradycardia, hypotension, hyperkalemia. Mr. Molina was intubated in the emergency room and transferred to the intensive care unit for further workup and care. Due to his encephalopathy, the patient is unable to provide history, therefore, information was gathered from previous medical records. Mr. Molina has had a rather long complex hospitalization. He required CVVHD for hyperkalemia and oliguric state. Once his potassium was corrected, he developed atrial fibrillation with RVR. This is been a chronic ongoing problem for which she has been hospitalized recently. Mr. chen was extubated on 2016. Due to his resolving encephalopathy, he required reintubation on 2016. His son/healthcare power of commercial attorney, Donnell Molina arrived from [place] on . Following a goals of care discussion with the intensive care team, Mr. Molina transition to DNR comfort care. He was compassionately extubated to nasal cannula with the goal of comfort measures. The palliative care team was consulted to assist with further goals of care management. Mr. Molina has been residing in the home with his pet. He does have home health services through the [place]. [facility]. Mr. Molina has a 30% service connected disability [facility]. CC: Quentin Wallace Past Med Surg Social Fam HX - Past Medical History Source: old records reviewed Medical history: arthritis, asthma, atrial fibrillation, cancer (Prostate, status post XRT in 2014), diabetes, GERD, hypertension, other (Chronic lung nodule, sleep apnea, arthritis with chronic joint pain using opioids for symptom management, BPH, mood disorder) Psychiatric history: other (Mood disorder) - Past Surgical History Surgical History: orthopedic, other (Laminectomy and bone grafting L 3 through S1, arthroscopically to bilateral knees, carpal tunnel release,), prostatectomy - Social History Smoking Status: Former smoker Smokeless Tobacco Status: No Alcohol use: none Drug use: none Occupational status: retired Current living situation: Home Activity Level: Uses cane/walker Additional social history: Mr. Molina is a of the [place] ([id number]), he has a 30% service connected disability. He receives medical care through the [facility]. He also receives home health services through the [facility] for medication management. His social media marketing analyst is Janay Marroquin - Family History Mother Living Status: Hx Family Cardiac Disorders: Yes (CHF) Father Living Status: Hx Family Cardiac Disorders: Yes Medications and Allergies Albuterol Sulfate [Albuterol Inhaler] 2 puff IH QID PRN 02/13/17 [History] Aspirin Enteric Coated [Aspirin EC] 81 mg PO DAILY 02/13/17 [History] Atorvastatin [Lipitor] 10 mg PO HS 02/13/17 [History] Budesonide/Formoterol 160/4.5 [Symbicort 160/4.5] 2 puff IH BIDR 02/13/17 [ History] Cetirizine HCl [All Day Allergy] 10 mg PO DAILY 02/13/17 [History] Cholecalciferol (D-3) [Vitamin D] 2,000 unit PO DAILY 02/13/17 [History] Diltiazem CD (24hr) [Cardizem CD] 360 mg PO DAILY 02/13/17 [History] Duloxetine HCl [Cymbalta] 60 mg PO DAILY 02/13/17 [History] Fluticasone Propionate Nasal [Flonase] 1 spray NS BID 02/13/17 [History] HYDROcodone/Acet 5/325 mg [[place] 5-325 mg] 1 tab PO BID 02/13/17 [History] Insulin ASPART [NovoLOG] 5 unit SQ TIDWM 02/13/17 [History] Insulin Glargine [Lantus] 58 unit SQ HS 02/13/17 [History] Lisinopril 2.5 mg PO DAILY 02/13/17 [History] Melatonin/Pyridoxine HCl (B6) [Melatonin 3 mg Tablet] 6 mg PO HS 02/13/17 [ History] Metformin HCl [Glucophage] 1,000 mg PO BID 02/13/17 [History] Metoprolol [Lopressor] 100 mg PO BID 02/13/17 [History] Montelukast [Singulair] 10 mg PO HS 02/13/17 [History] Omeprazole [PriLOSEC] 40 mg PO DAILY 02/13/17 [History] Polyvinyl Alcohol [Artificial Tears] 1 drop BOTH EYES AD PRN 02/13/17 [History] Pregabalin [Lyrica] 200 mg PO BID 02/13/17 [History] Rivaroxaban [Xarelto] 20 mg PO DAILY 02/13/17 [History] Saliva Substitute Combo No.3 [Aquoral] 3 - 5 spray MM BID 02/13/17 [History] Sildenafil Citrate [Viagra] 50 mg PO AD PRN 02/13/17 [History] Sodium Chloride [Mina-128] 1 drop BOTH EYES QID 02/13/17 [History] Tamsulosin HCl [Flomax] 0.4 mg PO DAILY 02/13/17 [History] Trazodone HCl 150 mg PO HS PRN 02/13/17 [History] Docusate [Colace] 100 mg PO BID PRN #60 capsule 02/18/17 [Rx] Furosemide [Lasix] 40 mg PO DAILY #30 tablet 02/18/17 [Rx] Sennosides/Docusate Sodium [Senna Plus] 2 each PO BID PRN #60 tablet 02/18/17 [ Rx] Albuterol Neb [Proventil Neb] 2.5 mg IH Q4H PRN 02/19/17 [History] GuaiFENesin/Dextromethorphan [Tussin Dm Syrup] 10 ml PO Q4H PRN 02/19/17 [ History] Ipratropium/Albuterol Neb [Duoneb] 3 ml IH ONCE PRN 02/19/17 [History] Allergies codeine Allergy (Verified 02/13/17 16:16) Anaphylaxis ROS unobtainable: due to mental status Palliative Care-Exam - Constitutional Vitals: Temp Pulse Resp BP Pulse Ox 98.8 F 123 20 129/84 89 03/22/17 12:00 03/23/17 08:50 03/22/17 16:15 03/22/17 16:00 03/22/17 16:31 General appearance: Present: morbidly obese Exam: 71 year old male, appearing stated age, encephalopathic-no verbal communication and does not follow commands. - Head Head Exam: Present: atraumatic - Eye Eye exam: Present: EOMI Pupils: Present: PERRL - ENT ENT exam: Present: mucous membranes moist - Respiratory Respiratory exam: Present: decreased breath sounds, rhonchi. Absent: accessory muscle use, respiratory distress, tachypnea - Cardiovascular Cardiovascular exam: Present: RRR, tachycardia (rate 125) - GI/Abdominal Exam GI/Abdominal exam: Present: normal bowel sounds. Absent: firm, guarding, tenderness - Rectal Rectal Exam: Present: deferred - Catheter Type: Urethral (Jane) - Extremities Exam Extremities exam: Present: normal inspection, pedal edema - Expanded Lower Extremities Exam Lower Leg exam: Present: swelling - Neurological Exam Neurological exam: Present: alert (eyes open, no verbal response, does not follow commands) - Skin Skin exam: Present: dry, warm Additional comments: DTI to buttock Internal Medicine - CN: Reslt - Labs CBC & Chem 7: 03/22/17 03:55 03/22/17 03:55 - ABG Interpretation ABG results: ABG ABG pH 7.47 pH Units (7.32-7.45) H 03/22/17 04:03 ABG pCO2 55 mmHg (35-45) H 03/22/17 04:03 ABG pO2 75 mmHg (85-104) L 03/22/17 04:03 ABG O2 Saturation 96 % (95-98) 03/22/17 04:03 PT/INR, D-dimer PT 14.3 Seconds (9.4-12.1) H 03/16/17 13:40 Consult Discharge Plan - Plan [facility]errals: [facility] [Primary Care Provider] - Palliative Quality Palliative Quality: Screen for Code Status: Yes, Screen for Goals of Care: Yes, Screen for Pain: Yes, If Pain Regimen Started, Initiate Bowel Regimen: Yes, Screen for Nausea/Vomitting: Yes Code Status: 03/22/17 15:34 DNR [Resuscitation Status: Active] [RES] Routine Comment: Resuscitation Status: DNR-Comfort Care
[2017-03-23] MEDS: FentaNYL (PF) 3,000 MCG in 0.9 % Sodium Chloride 240 ML IVC SCH (11:56)
[2017-03-23] MEDS: Bisacodyl 10 MG RECTAL SUPPOSITORY RC SCH (12:14)
[2017-03-23] MEDS: *HR* Morphine 2 MG/ML SYRINGE IVP PRN ×2 (15:44→21:45)
[2017-03-24] MEDS: *HR* Morphine 2 MG/ML SYRINGE IVP PRN ×8 (02:07→23:53)
[2017-03-24] MEDS: *HR* LORazepam 2 MG/ML VIAL IVP PRN ×5 (08:02→18:34)
[2017-03-24] MEDS: Bisacodyl 10 MG RECTAL SUPPOSITORY RC SCH (08:03)
--- NOTE | 2017-03-24 10:36 | Palliative Progress Note ---
Date of Encounter: 03/24/17 Time of Encounter: 09:30 - Assessment and plan (1) Metabolic encephalopathy Current Visit: Yes Status: Acute Assessment and plan: Continue with management of symptoms including agitation and pain. Discussed nutrition and hydration with Mr. Molina' son/POA yesterday. (2) Dyspnea Current Visit: Yes Status: Acute Assessment and plan: Morphine as needed for uncontrolled symptoms. Qualifiers: Dyspnea type: unspecified Qualified Code(s): R06.00 - Dyspnea, unspecified (3) Generalized pain Current Visit: Yes Status: Acute Assessment and plan: Mr. Molina has a history of arthritic pain for which he is treated with Lyrica and opioids on an outpatient basis. At this time, continue IV morphine 4mg every 2 hours as needed. He has required 4 doses in the past 24 hours for symptom management. (4) Therapeutic opioid-induced constipation (OIC) Current Visit: Yes Status: Acute Assessment and plan: Mr. Molina' last documented substantial BM was 03/14/17. He is receiving bisacodyl rectal suppositories daily and had an enema last night with poor results. Bowel sounds remain active, last KUB was on 03/16/17. Will continue with daily suppositories and enemas until adequate output is achieved. (5) CHF (congestive heart failure) Current Visit: No Status: Chronic Qualifiers: Congestive heart failure type: unspecified congestive heart failure type Congestive heart failure chronicity: chronic Qualified Code(s): I50.9 - Heart failure, unspecified (6) Atrial fibrillation with RVR Current Visit: Yes Status: Chronic (7) Acute respiratory failure with hypoxia Current Visit: Yes Status: Chronic (8) Goals of care, counseling/discussion Current Visit: Yes Status: Acute Assessment and plan: Current goal is comfort measures. Supportive measures for symptom management. Mr. Molina has a 30% service connected disability and receives outpatient care via the [facility]. Will explore options for [facility] transfer when available. patient services specialist will continue to follow. - Time Spent With Patient Total time spent is greater than 50% in coordination of care (as documented) at patient's floor/unit and/or counseling patient: - Subjective Interval history: Mr. Molina was transferred out of the ICU yesterday. He remains with eyes open, and occasional grunting, but no verbal response and does not follow commands. - Constitutional Vitals: Abnormal lab results WBC 13.0 K/mcL (4.3-11.1) H 03/22/17 03:55 RBC 3.01 M/mcL (4.19-5.50) L 03/22/17 03:55 Hgb 8.8 g/dL (12.9-16.9) L 03/22/17 03:55 Hct 27.2 % (37.5-50.1) L 03/22/17 03:55 Plt Count 444 K/mcL (140-400) H 03/22/17 03:55 Neutrophils # 9.4 K/mcL (1.6-8.9) H 03/22/17 03:55 Monocytes # 1.5 K/mcL (0.0-1.3) H 03/22/17 03:55 Nucleated RBCs/100 WBC 0.2 /100 WBC (0) H 03/22/17 03:55 PT 14.3 Seconds (9.4-12.1) H 03/16/17 13:40 APTT 61.0 Seconds (26.0-36.0) H 03/22/17 03:55 Heparin Anti-Xa, Unfract 0.88 IU/mL (0.30-0.70) H 03/18/17 23:49 ABG pH 7.47 pH Units (7.32-7.45) H 03/22/17 04:03 ABG pCO2 55 mmHg (35-45) H 03/22/17 04:03 ABG pO2 75 mmHg (85-104) L 03/22/17 04:03 ABG HCO3 40.0 mEQ/L (21-27) H 03/22/17 04:03 ABG Total CO2 41.7 mEq/L (20-26) H 03/22/17 04:03 ABG Base Excess 14.6 mEq/L (-2.0 to 3.0) H 03/22/17 04:03 Sodium 135 mEq/L (136-145) L 03/22/17 03:55 Chloride 96 mEq/L (98-109) L 03/22/17 03:55 Carbon Dioxide 32 mEq/L (19-29) H 03/22/17 03:55 BUN 28 mg/dL (8-26) H 03/22/17 03:55 BUN/Creatinine Ratio 27 (6-26) H 03/22/17 03:55 Glucose 196 mg/dL (70-99) H 03/22/17 03:55 POC Glucose 251 (58-89) H 03/22/17 11:39 Uric Acid 8.5 mg/dL (3.5-7.2) H 03/07/17 05:45 Ionized Calcium 1.05 mmol/L (1.15-1.35) L 03/22/17 03:55 AST 367 Units/L (5-34) H 03/07/17 05:45 ALT 334 Units/L (0-55) H 03/07/17 05:45 Alkaline Phosphatase 162 Units/L (38-126) H 03/07/17 05:45 Creatine Kinase 3139 Units/L (30-200) H 03/10/17 03:34 Serum Total Protein 5.9 g/dL (6.0-8.3) L 03/07/17 05:45 Albumin 3.0 g/dL (3.5-5.0) L 03/07/17 05:45 Albumin/Globulin Ratio 1.0 (1.1-2.2) L 03/07/17 05:45 Urine Clarity Turbid (Clear) A 03/08/17 15:00 Ur Specific [place] 1.030 (1.010-1.025) H 03/08/17 15:00 Urine Protein 100 mg/dL (Neg-Trace) H 03/08/17 15:00 Urine Blood Large (Negative) H 03/08/17 15:00 Urine Microscopic RBC TNTC per hpf (0-3) H 03/08/17 15:00 Urine Microscopic WBC 5-15 per hpf (0-3) H 03/08/17 15:00 Ur Squamous Epith Cells Many per lpf (None-Few) H 03/08/17 15:00 Ur Culture Indicated? YES (NO) A 03/08/17 15:00 Staphylococcus sp PCR DETECTED (Not Detect) A 03/07/17 05:45 mecA-Methicil Res Gene DETECTED (Not Detect) A 03/07/17 05:45 General appearance: Present: morbidly obese Exam: 71 year old male, opens eyes but non-verbal and does not follow commands. - Eye Eye exam: Present: EOMI (does not track) - ENT ENT exam: Present: mucous membranes dry - Respiratory Respiratory exam: Absent: accessory muscle use, rales, respiratory distress, rhonchi, wheezes, tachypnea - Cardiovascular Cardiovascular exam: Present: RRR, tachycardia - GI/Abdominal GI/Abdominal exam: Present: soft. Absent: tenderness - Extremities Exam Extremities exam: Present: pedal edema - Neurological Exam Neurological exam: Present: alert (eyes open, but does not follow commands or verbal response) - Psychiatric Psychiatric exam: Absent: agitated, anxious - Skin Skin exam: Present: dry, warm Palliative Quality Palliative Quality: Screen for Code Status: Yes, Screen for Goals of Care: Yes, Screen for Pain: Yes, If Pain Regimen Started, Initiate Bowel Regimen: Yes, Screen for Nausea/Vomitting: Yes Code Status: 03/22/17 15:34 DNR [Resuscitation Status: Active] [RES] Routine Comment: Resuscitation Status: DNR-Comfort Care - Labs CBC & Chem 7: 03/22/17 03:55 03/22/17 03:55 - ABG Interpretation ABG results: ABG ABG pH 7.47 pH Units (7.32-7.45) H 03/22/17 04:03 ABG pCO2 55 mmHg (35-45) H 03/22/17 04:03 ABG pO2 75 mmHg (85-104) L 03/22/17 04:03 ABG O2 Saturation 96 % (95-98) 03/22/17 04:03 PT/INR, D-dimer PT 14.3 Seconds (9.4-12.1) H 03/16/17 13:40 Consult Discharge Plan - Plan [facility]errals: [facility] [Primary Care Provider] -
--- NOTE | 2017-03-24 11:08 | Internal Med Progress Note ---
<Amisha Mcgregor - Last Filed: 03/24/17 11:44> Date of Encounter: 03/24/17 Time of Encounter: 10:45 - Assessment and plan (1) Acute respiratory failure with hypoxia Current Visit: Yes Status: Chronic Assessment and plan: - Patient was intubated in ED for securing airway and noted desaturation and admitted to ICU on 03/07/17 - Likely multifactorial including pneumonia, pulmonary edema in the setting of [id number] A-fib with RVR. - Patient was extubated on 03/15/17 but reintubated on 03/16/17 for persistent respiratory distress with high work of breathing. - Patient had received 8 days of appropriate IV antibiotics for MSSA pneumonia - After being intubated for more than 2 weeks, patient was still considered unsafe to extubate at that time given his encephalopathy and inability to control-clear airway. - After discussion with patient's family, patient was transitioned to comfort care and terminally extubated on 03/22/17. - Patient was transferred to the floor on 03/23/17 while waiting for further comfort care placement. - Continue prn morphine and supplemental oxygen for dyspnea. (2) Metabolic encephalopathy Current Visit: Yes Status: Acute Assessment and plan: - Patient is alert but not oriented nor answers any question this morning. (3) Atrial flutter with rapid ventricular response Current Visit: No Status: Acute (4) Diastolic CHF Current Visit: No Status: Acute Assessment and plan: - Echo on 03/07/17 showed LVEF 60-65%. Qualifiers: Congestive heart failure chronicity: chronic Qualified Code(s): I50.32 - Chronic diastolic (congestive) heart failure (5) Goals of care, counseling/discussion Current Visit: Yes Status: Acute Assessment and plan: - Current goal of care is comfort care after discussion with patient's family including his son & medical POA, Donnell. - Palliative care on board and appreciate assistance to ensure patient is comfortable. - Patient is known to have a 30% service [facility] disability with the [facility]. Appreciate social service assistance regarding placement/ - Subjective Interval history: Patient was seen and examined this morning. Patient rests comfortably in the bed. Patient's son Donnell at bedside wonders if we can give something for patient' s dry mouth. - Constitutional Vitals: Temp Pulse Resp BP Pulse Ox 98.7 F 140 14 180/95 89 03/24/17 07:50 03/24/17 07:50 03/24/17 07:50 03/24/17 07:50 03/24/17 07:50 General appearance: Present: A&O X 0 (Alert but does not anawer), no acute distress - Head Head exam: Present: atraumatic, normocephalic - Eye Eye exam: Present: conjuntiva pink, sclera anicteric - Neck Neck exam general surgery: Present: supple, trachea midline. Absent: lymphadenopathy - Respiratory Respiratory exam: Present: CTAB. Absent: accessory muscle use, rales, rhonchi, wheezes - Cardiovascular Cardiovascular exam: Present: irregular rhythm, +S1, +S2, tachycardia - GI/Abdominal GI/Abdominal exam: Present: normal bowel sounds, soft, no peritoneal signs. Absent: distended - Extremities Exam Extremities exam: Present: warm, radial pulses palpable and symetrical. Absent : calf tenderness, cyanotic - Neurological Exam Neurological exam: Absent: pronater drift, facial droop - Skin Skin exam: Present: dry, intact, warm Internal Medicine: Result - Labs CBC & Chem 7: 03/22/17 03:55 03/22/17 03:55 - ABG Interpretation ABG results: ABG ABG pH 7.47 pH Units (7.32-7.45) H 03/22/17 04:03 ABG pCO2 55 mmHg (35-45) H 03/22/17 04:03 ABG pO2 75 mmHg (85-104) L 03/22/17 04:03 ABG O2 Saturation 96 % (95-98) 03/22/17 04:03 PT/INR, D-dimer PT 14.3 Seconds (9.4-12.1) H 03/16/17 13:40 Consult Discharge Plan - Plan Referrals: [facility] [Primary Care Provider] - <Sukhdev Phipps H - Last Filed: 03/24/17 13:08> Date of Encounter: 03/24/17 - Constitutional Vitals: Temp Pulse Resp BP Pulse Ox 98.7 F 140 14 180/95 89 03/24/17 07:50 03/24/17 07:50 03/24/17 07:50 03/24/17 07:50 03/24/17 07:50 Internal Medicine: Result - Labs CBC & Chem 7: 03/22/17 03:55 03/22/17 03:55 - ABG Interpretation ABG results: ABG ABG pH 7.47 pH Units (7.32-7.45) H 03/22/17 04:03 ABG pCO2 55 mmHg (35-45) H 03/22/17 04:03 ABG pO2 75 mmHg (85-104) L 03/22/17 04:03 ABG O2 Saturation 96 % (95-98) 03/22/17 04:03 PT/INR, D-dimer PT 14.3 Seconds (9.4-12.1) H 03/16/17 13:40 - Attending Attestation Comfort Care May try to discharge in the morning to the [facility] I examined this patient and my medical decision-making was reviewed with the Resident Physician. I agree with the documented findings, disposition and treatment plan as described except to the extent set forth below.
[2017-03-24] MEDS ORDERED: *HR* Morphine 2 MG/ML SYRINGE ONE (13:15)
[2017-03-25] MEDS: *HR* Morphine 2 MG/ML SYRINGE IVP PRN ×7 (02:57→14:41)
[2017-03-25] MEDS: *HR* LORazepam 2 MG/ML VIAL IVP PRN ×5 (03:32→12:38)
[2017-03-25 09:10] VITALS: BP 153/75
[2017-03-25] MEDS: Bisacodyl 10 MG RECTAL SUPPOSITORY RC SCH (09:22)
[2017-03-25] MEDS ORDERED: *HR* FentaNYL PATCH 12 MCG PATCH TD SCH (09:30)
--- NOTE | 2017-03-25 09:39 | Palliative Progress Note ---
Date of Encounter: 03/25/17 Time of Encounter: 09:37 - Assessment and plan (1) Metabolic encephalopathy Current Visit: Yes Status: Acute Assessment and plan: Continue with management of symptoms including agitation and pain. Lorazepam 2mg IV every 2 hours as needed. He has received 7 doses in the past 24 hours. Will titrate as needed. (2) Dyspnea Current Visit: Yes Status: Acute Assessment and plan: Morphine as needed for uncontrolled symptoms. He has used a total of 10 doses in the past 24 hours. Severe respiratory distress (respiratory rate 60) noted this morning. Nurse at bedside to administer morphine and lorazepam. Will place Fentnayl patch for long acting opoid management as Mr. Molina is unable to take oral mediations. He is not opioid naive. His total OME in the past 24 hours = 120. Will titrate PRN dose as needed. Qualifiers: Dyspnea type: unspecified Qualified Code(s): R06.00 - Dyspnea, unspecified (3) Generalized pain Current Visit: Yes Status: Acute Assessment and plan: Mr. Molina has a history of arthritic pain for which he is treated with Lyrica and opioids on an outpatient basis. At this time, continue IV morphine 4mg every 2 hours as needed. He has required 10 doses in the past 24 hours for symptom management. Will add fentanyl patch for long acting opioid management. Total OME in the past 24 [id number]. (4) Therapeutic opioid-induced constipation (OIC) Current Visit: Yes Status: Acute Assessment and plan: Mr. Molina' last documented substantial BM was 03/14/17. He is receiving bisacodyl rectal suppositories daily and had an enema last night with poor results. Bowel sounds remain active, last KUB was on 03/16/17. Will continue with daily suppositories and enemas until adequate output is achieved. Hold enema this morning due to respiratory distress. (5) CHF (congestive heart failure) Current Visit: No Status: Chronic Qualifiers: Congestive heart failure type: unspecified congestive heart failure type Congestive heart failure chronicity: chronic Qualified Code(s): I50.9 - Heart failure, unspecified (6) Atrial fibrillation with RVR Current Visit: Yes Status: Chronic (7) Acute respiratory failure with hypoxia Current Visit: Yes Status: Chronic (8) Goals of care, counseling/discussion Current Visit: Yes Status: Acute Assessment and plan: Current goal is comfort measures. Supportive measures for symptom management. Mr. Molina has a 30% service connected disability and receives outpatient care via the [facility]. Will explore options for [facility] transfer when available. financial services representative will continue to follow. - Time Spent With Patient Total time spent is greater than 50% in coordination of care (as documented) at patient's floor/unit and/or counseling patient: - Subjective Interval history: Mr. Molina was transferred out of the ICU yesterday. He remains with eyes open, and occasional grunting, but no verbal response and does not follow commands. - Constitutional Vitals: Abnormal lab results WBC 13.0 K/mcL (4.3-11.1) H 03/22/17 03:55 RBC 3.01 M/mcL (4.19-5.50) L 03/22/17 03:55 Hgb 8.8 g/dL (12.9-16.9) L 03/22/17 03:55 Hct 27.2 % (37.5-50.1) L 03/22/17 03:55 Plt Count 444 K/mcL (140-400) H 03/22/17 03:55 Neutrophils # 9.4 K/mcL (1.6-8.9) H 03/22/17 03:55 Monocytes # 1.5 K/mcL (0.0-1.3) H 03/22/17 03:55 Nucleated RBCs/100 WBC 0.2 /100 WBC (0) H 03/22/17 03:55 PT 14.3 Seconds (9.4-12.1) H 03/16/17 13:40 APTT 61.0 Seconds (26.0-36.0) H 03/22/17 03:55 Heparin Anti-Xa, Unfract 0.88 IU/mL (0.30-0.70) H 03/18/17 23:49 ABG pH 7.47 pH Units (7.32-7.45) H 03/22/17 04:03 ABG pCO2 55 mmHg (35-45) H 03/22/17 04:03 ABG pO2 75 mmHg (85-104) L 03/22/17 04:03 ABG HCO3 40.0 mEQ/L (21-27) H 03/22/17 04:03 ABG Total CO2 41.7 mEq/L (20-26) H 03/22/17 04:03 ABG Base Excess 14.6 mEq/L (-2.0 to 3.0) H 03/22/17 04:03 Sodium 135 mEq/L (136-145) L 03/22/17 03:55 Chloride 96 mEq/L (98-109) L 03/22/17 03:55 Carbon Dioxide 32 mEq/L (19-29) H 03/22/17 03:55 BUN 28 mg/dL (8-26) H 03/22/17 03:55 BUN/Creatinine Ratio 27 (6-26) H 03/22/17 03:55 Glucose 196 mg/dL (70-99) H 03/22/17 03:55 POC Glucose 251 (58-89) H 03/22/17 11:39 Uric Acid 8.5 mg/dL (3.5-7.2) H 03/07/17 05:45 Ionized Calcium 1.05 mmol/L (1.15-1.35) L 03/22/17 03:55 AST 367 Units/L (5-34) H 03/07/17 05:45 ALT 334 Units/L (0-55) H 03/07/17 05:45 Alkaline Phosphatase 162 Units/L (38-126) H 03/07/17 05:45 Creatine Kinase 3139 Units/L (30-200) H 03/10/17 03:34 Serum Total Protein 5.9 g/dL (6.0-8.3) L 03/07/17 05:45 Albumin 3.0 g/dL (3.5-5.0) L 03/07/17 05:45 Albumin/Globulin Ratio 1.0 (1.1-2.2) L 03/07/17 05:45 Urine Clarity Turbid (Clear) A 03/08/17 15:00 Ur Specific [place] 1.030 (1.010-1.025) H 03/08/17 15:00 Urine Protein 100 mg/dL (Neg-Trace) H 03/08/17 15:00 Urine Blood Large (Negative) H 03/08/17 15:00 Urine Microscopic RBC TNTC per hpf (0-3) H 03/08/17 15:00 Urine Microscopic WBC 5-15 per hpf (0-3) H 03/08/17 15:00 Ur Squamous Epith Cells Many per lpf (None-Few) H 03/08/17 15:00 Ur Culture Indicated? YES (NO) A 03/08/17 15:00 Staphylococcus sp PCR DETECTED (Not Detect) A 03/07/17 05:45 mecA-Methicil Res Gene DETECTED (Not Detect) A 03/07/17 05:45 General appearance: Present: severe distress. Absent: cooperative Exam: 71 year old male appearing in distress. He is encephalopathic, non-verbal, does not follow commands, in respiratory distress with a respiratory rate of 60. - Eye Additional comments: eyes open and reactive to light, does not track. - Respiratory Respiratory exam: Present: accessory muscle use, decreased breath sounds, respiratory distress, tachypnea Additional comments: respiratory rate 60, rapid shallow breaths with poor air exchange - Cardiovascular Cardiovascular exam: Present: tachycardia Additional comments: apical irregular and tachycardic - GI/Abdominal GI/Abdominal exam: Present: hypoactive bowel sounds Additional comments: abdominal breathing due to respiratory distress. - Extremities Exam Extremities exam: Present: pedal edema - Neurological Exam Additional comments: eyes open, but does not track; does not follow commands; non-verbal - Psychiatric Psychiatric exam: Present: agitated - Skin Skin exam: Present: dry, warm Palliative Quality Palliative Quality: Screen for Code Status: Yes, Screen for Goals of Care: Yes, Screen for Pain: Yes, If Pain Regimen Started, Initiate Bowel Regimen: Yes, Screen for Nausea/Vomitting: Yes Code Status: 03/22/17 15:34 DNR [Resuscitation Status: Active] [RES] Routine Comment: Resuscitation Status: DNR-Comfort Care - Labs CBC & Chem 7: 03/22/17 03:55 03/22/17 03:55 - ABG Interpretation ABG results: ABG ABG pH 7.47 pH Units (7.32-7.45) H 03/22/17 04:03 ABG pCO2 55 mmHg (35-45) H 03/22/17 04:03 ABG pO2 75 mmHg (85-104) L 03/22/17 04:03 ABG O2 Saturation 96 % (95-98) 03/22/17 04:03 PT/INR, D-dimer PT 14.3 Seconds (9.4-12.1) H 03/16/17 13:40 Consult Discharge Plan - Plan [facility]errals: [facility] [Primary Care Provider] -
--- NOTE | 2017-03-25 10:37 | Discharge Summary ---
<Amisha Mcgregor - Last Filed: 03/25/17 13:07> Date of Encounter: 03/25/17 Time of Encounter: 09:00 - Discharge Diagnosis (1) Acute respiratory failure with hypoxia Priority: Primary Status: Chronic (2) Metabolic encephalopathy Priority: Primary Status: Acute (3) Atrial flutter with rapid ventricular response Priority: Secondary Status: Acute (4) Diastolic CHF Priority: Secondary Status: Acute Qualifiers: Congestive heart failure chronicity: chronic Qualified Code(s): I50.32 - Chronic diastolic (congestive) heart failure (5) Goals of care, counseling/discussion Priority: Secondary Status: Acute - Discharge Medications Home Medications: Albuterol Sulfate [Albuterol Inhaler] 2 puff IH QID PRN 02/13/17 [History] Aspirin Enteric Coated [Aspirin EC] 81 mg PO DAILY 02/13/17 [History] Fluticasone Propionate Nasal [Flonase] 1 spray NS BID 02/13/17 [History] Polyvinyl Alcohol [Artificial Tears] 1 drop BOTH EYES AD PRN 02/13/17 [History] Saliva Substitute Combo No.3 [Aquoral] 3 - 5 spray MM BID 02/13/17 [History] Sodium Chloride [Mina-128] 1 drop BOTH EYES QID 02/13/17 [History] Docusate [Colace] 100 mg PO BID PRN #60 capsule 02/18/17 [Rx] Sennosides/Docusate Sodium [Senna Plus] 2 each PO BID PRN #60 tablet 02/18/17 [ Rx] Albuterol Neb [Proventil Neb] 2.5 mg IH Q4H PRN 02/19/17 [History] Ipratropium/Albuterol Neb [Duoneb] 3 ml IH ONCE PRN 02/19/17 [History] Bisacodyl [Dulcolax] 10 mg RC DAILY 03/25/17 [Rx] FentaNYL PATCH [Duragesic] 12 mcg TD Q72H 03/25/17 [Rx] Haloperidol Lactate [Haldol] 5 mg IVP Q4HR PRN vial 03/25/17 [Rx] LORazepam [Ativan] 2 mg IVP Q1H PRN vial 03/25/17 [Rx] Morphine [Morphine Sulfate] 4 mg IVP Q1H PRN 03/25/17 [Rx] Allergies/Adverse Reactions: Allergies codeine Allergy (Verified 02/13/17 16:16) Anaphylaxis Date of admission: 03/07/17 04:10 Primary care physician: PCP SHAHNAZ Consults: 03/14/17 08:00 Consult to Electrophysiology (EP) [CONS] Routine Consulting Provider: Electrophysiology Ana Reason for Consult: a.flutter with RVR Call Completed: Yes 03/23/17 07:06 Consult to Palliative Care [CONS] Routine Comment: Consulting Provider: Palliative Care Aan Reason for Consult: Terminal extubation Call Completed: Yes Discharging clinician: Amisha Mcgregor Anticipated date of discharge: 03/25/17 - Patient Status Disposition: Transfer [facility] Condition: Serious Functional capacity at discharge: bed bound Overall status at discharge: patient is not back to baseline - Discharge Instructions Follow Up With: [facility] [Primary Care Provider] - Hospital course: Mr. Molina is a 71 year old male with history of HTN, DM, diastolic CHF and atrial fib/flutter on Xarelto. Patient presented with generalized weakness and shortness of breath. Patient was noted to have atrial flutter with slow ventricular response. Patient was intubated in ED for securing airway and noted desaturation and admitted to ICU on 03/07/17 for acute respiratory failure with hypoxia. Cardiology was consulted for atrial flutter. Nephrology was consulted for hyperkalemia requiring CVVHDF which was later discontinued after hyperkalemia resolved. Patient's hypoxic respiratory failure is likely multifactorial including pneumonia and pulmonary edema in the setting of [id number] A-flutter. Patient was extubated on 03/15/17 but reintubated on 03/16/17 for persistent respiratory distress with high work of breathing. Patient received 8 days of appropriate IV antibiotics for MSSA pneumonia. After being intubated for more than 2 weeks, patient was still considered unsafe to extubate at that time given his encephalopathy and inability to control-clear airway. Palliative care was consulted. After discussion with patient's family including his son & medical POA, Donnell, patient' s goal of care was changed to comfort care and patient was terminally extubated on 03/22/17. and subsequently transferred out of ICU on 03/23/17. Patient is alert but not oriented. Patient is currently on Fentanyl patch, prn morphine, prn Haldol and prn Ativan. Patient's son and medical POA Donnell agreed with the plan to continue further comfort care at [facility]. Patient will be discharged to [facility] once it's arranged. - Time Spent with Patient Total time spent providing and/or coordinating discharge services: Greater than 30 minutes (45 minutes) - Constitutional Vitals: Temp Pulse Resp BP Pulse Ox 98.0 F 120 50 153/75 87 03/25/17 09:08 03/25/17 09:08 03/25/17 09:08 03/25/17 09:08 03/25/17 09:08 General appearance: Present: A&O X 0 (Alert but not oriented.), mild distress - Head Head exam: Present: atraumatic, normocephalic - Eye Eye exam: Present: conjuntiva pink, sclera anicteric - Neck Neck exam general surgery: Present: supple, trachea midline - Respiratory Respiratory exam: Present: CTAB (Course breath sounds). Absent: accessory muscle use, rales, rhonchi, wheezes - Cardiovascular Cardiovascular exam: Present: irregular rhythm, +S1, +S2, tachycardia. Absent: diastolic murmur, gallop, rubs, systolic murmur - GI/Abdominal GI/Abdominal exam: Present: soft, no peritoneal signs. Absent: distended - Extremities Exam Extremities exam: Present: pedal edema, radial pulses palpable and symetrical. Absent: calf tenderness, cyanotic - Skin Skin exam: Present: dry, intact <Sukhdev Phipps - Last Filed: 03/25/17 15:08> Date of Encounter: 03/25/17 Date of admission: 03/07/17 04:10 Primary care physician: PCP [facility] Consults: 03/14/17 08:00 Consult to Electrophysiology (EP) [CONS] Routine Consulting Provider: Electrophysiology Isaban Reason for Consult: a.flutter with RVR Call Completed: Yes 03/23/17 07:06 Consult to Palliative Care [CONS] Routine Comment: Consulting Provider: Palliative Care Isaban Reason for Consult: Terminal extubation Call Completed: Yes Hospital course: Mr. Molina is a 71 year old male - Time Spent with Patient Total time spent providing and/or coordinating discharge services: - Constitutional Vitals: Temp Pulse Resp BP Pulse Ox 98.0 F 120 12 153/75 87 03/25/17 09:08 03/25/17 09:08 03/25/17 13:38 03/25/17 09:08 03/25/17 13:38 - Attending Attestation Comfort Care only, currently on Dilaudid drip Very poor prognosis I examined this patient and my medical decision-making was reviewed with the Resident Physician. I agree with the documented findings, disposition and treatment plan as described except to the extent set forth below.
[2017-03-25] MEDS ORDERED: Morphine 50 MG in D5% in Water 45 ML IVC SCH (11:00)
[2017-03-25] MEDS ORDERED: *HR* Morphine 2 MG/ML SYRINGE IVP ONE (11:27)
[2017-03-25] MEDS ORDERED: *HR* HYDROmorphone 2 MG/ML SYRINGE IVP ONE (12:43)
[2017-03-25] MEDS ORDERED: Ipratropium/Albuterol Neb 3 ML IH PRN (13:14)
[2017-03-25] MEDS ORDERED: *HR* HYDROmorphone 20 MG/20 ML PCA IVC SCH ×2 (13:30→15:11)
--- NOTE | 2017-03-25 15:21 | Death Note ---
<Amisha Mcgregor - Last Filed: 03/25/17 15:19> Pronouncement Note - Date and Time of Date of : 03/25/17 Time of : 15:14 - PCOD Preliminary cause of : Cardiorespiratory arrest - Summary Additional details: Mr. Molina is a 71 year old male with history of HTN, DM, diastolic CHF and atrial fib/flutter on Xarelto. Patient presented with generalized weakness and shortness of breath. Patient was noted to have atrial flutter with slow ventricular response. Patient was intubated in ED for securing airway and noted desaturation and admitted to ICU on 03/07/17 for acute respiratory failure with hypoxia. Cardiology was consulted for atrial flutter. Nephrology was consulted for hyperkalemia requiring CVVHDF which was later discontinued after hyperkalemia resolved. Patient's hypoxic respiratory failure is likely multifactorial including pneumonia and pulmonary edema in the setting of [id number] A-flutter. Patient was extubated on 03/15/17 but reintubated on 03/16/17 for persistent respiratory distress with high work of breathing. Patient received 8 days of appropriate IV antibiotics for MSSA pneumonia. After being intubated for more than 2 weeks, patient was still considered unsafe to extubate at that time given his encephalopathy and inability to control-clear airway. Palliative care was consulted. After discussion with patient's family including his son & medical POA, Donnell, patient' s goal of care was changed to comfort care. Patient was terminally extubated on 03/22/17 and subsequently transferred out of ICU on 03/23/17. Patient was started on comfort care medications including narcotic, prn Haldol and prn Ativan. Before possible transfer to [place] for further comfort care/hospice, patient at 15:14 on 03/25/17, most likely secondary to cardiorespiratory arrest in the setting of acute on chronic respiratory failure, metabolic encephalopathy and atrial flutter. - Additional Data Confirmation of : no pulse, no respirations, no heart sounds, pupils fixed and dilated Family: attempt made Attending/PCP notified?: Yes Attending physician: Sukhdev Phipps Was code activated?: No <Sukhdev Phipps H - Last Filed: 03/27/17 11:54> Pronouncement Note - Summary Additional details: Cause of : Acute hypoxic hypercapnic respiratory failure secondary to MSSA pneumonia - Additional Data Attending physician: Quentin Wallace
== END 2017-03-25 17:22 | disposition expired | DRG 870 ==
LOC: EMEROO 00:50 → ICNU 04:10 → 2ANU 03-23 11:39
PROVIDERS: ADMIT Internal Medicine Endocrinology, Diabetes & Metabolism; ATTEND Family Medicine